=== PATIENT | male | born 1930 | race Caucasian/White ===

== ENCOUNTER 2018-10-27 11:45 | Inpatient (IN) | payer MEDICARE ==
[~2018-10-27] VITALS: Ht 177.8 cm; Wt 69.5 kg
[~2018-10-27 11:45] MED LIST: ACETAMINOPHEN650 MG PO; ALBUTEROL0.63 MG/3 INH; AMBIEN5 MG PO; ASPIR 8181 MG PO; ATORVASTATIN CA10 MG PO; BENZONATATE100 MG PO; CEFEPIME-D1 GM/50 ML IVP; CLONIDINE HCL0.1 MG PO; COLACE100 MG PO; DEXTROSE 50%-WA50 ML IV; DIVALPROEX SOD250 MG PO; FERROUS SULFAT325 M1; FERROUS SULFAT325 MG PO; FOLIC ACID1 MG PO; HALDOL5 MG/1 ML IM; HYDROCORTISONE30 GM TOP; HYDROMORPHO1 MG/1 ML IV; IPRATROPIU0.2 MG/1 M INH; LISINOPRIL10 MG PO; LOVENOX60 MG/0.6 SC; LYRICA75 MG PO; METOPROLOL TART50 MG PO; MUCINEX DM ER1 EACH PO; MULTI-VITAMIN1 EACH PO; NAMENDA10 MG PO; NIFEDICAL XL30 MG PO; NORCO 5-325 TA1 EACH PO; NOVOLOG100 UNIT/1; NYSTATIN15 G2 TP; ONDANSETRON2 MG/1 ML IV; PANTOPRAZOLE SO40 MG IV; PHENOL PO; QUETIAPINE FUMA25 MG PO; SENNA LAX8.6 MG PO; SODIUM BICARBO650 MG PO; VANCOMYCIN1 GM/250 M IV
--- OUTSIDE RECORDS SUMMARY | 2018-10-27 11:51 | XMS REPORT | Continuity of Care Document ---
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 Active 12/25/2013 [facility] ABNORMAL LABS Active 12/07/2013 [facility] 723.4=ACUTE CERVICAL RADICULOPATHY Active 12/05/2013 [facility] SYMPTOMATIC ANEMIA, GI BLEED Active 11/12/[address] [facility] [address] SENT Active 11/12/2013 [facility] 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 10/03/2013 [facility] UTI,RENAL INSUFFICIENCY,URIMARY RETENTIO Active 06/11/2012 [facility] URINARY SYMPTOMS Active 06/11/2012 [facility] Heart disease Active 04/19/2010 Problem 08/23/2016 [facility] Poor peripheral circulation Active 04/19/2010 Problem 08/23/2016 [facility] Heart disease Resolved 04/19/2010 Problem 06/16/2012 [facility] Poor peripheral circulation Resolved 04/19/2010 Problem 06/16/2012 [facility] TIA Active 04/19/2008 Problem 08/23/2016 [facility] TIA Resolved 04/19/2008 Problem 06/16/2012 [facility] Back pain Active 04/19/2005 Problem 08/23/2016 [facility] Back pain Resolved 04/19/2005 Problem 06/16/2012 [facility] Heartburn Active 04/19/2002 Problem 08/23/2016 [facility] Heartburn Resolved 04/19/2002 Problem 06/16/2012 [facility] CA - Cancer of prostate Active 04/19/1998 Problem 08/23/2016 [facility] RF - Renal failure Active 04/19/1998 Problem 08/23/2016 [facility] UTI - Urinary tract infection Active 04/19/1998 Problem 08/23/2016 [facility] CA - Cancer of prostate Resolved 04/19/1998 Problem 06/16/2012 [facility] RF - Renal failure Resolved 04/19/1998 Problem 06/16/2012 [facility] UTI - Urinary tract infection Resolved 04/19/1998 Problem 06/16/2012 [facility] Hypertension Active 12/18/1990 Problem 08/23/2016 [facility] Hypertension Resolved 12/18/1990 Problem 06/16/2012 [facility] BPH - Benign prostatic hypertrophy Active 04/19/1982 Problem 08/23/2016 [facility] BPH - Benign prostatic hypertrophy Resolved 04/19/1982 Problem 06/16/2012 [facility] Cataract Active 04/19/1975 Problem 08/23/2016 [facility] Hyperlipidemia Active 04/19/1975 Problem 08/23/2016 [facility] Cataract Resolved 04/19/1975 Problem 06/16/2012 [facility] Hyperlipidemia Resolved 04/19/1975 Problem 06/16/2012 [facility] Anemia Active 04/19/1972 Problem 08/23/2016 [facility] Diabetes mellitus - adult onset Resolved 04/19/1972 Problem 08/23/2016 [facility] Anemia Resolved 04/19/1972 Problem 06/16/2012 [facility] Diabetes mellitus - adult onset Resolved 04/19/1972 Problem 06/16/2012 [facility] Neck pain Active 04/19/1971 Problem 08/23/2016 [facility] Neck pain Resolved 04/19/1971 Problem 06/16/2012 [facility] Sinusitis Resolved 05/16/1932 Problem 08/23/2016 [facility] Sinusitis Resolved 05/16/1932 Problem 06/16/2012 [facility] Bladder cancer Active Problem 08/23/2016 [facility] Diabetes Active Problem 08/23/2016 [facility] Hypercholesteremia Active Problem 08/23/2016 [facility] URIN TRACT INFECTION NOS Active [facility] TRANS CEREB ISCHEMIA NOS Active [facility] GASTROINTEST HEMORR NOS Active [facility] BRACHIAL NEURITIS NOS Active [facility] SEPTICEMIA NOS Active [facility] SHORTNESS OF BREATH Active [facility] Medications Medication Details Route Status Patient Instructions Ordering Provider Order Date Source Fentanyl 50 microgram, Route: IV, Q2H, Dosing Weight 80.909, kg, PRN Pain Score 4-6, Start date: 08/20/16 9:29:00 CDT, Stop date: 09/19/16 9:28:00 CDT Inactive 08/20/2016 [facility] Nitroglycerin 0.4 mg, Route: SL, Drug form: TAB, Q5Min, Dosing Weight 80.909, kg, PRN Chest Pain, Start date: 08/20/16 9:13:00 CDT, Duration: 3 doses or times, Stop date: Limited # of times Inactive 08/20/2016 [facility] Sodium Chloride 0.154 MEQ/ML Injectable Solution 750 mL, Rate: 75 ml/hr, Infuse over: 10 hr, Route: IV, Dosing Weight 80.909 kg, Total Volume: 750, Start date: 08/20/16 9:13:00 CDT, Duration: 10 hr, Stop date: 08/20/16 19:12:00 CDT Inactive 08/20/2016 [facility] Morphine 4 mg, 1 mL, Route: IVP, Drug form: SOLN, Q2H, Dosing Weight 80.909, kg, PRN Other -See Comment, Start date: 08/20/16 8:22:00 CDT, Duration: 30 day, Stop date: 09/19/16 8:21:00 CDTNotes: (Same as:MORPhine Sulfate) Inactive 08/20/2016 [facility] ferrous fumarate 325 mg oral tablet 325 mg=1 tab, PO, BID, with meals, 0 Refill(s) Active 08/20/2016 [facility] multivitamin 1 tab, PO, Daily, 0 Refill(s) Active 08/20/2016 [facility] atorvastatin 10 mg oral tablet 10 mg=1 tab, PO, Bedtime, # 30 tab, 0 Refill(s) Active 08/20/2016 [facility] Vancomycin 1 gm, IVP, Q48H, 0 Refill(s) Active 08/20/2016 [facility] Insulin, Aspart, Human SUB-Q, TID-Before Meals, 0 Refill(s) Active 08/20/2016 [facility] Hydromorphone 0.5 mg, IVP, Q3H, prn, 0 Refill(s) Active 08/20/2016 [facility] cefepime 1 g injection 1 gm, IV, Q8H, 0 Refill(s) Active 08/20/2016 [facility] Docusate Sodium 100 MG Oral Capsule 100 mg=1 cap, PO, Daily, PRN Constipation, # 20 cap, 0 Refill(s) Active 08/20/2016 [facility] Divalproex Sodium 125 MG Enteric Coated Tablet 125 mg=1 tab, PO, Q12H, 0 Refill(s) Active 08/20/2016 [facility] metoprolol tartrate 50 mg oral tablet 50 mg=1 tab, PO, BID, # 180 tab, 0 Refill(s) Active 08/20/2016 [facility] quetiapine 25 MG Oral Tablet [Seroquel] 25 mg=1 tab, PO, Q8H, prn, 0 Refill(s) Active 08/20/2016 [facility] Magnesium Sulfate 2 gm, IV, ONCE, 0 Refill(s) Active 08/20/2016 [facility] 0.3 ML Enoxaparin sodium 100 MG/ML Prefilled Syringe [Lovenox] 30 mg, SUB-Q, Daily, 0 Refill(s) Active 08/20/2016 [facility] 24 HR Nifedipine 30 MG Extended Release Tablet [Nifedical] 30 mg=1 tab, PO, Daily, # 30 tab, 0 Refill(s) Active 08/20/2016 [facility] memantine 5 mg oral tablet 5 mg=1 tab, PO, Daily, # 30 tab, 0 Refill(s) Active 08/20/2016 [facility] Acetaminophen 325 MG / Hydrocodone Bitartrate 5 MG Oral Tablet 1 tab, PO, Q4H, PRN Pain, # 30 tab, 0 Refill(s) Active 08/20/2016 [facility] Senna 8.6 mg oral tablet 8.6 mg=1 tab, PO, Daily, 0 Refill(s) Active 08/20/2016 [facility] Albuterol 0.833 MG/ML / Ipratropium Ackerly 0.167 MG/ML Inhalant Solution 3 mL, NEB, Q4H, prn, 0 Refill(s) Active 08/20/2016 [facility] pantoprazole 40 mg oral enteric coated tablet See Instructions, 40mg IVP Daily, 0 Refill(s) Inactive 08/20/2016 [facility] dexamethasone + Sodium Chloride 0.9% IV 50 mL 10 mg, 2.5 mL, Route: IVPB, Drug form: INJ, ONCALL, Start date: 03/13/14 9:00:00, Duration: 12 hr, Stop date: 03/13/14 20:59:00Notes: Concentration: 4mg/ml PROTECT FROM LIGHT No Longer Active 03/13/2014 [facility] DexFerrum + Sodium Chloride 0.9% IV 500 mL 800 mg, 16 mL, Route: IVPB, Drug form: INJ, ONCALL, Start date: 03/13/14 9:00:00, Duration: 12 hr, Stop date: 03/13/14 20:59:00Notes: (Same as:DexFerrum) Non-Formulary pt already received test dose at prior appointment PROTECT FROM LIGHT No Longer Active 03/13/2014 [facility] Sodium Chloride 0.9% IV IV, 30 ml/hr, ONCALL, Start date: 03/13/14 9:00:00, Duration: 12, 250 ml No Longer Active 03/13/2014 [facility] Pepcid 20 mg, 2 mL, Route: IVP, Drug form: INJ, ONCALL, Start date: 03/13/14 9:00:00, Duration: 12 hr, Stop date: 03/13/14 20:59:00Notes: (Same as: Pepcid) Can be dilute in 5-10cc NS IVP: Slow IV push over at least 2 minutes. No Longer Active 03/13/2014 [facility] Benadryl 25 mg, 0.5 mL, Route: IVP, Drug form: INJ, ONCALL, Start date: 03/13/14 9:00:00, Duration: 12 hr, Stop date: 03/13/14 20:59:00Notes: (Same as: Benadryl) No Longer Active 03/13/2014 [facility] Benadryl 25 mg, 0.5 mL, Route: IVP, Drug form: INJ, ONCALL, Start date: 03/07/14 8:30:00, Duration: 1 day, Stop date: 03/08/14 8:29:00Notes: (Same as: Benadryl) Inactive 03/07/2014 [facility] DexFerrum + Sodium Chloride 0.9% IV 500 mL 775 mg, 15.5 mL, Route: IVPB, Drug form: INJ, ONCALL, Start date: 03/07/14 8:30:00, Duration: 1 day, Stop date: 03/08/14 8:29:00Notes: (Same as:DexFerrum) Non- Formulary Inactive 03/07/2014 [facility] Sodium Chloride 0.9% IV IV, 30 ml/hr, ONCALL, Start date: 03/07/14 8:30:00, Duration: 1, 250 ml Inactive 03/07/2014 [facility] Pepcid 20 mg, 2 mL, Route: IVP, Drug form: INJ, ONCALL, Start date: 03/07/14 8:30:00, Duration: 1 day, Stop date: 03/08/14 8:29:00Notes: (Same as: Pepcid) Can be dilute in 5-10cc NS IVP: Slow IV push over at least 2 minutes. Inactive 03/07/2014 [facility] dexamethasone + Sodium Chloride 0.9% IV 50 mL 10 mg, 2.5 mL, Route: IVPB, Drug form: INJ, ONCALL, Start date: 03/07/14 8:30:00, Duration: 1 day, Stop date: 03/08/14 8:29:00Notes: Concentration: 4mg/ml Inactive 03/07/2014 [facility] DexFerrum + Sodium Chloride 0.9% IV 50 mL 25 mg, 0.5 mL, Route: IVPB, Drug form: INJ, ONCALL, Start date: 03/07/14 8:30:00, Duration: 1 day, Stop date: 03/08/14 8:29:00Notes: (Same as:DexFerrum) Non-Formulary Inactive 03/07/2014 [facility] Aspirin 81 MG Enteric Coated Tablet 81 mg=1 tab, PO, Daily, # 100 tab, 0 Refill(s) Active 12/28/2013 [facility] Amoxicillin 875 MG / Clavulanate 125 MG Oral Tablet [Augmentin 875-mg] 875 mg=1 tab, PO, Q12H, # 14 tab, 0 Refill(s) Active 12/28/2013 [facility] Rocephin 1 gm, Route: IM, Drug form: PDR/INJ, Q12H, Dosing Weight 81.2, kg, Start date: 12/27/13 21:00:00, Duration: 30 day, Stop date: 01/26/14 9:00:00Notes: (Same As: Rocephin). No Longer Active 12/28/2013 [facility] Enoxaparin 40 mg, 0.4 mL, Route: SUB-Q, Drug form: INJ, [id number], Dosing Weight 83.636, kg, Start date: 12/27/13 10:00:00, Duration: 30 day, Stop date: 01/25/14 10:00:00Notes: (Same as: Lovenox) No Longer Active 12/27/2013 [facility] Warfarin 5 mg, 1 tab, Route: PO, Drug form: TAB, QAM, Dosing Weight 81.2, kg, Start date: 12/27/13 9:00:00, Duration: 30 day, Stop date: 01/25/14 9:00:00Notes: Nurse to ensure documentation of patient education per anticoagulation policy. Avoid large intake of vitamin-K containing foods diet. (Same As: Coumadin) Inactive 12/27/2013 [facility] Omeprazole 40 mg, Route: PO, Drug form: DRC, Daily, Dosing Weight 81.2, kg, Start date: 12/27/13 9:00:00, Duration: 30 day, Stop date: 01/25/14 9:00:00 No Longer Active 12/27/2013 [facility] metoprolol tartrate 25 mg, 1 tab, Route: PO, Drug form: TAB, QAM, Dosing Weight 81.2, kg, Start date: 12/27/13 9:00:00, Duration: 30 day, Stop date: 01/25/14 9:00:00Notes: (Same as: Lopressor) No Longer Active 12/27/2013 [facility] Lisinopril 10 mg, Route: PO, Drug form: TAB, QAM, Dosing Weight 81.2, kg, Start date: 12/27/13 9:00:00, Duration: 30 day, Stop date: 01/25/14 9:00:00 No Longer Active 12/27/2013 [facility] Folic Acid 1 mg, 1 tab, Route: PO, Drug form: TAB, QAM, Dosing Weight 81.2, kg, Start date: 12/27/13 9:00:00, Duration: 30 day, Stop date: 01/25/14 9:00:00Notes: (Same as: Folvite) No Longer Active 12/27/2013 [facility] Celexa 40 mg, 2 tab, Route: PO, Drug form: TAB, Daily, Dosing Weight 81.2, kg, Start date: 12/27/13 9:00:00, Duration: 30 day, Stop date: 01/25/14 9:00:00Notes: (Same As: CeleXA) No Longer Active 12/27/2013 [facility] Aspirin 325 MG Enteric Coated Tablet 325 mg, 1 tab, Route: PO, Drug form: ECTAB, Daily, Dosing Weight 81.2, kg, Start date: 12/27/13 9:00:00, Duration: 30 day, Stop date: 01/25/14 9:00:00 No Longer Active 12/27/2013 [facility] Aspirin 81 MG Enteric Coated Tablet 81 mg, 1 tab, Route: PO, Drug form: ECTAB, Daily, Dosing Weight 81.2, kg, Start date: 12/27/13 9:00:00, Duration: 30 day, Stop date: 01/25/14 9:00:00Notes: Do not crush or chew. (Same As: Ecotrin) No Longer Active 12/27/2013 [facility] clopidogrel 75 mg, 1 tab, Route: PO, Drug form: TAB, Bedtime, Dosing Weight 81.2, kg, Start date: 12/26/13 21:00:00, Duration: 30 day, Stop date: 01/24/14 21:00:00Notes: (Same As: Plavix) No Longer Active 12/27/2013 [facility] Protonix 40 mg, 1 tab, Route: PO, Drug form: ECTAB, Before Dinner, Start date: 12/26/13 16:30:00, Duration: 30 day, Stop date: 01/24/14 16:30:00Notes: Tablet should not be chewed or crushed. (Same as: Protonix) No Longer Active 12/26/2013 [facility] Lyrica 150 mg, 2 cap, Route: PO, Drug form: CAP, TID, Dosing Weight 81.2, kg, Start date: 12/26/13 13:00:00, Duration: 30 day, Stop date: 01/25/14 9:00:00Notes: (Same as: Lyrica) No Longer Active 12/26/2013 [facility] Enoxaparin 80 mg, 0.8 mL, Route: SUB-Q, Drug form: INJ, [id number], Dosing Weight 83.636, kg, Start date: 12/26/13 10:00:00, Duration: 30 day, Stop date: 01/24/14 10:00:00Notes: Nurse to ensure documentation of patient education per anticoagulation policy. (Same as: Lovenox) No Longer Active 12/26/2013 [facility] Lasix 20 mg, 2 mL, Route: IVP, Drug form: INJ, ONCE, Dosing Weight 81.2, kg, Priority: STAT, Start date: 12/26/13 9:36:00, Stop date: 12/26/13 9:36:00Notes: (Same as: Lasix) Inactive 12/26/2013 [facility] Insulin, Aspart, Human 6 unit, 0.06 mL, Route: SUB-Q, Drug form: SOLN, TID-Before Meals, Dosing Weight 81.2, kg, PRN Blood Glucose Results, Start date: 12/26/13 9:35:00, Duration: 30 day, Stop date: 01/25/14 9:34:00Notes: Roll in palms of hands gently; Do not shake vigorously. (Same as: NovoLOG) "single patient use only" Stable for 28 days at room temperature. Expires in days from Date No Longer Active 12/26/2013 [facility] Dextrose 50% Syringe 25 gm, 50 mL, Route: IVP, Drug Form: INJ, Dosing Weight 81.2, kg, PRN, PRN Blood Glucose Results, Start date: 12/26/13 9:35:00, Duration: 30 day, Stop date: 01/25/14 9:34:00 No Longer Active 12/26/2013 [facility] Glucagon 1 mg, Route: IM, Drug form: PDR/INJ, PRN, Dosing Weight 81.2, kg, PRN Blood Glucose Results, Start date: 12/26/13 9:35:00, Duration: 30 day, Stop date: 01/25/14 9:34:00 No Longer Active 12/26/2013 [facility] 1/2 NS 1,000 mL 1,000 mL, Rate: 75 ml/hr, Infuse over: 13.3 hr, Route: IV, Dosing Weight 81.2 kg, Total Volume: 1,000, Start date: 12/26/13 9:34:00, Duration: 1 day, Stop date: 12/27/13 9:33:00 No Longer Active 12/26/2013 [facility] D5W 1/2NS 1,000 mL 1,000 mL, Rate: 75 ml/hr, Infuse over: 13.3 hr, Route: IV, Dosing Weight 81.2 kg, Total Volume: 1,000, Start date: 12/26/13 9:24:00, Duration: 30 day, Stop date: 01/25/14 9:23:00 Inactive 12/26/2013 [facility] Ambien 10 mg, 1 tab, Route: PO, Drug form: TAB, Bedtime, Dosing Weight 81.2, kg, PRN as needed for sleep, Start date: 12/26/13 9:23:00, Duration: 30 day, Stop date: 01/25/14 9:22:00Notes: (Same As: Ambien) No Longer Active 12/26/2013 [facility] Enoxaparin 30 mg, 0.3 mL, Route: SUB-Q, Drug form: INJ, [id number], Dosing Weight 83.636, kg, Start date: 12/25/13 19:00:00, Duration: 30 day, Stop date: 01/23/14 19:00:00Notes: (Same as: Lovenox) No Longer Active 12/26/2013 [facility] warfarin 5 mg oral tablet 5 mg=1 tab, PO, QAM No Longer Active 12/26/2013 [facility] omeprazole 40 mg oral delayed release capsule 40 mg=1 cap, PO, Daily Active 12/25/2013 [facility] clopidogrel 75 mg oral tablet 75 mg=1 tab, PO, Bedtime Active 12/25/2013 [facility] Aspirin 325 MG Enteric Coated Tablet 325 mg=1 tab, PO, Daily No Longer Active 12/25/2013 [facility] NS 1,000 mL 1,000 mL, Rate: 100 ml/hr, Infuse over: 10 hr, Route: IV, Dosing Weight 83.636 kg, Total Volume: 1,000, Start date: 12/25/13 18:53:00, Duration: 30 day, Stop date: 01/24/14 18:52:00 No Longer Active 12/25/2013 [facility] Kayexalate 60 gm, 240 mL, Route: PO, Drug form: SUSP, ONCE, Dosing Weight 83.636, kg, Priority: STAT, Start date: 12/25/13 18:40:00, Stop date: 12/25/13 18:40:00Notes: (sodium polystyrene sulfonate 15 gm/60 ml MINO) Shake well before use. (Same as: Kayexalate, SPS) Inactive 12/25/2013 [facility] Azithromycin 500 mg, 250 mL, Route: IVPB, Drug form: PDR/INJ, [id number], Dosing Weight 83.636, kg, Priority: STAT, Start date: 12/25/13 18:38:00, Duration: 30 day, Stop date: 01/23/14 17:00:00Notes: Same as: Zithro max No Longer Active 12/25/2013 [facility] cefepime 1 gm, Route: IVPB, Drug form: INJ, [id number], Dosing Weight 83.636, kg, Priority: STAT, Start date: 12/25/13 18:38:00, Duration: 30 day, Stop date: 01/24/14 6:00:00Notes: (Same As: Maxipime) No Longer Active 12/25/2013 [facility] Acetaminophen 650 mg, 20.3 mL, Route: PO, Drug form: LIQ, Q4H, Dosing Weight 83.636, kg, PRN Pain 1-3/Temp > 100.4 F, Start date: 12/25/13 18:38:00, Duration: 30 day, Stop date: 01/24/14 18:37:00Notes: Max sanya [id number]/day (4 gm/day). (Same as: Tylenol) No Longer Active 12/25/2013 [facility] Acetaminophen 325 MG / Hydrocodone Bitartrate 5 MG Oral Tablet 1 tab, Route: PO, Drug Form: TAB, Dosing Weight 83.636, kg, Q4H, PRN Pain Score 1-3, Start date: 12/25/13 18:38:00, Duration: 30 day, Stop date: 01/24/14 18:37:00Notes: (Same as: [place] 325/5) Do not exceed 4gm/day of acetaminophen. No Longer Active 12/25/2013 [facility] Ondansetron 4 mg, 2 mL, Route: IVP, Drug form: INJ, Q8H, Dosing Weight 83.636, kg, PRN Nausea & Vomiting, Start date: 12/25/13 18:38:00, Duration: 30 day, Stop date: 01/24/14 18:37:00Notes: (Same as: Zofran) No Longer Active 12/25/2013 [facility] Morphine 2 mg, 1 mL, Route: IVP, Drug form: INJ, Q3H, Dosing Weight 83.636, kg, PRN Pain Score 4-6, Start date: 12/25/13 18:38:00, Duration: 30 day, Stop date: 01/24/14 18:37:00Notes: (Same as:MORPhine Sulfate) No Longer Active 12/25/2013 [facility] Sodium Chloride 0.154 MEQ/ML Injectable Solution 1,000 mL, 1,000 ml/hr, Infuse Over: 1 hr, Route: IV, ONCE, Priority: STAT, Dosing Weight 83.636 kg, Start date: 12/25/13 18:11:00, Duration: 1 doses or times, Stop date: 12/25/13 18:11:00 Inactive 12/25/2013 [facility] Sodium Bicarbonate 1 MEQ/ML Injectable Solution 50 ml, Route: IVP, Dosing Weight 83.636, kg, ONCE, Start date: 12/25/13 18:09:00, Stop date: 12/25/13 18:09:00 Inactive 12/25/2013 [facility] Calcium Gluconate 2,000 mg, 20 mL, Route: IVPB, ONCE, Dosing Weight 83.636, kg, Start date: 12/25/13 18:05:00, Stop date: 12/25/13 18:05:00 Inactive 12/25/2013 [facility] Dextrose 50% Syringe 25 gm, Route: IVP, Dosing Weight 83.636, kg, ONCE, Start date: 12/25/13 18:05:00, Stop date: 12/25/13 18:05:00 Inactive 12/25/2013 [facility] Insulin, Regular, Pork 5 unit, Route: IV, ONCE, Dosing Weight 83.636, kg, Start date: 12/25/13 18:04:00, Stop date: 12/25/13 18:04:00 Inactive 12/25/2013 [facility] Tylenol 975 mg, Route: PO, Drug form: TAB, ONCE, Dosing Weight 83.636, kg, Priority: STAT, Start date: 12/25/13 15:41:00, Stop date: 12/25/13 15:41:00 Inactive 12/25/2013 [facility] Azithromycin 500 mg, Route: IVPB, ONCE, Dosing Weight 83.636, kg, Priority: STAT, Start date: 12/25/13 15:40:00, Stop date: 12/25/13 15:40:00 Inactive 12/25/2013 [facility] Rocephin 1 gm, Route: IVPB, Drug form: PDR/INJ, ONCE, Dosing Weight 83.636, kg, Priority: STAT, Start date: 12/25/13 15:40:00, Stop date: 12/25/13 15:40:00 Inactive 12/25/2013 [facility] Sodium Chloride 0.9% IV IV, 30 ml/hr, ONCALL, Start date: 11/17/13 21:00:00, Duration: 1, 250 ml No Longer Active 11/18/2013 [facility] Sodium Chloride 0.9% IV IV, 30 ml/hr, ONCALL, Start date: 11/17/13 19:00:00, Duration: 1, 250 ml Inactive 11/18/2013 [facility] Protonix 40 mg, 1 tab, Route: PO, Drug form: ECTAB, Daily, Start date: 11/16/13 9:00:00, Duration: 30 day, Stop date: 12/15/13 9:00:00Notes: Tablet should not be chewed or crushed. (Same as: Protonix) No Longer Active 11/16/2013 [facility] Plavix 75 mg, 1 tab, Route: PO, Drug form: TAB, QPM, Dosing Weight 78.636, kg, Start date: 11/14/13 17:00:00, Duration: 30 day, Stop date: 12/13/13 17:00:00Notes: (Same As: Plavix) No Longer Active 11/14/2013 [facility] Sodium Chloride 0.154 MEQ/ML Injectable Solution 1,000 mL, Rate: 25 ml/hr, Infuse over: 40 hr, Route: IV, Dosing Weight 78.636 kg, Total Volume: 1,000, Start date: 11/14/13 15:27:00, Duration: 30 day, Stop date: 12/14/13 15:26:00 Inactive 11/14/2013 [facility] Omeprazole 20 mg, Route: PO, Drug form: ECTAB, QAM, Dosing Weight 78.636, kg, Start date: 11/14/13 9:00:00, Duration: 30 day, Stop date: 12/13/13 9:00:00 No Longer Active 11/14/2013 [facility] metoprolol tartrate 25 mg, 1 tab, Route: PO, Drug form: TAB, QAM, Dosing Weight 78.636, kg, Start date: 11/14/13 9:00:00, Duration: 30 day, Stop date: 12/13/13 9:00:00Notes: (Same as: Lopressor) No Longer Active 11/14/2013 [facility] Folic Acid 1 mg, 1 tab, Route: PO, Drug form: TAB, QAM, Dosing Weight 78.636, kg, Start date: 11/14/13 9:00:00, Duration: 30 day, Stop date: 12/13/13 9:00:00Notes: (Same as: Folvite) No Longer Active 11/14/2013 [facility] Celexa 40 mg, 2 tab, Route: PO, Drug form: TAB, Daily, Dosing Weight 78.636, kg, Start date: 11/14/13 9:00:00, Duration: 30 day, Stop date: 12/13/13 9:00:00Notes: (Same As: CeleXA) No Longer Active 11/14/2013 [facility] benzocaine-menthol topical 1 lozenge, Route: MUCOUS MEM, Drug Form: DAWN, Q2H, PRN Sore Throat, Start date: 11/13/13 20:41:00, Stop date: 12/13/13 20:40:00Notes: Same as: Cepacol No Longer Active [facility]14/[facility] [facility] Cepacol Lozenge 1 lozenge, Route: MUCOUS MEM, Q2H, Drug form: DAWN, PRN Sore Throat, Start date: 11/13/13 20:27:00, Duration: 30 day, Stop date: 12/13/13 20:26:00 Inactive 11/14/2013 [facility] Lisinopril 10 mg, 1 tab, Route: PO, Drug form: TAB, QAM, Dosing Weight 78.636, kg, Start date: 11/13/13 19:00:00, Duration: 30 day, Stop date: 12/13/13 9:00:00Notes: (Same as: Prinivil, Zestril) No Longer Active 11/14/2013 [facility] Ascorbic Acid / POLYETHYLENE GLYCOL 3350 / Potassium Chloride / Sodium Ascorbate / Sodium Chloride / sodium sulfate 4,000 mL, Route: PO, Drug Form: PDR/REC, Dosing Weight 78.636, kg, ONCE, Start date: 11/13/13 17:15:00, Duration: 1 doses or times, Stop date: 11/13/13 17:15:00Notes: (polyethylene glycol electrolyte solution 4 Liter bottle) (Same as: Golytely, Colyte) Inactive 11/13/2013 [facility] Lyrica 150 mg, 2 cap, Route: PO, Drug form: CAP, TID, Dosing Weight 78.636, kg, Start date: 11/13/13 17:00:00, Duration: 30 day, Stop date: 12/13/13 13:00:00Notes: (Same as: Lyrica) No Longer Active 11/13/2013 [facility] Metformin hydrochloride 1000 MG Oral Tablet 1,000 mg, 2 tab, Route: PO, Drug form: TAB, BID, Dosing Weight 78.636, kg, Start date: 11/13/13 17:00:00, Duration: 30 day, Stop date: 12/13/13 9:00:00Notes: (Same as: Glucophage) Take with meal No Longer Active 11/13/2013 [facility] Sodium Chloride 0.154 MEQ/ML Injectable Solution 1,000 mL, Rate: 25 ml/hr, Infuse over: 40 hr, Route: IV, Dosing Weight 78.636 kg, Total Volume: 1,000, Start date: 11/13/13 16:12:00, Duration: 30 day, Stop date: 12/13/13 16:11:00 Inactive 11/13/2013 [facility] Restoril 15 mg, 1 cap, Route: PO, Drug form: CAP, Bedtime, PRN Sleep, Start date: 11/13/13 16:07:00, Duration: 30 day, Stop date: 12/13/13 16:06:00Notes: (Same As: Restoril) No Longer Active 11/13/2013 [facility] Furosemide 40 MG Oral Tablet [Lasix] 40 mg, 1 tab, Route: PO, Drug form: TAB, Q4D, Dosing Weight 78.636, kg, Start date: 11/13/13 16:00:00, Duration: 30 day, Stop date: 12/11/13 9:00:00Notes: (Same as: Lasix) May cause GI upset. Give with food or milk. No Longer Active 11/13/2013 [facility] Ambien 10 mg, Route: PO, Drug form: TAB, Bedtime, Dosing Weight 78.636, kg, PRN as needed for sleep, Start date: 11/13/13 15:55:00, Duration: 30 day, Stop date: 12/13/13 15:54:00 Inactive 11/13/2013 [facility] Acetaminophen 325 MG / Hydrocodone Bitartrate 10 MG Oral Tablet [[place] 10/325] 1 tab, Route: PO, Drug Form: TAB, Dosing Weight 78.636, kg, Bedtime, PRN Pain Score 4-6, Start date: 11/13/13 15:54:00, Duration: 30 day, Stop date: 12/13/13 15:53:00Notes: Do not exceed 4gm/day of acetaminophen. (Same as: [place] 325/10) No Longer Active 11/13/2013 [facility] Aspirin / Calcium Carbonate 325 mg, PO, QPM, 0 Refill(s) No Longer Active 11/13/2013 [facility] Sodium Chloride 0.9% IV IV, 30 ml/hr, PRN, PRN Other -See Comment, Start date: 11/13/13 10:19:00, Duration: 1, 250 ml No Longer Active 11/13/2013 [facility] PHOS-NaK oral powder for reconstitution 1 pkt, Route: PO, Drug Form: PDR/REC, Dosing Weight 78.636, kg, QID, Start date: 11/13/13 9:00:00, Duration: 2 day, Stop date: 11/14/13 21:00:00Notes: (Same as: Neutra- Phos) Each 1.25 gm pkt has 250mg phosphorous. Mix w/2.5oz water and stir. No Longer Active 11/13/2013 [facility] pantoprazole 40 mg, Route: IVP, Drug form: INJ, Daily, Dosing Weight 78.636, kg, Priority: Routine, Start date: 11/13/13 9:00:00, Duration: 30 day, Stop date: 12/12/13 9:00:00Notes: For IV push reconstitute with 10 ml 0.9% sodium chloride and push over 2 minutes. (Same as: Protonix) No Longer Active 11/13/2013 [facility] Magnesium Sulfate 4 gm, 100 mL, Route: IV, Drug form: INJ, ONCE, Dosing Weight 78.636, kg, Priority: Routine, Start date: 11/13/13 7:03:00, Stop date: 11/13/13 7:03:00 Inactive 11/13/2013 [facility] Atropine 0.5 mg, 5 mL, Route: IVP, Drug form: INJ, PRN, Dosing Weight 78.636, kg, PRN Bradycardia, Start date: 11/12/13 23:32:00, Duration: 30 day, Stop date: 12/12/13 23:31:00, HR No Longer Active 11/13/2013 [facility] Nitroglycerin 0.4 mg, 1 tab, Route: SL, Drug form: TAB, Q5Min, Dosing Weight 78.636, kg, PRN Chest Pain, Start date: 11/12/13 23:32:00, Duration: 30 day, Stop date: 12/12/13 23:31:00, Chest Pain [id number]: (Same as:Gorge Annatat) "Do Not Crush" Sublingual tablet No Longer Active 11/13/2013 [facility] Sodium Chloride 0.154 MEQ/ML Injectable Solution 250 mL, Rate: 30 ml/hr, Infuse over: 8.3 hr, Route: IV, Dosing Weight 78.636 kg, Total Volume: 250, Start date: 11/12/13 22:33:00, Duration: 1 day, Stop date: 11/13/13 22:32:00 No Longer Active 11/13/2013 [facility] Acetaminophen 650 mg, 20.3 mL, Route: PO, Drug form: LIQ, Q4H, Dosing Weight 78.636, kg, PRN Pain 1-3/Temp > 100.4 F, Start date: 11/12/13 22:03:00, Duration: 30 day, Stop date: 12/12/13 22:02:00Notes: Max sanya [id number]=4428ps/day (4 gm/day). (Same as: Tylenol) No Longer Active 11/13/2013 [facility] Morphine 2 mg, 1 mL, Route: IVP, Drug form: INJ, Q3H, Dosing Weight 78.636, kg, PRN Pain Score 4-6, Start date: 11/12/13 22:03:00, Duration: 30 day, Stop date: 12/12/13 22:02:00Notes: (Same as:MORPhine Sulfate) No Longer Active 11/13/2013 [facility] Docusate 100 mg, 1 cap, Route: PO, Drug form: CAP, BID, Dosing Weight 78.636, kg, PRN Constipation, Start date: 11/12/13 22:03:00, Duration: 30 day, Stop date: 12/12/13 22:02:00Notes: (Same as: Colace) (Do Not Crush) No Longer Active 11/13/2013 [facility] Ondansetron 4 mg, 2 mL, Route: IVP, Drug form: INJ, Q8H, Dosing Weight 78.636, kg, PRN Nausea & Vomiting, Start date: 11/12/13 22:03:00, Duration: 30 day, Stop date: 12/12/13 22:02:00Notes: (Same as: Zofran) No Longer Active 11/13/2013 [facility] Morphine 2 mg, Route: IVP, ONCE, Dosing Weight 78.636, kg, Start date: 11/12/13 21:55:00, Stop date: 11/12/13 21:55:00 Inactive 11/13/2013 [facility] Potassium Chloride 10 MEQ Extended Release Tablet 10 mEq=1 tab, PO, Q4D, # 10 tab, 0 Refill(s) Active 11/13/2013 [facility] warfarin 2 mg oral tablet =7 mg, PO, Q, # 30 tab, 0 Refill(s) Active 11/13/2013 [facility] Furosemide 40 MG Oral Tablet [Lasix] 40 mg=1 tab, PO, Q4D, # 30 tab, 0 Refill(s) Active 11/13/2013 [facility] Metformin hydrochloride 1000 MG Oral Tablet 1,000 mg=1 tab, PO, BID, # 30 tab, 0 Refill(s) Active 11/13/2013 [facility] Aspirin 325 MG Enteric Coated Tablet 325 mg=1 tab, PO, QPM, # 60 tab, 0 Refill(s) No Longer Active 11/13/2013 [facility] warfarin 7.5 mg oral tablet 7.5 mg=1 tab, PO, Q-Tu and Th, # 30 tab, 0 Refill(s) Inactive 11/13/2013 [facility] pregabalin 150 MG Oral Capsule [Lyrica] 150 mg=1 cap, PO, TID, # 90 cap, 0 Refill(s) Active 11/13/2013 [facility] warfarin 5 mg oral tablet 5 mg=1 tab, PO, QAM, # 30 tab, 0 Refill(s) No Longer Active 11/13/2013 [facility] Zolpidem tartrate 10 MG Oral Tablet [Ambien] 10 mg=1 tab, PO, Bedtime, for sleep, 0 Refill(s) Active 11/13/2013 [facility] lisinopril 10 mg oral tablet 10 mg=1 tab, PO, QAM, # 30 tab, 0 Refill(s) Active 11/13/2013 [facility] Acetaminophen 325 MG / Hydrocodone Bitartrate 10 MG Oral Tablet [[place] 10/325] 1 tab, PO, Bedtime, for pain, # 24 tab, 0 Refill(s) Active 11/13/2013 [facility] Folic Acid 1 MG Oral Tablet 1 mg=1 tab, PO, QAM, # 30 tab, 0 Refill(s) Active 11/13/2013 [facility] clopidogrel 75 MG Oral Tablet [Plavix] 75 mg=1 tab, PO, QPM, # 30 tab, 0 Refill(s) No Longer Active 11/13/2013 [facility] Morphine 2 mg, 1 mL, Route: IVP, Drug form: INJ, ONCE, Dosing Weight 78.636, kg, Priority: STAT, Start date: 11/12/13 18:47:00, Stop date: 11/12/13 18:47:00Notes: (Same as:MORPhine Sulfate) Inactive 11/12/2013 [facility] Protonix 40 mg, 1 tab, Route: PO, Drug form: ECTAB, Before Dinner, Start date: 06/12/12 16:30:00, Duration: 30 day, Stop date: 07/11/12 16:30:00 PO No Longer Active Janay 06/12/2012 [facility] aspirin 81 mg tablet, enteric coated 81 mg, 1 tab, Route: PO, Drug form: ECTAB, Daily, Dosing Weight 83.182, kg, Start date: 06/12/12 9:00:00, Duration: 30 day, Stop date: 07/11/12 9:00:00 PO No Longer Active Carlos 06/12/2012 [facility] Flomax 0.4 mg, 1 cap, Route: PO, Drug form: CAP, Daily, Dosing Weight 83.182, kg, Start date: 06/12/12 9:00:00, Duration: 30 day, Stop date: 07/11/12 9:00:00 PO No Longer Active Carlos 06/12/2012 [facility] Lyrica 75 mg, 1 cap, Route: PO, Drug form: CAP, Daily, Dosing Weight 83.182, kg, Start date: 06/12/12 9:00:00, Duration: 30 day, Stop date: 07/11/12 9:00:00 PO No Longer Active Carlos 06/12/2012 [facility] phenazopyridine 200 mg, 1 tab, Route: PO, Drug form: TAB, BID, Dosing Weight 83.182, kg, Start date: 06/12/12 9:00:00, Duration: 30 day, Stop date: 07/11/12 17:00:00 PO No Longer Active Carlos 06/12/2012 [facility] omeprazole 20 mg, Route: PO, Drug form: ECTAB, Daily, Dosing Weight 83.182, kg, Start date: 06/12/12 9:00:00, Duration: 30 day, Stop date: 07/11/12 9:00:00 PO No Longer Active Carlos 06/12/2012 [facility] metoprolol tartrate 25 mg, 1 tab, Route: PO, Drug form: TAB, BID, Dosing Weight 83.182, kg, Start date: 06/12/12 9:00:00, Duration: 30 day, Stop date: 07/11/12 17:00:00 PO No Longer Active Carlos 06/12/2012 [facility] lisinopril 2.5 mg, 0.5 tab, Route: PO, Drug form: TAB, Daily, Dosing Weight 83.182, kg, Start date: 06/12/12 9:00:00, Duration: 30 day, Stop date: 07/11/12 9:00:00 PO No Longer Active [facility] 06/12/2012 [facility] Celexa 40 mg, 2 tab, Route: PO, Drug form: TAB, Daily, Dosing Weight 83.182, kg, Start date: 06/12/12 9:00:00, Duration: 30 day, Stop date: 07/11/12 9:00:00 PO No Longer Active [facility] 06/12/2012 [facility] enoxaparin 40 mg, 0.4 mL, Route: SUB-Q, Drug form: INJ, [id number], Dosing Weight 83.182, kg, Start date: 06/11/12 20:00:00, Duration: 30 day, Stop date: 07/10/12 20:00:00 SUB-Q No Longer Active [facility] 06/12/2012 [facility] acetaminophen-hydrocodone 325 mg-7.5 mg oral tablet 1 tab, Route: PO, Drug Form: TAB, Dosing Weight 83.182, kg, Q6H, PRN For Pain, Start date: 06/11/12 19:56:00, Duration: 30 day, Stop date: 07/11/12 19:55:00 PO No Longer Active [facility] 06/12/2012 [facility] cefepime + Sodium Chloride 0.9% IV 100 mL 1 gm, Route: IVPB, [id number], Dosing Weight 80.455, kg, Priority: STAT, Start date: 06/11/12 17:20:00, Duration: 30 day, Stop date: 07/10/12 18:00:00 IVPB No Longer Active [facility] 06/11/2012 [facility] Saline Flush 0.9% 5 ml, Route: IVP, Drug Form: INJ, Dosing Weight 80.455, kg, PRN, PRN Line Flush, Start date: 06/11/12 17:20:00, Duration: 30 day, Stop date: 07/11/12 17:19:00 IVP No Longer Active [facility] 06/11/2012 [facility] Sodium Chloride 0.9% IV 1,000 mL 1,000 mL, Rate: 90 ml/hr, Infuse over: 11.1 hr, Route: IV, kg, Total Volume: 1,000, Start date: 06/11/12 17:20:00, Duration: 30 day, Stop date: 07/11/12 17:19:00 IV No Longer Active [facility] 06/11/2012 [facility] ondansetron 4 mg, 2 mL, Route: IVP, Drug form: INJ, Q6H, Dosing Weight 80.455, kg, PRN Nausea & Vomiting, Start date: 06/11/12 17:20:00, Duration: 30 day, Stop date: 07/11/12 17:19:00 IVP No Longer Active [facility] 06/11/2012 [facility] morphine Sulfate 2 mg, 1 mL, Route: IVP, Drug form: INJ, Q3H, Dosing Weight 80.455, kg, PRN Pain Score 4-6, Start date: 06/11/12 17:20:00, Duration: 30 day, Stop date: 07/11/12 17:19:00 IVP No Longer Active [facility] 06/11/2012 [facility] acetaminophen-hydrocodone 325 mg-7.5 mg oral tablet 1 tab, PO, Q6H, PRN, as needed for pain, Substitution Allowed, Maintenance PO Active [facility] 06/11/2012 [facility] phenazopyridine 200 mg oral tablet 200 mg, 1 tab, PO, BID, Substitution Allowed PO Active [facility] 06/11/2012 [facility] aspirin 81 mg tablet, enteric coated 81 mg, 1 tab, PO, Daily, Substitution Allowed PO Active [facility] 06/11/2012 [facility] ciprofloxacin 500 mg oral tablet 500 mg, 1 tab, PO, Q12H, Substitution Allowed PO Active 06/11/2012 [facility] Sodium Chloride 0.9% (Bolus) IV 500 mL, 500 ml/hr, Route: IV, Drug Form: INJ, Dosing Weight 80.455, kg, ONCE, Bolus Dose - infuse over 1 hr, STAT, Start date: 06/11/12 15:59:00, Stop date: 06/11/12 15:59:00 IV No Longer Active [facility] 06/11/2012 [facility] ceftriaxone + Sodium Chloride 0.9% IV 100 mL 1 gm, Route: IVPB, ONCE, Dosing Weight 80.455, kg, Priority: STAT, Start date: 06/11/12 15:59:00, Stop date: 06/11/12 15:59:00 IVPB No Longer Active [facility] 06/11/2012 [facility] Sodium Chloride 0.9% (Bolus) IV 500 mL, Route: IV, Dosing Weight 80.455, kg, ONCE, Bolus at 1,000 ml/hr, STAT, Start date: 06/11/12 14:30:00, Stop date: 06/11/12 14:30:00 IV No Longer Active [facility] 06/11/2012 [facility] Saline Flush 0.9% 5 mL, Route: IVP, Drug Form: INJ, Dosing Weight 80.455, kg, PRN, PRN Line Flush, Start date: 06/11/12 14:30:00, Duration: 24 hr, Stop date: 06/12/12 14:29:00 IVP No Longer Active [facility] 06/11/2012 [facility] tetanus-diphtheria toxoids adult intramuscular suspension 0.5 mL, Route: IM, Drug Form: INJ, Dosing Weight 77.727, kg, ONCE, Start date: 04/19/12 22:06:00, Stop date: 04/19/12 22:06:00 IM No Longer Active Ahmad 04/20/2012 [facility] Allergies, Adverse Reactions, Alerts Substance Category Reaction Severity Reaction type Status Date Reported Comments Source Adhesive Tape Assertion Drug allergy Active [facility] Neurontin Assertion [place]^Mild Drug allergy Active [facility] Ambien Assertion Drug allergy Active [facility] Ativan Assertion Drug allergy Active [facility] Immunizations Immunization Date Given Site Status Last Updated Comments Source tetanus-diphtheria toxoids 04/20/2012 Left Deltoid completed [facility] tetanus-diphtheria toxoids 04/20/2012 [facility] Results Order Name Results Value Reference Range Date Interpretation Comments Source Chest 2 views Chest 2 views PA and LATERAL CHEST (2 views) HISTORY: Cough Comparison is made to 01/09/2014. A chest CT of 06/13/2012 was also reviewed. FINDINGS: The lungs are clear. There is slight chronic elevation of the right hemidiaphragm. There are no pleural effusions. The heart and pulmonary vasculature are within normal limits. There are mild degenerative changes in the mid thoracic spine. Otherwise, the regional skeleton is unremarkable. 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 CONCLUSION: 1. No active disease. 2. 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 Coding: Chest 2 views CPT Code: 68203 SL: 13 Herbie Bray M.D. 03/07/2014 - - Read by: Herbie Bray MD Dictated Date/time: 03/07/14 11:24 Electronically Signed by: Herbie Bray MD 03/07/14 11:27 FINAL REPORT [facility] 2 views Chest 2 views Examination: Chest x-ray, 2 views History: Shortness of Breath Comparison: 12/25/2013 Findings: The lungs are clear and without focal consolidation. The cardiomediastinal silhouette is within normal limits. No pleural effusion or pneumothorax is seen. The osseous structures are without focal abnormality. Left-sided dual chamber pacemaker is stable. IMPRESSION: No acute cardiopulmonary disease. SL: 12 01/09/2014 - - Read by: James Schmidt MD Dictated Date/time: 01/09/14 20:09 Electronically Signed by: James Schmidt MD 01/09/14 20:10 FINAL REPORT [facility] CHEM PANEL eGFR 46 mL/min/1.73m2 12/28/2013 1Result Comment: The eGFR is calculated using the CKD-EPI formula. In most young, healthy individuals the eGFR will be >90 mL/min/1.73m2. The eGFR declines with age. An eGFR of 60-89 may be normal in some populations, particularly the elderly, for whom the CKD-EPI formula has not been extensively validated. Use of the eGFR is not recommended in the following populations: Individuals with unstable creatinine concentrations, including patients and those with serious co-morbid conditions. Patients with extremes in muscle mass or diet. The data above are obtained from the National Kidney Disease Education Program (NKDEP) which additionally recommends that when the eGFR is used in patients with extremes of body mass index for purposes of drug dosing, the eGFR should be multiplied by the estimated BMI. [facility] CHEM PANEL Calcium Lvl 9.6 mg/dL 8.5 - 10.5 12/28/2013 [facility] CHEM PANEL Glucose Lvl 103 mg/dL 70 - 99 12/28/2013 4Interpretive Data: Adult reference range values reflect the clinical guidelines of the [place] [employer]. [facility] CHEM PANEL BUN 22 mg/dL 7 - 22 12/28/2013 [facility] CHEM PANEL Creatinine Lvl 1.4 mg/dL 0.5 - 1.4 12/28/2013 [facility] CHEM PANEL Chloride Lvl 114 meq/L 95 - 109 12/28/2013 [facility] CHEM PANEL Sodium Lvl 144 meq/L 135 - 145 12/28/2013 [facility] CHEM PANEL CO2 22 meq/L 24 - 32 12/28/2013 [facility] CHEM PANEL Potassium Lvl 4.1 meq/L 3.5 - 5.1 12/28/2013 [facility] CHEM PANEL AGAP 12.1 meq/L 10.0 - 20.0 12/28/2013 [facility] Monocytes 6.6 % 2.0 - 12.0 12/28/2013 [facility] Lymphocytes # 1.3 K/CMM 1.0 - 5.5 12/28/2013 [facility] Lymphocytes 19.8 % 20.0 - 40.0 12/28/2013 [facility] Eosinophils 3.8 % 0.0 - 4.0 12/28/2013 [facility] Segs 69.2 % 45.0 - 75.0 12/28/2013 [facility] Plt Morph Normal (12/28/13 5:53 AM) 12/28/2013 [facility] Monocytes # 0.4 K/CMM 0.0 - 0.8 12/28/2013 [facility] Segs-Bands # 4.7 K/CMM 1.5 - 8.1 12/28/2013 [facility] Basophils 0.6 % 0.0 - 1.0 12/28/2013 [facility] Anisocyte 1+ *ABN* (12/28/13 5:53 AM) None Seen 12/28/2013 [facility] Eosinophils # 0.3 K/CMM 0.0 - 0.5 12/28/2013 [facility] INR 1.10 0.85 - 1.17 12/28/2013 8Interpretive Data: RECOMMENDED RANGES FOR PROTIME INR: 2.0-3.0 for most medical and surgical thromboembolic states. 2.5-3.5 for artificial heart valves and recurrent embolism. INR SHOULD BE USED ONLY FOR PATIENTS ON STABLE ANTICOAGULANT THERAPY. [facility] PT 14.1 s 12.0 - 14.7 12/28/2013 [facility] MCH 29.5 pg 27.0 - 31.0 12/28/2013 [facility] MCHC 32.8 g/dL 32.0 - 36.0 12/28/2013 [facility] RDW 16.6 % 11.5 - 14.5 12/28/2013 [facility] HEMATOLOGY Platelet 256 K/CMM 133 - 450 12/28/2013 [facility] HEMATOLOGY RBC 2.89 M/CMM 4.70 - 6.10 12/28/2013 [facility] HEMATOLOGY Hgb 8.5 g/dL 14.0 - 18.0 12/28/2013 [facility] Hct 25.9 % 42.0 - 54.0 12/28/2013 [facility] HEMATOLOGY MCV 89.9 fL 80.0 - 94.0 12/28/2013 [facility] HEMATOLOGY WBC 6.8 K/CMM 3.7 - 10.4 12/28/2013 [facility] HEMATOLOGY MPV 8.0 fL 7.4 - 10.4 12/28/2013 [facility] CHEM PANEL eGFR 46 mL/min/1.73m2 12/27/2013 2Result Comment: The eGFR is calculated using the CKD-EPI formula. In most young, healthy individuals the eGFR will be >90 mL/min/1.73m2. The eGFR declines with age. An eGFR of 60-89 may be normal in some populations, particularly the elderly, for whom the CKD-EPI formula has not been extensively validated. Use of the eGFR is not recommended in the following populations: Individuals with unstable creatinine concentrations, including patients and those with serious co-morbid conditions. Patients with extremes in muscle mass or diet. The data above are obtained from the National Kidney Disease Education Program (NKDEP) which additionally recommends that when the eGFR is used in patients with extremes of body mass index for purposes of drug dosing, the eGFR should be multiplied by the estimated BMI. [facility] CHEM PANEL Glucose Lvl 102 mg/dL 70 - 99 12/27/2013 5Interpretive Data: Adult reference range values reflect the clinical guidelines of the [place] [employer]. [facility] CHEM PANEL Sodium Lvl 142 meq/L 135 - 145 12/27/2013 [facility] CHEM PANEL Potassium Lvl 3.8 meq/L 3.5 - 5.1 12/27/2013 [facility] CHEM PANEL Creatinine Lvl 1.4 mg/dL 0.5 - 1.4 12/27/2013 [facility] CHEM PANEL Chloride Lvl 114 meq/L 95 - 109 12/27/2013 [facility] CHEM PANEL CO2 22 meq/L 24 - 32 12/27/2013 [facility] CHEM PANEL AGAP 9.8 meq/L 10.0 - 20.0 12/27/2013 [facility] CHEM PANEL Calcium Lvl 8.8 mg/dL 8.5 - 10.5 12/27/2013 [facility] CHEM PANEL BUN 23 mg/dL 7 - 22 12/27/2013 [facility] HEMATOLOGY Monocytes 6.5 % 2.0 - 12.0 12/27/2013 [facility] HEMATOLOGY Segs 75.3 % 45.0 - 75.0 12/27/2013 [facility] HEMATOLOGY Lymphocytes 15.0 % 20.0 - 40.0 12/27/2013 [facility] HEMATOLOGY Eosinophils 2.7 % 0.0 - 4.0 12/27/2013 [facility] HEMATOLOGY Segs-Bands # 6.3 K/CMM 1.5 - 8.1 12/27/2013 [facility] HEMATOLOGY Basophils 0.5 % 0.0 - 1.0 12/27/2013 [facility] Lymphocytes # 1.3 K/CMM 1.0 - 5.5 12/27/2013 [facility] Eosinophils # 0.2 K/CMM 0.0 - 0.5 12/27/2013 [facility] Monocytes # 0.5 K/CMM 0.0 - 0.8 12/27/2013 [facility] MPV 8.5 fL 7.4 - 10.4 12/27/2013 [facility] MCH 30.0 pg 27.0 - 31.0 12/27/2013 [facility] MCHC 33.3 g/dL 32.0 - 36.0 12/27/2013 [facility] MCV 90.1 fL 80.0 - 94.0 12/27/2013 [facility] Hct 24.6 % 42.0 - 54.0 12/27/2013 [facility] [place] RBC 2.73 M/CMM 4.70 - 6.10 12/27/2013 [facility] [place] Hgb 8.2 g/dL 14.0 - 18.0 12/27/2013 [facility] [place] WBC 8.4 K/CMM 3.7 - 10.4 12/27/2013 [facility] [place] RDW 17.3 % 11.5 - 14.5 12/27/2013 [facility] [place] Platelet 234 K/CMM 133 - 450 12/27/2013 [facility] [place] INR 1.12 0.85 - 1.17 12/27/2013 9Interpretive Data: RECOMMENDED RANGES FOR PROTIME INR: 2.0-3.0 for most medical and surgical thromboembolic states. 2.5-3.5 for artificial heart valves and recurrent embolism. INR SHOULD BE USED ONLY FOR PATIENTS ON STABLE ANTICOAGULANT THERAPY. [facility] HEMATOLOGY PT 14.3 s 12.0 - 14.7 12/27/2013 [facility] BACTERIAL - SEROLOGY U S pneumo Ag Positive *ABN* (12/26/13 9:36 AM) Negative 12/26/2013 [facility] Ext Lower Venous Doppler Bilat US Ext Lower Venous Doppler Bilat US Bilateral lower extremity venous Doppler. COMPARISON: No priors TECHNIQUE: Dia scale imaging, compression techniques and spectral analysis were utilized to evaluate the deep venous system of both lower extremities from the inguinal ligament to the popliteal fossa. FINDINGS: There is adequate compression, respiratory variability, and appropriate response to augmentation in the CFV, SFV and popliteal veins in the thighs. There is no evidence of thrombosis in the deep venous system on either side. The saphenous vein demonstrates normal compressibility. The junction of the profunda vein to the SFV is patent. IMPRESSION: Negative study. No evidence for deep vein thrombosis from the CFV to the popliteal vein. SL:13 12/26/2013 - - Read by: Pancho Garcia MD Dictated Date/time: 12/26/13 15:17 Electronically Signed by: Pancho Garcia MD 12/26/13 15:19 FINAL REPORT [facility] Retroperitoneal limited US Retroperitoneal limited US RENAL ULTRASOUND INDICATION: Chronic renal failure COMPARISON: None FINDINGS: Transverse and sagittal images of the kidneys were obtained. The right kidney measures 12.3 cm in length and the left kidney measures 12.2 cm in length. There is normal renal cortical echogenicity and no hydronephrosis, mass, or shadowing calculi. The bladder is not visible. The patient states that the bladder was removed. IMPRESSION: Unremarkable sonographic appearance of the kidneys. SL: 16 12/26/2013 - - Read by: Blane Apodaca MD Dictated Date/time: 12/26/13 15:03 Electronically Signed by: Blane Apodaca MD 12/26/13 15:04 FINAL REPORT [facility] CHEM PANEL Phosphorus 2.0 mg/dL 2.5 - 4.5 12/26/2013 [facility] CHEM PANEL Magnesium Lvl 1.3 mg/dL 1.8 - 2.4 12/26/2013 [facility] CHEM PANEL eGFR 36 mL/min/1.73m2 12/26/2013 3Result Comment: The eGFR is calculated using the CKD-EPI formula. In most young, healthy individuals the eGFR will be >90 mL/min/1.73m2. The eGFR declines with age. An eGFR of 60-89 may be normal in some populations, particularly the elderly, for whom the CKD-EPI formula has not been extensively validated. Use of the eGFR is not recommended in the following populations: Individuals with unstable creatinine concentrations, including patients and those with serious co-morbid conditions. Patients with extremes in muscle mass or diet. The data above are obtained from the National Kidney Disease Education Program (NKDEP) which additionally recommends that when the eGFR is used in patients with extremes of body mass index for purposes of drug dosing, the eGFR should be multiplied by the estimated BMI. [facility] CHEM PANEL Alk Phos 79 unit/L 39 - 136 12/26/2013 [facility] CHEM PANEL Bili Total 0.4 mg/dL 0.2 - 1.3 12/26/2013 [facility] CHEM PANEL AST 19 unit/L 0 - 37 12/26/2013 [facility] CHEM PANEL Sodium Lvl 146 meq/L 135 - 145 12/26/2013 [facility] CHEM PANEL BUN 36 mg/dL 7 - 22 12/26/2013 [facility] CHEM PANEL Creatinine Lvl 1.7 mg/dL 0.5 - 1.4 12/26/2013 [facility] CHEM PANEL Potassium Lvl 4.5 meq/L 3.5 - 5.1 12/26/2013 [facility] CHEM PANEL Calcium Lvl 9.2 mg/dL 8.5 - 10.5 12/26/2013 [facility] CHEM PANEL ALT 16 unit/L 0 - 65 12/26/2013 [facility] CHEM PANEL Albumin Lvl 2.5 g/dL 3.5 - 5.0 12/26/2013 [facility] CHEM PANEL Total Protein 6.4 g/dL 6.4 - 8.4 12/26/2013 [facility] CHEM PANEL Glucose Lvl 137 mg/dL 70 - 99 12/26/2013 6Interpretive Data: Adult reference range values reflect the clinical guidelines of the [place] [employer]. [facility] CHEM PANEL CO2 17 meq/L 24 - 32 12/26/2013 [facility] CHEM PANEL Chloride Lvl 119 meq/L 95 - 109 12/26/2013 [facility] CHEM PANEL Globulin 3.9 g/dL 2.0 - 4.0 12/26/2013 [facility] CHEM PANEL A/G Ratio 0.6 0.7 - 1.6 12/26/2013 [facility] CHEM PANEL AGAP 14.5 meq/L 10.0 - 20.0 12/26/2013 [facility] CHEM PANEL B/C Ratio 21 6 - 25 12/26/2013 [facility] [place] Segs-Bands # 10.5 K/CMM 1.5 - 8.1 12/26/2013 [facility] [place] Lymphocytes # 1.1 K/CMM 1.0 - 5.5 12/26/2013 [facility] HEMATOLOGY Basophils 0.3 % 0.0 - 1.0 12/26/2013 [facility] HEMATOLOGY Eosinophils 0.6 % 0.0 - 4.0 12/26/2013 [facility] [place] Lymphocytes 9.1 % 20.0 - 40.0 12/26/2013 [facility] [place] Segs 84.2 % 45.0 - 75.0 12/26/2013 [facility] [place] Monocytes 5.8 % 2.0 - 12.0 12/26/2013 [facility] [place] Monocytes # 0.7 K/CMM 0.0 - 0.8 12/26/2013 [facility] [place] Eosinophils # 0.1 K/CMM 0.0 - 0.5 12/26/2013 [facility] [place] INR 1.25 0.85 - 1.17 12/26/2013 10Interpretive Data: RECOMMENDED RANGES FOR PROTIME INR: 2.0-3.0 for most medical and surgical thromboembolic states. 2.5-3.5 for artificial heart valves and recurrent embolism. INR SHOULD BE USED ONLY FOR PATIENTS ON STABLE ANTICOAGULANT THERAPY. [facility] [place] PT 15.6 s 12.0 - 14.7 12/26/2013 [facility] [place] PTT 41.5 s 22.9 - 35.8 12/26/2013 11Interpretive Data: Heparin Therapeutic Range: 57 - [address] [facility] [place] RBC 2.93 M/CMM 4.70 - 6.10 12/26/2013 [facility] [place] WBC 12.4 K/CMM 3.7 - 10.4 12/26/2013 [facility] [place] Hct 26.9 % 42.0 - 54.0 12/26/2013 [facility] [place] Hgb 8.7 g/dL 14.0 - 18.0 12/26/2013 [facility] [place] MCV 91.7 fL 80.0 - 94.0 12/26/2013 [facility] HEMATOLOGY MCH 29.6 pg 27.0 - 31.0 12/26/2013 [facility] HEMATOLOGY MCHC 32.2 g/dL 32.0 - 36.0 12/26/2013 [facility] HEMATOLOGY RDW 16.2 % 11.5 - 14.5 12/26/2013 [facility] HEMATOLOGY Platelet 260 K/CMM 133 - 450 12/26/2013 [facility] HEMATOLOGY MPV 8.3 fL 7.4 - 10.4 12/26/2013 [facility] THYROID PANEL TSH 0.173 uIU/mL 0.360 - 3.740 12/26/2013 [facility] BACTERIAL - SEROLOGY MRSA by PCR Negative 13 (12/25/13 10:00 PM) 12/26/2013 13Interpretive Data: Interpretive Data: The [employer] LightCycler MRSA assay is a qualitative test for the direct detection of nasal colonization with methicillin-resistant Staphylococcus aureus (MRSA) to aid in the prevention and control of MRSA infections in healthcare settings. A positive result does not indicate an infection or require treatment. A negative result does not exclude colonization or infection. The polymerase chain reaction (PCR) assay detects a proprietary sequence indicative of the integration of the SCCmec cassette into the Staphylococcus aureus chromosome, indicating the presence of MRSA DNA. The assay utilizes FDA cleared IVD reagents. Performance characteristics have been verified by the [facility] within the [facility]. The [facility] is authorized under the Clinical Laboratory Improvement Amendment of 1988 (CLIA-88) to perform high complexity testing. [facility] CARDIAC ENZYMES Troponin-I 0.05 ng/mL 0.00 - 0.40 12/25/2013 [facility] CARDIAC ENZYMES BNP 507 pg/mL <=100 pg/mL 12/25/2013 7Interpretive Data: Elevated results are in line with increasing severity of congestive heart failure. Minor elevations between 100 and 300 may be seen with Myocardial Ischemia, Sodium retaining drugs, and compensated/treated heart failure. [facility] CARDIAC ENZYMES CK MB 2.9 ng/mL 0.5 - 3.6 12/25/2013 [facility] CARDIAC ENZYMES Total CK 148 unit/L 12 - 191 12/25/2013 [facility] CARDIAC ENZYMES CK MB Index 2.0 0.0 - 2.5 12/25/2013 [facility] CHEM PANEL B/C Ratio 21 6 - 25 12/25/2013 [facility] CHEM PANEL AST 19 unit/L 0 - 37 12/25/2013 [facility] CHEM PANEL A/G Ratio 0.7 0.7 - 1.6 12/25/2013 [facility] CHEM PANEL ALT 19 unit/L 0 - 65 12/25/2013 [facility] CHEM PANEL Globulin 4.7 g/dL 2.0 - 4.0 12/25/2013 [facility] CHEM PANEL Total Protein 8.0 g/dL 6.4 - 8.4 12/25/2013 [facility] CHEM PANEL Albumin Lvl 3.3 g/dL 3.5 - 5.0 12/25/2013 [facility] CHEM PANEL Alk Phos 97 unit/L 39 - 136 12/25/2013 [facility] CHEM PANEL Bili Total 0.5 mg/dL 0.2 - 1.3 12/25/2013 [facility] HEMATOLOGY PTT 37.7 s 22.9 - 35.8 12/25/2013 12Interpretive Data: Heparin Therapeutic Range: 57 - 92 Seconds [facility] HEMATOLOGY Polychrom Slight (12/25/13 4:00 PM) None Seen 12/25/2013 [facility] HEMATOLOGY Hypochrom Slight (12/25/13 4:00 PM) None Seen 12/25/2013 [facility] HEMATOLOGY Plt Morph Normal (12/25/13 4:00 PM) 12/25/2013 [facility] CHEM PANEL Lactic Acid Lvl 1.1 mMol/L 0.5 - 2.2 12/25/2013 [facility] URINE AND STOOL UA Blood Negative (12/25/13 1:53 PM) Negative 12/25/2013 [facility] URINE AND STOOL UA Ketones Negative *NA* (12/25/13 1:53 PM) Negative 12/25/2013 [facility] URINE AND STOOL UA Bili Small *ABN* (12/25/13 1:53 PM) Negative 12/25/2013 [facility] URINE AND STOOL UA Protein Trace *ABN* (12/25/13 1:53 PM) Negative 12/25/2013 [facility] URINE AND STOOL UA Glucose Negative (12/25/13 1:53 PM) Negative 12/25/2013 [facility] URINE AND STOOL UA Spec Grav 1.010 <=1.030 12/25/2013 [facility] URINE AND STOOL UA pH 8.0 5.0 - 8.0 12/25/2013 [facility] URINE AND STOOL UA Color Yellow *NA* (12/25/13 1:53 PM) Yellow 12/25/2013 [facility] URINE AND STOOL UA Turbidity Slight Cloudy (12/25/13 1:53 PM) Clear 12/25/2013 [facility] URINE AND STOOL UA Leuk Est Large *ABN* (12/25/13 1:53 PM) Negative 12/25/2013 [facility] URINE AND STOOL UA Urobilinogen 0.2 EU/dL 0.1 - 1.0 12/25/2013 [facility] URINE AND STOOL UA Nitrite Negative (12/25/13 1:53 PM) Negative 12/25/2013 [facility] URINE AND STOOL Micro? Performed (12/25/13 1:53 PM) 12/25/2013 [facility] URINE AND STOOL UA RBC None Seen (12/25/13 1:53 PM) 0 - 2 12/25/2013 [facility] URINE AND STOOL UA Sq Epi Occasional /LPF Few /LPF 12/25/2013 [facility] URINE AND STOOL UA WBC 11-20 /HPF 0 - 5 12/25/2013 [facility] URINE AND STOOL UA Bacteria Moderate /HPF None Seen /HPF 12/25/2013 [facility] Brain wo contrast CT Brain wo contrast CT EXAM: CT HEAD WITHOUT CONTRAST. DATE: Dec 25, 2013 02:06:00 PM INDICATION: Left-sided weakness. TECHNIQUE: Noncontrast axial imaging was obtained from the vertex to the skull base at 5 mm collimation. Axial images were reconstructed using a bone algorithm. COMPARISON: CT head 10/11/2013. FINDINGS: No acute intracranial hemorrhage or extraaxial collection is identified. There is is diffuse cerebral volume loss with compensatory dilatation of ventricles and sulci. Early periventricular white matter chronic microangiopathic ischemic changes are present. No mass effect is seen. The dia-white matter interfaces are preserved. The included paranasal sinuses, mastoid air cells and auditory canals are clear. No skull fracture is seen. Upper cervical spine soft tissue postsurgical changes are seen. IMPRESSION: 1. No acute intracranial abnormality seen. 2. No significant interval change compared to 10/11/2013. SL: 13 12/25/2013 - - Read by: Ney Iraheta MD Dictated Date/time: 12/25/13 14:12 Electronically Signed by: Ney Iraheta MD 12/25/13 14:19 FINAL REPORT [facility] 1view Chest 1view Portable chest: The pacemaker leads are in satisfactory position. The cardiac silhouette is normal in size. There is fluffy alveolar infiltrate in the right lower lobe developing since 11/14/2013. The lungs and pleural spaces are otherwise clear. IMPRESSION: Right lower lobe pneumonia. SL:13 12/25/2013 - - Read by: Zac Shafer MD Dictated Date/time: 12/25/13 13:51 Electronically Signed by: Zac Shafer MD 12/25/13 13:51 FINAL REPORT [facility] Spine cervical wo contrast CT Spine cervical wo contrast CT CT CERVICAL SPINE WITHOUT CONTRAST INDICATION: Brachial neuritis COMPARISON: None DISCUSSION: Alignment: There is grade 1 anterolisthesis at C7-T1. Vertebral body alignment is otherwise within normal limits. Craniocervical junction: There is degenerative arthrosis at the craniovertebral junction. Cystic changes of the dens are noted. No bony erosions are identified. The foramen magnum is patent. Vertebral bodies: No compression or displaced fractures from C1 through T1. Soft tissues: Grossly unremarkable. Disc spaces, foramina, and spinal canal: There is advanced spondylosis throughout the cervical spine, with marked disc space narrowing at most levels. There is partial fusion of the C3 and C4 vertebral bodies. Disc bulges and buckling of the ligamentum flavum appear to result in spinal canal stenosis at C2-C3, C4-C5, and C6-C7, potentially moderate or severe, with possibly some degree of cord compression. There is some degree of foraminal stenosis at nearly all levels, bilaterally most severe at C4-C5 and C5-C6, right worse than left. IMPRESSION: 1. Advanced cervical spondylosis results in potential moderate or severe spinal canal stenosis at C2-C3, C4-C5, and C6-C7. Foraminal stenosis is most severe at C4-C5 and C5-C6. Unless contraindicated, MRI of the cervical spine be beneficial for further evaluation. 2. Grade 1 spondylolisthesis at C7-T1. SL: 16 12/10/2013 - - Read by: Blane Apodaca MD Dictated Date/time: 12/11/13 08:48 Electronically Signed by: Blane Apodaca MD 12/11/13 10:[address] [facility] [place] RBC 3.44 M/CMM 4.70 - 6.10 11/18/2013 [facility] [place] WBC 6.0 K/CMM 3.7 - 10.4 11/18/2013 [facility] [place] Hgb 10.1 g/dL 14.0 - 18.0 11/18/2013 [facility] [place] Hct 29.5 % 42.0 - 54.0 11/18/2013 [facility] [place] MCV 86.0 fL 80.0 - 94.0 11/18/2013 [facility] [place] MCHC 34.2 g/dL 32.0 - 36.0 11/18/2013 [facility] [place] RDW 18.4 % 11.5 - 14.5 11/18/2013 [facility] [place] MCH 29.4 pg 27.0 - 31.0 11/18/2013 [facility] [place] Platelet 137 K/CMM 133 - 450 11/18/2013 [facility] [place] MPV 8.5 fL 7.4 - 10.4 11/18/2013 [facility] [place] Lymphocytes 28.3 % 20.0 - 40.0 11/18/2013 [facility] [place] Segs 59.0 % 45.0 - 75.0 11/18/2013 [facility] [place] Monocytes 7.7 % 2.0 - 12.0 11/18/2013 [facility] [place] Lymphocytes # 1.7 K/CMM 1.0 - 5.5 11/18/2013 [facility] [place] Segs-Bands # 3.6 K/CMM 1.5 - 8.1 11/18/2013 [facility] [place] Basophils 0.8 % 0.0 - 1.0 11/18/2013 [facility] [place] Eosinophils 4.2 % 0.0 - 4.0 11/18/2013 [facility] [place] Monocytes # 0.5 K/CMM 0.0 - 0.8 11/18/2013 [facility] [place] Eosinophils # 0.3 K/CMM 0.0 - 0.5 11/18/2013 [facility] BLOOD BANK RESULTS Antibody Scrn Negative (11/17/13 3:13 PM) 11/17/2013 [facility] BLOOD BANK RESULTS ABO/Rh O POS 11/17/2013 [facility] BLOOD [facility] RESULTS RBC product Product available 2 (11/17/13 2:30 PM) 11/17/2013 2Result Comment: 11/17/2013 17:52 [id number] Called to Yessy at 11/17/2013 17:52. [facility] [place] Lymphocytes 29.3 % 20.0 - 40.0 11/17/2013 [facility] [place] Monocytes 8.6 % 2.0 - 12.0 11/17/2013 [facility] [place] Eosinophils 4.3 % 0.0 - 4.0 11/17/2013 [facility] HEMATOLOGY Basophils 0.7 % 0.0 - 1.0 11/17/2013 [facility] HEMATOLOGY Segs 57.1 % 45.0 - 75.0 11/17/2013 [facility] [place] Segs-Bands # 3.4 K/CMM 1.5 - 8.1 11/17/2013 [facility] [place] Monocytes # 0.5 K/CMM 0.0 - 0.8 11/17/2013 [facility] [place] Lymphocytes # 1.7 K/CMM 1.0 - 5.5 11/17/2013 [facility] [place] Eosinophils # 0.3 K/CMM 0.0 - 0.5 11/17/2013 [facility] [place] RBC 2.81 M/CMM 4.70 - 6.10 11/17/2013 [facility] [place] WBC 6.0 K/CMM 3.7 - 10.4 11/17/2013 [facility] [place] Hgb 8.1 g/dL 14.0 - 18.0 11/17/2013 [facility] [place] MCHC 33.3 g/dL 32.0 - 36.0 11/17/2013 [facility] [place] MCH 28.7 pg 27.0 - 31.0 11/17/2013 [facility] [place] RDW 21.3 % 11.5 - 14.5 11/17/2013 [facility] [place] Hct 24.2 % 42.0 - 54.0 11/17/2013 [facility] [place] MCV 86.2 fL 80.0 - 94.0 11/17/2013 [facility] [place] MPV 8.6 fL 7.4 - 10.4 11/17/2013 [facility] [place] Platelet 148 K/CMM 133 - 450 11/17/2013 [facility] CHEM PANEL eGFR 39 mL/min/1.73m2 11/16/2013 4Result Comment: The eGFR is calculated using the CKD-EPI formula. In most young, healthy individuals the eGFR will be >90 mL/min/1.73m2. The eGFR declines with age. An eGFR of 60-89 may be normal in some populations, particularly the elderly, for whom the CKD-EPI formula has not been extensively validated. Use of the eGFR is not recommended in the following populations: Individuals with unstable creatinine concentrations, including patients and those with serious co-morbid conditions. Patients with extremes in muscle mass or diet. The data above are obtained from the National Kidney Disease Education Program (NKDEP) which additionally recommends that when the eGFR is used in patients with extremes of body mass index for purposes of drug dosing, the eGFR should be multiplied by the estimated BMI. [facility] CHEM PANEL Calcium Lvl 8.9 mg/dL 8.5 - 10.5 11/16/2013 [facility] CHEM PANEL AGAP 11.0 meq/L 10.0 - 20.0 11/16/2013 [facility] CHEM PANEL B/C Ratio 14 6 - 25 11/16/2013 [facility] CHEM PANEL Chloride Lvl 108 meq/L 95 - 109 11/16/2013 [facility] CHEM PANEL Potassium Lvl 4.0 meq/L 3.5 - 5.1 11/16/2013 [facility] CHEM PANEL Creatinine Lvl 1.6 mg/dL 0.5 - 1.4 11/16/2013 [facility] CHEM PANEL Sodium Lvl 141 meq/L 135 - 145 11/16/2013 [facility] CHEM PANEL CO2 26 meq/L 24 - 32 11/16/2013 [facility] CHEM PANEL AST 15 unit/L 0 - 37 11/16/2013 [facility] CHEM PANEL Alk Phos 66 unit/L 39 - 136 11/16/2013 [facility] CHEM PANEL Bili Total 0.5 mg/dL 0.2 - 1.3 11/16/2013 [facility] CHEM PANEL Globulin 3.0 g/dL 2.0 - 4.0 11/16/2013 [facility] CHEM PANEL A/G Ratio 1.0 0.7 - 1.6 11/16/2013 [facility] CHEM PANEL ALT 18 unit/L 0 - 65 11/16/2013 [facility] CHEM PANEL Total Protein 6.0 g/dL 6.4 - 8.4 11/16/2013 [facility] CHEM PANEL Albumin Lvl 3.0 g/dL 3.5 - 5.0 11/16/2013 [facility] CHEM PANEL BUN 22 mg/dL 7 - 22 11/16/2013 [facility] CHEM PANEL Glucose Lvl 100 mg/dL 70 - 99 11/16/2013 7Interpretive Data: Adult reference range values reflect the clinical guidelines of the [place] [employer]. [facility] HEMATOLOGY Hct 28.0 % 42.0 - 54.0 11/16/2013 [facility] HEMATOLOGY MCV 86.5 fL 80.0 - 94.0 11/16/2013 [facility] HEMATOLOGY MCH 28.3 pg 27.0 - 31.0 11/16/2013 [facility] [place] MPV 8.4 fL 7.4 - 10.4 11/16/2013 [facility] [place] MCHC 32.7 g/dL 32.0 - 36.0 11/16/2013 [facility] RDW 20.6 % 11.5 - 14.5 11/16/2013 [facility] [place] Platelet 148 K/CMM 133 - 450 11/16/2013 [facility] [place] Hgb 9.2 g/dL 14.0 - 18.0 11/16/2013 [facility] [place] WBC 5.9 K/CMM 3.7 - 10.4 11/16/2013 [facility] [place] RBC 3.24 M/CMM 4.70 - 6.10 11/16/2013 [facility] [place] Monocytes # 0.5 K/CMM 0.0 - 0.8 11/16/2013 [facility] [place] Eosinophils # 0.2 K/CMM 0.0 - 0.5 11/16/2013 [facility] [place] Basophils 0.7 % 0.0 - 1.0 11/16/2013 [facility] [place] Segs-Bands # 3.7 K/CMM 1.5 - 8.1 11/16/2013 [facility] [place] Lymphocytes # 1.4 K/CMM 1.0 - 5.5 11/16/2013 [facility] [place] Lymphocytes 24.4 % 20.0 - 40.0 11/16/2013 [facility] [place] RBC Morph Normal (11/16/13 5:54 AM) 11/16/2013 [facility] [place] Monocytes 9.3 % 2.0 - 12.0 11/16/2013 [facility] [place] Eosinophils 3.9 % 0.0 - 4.0 11/16/2013 [facility] [place] Segs 61.7 % 45.0 - 75.0 11/16/2013 [facility] [place] Plt Morph Normal (11/16/13 5:54 AM) 11/16/2013 [facility] CHEM PANEL eGFR 61 mL/min/1.73m2 11/15/2013 5Result Comment: The eGFR is calculated using the CKD-EPI formula. In most young, healthy individuals the eGFR will be >90 mL/min/1.73m2. The eGFR declines with age. An eGFR of 60-89 may be normal in some populations, particularly the elderly, for whom the CKD-EPI formula has not been extensively validated. Use of the eGFR is not recommended in the following populations: Individuals with unstable creatinine concentrations, including patients and those with serious co-morbid conditions. Patients with extremes in muscle mass or diet. The data above are obtained from the National Kidney Disease Education Program (NKDEP) which additionally recommends that when the eGFR is used in patients with extremes of body mass index for purposes of drug dosing, the eGFR should be multiplied by the estimated BMI. [facility] CHEM PANEL Bili Total 0.7 mg/dL 0.2 - 1.3 11/15/2013 [facility] CHEM PANEL AST 16 unit/L 0 - 37 11/15/2013 [facility] CHEM PANEL Alk Phos 68 unit/L 39 - 136 11/15/2013 [facility] CHEM PANEL ALT 22 unit/L 0 - 65 11/15/2013 [facility] CHEM PANEL Albumin Lvl 3.1 g/dL 3.5 - 5.0 11/15/2013 [facility] CHEM PANEL Globulin 3.3 g/dL 2.0 - 4.0 11/15/2013 [facility] CHEM PANEL Total Protein 6.4 g/dL 6.4 - 8.4 11/15/2013 [facility] CHEM PANEL Glucose Lvl 127 mg/dL 70 - 99 11/15/2013 8Interpretive Data: Adult reference range values reflect the clinical guidelines of the [place] [employer]. [facility] CHEM PANEL Creatinine Lvl 1.1 mg/dL 0.5 - 1.4 11/15/2013 [facility] CHEM PANEL BUN 16 mg/dL 7 - 22 11/15/2013 [facility] CHEM PANEL CO2 27 meq/L 24 - 32 11/15/2013 [facility] CHEM PANEL Calcium Lvl 9.0 mg/dL 8.5 - 10.5 11/15/2013 [facility] CHEM PANEL Sodium Lvl 144 meq/L 135 - 145 11/15/2013 [facility] CHEM PANEL Potassium Lvl 4.1 meq/L 3.5 - 5.1 11/15/2013 [facility] CHEM PANEL Chloride Lvl 110 meq/L 95 - 109 11/15/2013 [facility] CHEM PANEL A/G Ratio 0.9 0.7 - 1.6 11/15/2013 [facility] CHEM PANEL B/C Ratio 15 6 - 25 11/15/2013 [facility] CHEM PANEL AGAP 11.1 meq/L 10.0 - 20.0 11/15/2013 [facility] GI Bleed NM GI Bleed NM EXAM: Nuclear medicine GI bleeding scan HISTORY: Bloody stools. TECHNIQUE: After IV injection of 25 mCi Tc 99m pertechnetate labeled autologous RBC, dynamic flow images of the abdomen were obtained followed by the sequential images for 1 hour. FINDINGS: Focal tracer localization in the region of the proximal ascending colon would be compatible with hemorrhage. Finding discussed with nurse at time of dictation. SL: 14 11/14/2013 - - Read by: James Schrader MD Dictated Date/time: 11/14/13 21:45 Electronically Signed by: James Schrader MD 11/14/13 21:48 FINAL REPORT [facility] CARDIAC ENZYMES Total CK 79 unit/L 12 - 191 11/14/2013 [facility] CARDIAC ENZYMES CK MB 1.4 ng/mL 0.5 - 3.6 11/14/2013 [facility] CARDIAC ENZYMES Troponin-I 0.02 ng/mL 0.00 - 0.40 11/14/2013 [facility] Chest 2 views Chest 2 views Chest 2 views. COMPARISON: 04/19/2012. FINDINGS: Small right lung base granuloma, unchanged. Lungs are otherwise clear and reasonably well-inflated. No effusions. Cardiac silhouette size is within normal limits. 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 No significant bony abnormality is evident other than thoracic spondylosis. Various EKG leads and wires project over the patient's chest. IMPRESSION: Stable chest. No acute normality is evident. SL:13 11/14/2013 - - Read by: Pancho Garcia MD Dictated Date/time: 11/14/13 15:12 Electronically Signed by: Pancho Garcia MD 11/14/13 15:14 FINAL REPORT [facility] CHEM PANEL Globulin 2.9 g/dL 2.0 - 4.0 11/14/2013 [facility] CHEM PANEL AGAP 12.0 meq/L 10.0 - 20.0 11/14/2013 [facility] CHEM PANEL B/C Ratio 14 6 - 25 11/14/2013 [facility] CHEM PANEL A/G Ratio 1.1 0.7 - 1.6 11/14/2013 [facility] CHEM PANEL Bili Total 0.4 mg/dL 0.2 - 1.3 11/14/2013 [facility] CHEM PANEL eGFR 61 mL/min/1.73m2 11/14/2013 6Result Comment: The eGFR is calculated using the CKD-EPI formula. In most young, healthy individuals the eGFR will be >90 mL/min/1.73m2. The eGFR declines with age. An eGFR of 60-89 may be normal in some populations, particularly the elderly, for whom the CKD-EPI formula has not been extensively validated. Use of the eGFR is not recommended in the following populations: Individuals with unstable creatinine concentrations, including patients and those with serious co-morbid conditions. Patients with extremes in muscle mass or diet. The data above are obtained from the National Kidney Disease Education Program (NKDEP) which additionally recommends that when the eGFR is used in patients with extremes of body mass index for purposes of drug dosing, the eGFR should be multiplied by the estimated BMI. [facility] CHEM PANEL Sodium Lvl 145 meq/L 135 - 145 11/14/2013 [facility] CHEM PANEL AST 17 unit/L 0 - 37 11/14/2013 [facility] CHEM PANEL Alk Phos 72 unit/L 39 - 136 11/14/2013 [facility] CHEM PANEL ALT 21 unit/L 0 - 65 11/14/2013 [facility] CHEM PANEL Albumin Lvl 3.2 g/dL 3.5 - 5.0 11/14/2013 [facility] CHEM PANEL Calcium Lvl 9.1 mg/dL 8.5 - 10.5 11/14/2013 [facility] CHEM PANEL Total Protein 6.1 g/dL 6.4 - 8.4 11/14/2013 [facility] CHEM PANEL Chloride Lvl 110 meq/L 95 - 109 11/14/2013 [facility] CHEM PANEL CO2 27 meq/L 24 - 32 11/14/2013 [facility] CHEM PANEL Potassium Lvl 4.0 meq/L 3.5 - 5.1 11/14/2013 [facility] CHEM PANEL BUN 15 mg/dL 7 - 22 11/14/2013 [facility] CHEM PANEL Creatinine Lvl 1.1 mg/dL 0.5 - 1.4 11/14/2013 [facility] CHEM PANEL Glucose Lvl 103 mg/dL 70 - 99 11/14/2013 9Interpretive Data: Adult reference range values reflect the clinical guidelines of the [place] [employer]. [facility] HEMATOLOGY PTT 31.5 s 22.9 - 35.8 11/14/2013 13Interpretive Data: Heparin Therapeutic Range: 57 - 92 Seconds [facility] HEMATOLOGY INR 1.24 0.85 - 1.17 11/14/2013 10Interpretive Data: RECOMMENDED RANGES FOR PROTIME INR: 2.0-3.0 for most medical and surgical thromboembolic states. 2.5-3.5 for artificial heart valves and recurrent embolism. INR SHOULD BE USED ONLY FOR PATIENTS ON STABLE ANTICOAGULANT THERAPY. [facility] HEMATOLOGY PT 15.5 s 12.0 - 14.7 11/14/2013 [facility] HEMATOLOGY PT 18.1 s 12.0 - 14.7 11/13/2013 [facility] [place] INR 1.52 0.85 - 1.17 11/13/2013 11Interpretive Data: RECOMMENDED RANGES FOR PROTIME INR: 2.0-3.0 for most medical and surgical thromboembolic states. 2.5-3.5 for artificial heart valves and recurrent embolism. INR SHOULD BE USED ONLY FOR PATIENTS ON STABLE ANTICOAGULANT THERAPY. [facility] ANEMIA STUDY Ferritin Lvl 15 ng/mL 22 - 275 11/13/2013 [facility] URINE AND STOOL Occult Bld Stl Positive *ABN* (11/13/13 12:15 PM) Negative 11/13/2013 [facility] BLOOD BANK RESULTS FFP product Product available 1 (11/13/13 9:14 AM) 11/13/2013 1Result Comment: 11/13/2013 09:27 [id number] Called to [facility] at 11/13/2013 09:27 by MP. [facility] CHEM PANEL Phosphorus 2.2 mg/dL 2.5 - 4.5 11/13/2013 [facility] CHEM PANEL Magnesium Lvl 1.5 mg/dL 1.8 - 2.4 11/13/2013 [facility] [place] PTT 33.8 s 22.9 - 35.8 11/13/2013 14Interpretive Data: Heparin Therapeutic Range: 57 - [address] [facility] [place] PT 19.0 s 12.0 - 14.7 11/13/2013 [facility] [place] INR 1.62 0.85 - 1.17 11/13/2013 12Interpretive Data: RECOMMENDED RANGES FOR PROTIME INR: 2.0-3.0 for most medical and surgical thromboembolic states. 2.5-3.5 for artificial heart valves and recurrent embolism. INR SHOULD BE USED ONLY FOR PATIENTS ON STABLE ANTICOAGULANT THERAPY. [facility] ANEMIA STUDY UIBC 352 ug/dl 110 - 370 11/13/2013 [facility] ANEMIA STUDY % Satur Fe 8 % 12 - 57 11/13/2013 [facility] ANEMIA STUDY TIBC 384 ug/dl 228 - 428 11/13/2013 [facility] ANEMIA STUDY Iron 32 ug/dl 45 - 160 11/13/2013 [facility] ANEMIA STUDY Vitamin B12 Lvl 208 pg/mL 254 - 1320 11/13/2013 [facility] BLOOD BANK RESULTS RBC product Product available 3 (11/12/13 6:15 PM) 11/12/2013 3Result Comment: 11/12/2013 18:24 [id number] Called to Damian at 11/12/2013 18:24. [facility] BLOOD BANK RESULTS ABO/Rh O POS 11/12/2013 [facility] BLOOD BANK RESULTS Antibody Scrn Negative (11/12/13 4:40 PM) 11/12/2013 [facility] HEMATOLOGY PTT 37.0 s 22.9 - 35.8 11/12/2013 15Interpretive Data: Heparin Therapeutic Range: 57 - 92 Seconds [facility] Brain wo contrast CT Brain wo contrast CT CRANIAL CT without contrast HISTORY: Transit cerebral ischemic attack (TIA) TECHNIQUE: Helical CT images were obtained from the foramen magnum to the vertex without the use of intravenous contrast. Comparison is made to 04/24/2010. FINDINGS: There is mild age-appropriate atrophy. There is otherwise normal appearance of the ventricular system and extraventricular CSF spaces. There are very mild symmetrical areas of decreased attenuation in the periventricular white matter consistent with microangiopathic white matter changes. There is no evidence of mass, midline shift, hemorrhage, extra-axial fluid collection, acute infarction, or other focal abnormal attenuation within the brain parenchyma. The calvarium is intact. The visualized sinuses and mastoids are clear. There postoperative change about the globes, probable cataract procedures. CONCLUSION: 1. Negative for an acute intracranial process. 2. Mild age-appropriate atrophy. 3. Very mild microangiopathic white matter changes. Coding: Brain wo contrast CT CPT Code: 90047 SL: 13 Herbie Bray M.D. 10/11/2013 - - Read by: Herbie Bray MD Dictated Date/time: 10/11/13 12:55 Electronically Signed by: Herbie Bray MD 10/11/13 13:02 FINAL REPORT [facility] Bone scan NM Bone scan NM WHOLE- BODY BONE SCAN: PROCEDURE: 24.9 mCi of technetium 99m MDP were given intravenously followed by whole-body images. Lateral spot images of the pelvis, and head and neck were also done FINDINGS: Mildly increased activity is noted at the cervicothoracic junction, mid thoracic spine and mid lumbar spine corresponding to degenerative changes seen on previous CT imaging. There is increased activity at the sternoclavicular joints consistent consistent with arthritic changes. There is no other abnormal activity. A right lower quadrant ileal loop and ileostomy bag are noted. IMPRESSION: No definite evidence of osseous metastases. SL:13 10/11/2013 - - Read by: Zac Shafer MD Dictated Date/time: 10/11/13 16:28 Electronically Signed by: Zac Shafer MD 10/11/13 16:32 FINAL REPORT [facility] CHEMISTRY Phosphorus 2.4 mg/dL 2.5 - 4.5 06/12/2012 LOW [facility] CHEMISTRY eGFR 62 mL/min/1.73m2 06/12/2012 NA 1Result Comment: The eGFR is calculated using the CKD-EPI formula. In most young, healthy individuals the eGFR will be >90 mL/min/1.73m2. The eGFR declines with age. An eGFR of 60-89 may be normal in some populations, particularly the elderly, for whom the CKD-EPI formula has not been extensively validated. Use of the eGFR is not recommended in the following populations: Individuals with unstable creatinine concentrations, including patients and those with serious co-morbid conditions. Patients with extremes in muscle mass or diet. The data above are obtained from the National Kidney Disease Education Program (NKDEP) which additionally recommends that when the eGFR is used in patients with extremes of body mass index for purposes of drug dosing, the eGFR should be multiplied by the estimated BMI. [facility] CHEMISTRY AST 14 unit/L 0 - 37 06/12/2012 Normal [facility] CHEMISTRY Bili Total 0.5 mg/dL 0.2 - 1.3 06/12/2012 Normal [facility] CHEMISTRY Glucose Lvl 120 mg/dL 70 - 99 06/12/2012 [place] 3Interpretive Data: Adult reference range values reflect the clinical guidelines of the [place] [employer]. [facility] CHEMISTRY BUN 16 mg/dL 7 - 22 06/12/2012 Normal [facility] CHEMISTRY Creatinine Lvl 1.1 mg/dL 0.5 - 1.4 06/12/2012 Normal [facility] CHEMISTRY Globulin 2.1 g/dL 2.0 - 4.0 06/12/2012 Normal [facility] CHEMISTRY A/G Ratio 1.5 0.7 - 1.6 06/12/2012 Normal [facility] CHEMISTRY CO2 28 meq/L 24 - 32 06/12/2012 Normal [facility] CHEMISTRY AGAP 11.7 meq/L 10.0 - 20.0 06/12/2012 Normal [facility] CHEMISTRY ALT 19 unit/L 0 - 65 06/12/2012 Normal [facility] CHEMISTRY Alk Phos 58 unit/L 39 - 136 06/12/2012 Normal [facility] CHEMISTRY Albumin Lvl 3.1 g/dL 3.5 - 5.0 06/12/2012 LOW [facility] CHEMISTRY Calcium Lvl 8.7 mg/dL 8.5 - 10.5 06/12/2012 Normal [facility] CHEMISTRY B/C Ratio 15 6 - 25 06/12/2012 Normal [facility] CHEMISTRY Total Protein 5.2 g/dL 6.4 - 8.4 06/12/2012 LOW [facility] CHEMISTRY Sodium Lvl 146 meq/L 135 - 145 06/12/2012 [facility] CHEMISTRY Potassium Lvl 3.7 meq/L 3.5 - 5.1 06/12/2012 Normal [facility] CHEMISTRY Chloride Lvl 110 meq/L 95 - 109 06/12/2012 [facility] CHEMISTRY Magnesium Lvl 1.8 mg/dL 1.8 - 2.4 06/12/2012 Normal [facility] HEMATOLOGY Monocytes # 0.5 K/CMM 0.0 - 0.8 06/12/2012 Normal [facility] HEMATOLOGY Basophils # 0.0 K/CMM 0.0 - 0.2 06/12/2012 Normal [facility] HEMATOLOGY Eosinophils # 0.2 K/CMM 0.0 - 0.5 06/12/2012 Normal [facility] HEMATOLOGY Eosinophils 3.9 % 0.0 - 4.0 06/12/2012 Normal [facility] HEMATOLOGY Basophils 0.4 % 0.0 - 1.0 06/12/2012 Normal [facility] HEMATOLOGY Segs-Bands # 2.5 K/CMM 1.5 - 8.1 06/12/2012 Normal [facility] HEMATOLOGY Lymphocytes # 1.4 K/CMM 1.0 - 5.5 06/12/2012 Normal [facility] HEMATOLOGY Monocytes 11.2 % 2.0 - 12.0 06/12/2012 Normal [facility] HEMATOLOGY Lymphocytes 30.6 % 20.0 - 40.0 06/12/2012 Normal [facility] HEMATOLOGY Segs 53.9 % 45.0 - 75.0 06/12/2012 Normal [facility] HEMATOLOGY PTT 31.4 s 22.9 - 35.8 06/12/2012 Normal 6Interpretive Data: Heparin Therapeutic Range: 57 - 92 Seconds [facility] HEMATOLOGY PT 13.9 s 12.0 - 14.7 06/12/2012 Normal [facility] HEMATOLOGY INR 1.05 0.85 - 1.17 06/12/2012 Normal 5Interpretive Data: RECOMMENDED RANGES FOR PROTIME INR: 2.0-3.0 for most medical and surgical thromboembolic states. 2.5-3.5 for artificial heart valves and recurrent embolism. INR SHOULD BE USED ONLY FOR PATIENTS ON STABLE ANTICOAGULANT THERAPY. [facility] HEMATOLOGY MCH 33.0 pg 27.0 - 31.0 06/12/2012 HI [facility] HEMATOLOGY Hct 32.6 % 42.0 - 54.0 06/12/2012 LOW [facility] HEMATOLOGY Hgb 11.1 g/dL 14.0 - 18.0 06/12/2012 LOW [facility] HEMATOLOGY MPV 7.4 fL 7.4 - 10.4 06/12/2012 Normal [facility] HEMATOLOGY Platelet 147 K/CMM 133 - 450 06/12/2012 Normal [facility] HEMATOLOGY MCHC 34.0 g/dL 32.0 - 36.0 06/12/2012 Normal [facility] HEMATOLOGY RDW 15.6 % 11.5 - 14.5 06/12/2012 [facility] HEMATOLOGY MCV 97.1 fL 80.0 - 94.0 06/12/2012 [facility] HEMATOLOGY RBC 3.35 M/CMM 4.70 - 6.10 06/12/2012 LOW [facility] HEMATOLOGY WBC 4.7 K/CMM 3.7 - 10.4 06/12/2012 Normal [facility] CHEMISTRY Lipase Lvl 107 unit/L 73 - 393 06/11/2012 Normal [facility] CHEMISTRY AGAP 11.7 meq/L 10.0 - 20.0 06/11/2012 Normal [facility] CHEMISTRY B/C Ratio 12 6 - 25 06/11/2012 Normal [facility] CHEMISTRY A/G Ratio 1.3 0.7 - 1.6 06/11/2012 Normal [facility] CHEMISTRY Globulin 3.1 g/dL 2.0 - 4.0 06/11/2012 Normal [facility] CHEMISTRY Calcium Lvl 8.9 mg/dL 8.5 - 10.5 06/11/2012 Normal [facility] CHEMISTRY CO2 28 meq/L 24 - 32 06/11/2012 Normal [facility] CHEMISTRY Sodium Lvl 142 meq/L 135 - 145 06/11/2012 Normal [facility] CHEMISTRY Albumin Lvl 4.1 g/dL 3.5 - 5.0 06/11/2012 Normal [facility] CHEMISTRY Potassium Lvl 3.7 meq/L 3.5 - 5.1 06/11/2012 Normal [facility] CHEMISTRY Chloride Lvl 106 meq/L 95 - 109 06/11/2012 Normal [facility] CHEMISTRY Glucose Lvl 164 mg/dL 70 - 99 06/11/2012 CT 4Interpretive Data: Adult reference range values reflect the clinical guidelines of the [place] [employer]. [facility] CHEMISTRY Creatinine Lvl 1.8 mg/dL 0.5 - 1.4 06/11/2012 [facility] CHEMISTRY eGFR 34 mL/min/1.73m2 06/11/2012 NA 2Result Comment: The eGFR is calculated using the CKD-EPI formula. In most young, healthy individuals the eGFR will be >90 mL/min/1.73m2. The eGFR declines with age. An eGFR of 60-89 may be normal in some populations, particularly the elderly, for whom the CKD-EPI formula has not been extensively validated. Use of the eGFR is not recommended in the following populations: Individuals with unstable creatinine concentrations, including patients and those with serious co-morbid conditions. Patients with extremes in muscle mass or diet. The data above are obtained from the National Kidney Disease Education Program (NKDEP) which additionally recommends that when the eGFR is used in patients with extremes of body mass index for purposes of drug dosing, the eGFR should be multiplied by the estimated BMI. [facility] CHEMISTRY BUN 21 mg/dL 7 - 22 06/11/2012 Normal [facility] CHEMISTRY Total Protein 7.2 g/dL 6.4 - 8.4 06/11/2012 Normal [facility] CHEMISTRY AST 22 unit/L 0 - 37 06/11/2012 Normal [facility] CHEMISTRY Bili Total 0.6 mg/dL 0.2 - 1.3 06/11/2012 Normal [facility] CHEMISTRY Alk Phos 67 unit/L 39 - 136 06/11/2012 Normal [facility] CHEMISTRY ALT 26 unit/L 0 - 65 06/11/2012 Normal [facility] HEMATOLOGY Platelet 180 K/CMM 133 - 450 06/11/2012 Normal [facility] HEMATOLOGY MCHC 33.5 g/dL 32.0 - 36.0 06/11/2012 Normal [facility] HEMATOLOGY RDW 16.4 % 11.5 - 14.5 06/11/2012 [facility] HEMATOLOGY MCV 97.7 fL 80.0 - 94.0 06/11/2012 [facility] HEMATOLOGY MCH 32.7 pg 27.0 - 31.0 06/11/2012 [facility] HEMATOLOGY Hct 39.6 % 42.0 - 54.0 06/11/2012 LOW [facility] HEMATOLOGY RBC 4.05 M/CMM 4.70 - 6.10 06/11/2012 [facility] HEMATOLOGY Hgb 13.3 g/dL 14.0 - 18.0 06/11/2012 LOW [facility] HEMATOLOGY MPV 7.1 fL 7.4 - 10.4 06/11/2012 [facility] HEMATOLOGY WBC 7.0 K/CMM 3.7 - 10.4 06/11/2012 Normal [facility] HEMATOLOGY Basophils # 0.0 K/CMM 0.0 - 0.2 06/11/2012 Normal [facility] HEMATOLOGY Eosinophils # 0.1 K/CMM 0.0 - 0.5 06/11/2012 Normal [facility] HEMATOLOGY Lymphocytes # 0.8 K/CMM 1.0 - 5.5 06/11/2012 [facility] HEMATOLOGY Basophils 0.1 % 0.0 - 1.0 06/11/2012 Normal [facility] HEMATOLOGY Segs-Bands # 5.7 K/CMM 1.5 - 8.1 06/11/2012 Normal [facility] HEMATOLOGY Monocytes 5.5 % 2.0 - 12.0 06/11/2012 Normal [facility] HEMATOLOGY Eosinophils 1.5 % 0.0 - 4.0 06/11/2012 Normal [facility] HEMATOLOGY Segs 82.0 % 45.0 - 75.0 06/11/2012 [facility] HEMATOLOGY Lymphocytes 10.9 % 20.0 - 40.0 06/11/2012 [facility] HEMATOLOGY Monocytes # 0.4 K/CMM 0.0 - 0.8 06/11/2012 Normal [facility] URINALYSIS UA Turbidity Marked *ABN* (06/11/2012 14:32:00) Clear 06/11/2012 ABN [facility] URINALYSIS UA Blood Large *ABN* (06/11/2012 14:32:00) Negative 06/11/2012 [facility] URINALYSIS UA Ketones Negative mg/dL *NA* (06/11/2012 14:32:00) Negative 06/11/2012 [facility] URINALYSIS UA Bili Negative *NA* (06/11/2012 14:32:00) Negative 06/11/2012 NA [facility] URINALYSIS UA Protein 100 mg/dL *ABN* (06/11/2012 14:32:00) Negative 06/11/2012 [facility] URINALYSIS UA pH 5.0 5.0 - 8.0 06/11/2012 Normal [facility] URINALYSIS UA Spec Grav 1.017 <=1.030 06/11/2012 Normal [facility] URINALYSIS UA Glucose Negative mg/dL *NA* (06/11/2012 14:32:00) Negative 06/11/2012 NA [facility] URINALYSIS UA WBC null 0 - 5 06/11/2012 [facility] URINALYSIS UA Bacteria Many /HPF *ABN* (06/11/2012 14:32:00) None Seen 06/11/2012 [facility] URINALYSIS UA Mucus Few /LPF *NA* (06/11/2012 14:32:00) None Seen 06/11/2012 [facility] URINALYSIS UA RBC null 0 - 2 06/11/2012 HI [facility] URINALYSIS UA Nitrite Positive *ABN* (06/11/2012 14:32:00) Negative 06/11/2012 ABN [facility] URINALYSIS UA Leuk Est Negative (06/11/2012 14:32:00) Negative 06/11/2012 Normal [facility] URINALYSIS UA Urobilinogen 4.0 mg/dL 0.1 - 1.0 06/11/2012 HI [facility] URINALYSIS UA Color Brown 06/11/2012 NA [facility] URINALYSIS UA Sq Epi None Seen 06/11/2012 [facility] Microbiology Culture: Urine 06/11/2012 [facility] Vital Signs Vital Sign Value Date Comments Source Respitory Rate 18 08/20/2016 [facility] Systolic (mm Hg) 182 08/20/2016 [facility] Diastolic (mm Hg) 106 08/20/2016 [facility] Heart Rate 74 08/20/2016 [facility] Height 177.8 cm 08/20/2016 [facility] Weight 80.909 08/20/2016 [facility] BMI Calculated 25.59 08/20/2016 [facility] Height 177.8 cm 03/06/2014 [facility] BMI Calculated 24.86 03/06/2014 [facility] Weight 78.6 03/06/2014 [facility] Temperature Oral (F) 98.8 F 12/28/2013 [facility] Systolic (mm Hg) 121 12/28/2013 [facility] Respitory Rate 17 12/28/2013 [facility] Heart Rate 73 12/28/2013 [facility] Diastolic (mm Hg) 61 12/28/2013 [facility] Diastolic (mm Hg) 68 12/28/2013 [facility] Systolic (mm Hg) 125 12/28/2013 [facility] Heart Rate 76 12/28/2013 [facility] Respitory Rate 17 12/28/2013 [facility] Temperature Oral (F) 98.5 F 12/28/2013 [facility] Systolic (mm Hg) 143 12/28/2013 [facility] Diastolic (mm Hg) 58 12/28/2013 [facility] Respitory Rate 17 12/28/2013 [facility] Temperature Oral (F) 98.9 F 12/28/2013 [facility] [facility] 71 12/28/2013 [facility] Weight 81.2 12/26/2013 [facility] Weight 83.636 12/25/2013 [facility] BMI Calculated 26.46 12/25/2013 [facility] Height 177.8 cm 12/25/2013 [facility] Respitory Rate 18 11/18/2013 [facility] Heart Rate 77 11/18/2013 [facility] Diastolic (mm Hg) 64 11/18/2013 [facility] Systolic (mm Hg) 121 11/18/2013 [facility] Temperature Oral (F) 98.1 F 11/18/2013 [facility] Diastolic (mm Hg) 60 11/18/2013 [facility] Temperature Oral (F) 97.9 F 11/18/2013 [facility] Heart Rate 93 11/18/2013 [facility] Respitory Rate 18 11/18/2013 [facility] Systolic (mm Hg) 102 11/18/2013 [facility] Systolic (mm Hg) 101 11/18/2013 [facility] Temperature Oral (F) 98.1 F 11/18/2013 [facility] Respitory Rate 18 11/18/2013 [facility] Diastolic (mm Hg) 60 11/18/2013 [facility] Heart Rate 83 11/18/2013 [facility] Weight 78.636 11/12/2013 [facility] Height 177.8 cm 11/12/2013 [facility] BMI Calculated 24.87 11/12/2013 [facility] Systolic (mm Hg) 160 06/14/2012 [facility] Respitory Rate 18 06/14/2012 [facility] Diastolic (mm Hg) 68 06/14/2012 [facility] Temperature Oral (F) 98.0 F 06/14/2012 [facility] Heart Rate 61 06/14/2012 [facility] Temperature Oral (F) 97.6 F 06/14/2012 [facility] Heart Rate 67 06/14/2012 [facility] Diastolic (mm Hg) 67 06/14/2012 [facility] Systolic (mm Hg) 177 06/14/2012 [facility] Respitory Rate 18 06/14/2012 [facility] Systolic (mm Hg) 142 06/14/2012 [facility] Diastolic (mm Hg) 75 06/14/2012 [facility] Respitory Rate 18 06/14/2012 [facility] Heart Rate 65 06/14/2012 [facility] Temperature Oral (F) 98.0 F 06/14/2012 [facility] Height 177.80 cm 06/11/2012 [facility] Weight 83.182 06/11/2012 [facility] Height 177.80 cm 06/11/2012 [facility] Weight 80.455 06/11/2012 [facility] Encounters Location Location Details Encounter Type Encounter Number Reason For Visit Attending Provider ADM Date DC Date Status Source [facility] OU [id number] EDUARDO LUISHAR 06/11/2012 06/14/2012 Active [facility] Outpatient [id number] Newton Guzman 10/11/2013 10/12/2013 [facility] Inpatient [id number] Sánchez Sukh 11/12/2013 11/18/2013 [facility] [id number] Getachew Farias 12/07/2013 12/07/2013 [facility] Outpatient [id number] Igor Michelle 12/10/2013 12/11/2013 [facility] Inpatient [id number] William Sebastian 12/25/2013 12/28/2013 [facility] Outpatient [id number] Newton Guzman 01/09/2014 01/10/2014 [facility] OP Recurring [id number] Newton Guzman 03/07/2014 04/06/2014 [facility] Bedded Outpatient [id number] Panda Tapia 08/20/2016 08/20/2016 [facility] Procedures Procedure Code Date Perfomer Comments Source Placement of stent<sup>1</sup> [id number] 07/19/2011 left leg, 2 in heart [facility] Placement of stent<sup>2</sup> [id number] 06/20/2011 right leg [facility] Laminectomy [id number] 04/19/2008 [facility] Placement of stent [id number] 01/25/2008 [facility] Laminectomy [id number] 04/19/2005 [facility] Procedure on prostate<sup>3</sup> [id number] 04/19/1998 seeding [facility] Cataract surgery [id number] 04/19/1975 [facility] Pacemaker care management [facility] Pacemaker care management [id number] [facility]
--- OUTSIDE RECORDS SUMMARY | 2018-10-27 11:51 | XMS REPORT | CCD ---
Author Author Auto Generated Organization [facility] Address Unknown Phone Unavailable Care Team Providers Care Photographic Developer And Printer Name Role Phone Enrico Sheriff CP [phone] Allergies, Adverse Reactions, Alerts Substance Reaction Status Adhesive Tape Active Neurontin Active Problem List Condition Effective Dates Status Anemia 04/19/1972 Resolved Back pain 04/19/2005 Resolved BPH - Benign prostatic hypertrophy 04/19/1982 Resolved CA - Cancer of prostate 04/19/1998 Resolved Cataract 04/19/1975 Resolved Diabetes mellitus - adult onset 04/19/1972 Resolved Heart disease 04/19/2010 Resolved Heartburn 04/19/2002 Resolved Hyperlipidemia 04/19/1975 Resolved Hypertension 12/18/1990 Resolved Neck pain 04/19/1971 Resolved Poor peripheral circulation 04/19/2010 Resolved RF - Renal failure 04/19/1998 Resolved Sinusitis 1933 Resolved TIA 04/19/2008 Resolved UTI - Urinary tract infection 04/19/1998 Resolved Medications Medication Instructions Start Date End Date Status Sodium Chloride 0.9% 500 mL, Route: IV, Dosing Weight 06/11/2012 06/11/2012 Completed (Bolus) IV 80.455, kg, ONCE, Bolus at 1,000 ml/hr, STAT, Start date: 06/11/12 14:30:00, Stop date: 06/11/12 14:30:00 Saline Flush 0.9% 5 mL, Route: IVP, Drug Form: INJ, 06/11/2012 06/12/2012 Completed Dosing Weight 80.455, kg, PRN, PRN Line Flush, Start date: 06/11/12 14:30:00, Duration: 24 hr, Stop date: 06/12/12 14:29:00 tetanus-diphtheria 0.5 mL, Route: IM, Drug Form: INJ, 04/19/2012 04/20/2012 Completed toxoids adult Dosing Weight 77.727, kg, ONCE, intramuscular Start date: 04/19/12 22:06:00, Stop suspension date: 04/19/12 22:06:00 Protonix 40 mg, 1 tab, Route: PO, Drug form: 06/12/2012 06/14/2012 Discontinued ECTAB, Before Dinner, Start date: 06/12/12 16:30:00, Duration: 30 day, Stop date: 07/11/12 16:30:00 cefepime + Sodium 1 gm, Route: IVPB, [id number], Dosing 06/11/2012 06/14/2012 Discontinued Chloride 0.9% IV 100 Weight 80.455, kg, Priority: STAT, mL Start date: 06/11/12 17:20:00, Duration: 30 day, Stop date: 07/10/12 18:00:00 aspirin 81 mg 81 mg, 1 tab, Route: PO, Drug form: 06/12/2012 06/14/2012 Discontinued tablet, enteric ECTAB, Daily, Dosing Weight 83.182, coated kg, Start date: 06/12/12 9:00:00, Duration: 30 day, Stop date: 07/11/12 9:00:00 acetaminophen-hydroc 1 tab, Route: PO, Drug Form: TAB, 06/11/2012 06/14/2012 Discontinued odone 325 mg-7.5 mg Dosing Weight 83.182, kg, Q6H, PRN oral tablet For Pain, Start date: 06/11/12 19:56:00, Duration: 30 day, Stop date: 07/11/12 19:55:00 acetaminophen-hydroc 1 tab, PO, Q6H, PRN, as needed for 06/11/2012 Ordered odone 325 mg-7.5 mg pain, Substitution Allowed, oral tablet Maintenance phenazopyridine 200 200 mg, 1 tab, PO, BID, 06/11/2012 Ordered mg oral tablet Substitution Allowed aspirin 81 mg 81 mg, 1 tab, PO, Daily, 06/11/2012 Ordered tablet, enteric Substitution Allowed coated ciprofloxacin 500 mg 500 mg, 1 tab, PO, Q12H, 06/11/2012 Ordered oral tablet Substitution Allowed Saline Flush 0.9% 5 ml, Route: IVP, Drug Form: INJ, 06/11/2012 06/14/2012 Discontinued Dosing Weight 80.455, kg, PRN, PRN Line Flush, Start date: 06/11/12 17:20:00, Duration: 30 day, Stop date: 07/11/12 17:19:00 Sodium Chloride 0.9% 1,000 mL, Rate: 90 ml/hr, Infuse 06/11/2012 06/14/2012 Discontinued IV 1,000 mL over: 11.1 hr, Route: IV, kg, Total Volume: 1,000, Start date: 06/11/12 17:20:00, Duration: 30 day, Stop date: 07/11/12 17:19:00 ondansetron 4 mg, 2 mL, Route: IVP, Drug form: 06/11/2012 06/14/2012 Discontinued INJ, Q6H, Dosing Weight 80.455, kg, PRN Nausea & Vomiting, Start date: 06/11/12 17:20:00, Duration: 30 day, Stop date: 07/11/12 17:19:00 morphine Sulfate 2 mg, 1 mL, Route: IVP, Drug form: 06/11/2012 06/14/2012 Discontinued INJ, Q3H, Dosing Weight 80.455, kg, PRN Pain Score 4-6, Start date: 06/11/12 17:20:00, Duration: 30 day, Stop date: 07/11/12 17:19:00 Sodium Chloride 0.9% 500 mL, 500 ml/hr, Route: IV, Drug 06/11/2012 06/11/2012 Completed (Bolus) IV Form: INJ, Dosing Weight 80.455, kg, ONCE, Bolus Dose - infuse over 1 hr, STAT, Start date: 06/11/12 15:59:00, Stop date: 06/11/12 15:59:00 enoxaparin 40 mg, 0.4 mL, Route: SUB-Q, Drug 06/11/2012 06/14/2012 Discontinued form: INJ, [id number], Dosing Weight 83.182, kg, Start date: 06/11/12 20:00:00, Duration: 30 day, Stop date: 07/10/12 20:00:00 ceftriaxone + Sodium 1 gm, Route: IVPB, ONCE, Dosing 06/11/2012 06/11/2012 Completed Chloride 0.9% IV 100 Weight 80.455, kg, Priority: STAT, mL Start date: 06/11/12 15:59:00, Stop date: 06/11/12 15:59:00 Flomax 0.4 mg, 1 cap, Route: PO, Drug 06/12/2012 06/14/2012 Discontinued form: CAP, Daily, Dosing Weight 83.182, kg, Start date: 06/12/12 9:00:00, Duration: 30 day, Stop date: 07/11/12 9:00:00 Lyrica 75 mg, 1 cap, Route: PO, Drug form: 06/12/2012 06/14/2012 Discontinued CAP, Daily, Dosing Weight 83.182, kg, Start date: 06/12/12 9:00:00, Duration: 30 day, Stop date: 07/11/12 9:00:00 phenazopyridine 200 mg, 1 tab, Route: PO, Drug 06/12/2012 06/14/2012 Discontinued form: TAB, BID, Dosing Weight 83.182, kg, Start date: 06/12/12 9:00:00, Duration: 30 day, Stop date: 07/11/12 17:00:00 omeprazole 20 mg, Route: PO, Drug form: ECTAB, 06/12/2012 06/11/2012 Deleted Daily, Dosing Weight 83.182, kg, Start date: 06/12/12 9:00:00, Duration: 30 day, Stop date: 07/11/12 9:00:00 metoprolol tartrate 25 mg, 1 tab, Route: PO, Drug form: 06/12/2012 06/14/2012 Discontinued TAB, BID, Dosing Weight 83.182, kg, Start date: 06/12/12 9:00:00, Duration: 30 day, Stop date: 07/11/12 17:00:00 lisinopril 2.5 mg, 0.5 tab, Route: PO, Drug 06/12/2012 06/14/2012 Discontinued form: TAB, Daily, Dosing Weight 83.182, kg, Start date: 06/12/12 9:00:00, Duration: 30 day, Stop date: 07/11/12 9:00:00 Celexa 40 mg, 2 tab, Route: PO, Drug form: 06/12/2012 06/14/2012 Discontinued TAB, Daily, Dosing Weight 83.182, kg, Start date: 06/12/12 9:00:00, Duration: 30 day, Stop date: 07/11/12 9:00:00 Immunizations Vaccine Date Status tetanus-diphtheria toxoids 04/20/2012 Auth (Verified) Vital Signs Most recent to oldest [Reference Range]: 1 2 3 Height 177.80 cm (06/11/2012 17:27:00) 177.80 cm (06/11/2012 13:26:00) Temperature Oral [96.4-99.1 DegF] 98.0 DegF (06/14/2012 16:00:00) 97.6 DegF (06/14/2012 12:00:00) 98.0 DegF (06/14/2012 08:00:00) Systolic Blood Pressure [90-140 mmHg] 160 mmHg *HI* (06/14/2012 16:00:00) 177 mmHg *HI* (06/14/2012 12:00:00) 142 mmHg *HI* (06/14/2012 08:00:00) Diastolic Blood Pressure [60-90 mmHg] 68 mmHg (06/14/2012 16:00:00) 67 mmHg (06/14/2012 12:00:00) 75 mmHg (06/14/2012 08:00:00) Respiratory Rate [14-20 BRMIN] 18 BRMIN (06/14/2012 16:00:00) 18 BRMIN (06/14/2012 12:00:00) 18 BRMIN (06/14/2012 08:00:00) Peripheral Pulse Rate [60-100 bpm] 61 bpm (06/14/2012 16:00:00) 67 bpm (06/14/2012 12:00:00) 65 bpm (06/14/2012 08:00:00) Weight 83.182 kg (06/11/2012 17:27:00) 80.455 kg (06/11/2012 13:26:00) Results URINALYSIS Most recent to oldest [Reference Range]: 1 2 UA Turbidity [Clear] Marked *ABN* (06/11/2012 14:32:00) UA Color Brown *NA* (06/11/2012 14:32:00) UA pH [5.0-8.0] 5.0 (06/11/2012 14:32:00) UA Spec Grav [<=1.030] 1.017 (06/11/2012 14:32:00) UA Glucose [Negative mg/dL] Negative mg/dL *NA* (06/11/2012 14:32:00) UA Blood [Negative] Large *ABN* (06/11/2012 14:32:00) UA Ketones [Negative mg/dL] Negative mg/dL *NA* (06/11/2012 14:32:00) UA Protein [Negative mg/dL] 100 mg/dL *ABN* (06/11/2012 14:32:00) UA Urobilinogen [0.1-1.0 mg/dL] 4.0 mg/dL *HI* (06/11/2012 14:32:00) UA Bili [Negative] Negative *NA* (06/11/2012 14:32:00) UA Leuk Est [Negative] Negative (06/11/2012 14:32:00) UA Nitrite [Negative] Positive *ABN* (06/11/2012 14:32:00) UA WBC [0-5 /HPF] >182 /HPF *HI* (06/11/2012 14:32:00) UA RBC [0-2 /HPF] >182 /HPF *HI* (06/11/2012 14:32:00) UA Bacteria [None Seen /HPF] Many /HPF *ABN* (06/11/2012 14:32:00) UA Sq Epi None Seen *NA* (06/11/2012 14:32:00) UA Mucus [None Seen /LPF] Few /LPF *NA* (06/11/2012 14:32:00) CHEMISTRY Most recent to oldest [Reference Range]: 1 2 Sodium Lvl [135-145 mEq/L] 146 mEq/L *HI* (06/12/2012 03:58:00) 142 mEq/L (06/11/2012 14:51:00) Potassium Lvl [3.5-5.1 mEq/L] 3.7 mEq/L (06/12/2012 03:58:00) 3.7 mEq/L (06/11/2012 14:51:00) Chloride Lvl [95-109 mEq/L] 110 mEq/L *HI* (06/12/2012 03:58:00) 106 mEq/L (06/11/2012 14:51:00) CO2 [24-32 mEq/L] 28 mEq/L (06/12/2012 03:58:00) 28 mEq/L (06/11/2012 14:51:00) AGAP [10.0-20.0 mEq/L] 11.7 mEq/L (06/12/2012 03:58:00) 11.7 mEq/L (06/11/2012 14:51:00) Creatinine Lvl [0.5-1.4 mg/dL] 1.1 mg/dL (06/12/2012 03:58:00) 1.8 mg/dL *HI* (06/11/2012 14:51:00) eGFR 62 mL/min/1.73m2 1 *NA* (06/12/2012 03:58:00) 34 mL/min/1.73m2 2 *NA* (06/11/2012 14:51:00) BUN [7-22 mg/dL] 16 mg/dL (06/12/2012 03:58:00) 21 mg/dL (06/11/2012 14:51:00) B/C Ratio [6-25] 15 (06/12/2012 03:58:00) 12 (06/11/2012 14:51:00) Glucose Lvl [70-99 mg/dL] 120 mg/dL 3 *HI* (06/12/2012 03:58:00) 164 mg/dL 4 *HI* (06/11/2012 14:51:00) Total Protein [6.4-8.4 g/dL] 5.2 g/dL *LOW* (06/12/2012 03:58:00) 7.2 g/dL (06/11/2012 14:51:00) Albumin Lvl [3.5-5.0 g/dL] 3.1 g/dL *LOW* (06/12/2012 03:58:00) 4.1 g/dL (06/11/2012 14:51:00) Globulin [2.0-4.0 g/dL] 2.1 g/dL (06/12/2012 03:58:00) 3.1 g/dL (06/11/2012 14:51:00) A/G Ratio [0.7-1.6] 1.5 (06/12/2012 03:58:00) 1.3 (06/11/2012 14:51:00) Calcium Lvl [8.5-10.5 mg/dL] 8.7 mg/dL (06/12/2012:58:00) 8.9 mg/dL (06/11/2012:51:00) Phosphorus [2.5-4.5 mg/dL] 2.4 mg/dL *LOW* (06/12/2012:58:00) Magnesium Lvl [1.8-2.4 mg/dL] 1.8 mg/dL (06/12/2012:58:00) ALT [0-65 unit/L] 19 unit/L (06/12/2012:58:00) 26 unit/L (06/11/2012:51:00) AST [0-37 unit/L] 14 unit/L (06/12/2012:58:00) 22 unit/L (06/11/2012 14:51:00) Alk Phos [39-136 unit/L] 58 unit/L (06/12/2012:58:00) 67 unit/L (06/11/2012 14:51:00) Bili Total [0.2-1.3 mg/dL] 0.5 mg/dL (06/12/2012:58:00) 0.6 mg/dL (06/11/2012:51:00) Lipase Lvl [73-393 unit/L] 107 unit/L (06/11/2012 14:51:00) 1Result Comment: The eGFR is calculated using [...] from the National Kidney Disease Education Program ( NKDEP) which additionally recommends that when the eGFR is used in patients with extremes of body mass index for purposes of drug dosing, the eGFR should be mul tiplied by the estimated BMI. 2Result Comment: The eGFR is calculated using [...] from the National Kidney Disease Education Program ( NKDEP) which additionally recommends that when the eGFR is used in patients with extremes of body mass index for purposes of drug dosing, the eGFR should be mul tiplied by the estimated BMI. 3Interpretive Data: Adult reference range values reflect the clinical guidelines of the [place] [employer]. 4Interpretive Data: Adult reference range values reflect the clinical guidelines of the [place] [employer]. HEMATOLOGY Most recent to oldest [Reference Range]: 1 2 WBC [3.7-10.4 K/CMM] 4.7 K/CMM (06/12/2012 03:58:00) 7.0 K/CMM (06/11/2012 14:51:00) RBC [4.70-6.10 M/CMM] 3.35 M/CMM *LOW* (06/12/2012 03:58:00) 4.05 M/CMM *LOW* (06/11/2012 14:51:00) Hgb [14.0-18.0 g/dL] 11.1 g/dL *LOW* (06/12/2012 03:58:00) 13.3 g/dL *LOW* (06/11/2012 14:51:00) Hct [42.0-54.0 %] 32.6 % *LOW* (06/12/2012 03:58:00) 39.6 % *LOW* (06/11/2012 14:51:00) MCV [80.0-94.0 fL] 97.1 fL *HI* (06/12/2012 03:58:00) 97.7 fL *HI* (06/11/2012 14:51:00) MCH [27.0-31.0 pg] 33.0 pg *HI* (06/12/2012 03:58:00) 32.7 pg *HI* (06/11/2012 14:51:00) MCHC [32.0-36.0 g/dL] 34.0 g/dL (06/12/2012 03:58:00) 33.5 g/dL (06/11/2012 14:51:00) RDW [11.5-14.5 %] 15.6 % *HI* (06/12/2012 03:58:00) 16.4 % *HI* (06/11/2012 14:51:00) Platelet [133-450 K/CMM] 147 K/CMM (06/12/2012 03:58:00) 180 K/CMM (06/11/2012 14:51:00) MPV [7.4-10.4 fL] 7.4 fL (06/12/2012 03:58:00) 7.1 fL *LOW* (06/11/2012 14:51:00) Segs [45.0-75.0 %] 53.9 % (06/12/2012 03:58:00) 82.0 % *HI* (06/11/2012 14:51:00) Lymphocytes [20.0-40.0 %] 30.6 % (06/12/2012 03:58:00) 10.9 % *LOW* (06/11/2012 14:51:00) Monocytes [2.0-12.0 %] 11.2 % (06/12/2012 03:58:00) 5.5 % (06/11/2012 14:51:00) Eosinophils [0.0-4.0 %] 3.9 % (06/12/2012 03:58:00) 1.5 % (06/11/2012 14:51:00) Basophils [0.0-1.0 %] 0.4 % (06/12/2012 03:58:00) 0.1 % (06/11/2012 14:51:00) Segs-Bands # [1.5-8.1 K/CMM] 2.5 K/CMM (06/12/2012 03:58:00) 5.7 K/CMM (06/11/2012 14:51:00) Lymphocytes # [1.0-5.5 K/CMM] 1.4 K/CMM (06/12/2012 03:58:00) 0.8 K/CMM *LOW* (06/11/2012 14:51:00) Monocytes # [0.0-0.8 K/CMM] 0.5 K/CMM (06/12/2012 03:58:00) 0.4 K/CMM (06/11/2012 14:51:00) Eosinophils # [0.0-0.5 K/CMM] 0.2 K/CMM (06/12/2012 03:58:00) 0.1 K/CMM (06/11/2012 14:51:00) Basophils # [0.0-0.2 K/CMM] 0.0 K/CMM (06/12/2012 03:58:00) 0.0 K/CMM (06/11/2012 14:51:00) PT [12.0-14.7 seconds] 13.9 seconds (06/12/2012 03:58:00) INR [0.85-1.17] 1.05 5 (06/12/2012 03:58:00) PTT [22.9-35.8 seconds] 31.4 seconds 6 (06/12/2012 03:58:00) 5Interpretive Data: RECOMMENDED RANGES FOR PROTIME INR: 2.0-3.0 for most medical and surgical thromboembolic states. 2.5-3.5 for artificial heart valves and recurrent embolism. INR SHOULD BE USED ONLY FOR PATIENTS ON STABLE ANTICOAGULANT THERAPY. 6Interpretive Data: Heparin Therapeutic Range: 57 - 92 Seconds Microbiology Reports PROCEDURE:Culture: Urine STATUS: Auth (Verified) BODY SITE: COLLECTED DATE/TIME: 06/11/2012 14:32:00 SOURCE: Urine, Clean Catch FREE TEXT SOURCE: FINAL REPORTS Final Report No Growth PRELIMINARY REPORTS Preliminary Report No Growth; Holding Procedures Procedures Date Related Diagnosis Pacemaker care management
--- OUTSIDE RECORDS SUMMARY | 2018-10-27 11:51 | XMS REPORT | Summary of Care ---
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 Problem List Condition Effective Dates Status Health Status Informant Anemia(Confirmed) 04/19/72 Resolved Back pain(Confirmed) 04/19/05 Resolved BPH - Benign 04/19/82 Resolved prostatic hypertrophy(Confirme d) CA - Cancer of 04/19/98 Resolved prostate(Confirmed) Cataract(Confirmed) 04/19/75 Resolved Diabetes mellitus - 04/19/72 Resolved adult onset(Confirmed) Heart 04/19/10 Resolved disease(Confirmed) Heartburn(Confirmed) 04/19/02 Resolved Hyperlipidemia(Confi 04/19/75 Resolved rmed) Hypertension(Confirm 12/18/90 Resolved ed) Neck pain(Confirmed) 04/19/71 Resolved Poor peripheral 04/19/10 Resolved circulation(Confirme d) RF - Renal 04/19/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
--- OUTSIDE RECORDS SUMMARY | 2018-10-27 11:52 | XMS REPORT | Summary of Care ---
Author Organization Unknown Address Unknown Phone Unavailable Encounter HQ Enrike_vincent(FIN) [id number] Date(s): 12/07/13 - 12/07/13 [facility] [address] [place], [place] [address] [facility] Discharge Disposition: Not Seen Physician Attending: Getachew Farias MD Reason for Visit ABNORMAL LABS Problem List Condition Effective Dates Status Health Status Informant Anemia(Confirmed) 04/19/72 Resolved Back pain(Confirmed) 04/19/05 Resolved Bladder Resolved cancer(Confirmed) BPH - Benign 04/19/82 Resolved prostatic hypertrophy(Confirme d) CA - Cancer of 04/19/98 Resolved prostate(Confirmed) Cataract(Confirmed) 04/19/75 Resolved Diabetes(Confirmed) Resolved Diabetes mellitus - 04/19/72 Resolved adult onset(Confirmed) Heart 04/19/10 Resolved disease(Confirmed) Heartburn(Confirmed) 04/19/02 Resolved Hypercholesteremia(C Resolved onfirmed) Hyperlipidemia(Confi 04/19/75 Resolved rmed) Hypertension(Confirm 12/18/90 Resolved ed) Neck pain(Confirmed) 04/19/71 Resolved Poor peripheral 04/19/10 Resolved circulation(Confirme d) RF - Renal 04/19/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 failure(Confirmed) Sinusitis(Confirmed) 1932 Resolved TIA(Confirmed) 04/19/08 Resolved UTI - Urinary tract 04/19/98 Resolved infection(Confirmed) Allergies, Adverse Reactions, Alerts Substance Reaction Severity Status Adhesive Tape Active Ambien Active Neurontin [place]^Mild Active Medications No data available for this section Medications Administered During Your Visit No data available for this section Immunizations Vaccine Date Refusal Reason tetanus-diphtheria toxoids 04/20/12 Social History Social History Type Response Smoking Status Former smoker, Ready to change: No, Exposure to Tobacco Smoke None, Cigarette Smoking Last 365 Days No, Reg Smoking Cessation Counseling Yes1 1quit in 1960
--- OUTSIDE RECORDS SUMMARY | 2018-10-27 11:52 | XMS REPORT | Summary of Care ---
Author Organization Unknown Address Unknown Phone Unavailable Encounter HQ Demarntr_vincent(ANROLD) [id number] Date(s): 12/10/13 - 12/10/13 [facility] [address] [place], [place] [address] [facility] Discharge Disposition: Home Physician Attending: Igor Michelle MD Physician_Referring: Igor Michelle MD Reason for Visit 723.4=ACUTE CERVICAL RADICULOPATHY Problem List Condition Effective Dates Status Health [...] Status Adhesive Tape Active Ambien Active Neurontin [place]^Mild Active Medications No data available for this section Medications Administered During Your Visit No data available for this section Immunizations Vaccine Date Refusal Reason tetanus-diphtheria toxoids 04/20/12 Social History Social History Type Response Smoking Status Former smoker, Ready to change: No, Exposure to Tobacco Smoke None, Cigarette Smoking Last 365 Days No, Reg Smoking Cessation Counseling Yes1 1quit in 1
--- OUTSIDE RECORDS SUMMARY | 2018-10-27 11:52 | XMS REPORT | Summary of Care ---
Author Author [facility] Organization [facility] Address Unknown Phone Unavailable Encounter OMAR Prado(ARNOLD) [id number] Date(s): 08/20/16 - 08/20/16 [facility] [address] [place] [address]- [phone] Discharge Disposition: Home or Self Care Attending Physician: Panda Tapia MD Referring Physician: Panda Tapia MD Vital Signs Most recent to 1 oldest [Reference Range]: Height 177.8 cm (08/20/16 7:57 AM) Blood Pressure 182/106 mmHg [90-140/60-90 mmHg] *HI* (08/20/16 8:17 AM) Respiratory Rate 18 BRMIN [14-20 BRMIN] (08/20/16 8:17 AM) Peripheral Pulse 74 bpm Rate [60-100 bpm] (08/20/16 8:17 AM) Weight 80.909 kg (08/20/16 7:57 AM) Body Mass Index 25.59 m2 (08/20/16 7:57 AM) Problem List Condition Effective Dates Status Health Status Informant Anemia(Confirmed) 04/19/72 Active Back pain(Confirmed) 04/19/05 Active Bladder Active cancer(Confirmed) BPH - Benign 04/19/82 Active prostatic hypertrophy(Confirme d) CA - Cancer of 04/19/98 Active prostate(Confirmed) Cataract(Confirmed) 04/19/75 Active Diabetes mellitus - 04/19/72 Resolved adult onset(Confirmed) Diabetes(Confirmed) Active Heart 04/19/10 Active disease(Confirmed) Heartburn(Confirmed) 04/19/02 Active Hypercholesteremia(C Active onfirmed) Hyperlipidemia(Confi 04/19/75 Active rmed) Hypertension(Confirm 12/18/90 Active ed) Neck pain(Confirmed) 04/19/71 Active Poor peripheral 04/19/10 Active circulation(Confirme d) 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) Sinusitis(Confirmed) 1933 Resolved TIA(Confirmed) 04/19/08 Active UTI - Urinary tract 04/19/98 Active infection(Confirmed) Allergies, Adverse Reactions, Alerts Substance Reaction Severity Status Adhesive Tape Active Ativan Active Neurontin OK^Mild Active Medications acetaminophen-hydrocodone 325 mg-5 mg oral tablet 1 tab, PO, Q4H, PRN Pain, # 30 tab, 0 Refill(s) Start Date: 08/20/16 Status: Ordered albuterol-ipratropium 2.5-0.5 mg inhalation solution 3 mL, NEB, Q4H, prn, 0 Refill(s) Start Date: 08/20/16 Status: Ordered atorvastatin 10 mg oral tablet 10 mg=1 tab, PO, Bedtime, # 30 tab, 0 Refill(s) Start Date: 08/20/16 Status: Ordered cefepime 1 g injection 1 gm, IV, Q8H, 0 Refill(s) Start Date: 08/20/16 Status: Ordered divalproex sodium 125 mg oral enteric coated tablet (Depakote) 125 mg=1 tab, PO, Q12H, 0 Refill(s) Start Date: 08/20/16 Status: Ordered docusate sodium 100 mg oral capsule 100 mg=1 cap, PO, Daily, PRN Constipation, # 20 cap, 0 Refill(s) Start Date: 08/20/16 Status: Ordered fentaNYL 50 microgram, Route: IV, Q2H, Dosing Weight 80.909, kg, PRN Pain Score 4-6, Star t date: 08/20/16 9:29:00 CDT, Stop date: 09/19/16 9:28:00 CDT Start Date: 08/20/16 Stop Date: 08/20/16 Status: Discontinued ferrous fumarate 325 mg oral tablet 325 mg=1 tab, PO, BID, with meals, 0 Refill(s) Start Date: 08/20/16 Status: Ordered hydromorphone 0.5 mg, IVP, Q3H, prn, 0 Refill(s) Start Date: 08/20/16 Status: Ordered insulin aspart SUB-Q, TID-Before Meals, 0 Refill(s) Start Date: 08/20/16 Status: Ordered Lovenox 30 mg/0.3 mL subcutaneous solution 30 mg, SUB-Q, Daily, 0 Refill(s) Start Date: 08/20/16 Status: Ordered magnesium sulfate 2 gm, IV, ONCE, 0 Refill(s) Start Date: 08/20/16 Status: Ordered memantine 5 mg oral tablet 5 mg=1 tab, PO, Daily, # 30 tab, 0 Refill(s) Start Date: 08/20/16 Status: Ordered metoprolol tartrate 50 mg oral tablet 50 mg=1 tab, PO, BID, # 180 tab, 0 Refill(s) Start Date: 08/20/16 Status: Ordered morphine Sulfate 4 mg, 1 mL, Route: IVP, Drug form: SOLN, Q2H, Dosing Weight 80.909, kg, PRN Othe r -See Comment, Start date: 08/20/16 8:22:00 CDT, Duration: 30 day, Stop date: 0 09/19/16 8:21:00 CDT Notes: (Same as:MORPhine Sulfate) Start Date: 08/20/16 Stop Date: 08/20/16 Status: Discontinued multivitamin 1 tab, PO, Daily, 0 Refill(s) Start Date: 08/20/16 Status: Ordered Nifedical XL 30 mg oral tablet, extended release 30 mg=1 tab, PO, Daily, # 30 tab, 0 Refill(s) Start Date: 08/20/16 Status: Ordered nitroglycerin SL Tab 0.4 mg, Route: SL, Drug form: TAB, Q5Min, Dosing Weight 80.909, kg, PRN Chest Pa in, Start date: 08/20/16 9:13:00 CDT, Duration: 3 doses or times, Stop date: Brewer ited # of times Start Date: 08/20/16 Stop Date: 08/20/16 Status: Discontinued pantoprazole 40 mg oral enteric coated tablet See Instructions, 40mg IVP Daily, 0 Refill(s) Start Date: 08/20/16 Stop Date: 08/20/16 Status: Discontinued Senna 8.6 mg oral tablet 8.6 mg=1 tab, PO, Daily, 0 Refill(s) Start Date: 08/20/16 Status: Ordered SEROquel 25 mg oral tablet 25 mg=1 tab, PO, Q8H, prn, 0 Refill(s) Start Date: 08/20/16 Status: Ordered SEROquel 25 mg oral tablet 25 mg=1 tab, PO, Bedtime, 0 Refill(s) Start Date: 08/20/16 Stop Date: 08/20/16 Status: Discontinued Sodium Chloride 0.9% IV 750 mL 750 mL, Rate: 75 ml/hr, Infuse over: 10 hr, Route: IV, Dosing Weight 80.909 kg, Total Volume: 750, Start date: 08/20/16 9:13:00 CDT, Duration: 10 hr, Stop date: 08/20/16 19:12:00 CDT Start Date: 08/20/16 Stop Date: 08/20/16 Status: Discontinued vancomycin 1 gm, IVP, Q48H, 0 Refill(s) Start Date: 08/20/16 Status: Ordered Results No data available for this section Immunizations Given and Recorded Vaccine Date Status Refusal Reason tetanus-diphtheria toxoids 04/20/12 Given Procedures Procedure Date Related Diagnosis Body Site Placement of stent1 07/19/11 Placement of stent2 06/20/11 Laminectomy 04/19/08 Placement of stent 01/25/08 Laminectomy 04/19/05 Procedure on prostate3 04/19/98 Cataract surgery 04/19/75 Pacemaker care management 1left leg, 2 in heart 2right leg 3seeding Social History Social History Type Response Substance Abuse Use: None. Alcohol Past Smoking Status Former smoker; Ready to change: No; Exposure to Tobacco Smoke None; Cigarette Smoking Last 365 Days No; Reg Smoking Cessation Counseling Yes1 1quit in 1961 Assessment and Plan No data available for this section
--- OUTSIDE RECORDS SUMMARY | 2018-10-27 11:52 | XMS REPORT | Summary of Care ---
Author Organization Unknown Address Unknown Phone Unavailable Encounter HQ Johan(ARNOLD) [id number] Date(s): 12/25/13 - 12/28/13 [facility] [address] Discharge Disposition: Home Physician Attending: William Sebastian DO Physician Admitting: William Sebastian DO Reason for Visit SEPSIS, UTI, PNA, HYPERKALEMIA Vital Signs 1 2 3 Most recent to oldest [Reference Range]: 177.8 cm (12/25/13 12:00 PM) Height 98.8 DegF (12/28/13 4:00 PM) 98.5 DegF (12/28/13 12:00 PM) 98.9 DegF (12/28/13 8:00 AM) Temperature Oral [96.4-99.1 DegF] 121 mmHg (12/28/13 4:00 PM) 125 mmHg (12/28/13 12:00 PM) 143 mmHg *HI* (12/28/13 8:00 AM) Systolic Blood Pressure [90-140 mmHg] 61 mmHg (12/28/13 4:00 PM) 68 mmHg (12/28/13 12:00 PM) 58 mmHg *LOW* (12/28/13 8:00 AM) Diastolic Blood Pressure [60-90 mmHg] 17 BRMIN (12/28/13 4:00 PM) 17 BRMIN (12/28/13 12:00 PM) 17 BRMIN (12/28/13 8:00 AM) Respiratory Rate [14-20 BRMIN] 73 bpm (12/28/13 4:00 PM) 76 bpm (12/28/13 12:00 PM) 71 bpm (12/28/13 8:00 AM) Peripheral Pulse Rate [60-100 bpm] 81.2 kg (12/25/13 10:57 PM) 83.636 kg (12/25/13 12:00 PM) Weight 26.46 m2 (12/25/13 12:00 PM) Body Mass Index Problem List Condition Effective Dates Status Health Status Informant Anemia(Confirmed) 04/19/72 Active Back pain(Confirmed) 04/19/05 Active Bladder Active cancer(Confirmed) BPH - Benign 04/19/82 Active prostatic hypertrophy(Confirme d) CA - Cancer of 04/19/98 Active prostate(Confirmed) Cataract(Confirmed) 04/19/75 Active Diabetes(Confirmed) Active Diabetes mellitus - 04/19/72 Resolved adult onset(Confirmed) Heart 04/19/10 Active disease(Confirmed) Heartburn(Confirmed) 04/19/02 Active Hypercholesteremia(C Active onfirmed) Hyperlipidemia(Confi 04/19/75 Active rmed) Hypertension(Confirm 12/18/90 Active ed) Neck pain(Confirmed) 04/19/71 Active Poor peripheral 04/19/10 Active circulation(Confirme d) 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) Sinusitis(Confirmed) 1932 Resolved TIA(Confirmed) 04/19/08 Active UTI - Urinary tract 04/19/98 Active infection(Confirmed) Allergies, Adverse Reactions, Alerts Substance Reaction Severity Status Adhesive Tape Active Ativan Active Neurontin IL^Mild Active Medications 1/2 NS 1,000 mL 1,000 mL, Rate: 75 ml/hr, Infuse over: 13.3 hr, Route: IV, Dosing Weight 81.2 kg , Total Volume: 1,000, Start date: 12/26/13 9:34:00, Duration: 1 day, Stop date: 12/27/13 9:33:00 Start Date: 12/26/13 Stop Date: 12/27/13 Status: Completed acetaminophen 650 mg, 20.3 mL, Route: PO, Drug form: LIQ, Q4H, Dosing Weight 83.636, kg, PRN P ain 1-3/Temp > 100.4 F, Start date: 12/25/13 18:38:00, Duration: 30 day, Stop date: 01/24/14 18:37:00 Notes: Max [id number]=3428kn/day (4 gm/day). (Same as: Tylenol) Start Date: 12/25/13 Stop Date: 12/28/13 Status: Discontinued acetaminophen-hydrocodone 325 mg-5 mg oral tablet 1 tab, Route: PO, Drug Form: TAB, Dosing Weight 83.636, kg, Q4H, PRN Pain Score 1-3, Start date: 12/25/13 18:38:00, Duration: 30 day, Stop date: 01/24/14 18:37: 00 Notes: (Same as: [place] 325/5) Do not exceed 4gm/day of acetaminophen. Start Date: 12/25/13 Stop Date: 12/28/13 Status: Discontinued Ambien 10 mg, 1 tab, Route: PO, Drug form: TAB, Bedtime, Dosing Weight 81.2, kg, PRN as needed for sleep, Start date: 12/26/13 9:23:00, Duration: 30 day, Stop date: 9:22:00 Notes: (Same As: Ambien) Start Date: 12/26/13 Stop Date: 12/28/13 Status: Discontinued aspirin 325 mg tablet, enteric coated 325 mg=1 tab, PO, Daily Start Date: 12/25/13 Stop Date: 12/28/13 Status: Discontinued aspirin 325 mg tablet, enteric coated 325 mg, 1 tab, Route: PO, Drug form: ECTAB, Daily, Dosing Weight 81.2, kg, Start date: 12/27/13 9:00:00, Duration: 30 day, Stop date: 01/25/14 9:00:00 Start Date: 12/27/13 Stop Date: 12/26/13 Status: Canceled aspirin 81 mg tablet, enteric coated 81 mg=1 tab, PO, Daily, # 100 tab, 0 Refill(s) Start Date: 12/28/13 Status: Ordered aspirin 81 mg tablet, enteric coated 81 mg, 1 tab, Route: PO, Drug form: ECTAB, Daily, Dosing Weight 81.2, kg, Start date: 12/27/13 9:00:00, Duration: 30 day, Stop date: 01/25/14 9:00:00 Notes: Do not crush or chew.(Same As: Ecotrin) Start Date: 12/27/13 Stop Date: 12/28/13 Status: Discontinued Augmentin 875 mg oral tablet 875 mg=1 tab, PO, Q12H, # 14 tab, 0 Refill(s) Start Date: 12/28/13 Stop Date: 01/04/14 Status: Ordered azithromycin 500 mg, 250 mL, Route: IVPB, Drug form: PDR/INJ, [id number], Dosing Weight 83.636, kg, Priority: STAT, Start date: 12/25/13 18:38:00, Duration: 30 day, Stop date: 01/23/14 17:00:00 Notes: Same as: Zithromax Start Date: 12/25/13 Stop Date: 12/28/13 Status: Discontinued azithromycin 500 mg, Route: IVPB, ONCE, Dosing Weight 83.636, kg, Priority: STAT, Start date: 12/25/13 15:40:00, Stop date: 12/25/13 15:40:00 Start Date: 12/25/13 Stop Date: 12/25/13 Status: Completed calcium gluconate + Sodium Chloride 0.9% IV 80 mL 2,000 mg, 20 mL, Route: IVPB, ONCE, Dosing Weight 83.636, kg, Start date: 18:05:00, Stop date: 12/25/13 18:05:00 Start Date: 12/25/13 Stop Date: 12/25/13 Status: Completed cefepime + Sodium Chloride 0.9% IV 100 mL 1 gm, Route: IVPB, Drug form: INJ, [id number], Dosing Weight 83.636, kg, Priority: STAT, Start date: 12/25/13 18:38:00, Duration: 30 day, Stop date: 01/24/14 6:00: 00 Notes: (Same As: Maxipime) Start Date: 12/25/13 Stop Date: 12/27/13 Status: Discontinued CeleXA 40 mg, 2 tab, Route: PO, Drug form: TAB, Daily, Dosing Weight 81.2, kg, Start da te: 12/27/13 9:00:00, Duration: 30 day, Stop date: 01/25/14 9:00:00 Notes: (Same As: CeleXA) Start Date: 12/27/13 Stop Date: 12/28/13 Status: Discontinued clopidogrel 75 mg, 1 tab, Route: PO, Drug form: TAB, Bedtime, Dosing Weight 81.2, kg, Start date: 12/26/13 21:00:00, Duration: 30 day, Stop date: 01/24/14 21:00:00 Notes: (Same As: Plavix) Start Date: 12/26/13 Stop Date: 12/28/13 Status: Discontinued clopidogrel 75 mg oral tablet 75 mg=1 tab, PO, Bedtime Start Date: 12/25/13 Status: Ordered D5W 1/2NS 1,000 mL 1,000 mL, Rate: 75 ml/hr, Infuse over: 13.3 hr, Route: IV, Dosing Weight 81.2 kg , Total Volume: 1,000, Start date: 12/26/13 9:24:00, Duration: 30 day, Stop date : 01/25/14 9:23:00 Start Date: 12/26/13 Stop Date: 12/26/13 Status: Discontinued Dextrose 50% Syringe 25 gm, Route: IVP, Dosing Weight 83.636, kg, ONCE, Start date: 12/25/13 18:05:00 , Stop date: 12/25/13 18:05:00 Start Date: 12/25/13 Stop Date: 12/25/13 Status: Completed Dextrose 50% Syringe 25 gm, 50 mL, Route: IVP, Drug Form: INJ, Dosing Weight 81.2, kg, PRN, PRN Blood Glucose Results, Start date: 12/26/13 9:35:00, Duration: 30 day, Stop date: 04/28 9:34:00 Start Date: 12/26/13 Stop Date: 12/28/13 Status: Discontinued Dextrose 50% Syringe 12.5 gm, 25 mL, Route: IVP, Drug Form: INJ, Dosing Weight 81.2, kg, PRN, PRN Blo od Glucose Results, Start date: 12/26/13 9:35:00, Duration: 30 day, Stop date: 0 01/25/14 9:34:00 Start Date: 12/26/13 Stop Date: 12/28/13 Status: Discontinued enoxaparin 80 mg, 0.8 mL, Route: SUB-Q, Drug form: INJ, [id number], Dosing Weight 83.636, kg, Start date: 12/26/13 10:00:00, Duration: 30 day, Stop date: 01/24/14 10:00:00 Notes: Nurse to ensure documentation of patient education per anticoagulation po licy. (Same as: Lovenox) Start Date: 12/26/13 Stop Date: 12/27/13 Status: Discontinued enoxaparin 30 mg, 0.3 mL, Route: SUB-Q, Drug form: INJ, [id number], Dosing Weight 83.636, kg, Start date: 12/25/13 19:00:00, Duration: 30 day, Stop date: 01/23/14 19:00:00 Notes: (Same as: Lovenox) Start Date: 12/25/13 Stop Date: 12/26/13 Status: Discontinued enoxaparin 40 mg, 0.4 mL, Route: SUB-Q, Drug form: INJ, [id number], Dosing Weight 83.636, kg, Start date: 12/27/13 10:00:00, Duration: 30 day, Stop date: 01/25/14 10:00:00 Notes: (Same as: Lovenox) Start Date: 12/27/13 Stop Date: 12/28/13 Status: Discontinued folic acid 1 mg, 1 tab, Route: PO, Drug form: TAB, QAM, Dosing Weight 81.2, kg, Start date: 12/27/13 9:00:00, Duration: 30 day, Stop date: 01/25/14 9:00:00 Notes: (Same as: Folvite) Start Date: 12/27/13 Stop Date: 12/28/13 Status: Discontinued glucagon 1 mg, Route: IM, Drug form: PDR/INJ, PRN, Dosing Weight 81.2, kg, PRN Blood Gluc ose Results, Start date: 12/26/13 9:35:00, Duration: 30 day, Stop date: 01/25/14 9:34:00 Start Date: 12/26/13 Stop Date: 12/28/13 Status: Discontinued insulin aspart 6 unit, 0.06 mL, Route: SUB-Q, Drug form: SOLN, TID-Before Meals, Dosing Weight 81.2, kg, PRN Blood Glucose Results, Start date: 12/26/13 9:35:00, Duration: 30 day, Stop date: 01/25/14 9:34:00 Notes: Roll in palms of hands gently; Do not shake vigorously. (Same as: NovoLO G)"single patient use only" Stable for 28 days at room temperature.Expires in _ ____ days from Date Start Date: 12/26/13 Stop Date: 12/28/13 Status: Discontinued insulin aspart 8 unit, 0.08 mL, Route: SUB-Q, Drug form: SOLN, TID-Before Meals, Dosing Weight 81.2, kg, PRN Blood Glucose Results, Start date: 12/26/13 9:35:00, Duration: 30 day, Stop date: 01/25/14 9:34:00 Notes: Roll in palms of hands gently; Do not shake vigorously. (Same as: NovoLO G)"single patient use only" Stable for 28 days at room temperature.Expires in _ ____ days from Date Start Date: 12/26/13 Stop Date: 12/28/13 Status: Discontinued insulin aspart 10 unit, 0.1 mL, Route: SUB-Q, Drug form: SOLN, TID-Before Meals, Dosing Weight 81.2, kg, PRN Blood Glucose Results, Start date: 12/26/13 9:35:00, Duration: 30 day, Stop date: 01/25/14 9:34:00 Notes: Roll in palms of hands gently; Do not shake vigorously. (Same as: NovoLO G)"single patient use only" Stable for 28 days at room temperature.Expires in _ ____ days from Date Start Date: 12/26/13 Stop Date: 12/28/13 Status: Discontinued insulin aspart 2 unit, 0.02 mL, Route: SUB-Q, Drug form: SOLN, TID-Before Meals, Dosing Weight 81.2, kg, PRN Blood Glucose Results, Start date: 12/26/13 9:35:00, Duration: 30 day, Stop date: 01/25/14 9:34:00 Notes: Roll in palms of hands gently; Do not shake vigorously. (Same as: NovoLO G)"single patient use only" Stable for 28 days at room temperature.Expires in _ ____ days from Date Start Date: 12/26/13 Stop Date: 12/28/13 Status: Discontinued insulin aspart 4 unit, 0.04 mL, Route: SUB-Q, Drug form: SOLN, TID-Before Meals, Dosing Weight 81.2, kg, PRN Blood Glucose Results, Start date: 12/26/13 9:35:00, Duration: 30 day, Stop date: 01/25/14 9:34:00 Notes: Roll in palms of hands gently; Do not shake vigorously. (Same as: NovoLO G)"single patient use only" Stable for 28 days at room temperature.Expires in _ ____ days from Date Start Date: 12/26/13 Stop Date: 12/28/13 Status: Discontinued insulin aspart 1 unit, 0.01 mL, Route: SUB-Q, Drug form: SOLN, Bedtime, Dosing Weight 81.2, kg, PRN Blood Glucose Results, Start date: 12/26/13 9:35:00, Duration: 30 day, Stop date: 01/25/14 9:34:00 Notes: Roll in palms of hands gently; Do not shake vigorously. (Same as: NovoLO G)"single patient use only" Stable for 28 days at room temperature.Expires in _ ____ days from Date Start Date: 12/26/13 Stop Date: 12/28/13 Status: Discontinued insulin aspart 4 unit, 0.04 mL, Route: SUB-Q, Drug form: SOLN, Bedtime, Dosing Weight 81.2, kg, PRN Blood Glucose Results, Start date: 12/26/13 9:35:00, Duration: 30 day, Stop date: 01/25/14 9:34:00 Notes: Roll in palms of hands gently; Do not shake vigorously. (Same as: NovoLO G)"single patient use only" Stable for 28 days at room temperature.Expires in _ ____ days from Date Start Date: 12/26/13 Stop Date: 12/28/13 Status: Discontinued insulin aspart 2 unit, 0.02 mL, Route: SUB-Q, Drug form: SOLN, Bedtime, Dosing Weight 81.2, kg, PRN Blood Glucose Results, Start date: 12/26/13 9:35:00, Duration: 30 day, Stop date: 01/25/14 9:34:00 Notes: Roll in palms of hands gently; Do not shake vigorously. (Same as: NovoLO G)"single patient use only" Stable for 28 days at room temperature.Expires in _ ____ days from Date Start Date: 12/26/13 Stop Date: 12/28/13 Status: Discontinued insulin aspart 3 unit, 0.03 mL, Route: SUB-Q, Drug form: SOLN, Bedtime, Dosing Weight 81.2, kg, PRN Blood Glucose Results, Start date: 12/26/13 9:35:00, Duration: 30 day, Stop date: 01/25/14 9:34:00 Notes: Roll in palms of hands gently; Do not shake vigorously. (Same as: NovoLO G)"single patient use only" Stable for 28 days at room temperature.Expires in _ ____ days from Date Start Date: 12/26/13 Stop Date: 12/28/13 Status: Discontinued Insulin regular 5 unit, Route: IV, ONCE, Dosing Weight 83.636, kg, Start date: 12/25/13 18:04:00 , Stop date: 12/25/13 18:04:00 Start Date: 12/25/13 Stop Date: 12/25/13 Status: Completed Kayexalate 60 gm, 240 mL, Route: PO, Drug form: SUSP, ONCE, Dosing Weight 83.636, kg, Prior ity: STAT, Start date: 12/25/13 18:40:00, Stop date: 12/25/13 18:40:00 Notes: (sodium polystyrene sulfonate 15 gm/60 ml MINO) Shake well before use. (Same as: Kayexalate, SPS) Start Date: 12/25/13 Stop Date: 12/25/13 Status: Completed Lasix 20 mg, 2 mL, Route: IVP, Drug form: INJ, ONCE, Dosing Weight 81.2, kg, Priority: STAT, Start date: 12/26/13 9:36:00, Stop date: 12/26/13 9:36:00 Notes: (Same as: Lasix) Start Date: 12/26/13 Stop Date: 12/26/13 Status: Completed lisinopril 10 mg, Route: PO, Drug form: TAB, QAM, Dosing Weight 81.2, kg, Start date: 12/27 9:00:00, Duration: 30 day, Stop date: 01/25/14 9:00:00 Start Date: 12/27/13 Stop Date: 12/26/13 Status: Canceled Lyrica 150 mg, 2 cap, Route: PO, Drug form: CAP, TID, Dosing Weight 81.2, kg, Start mary e: 12/26/13 13:00:00, Duration: 30 day, Stop date: 01/25/14 9:00:00 Notes: (Same as: Lyrica) Start Date: 12/26/13 Stop Date: 12/28/13 Status: Discontinued metoprolol tartrate 25 mg, 1 tab, Route: PO, Drug form: TAB, QAM, Dosing Weight 81.2, kg, Start date : 12/27/13 9:00:00, Duration: 30 day, Stop date: 01/25/14 9:00:00 Notes: (Same as: Lopressor) Start Date: 12/27/13 Stop Date: 12/28/13 Status: Discontinued morphine Sulfate 2 mg, 1 mL, Route: IVP, Drug form: INJ, Q3H, Dosing Weight 83.636, kg, PRN Pain Score 4-6, Start date: 12/25/13 18:38:00, Duration: 30 day, Stop date: 01/24/14 18:37:00 Notes: (Same as:MORPhine Sulfate) Start Date: 12/25/13 Stop Date: 12/28/13 Status: Discontinued NS (Bolus) IV 1,000 mL, 1,000 ml/hr, Infuse Over: 1 hr, Route: IV, ONCE, Priority: STAT, Dosin g Weight 83.636 kg, Start date: 12/25/13 18:11:00, Duration: 1 doses or times, S top date: 12/25/13 18:11:00 Start Date: 12/25/13 Stop Date: 12/25/13 Status: Completed NS 1,000 mL 1,000 mL, Rate: 100 ml/hr, Infuse over: 10 hr, Route: IV, Dosing Weight 83.636 k g, Total Volume: 1,000, Start date: 12/25/13 18:53:00, Duration: 30 day, Stop da te: 01/24/14 18:52:00 Start Date: 12/25/13 Stop Date: 12/26/13 Status: Discontinued omeprazole 40 mg, Route: PO, Drug form: DRC, Daily, Dosing Weight 81.2, kg, Start date: 9:00:00, Duration: 30 day, Stop date: 01/25/14 9:00:00 Start Date: 12/27/13 Stop Date: 12/26/13 Status: Deleted omeprazole 40 mg oral delayed release capsule 40 mg=1 cap, PO, Daily Start Date: 12/25/13 Status: Ordered ondansetron 4 mg, 2 mL, Route: IVP, Drug form: INJ, Q8H, Dosing Weight 83.636, kg, PRN Nause a & Vomiting, Start date: 12/25/13 18:38:00, Duration: 30 day, Stop date: 01/24/14 18:37:00 Notes: (Same as: Zofran) Start Date: 12/25/13 Stop Date: 12/28/13 Status: Discontinued Protonix 40 mg, 1 tab, Route: PO, Drug form: ECTAB, Before Dinner, Start date: 12/26/13 1 6:30:00, Duration: 30 day, Stop date: 01/24/14 16:30:00 Notes: Tablet should not be chewed or crushed.(Same as: Protonix) Start Date: 12/26/13 Stop Date: 12/28/13 Status: Discontinued Rocephin 1 gm, Route: IM, Drug form: PDR/INJ, Q12H, Dosing Weight 81.2, kg, Start date: 0 12/27/13 21:00:00, Duration: 30 day, Stop date: 01/26/14 9:00:00 Notes: (Same As: Rocephin). Start Date: 12/27/13 Stop Date: 12/28/13 Status: Discontinued Rocephin 1 gm, Route: IVPB, Drug form: PDR/INJ, ONCE, Dosing Weight 83.636, kg, Priority: STAT, Start date: 12/25/13 15:40:00, Stop date: 12/25/13 15:40:00 Start Date: 12/25/13 Stop Date: 12/25/13 Status: Completed sodium bicarbonate 8.4% 50 ml, Route: IVP, Dosing Weight 83.636, kg, ONCE, Start date: 12/25/13 18:09:00 , Stop date: 12/25/13 18:09:00 Start Date: 12/25/13 Stop Date: 12/25/13 Status: Completed Tylenol 975 mg, Route: PO, Drug form: TAB, ONCE, Dosing Weight 83.636, kg, Priority: STA T, Start date: 12/25/13 15:41:00, Stop date: 12/25/13 15:41:00 Start Date: 12/25/13 Stop Date: 12/25/13 Status: Completed warfarin 5 mg, 1 tab, Route: PO, Drug form: TAB, QAM, Dosing Weight 81.2, kg, Start date: 12/27/13 9:00:00, Duration: 30 day, Stop date: 01/25/14 9:00:00 Notes: Nurse to ensure documentation of patient education per anticoagulation po licy.Avoid large intake of vitamin-K containing foods diet.(Same As: Coumadin) Start Date: 12/27/13 Stop Date: 12/27/13 Status: Discontinued warfarin 5 mg oral tablet 5 mg=1 tab, PO, QAM Start Date: 12/25/13 Stop Date: 12/28/13 Status: Discontinued Results ELECTROLYTES 1 2 3 Most recent to oldest [Reference Range]: 144 mEq/L (12/28/13 5:53 AM) 142 mEq/L (12/27/13 3:40 AM) 146 mEq/L *HI* (12/26/13 5:25 AM) Sodium Lvl [135-145 mEq/L] 4.1 mEq/L (12/28/13 5:53 AM) 3.8 mEq/L (12/27/13 3:40 AM) 4.5 mEq/L (12/26/13 5:25 AM) Potassium Lvl [3.5-5.1 mEq/L] 114 mEq/L *HI* (12/28/13 5:53 AM) 114 mEq/L *HI* (12/27/13 3:40 AM) 119 mEq/L *HI* (12/26/13 5:25 AM) Chloride Lvl [95-109 mEq/L] 22 mEq/L *LOW* (12/28/13 5:53 AM) 22 mEq/L *LOW* (12/27/13 3:40 AM) 17 mEq/L *LOW* (12/26/13 5:25 AM) CO2 [24-32 mEq/L] 12.1 mEq/L (12/28/13 5:53 AM) 9.8 mEq/L *LOW* (12/27/13 3:40 AM) 14.5 mEq/L (12/26/13 5:25 AM) AGAP [10.0-20.0 mEq/L] CHEM PANEL 1 2 3 Most recent to oldest [Reference Range]: 1.4 mg/dL (12/28/13 5:53 AM) 1.4 mg/dL (12/27/13 3:40 AM) 1.7 mg/dL *HI* (12/26/13 5:25 AM) Creatinine Lvl [0.5-1.4 mg/dL] 46 mL/min/1.73m2 1 *NA* (12/28/13 5:53 AM) 46 mL/min/1.73m2 2 *NA* (12/27/13 3:40 AM) 36 mL/min/1.73m2 3 *NA* (12/26/13 5:25 AM) eGFR 22 mg/dL (12/28/13 5:53 AM) 23 mg/dL *HI* (12/27/13 3:40 AM) 36 mg/dL *HI* (12/26/13 5:25 AM) BUN [7-22 mg/dL] 21 (12/26/13 5:25 AM) 21 (12/25/13 4:00 PM) B/C Ratio [6-25] 103 mg/dL 4 *HI* (12/28/13 5:53 AM) 102 mg/dL 5 *HI* (12/27/13 3:40 AM) 137 mg/dL 6 *HI* (12/26/13 5:25 AM) Glucose Lvl [70-99 mg/dL] 6.4 g/dL (12/26/13 5:25 AM) 8.0 g/dL (12/25/13 4:00 PM) Total Protein [6.4-8.4 g/dL] 2.5 g/dL *LOW* (12/26/13 5:25 AM) 3.3 g/dL *LOW* (12/25/13 4:00 PM) Albumin Lvl [3.5-5.0 g/dL] 3.9 g/dL (12/26/13 5:25 AM) 4.7 g/dL *HI* (12/25/13 4:00 PM) Globulin [2.0-4.0 g/dL] 0.6 *LOW* (12/26/13 5:25 AM) 0.7 (12/25/13 4:00 PM) A/G Ratio [0.7-1.6] 9.6 mg/dL (12/28/13 5:53 AM) 8.8 mg/dL (12/27/13 3:40 AM) 9.2 mg/dL (12/26/13 5:25 AM) Calcium Lvl [8.5-10.5 mg/dL] 2.0 mg/dL *LOW* (12/26/13 5:25 AM) Phosphorus [2.5-4.5 mg/dL] 1.3 mg/dL *LOW* (12/26/13 5:25 AM) Magnesium Lvl [1.8-2.4 mg/dL] 16 unit/L (12/26/13 5:25 AM) 19 unit/L (12/25/13 4:00 PM) ALT [0-65 unit/L] 19 unit/L (12/26/13 5:25 AM) 19 unit/L (12/25/13 4:00 PM) AST [0-37 unit/L] 79 unit/L (12/26/13 5:25 AM) 97 unit/L (12/25/13 4:00 PM) Alk Phos [39-136 unit/L] 0.4 mg/dL (12/26/13 5:25 AM) 0.5 mg/dL (12/25/13 4:00 PM) Bili Total [0.2-1.3 mg/dL] 1.1 mMol/L (12/25/13 2:35 PM) Lactic Acid Lvl [0.5-2.2 mMol/L] 1Result Comment: The eGFR is calculated using [...] be mul tiplied by the estimated BMI. 3Result Comment: The eGFR is calculated using [...] be mul tiplied by the estimated BMI. 4Interpretive Data: Adult reference range values reflect the clinical guidelines of the [place] [employer]. 5Interpretive Data: Adult reference range values reflect the clinical guidelines of the [place] [employer]. 6Interpretive Data: Adult reference range values reflect the clinical guidelines of the [place] [employer]. CARDIAC ENZYMES 1 2 3 Most recent to oldest [Reference Range]: 148 unit/L (12/25/13 4:00 PM) Total CK [12-191 unit/L] 2.9 ng/mL (12/25/13 4:00 PM) CK MB [0.5-3.6 ng/mL] 2.0 (12/25/13 4:00 PM) CK MB Index [0.0-2.5] 0.05 ng/mL (12/25/13 4:00 PM) Troponin-I [0.00-0.40 ng/mL] 507 pg/mL 7 *HI* (12/25/13 4:00 PM) BNP [<=100 pg/mL] 7Interpretive Data: Elevated results are in line with increasing severity of congestive heart failure. Minor elevations between 100 and 300 may be seen with Myocardial Ischemia, Sodium retaining drugs, and compensated/treated heart failure. THYROID PANEL 1 2 3 Most recent to oldest [Reference Range]: 0.173 uIU/mL *LOW* (12/26/13 5:25 AM) TSH [0.360-3.740 uIU/mL] URINE AND STOOL 1 2 3 Most recent to oldest [Reference Range]: Slight Cloudy (12/25/13 1:53 PM) UA Turbidity [Clear] Yellow *NA* (12/25/13 1:53 PM) UA Color [Yellow] 8.0 (12/25/13 1:53 PM) UA pH [5.0-8.0] 1.010 (12/25/13 1:53 PM) UA Spec Grav [<=1.030] Negative (12/25/13 1:53 PM) UA Glucose [Negative] Negative (12/25/13 1:53 PM) UA Blood [Negative] Negative *NA* (12/25/13 1:53 PM) UA Ketones [Negative] Trace *ABN* (12/25/13 1:53 PM) UA Protein [Negative] 0.2 EU/dL (12/25/13 1:53 PM) UA Urobilinogen [0.1-1.0 EU/dL] Small *ABN* (12/25/13 1:53 PM) UA Bili [Negative] Large *ABN* (12/25/13 1:53 PM) UA Leuk Est [Negative] Negative (12/25/13 1:53 PM) UA Nitrite [Negative] 11-20 /HPF *ABN* (12/25/13 1:53 PM) UA WBC [0-5 /HPF] None Seen (12/25/13 1:53 PM) UA RBC [0-2] Moderate /HPF *ABN* (12/25/13 1:53 PM) UA Bacteria [None Seen /HPF] Occasional /LPF (12/25/13 1:53 PM) UA Sq Epi [Few /LPF] Performed (12/25/13 1:53 PM) Micro? HEMATOLOGY 1 2 3 Most recent to oldest [Reference Range]: 6.8 K/CMM (12/28/13 5:53 AM) 8.4 K/CMM (12/27/13 3:40 AM) 12.4 K/CMM *HI* (12/26/13 5:25 AM) WBC [3.7-10.4 K/CMM] 2.89 M/CMM *LOW* (12/28/13 5:53 AM) 2.73 M/CMM *LOW* (12/27/13 3:40 AM) 2.93 M/CMM *LOW* (12/26/13 5:25 AM) RBC [4.70-6.10 M/CMM] 8.5 g/dL *LOW* (12/28/13 5:53 AM) 8.2 g/dL *LOW* (12/27/13 3:40 AM) 8.7 g/dL *LOW* (12/26/13 5:25 AM) Hgb [14.0-18.0 g/dL] 25.9 % *LOW* (12/28/13 5:53 AM) 24.6 % *LOW* (12/27/13 3:40 AM) 26.9 % *LOW* (12/26/13 5:25 AM) Hct [42.0-54.0 %] 89.9 fL (12/28/13 5:53 AM) 90.1 fL (12/27/13 3:40 AM) 91.7 fL (12/26/13 5:25 AM) MCV [80.0-94.0 fL] 29.5 pg (12/28/13 5:53 AM) 30.0 pg (12/27/13 3:40 AM) 29.6 pg (12/26/13 5:25 AM) MCH [27.0-31.0 pg] 32.8 g/dL (12/28/13 5:53 AM) 33.3 g/dL (12/27/13 3:40 AM) 32.2 g/dL (12/26/13 5:25 AM) MCHC [32.0-36.0 g/dL] 16.6 % *HI* (12/28/13 5:53 AM) 17.3 % *HI* (12/27/13 3:40 AM) 16.2 % *HI* (12/26/13 5:25 AM) RDW [11.5-14.5 %] 256 K/CMM (12/28/13 5:53 AM) 234 K/CMM (12/27/13 3:40 AM) 260 K/CMM (12/26/13 5:25 AM) Platelet [133-450 K/CMM] 8.0 fL (12/28/13 5:53 AM) 8.5 fL (12/27/13 3:40 AM) 8.3 fL (12/26/13 5:25 AM) MPV [7.4-10.4 fL] 69.2 % (12/28/13 5:53 AM) 75.3 % *HI* (12/27/13 3:40 AM) 84.2 % *HI* (12/26/13 5:25 AM) Segs [45.0-75.0 %] 19.8 % *LOW* (12/28/13 5:53 AM) 15.0 % *LOW* (12/27/13 3:40 AM) 9.1 % *LOW* (12/26/13 5:25 AM) Lymphocytes [20.0-40.0 %] 6.6 % (12/28/13 5:53 AM) 6.5 % (12/27/13 3:40 AM) 5.8 % (12/26/13 5:25 AM) Monocytes [2.0-12.0 %] 3.8 % (12/28/13 5:53 AM) 2.7 % (12/27/13 3:40 AM) 0.6 % (12/26/13 5:25 AM) Eosinophils [0.0-4.0 %] 0.6 % (12/28/13 5:53 AM) 0.5 % (12/27/13 3:40 AM) 0.3 % (12/26/13 5:25 AM) Basophils [0.0-1.0 %] 4.7 K/CMM (12/28/13 5:53 AM) 6.3 K/CMM (12/27/13 3:40 AM) 10.5 K/CMM *HI* (12/26/13 5:25 AM) Segs-Bands # [1.5-8.1 K/CMM] 1.3 K/CMM (12/28/13 5:53 AM) 1.3 K/CMM (12/27/13 3:40 AM) 1.1 K/CMM (12/26/13 5:25 AM) Lymphocytes # [1.0-5.5 K/CMM] 0.4 K/CMM (12/28/13 5:53 AM) 0.5 K/CMM (12/27/13 3:40 AM) 0.7 K/CMM (12/26/13 5:25 AM) Monocytes # [0.0-0.8 K/CMM] 0.3 K/CMM (12/28/13 5:53 AM) 0.2 K/CMM (12/27/13 3:40 AM) 0.1 K/CMM (12/26/13 5:25 AM) Eosinophils # [0.0-0.5 K/CMM] 1+ *ABN* (12/28/13 5:53 AM) Anisocyte [None Seen] Slight (12/25/13 4:00 PM) Polychrom [None Seen] Slight (12/25/13 4:00 PM) Hypochrom [None Seen] Normal (12/28/13 5:53 AM) Normal (12/25/13 4:00 PM) Plt Morph 14.1 seconds (12/28/13 5:53 AM) 14.3 seconds (12/27/13 3:40 AM) 15.6 seconds *HI* (12/26/13 5:25 AM) PT [12.0-14.7 seconds] 1.10 8 (12/28/13 5:53 AM) 1.12 9 (12/27/13 3:40 AM) 1.25 10 *HI* (12/26/13 5:25 AM) INR [0.85-1.17] 41.5 seconds 11 *HI* (12/26/13 5:25 AM) 37.7 seconds 12 *HI* (12/25/13 4:00 PM) PTT [22.9-35.8 seconds] 8Interpretive Data: RECOMMENDED RANGES FOR PROTIME INR: 2.0-3.0 for most medical and surgical thromboembolic states. 2.5-3.5 for artificial heart valves and recurrent embolism. INR SHOULD BE USED ONLY FOR PATIENTS ON STABLE ANTICOAGULANT THERAPY. 9Interpretive Data: RECOMMENDED RANGES FOR PROTIME INR: 2.0-3.0 for most medical and surgical thromboembolic states. 2.5-3.5 for artificial heart valves and recurrent embolism. INR SHOULD BE USED ONLY FOR PATIENTS ON STABLE ANTICOAGULANT THERAPY. 10Interpretive Data: RECOMMENDED RANGES FOR PROTIME INR: 2.0-3.0 for most medical and surgical thromboembolic states. 2.5-3.5 for artificial heart valves and recurrent embolism. INR SHOULD BE USED ONLY FOR PATIENTS ON STABLE ANTICOAGULANT THERAPY. 11Interpretive Data: Heparin Therapeutic Range: 57 - 92 Seconds 12Interpretive Data: Heparin Therapeutic Range: 57 - 92 Seconds BACTERIAL - SEROLOGY 1 2 3 Most recent to oldest [Reference Range]: Negative 13 (12/25/13 10:00 PM) MRSA by PCR Positive *ABN* (12/26/13 9:36 AM) U S pneumo Ag [Negative] 13Interpretive Data: Interpretive Data: The [employer] LightCycler [...] reaction (PCR) assay detects a proprietary sequence indicat linda of the integration of the SCCmec cassette into the Staphylococcus aureus chr omosome, indicating the presence of MRSA DNA. The assay utilizes FDA cleared IV D reagents. Performance characteristics have been verified by the Molecular [facility] nostic Laboratory within the [facility]. The Molecular Diagnostic L aboratory is authorized under the Clinical Laboratory Improvement Amendment of 1 988 (CLIA-88) to perform high complexity testing. Medications Administered During Your Visit No data available for this section Immunizations Vaccine Date Refusal Reason tetanus-diphtheria toxoids 04/20/12 Social History Social History Type Response Smoking Status Former smoker, Ready to change: No, Exposure to Tobacco Smoke None, Cigarette Smoking Last 365 Days No, Reg Smoking Cessation Counseling Yes1 1quit in 1960 Assessment and Plan Extracted from: Title: Clinical Document Author: William Sebastian DO Date: 12/28/13 Progress Daily [facility] Completed: Dec, 14:42 by William Sebastian DO RM: 128 - 1P, SE [id number], JOHNNY [id number] (: 1930) M Attending: William Sebastian DOPhone: Service: Internal Medicine Reason for Admission: SEPSIS, UTI, PNA, HYPERKALEMIA Working DRG: Simple pneumonia & pleurisy w CC Code status: Full Code [Ordered]Current diet: Isolation: No Isolation/Standard Precautions [Ordered] Allergies: Ativan, Adhesive Tape, Neurontin SUBJECTIVE Patient seen and examined. Events noted overnight. Labs/Images reviewed doing better, ambulating well OBJECTIVE Labs (Last four charted values) WBC 6.8(DEC 28)8.4(DEC 27)H 12.4(DEC 26)H 15.4(DEC 25) Hgb L 8.5(DEC 28)L 8.2(DEC 27)L 8.7(DEC 26)L 10.4(DEC 25) Hct L 25.9(DEC 28)L 24.6(DEC 27)L 26.9(DEC 26)L 31.7(DEC 25) Plt 256(DEC 28)234(DEC 27)260(DEC 26)331(DEC 25) Na 144(DEC 28)142(DEC 27)H 146(DEC 26)143(DEC 26) K 4.1(DEC 28)3.8(DEC 27)4.5(DEC 26)4.9(DEC 26) CO2 L 22(DEC 28)L 22(DEC 14)L 17(DEC 26)L 20(DEC 26) Cl H 114(DEC 28)H 114(DEC 27)H 119(DEC 26)H 116(DEC 26) Cr 1.4(DEC 28)1.4(DEC 27)H 1.7(DEC 26)H 1.7(DEC 26) BUN 22(DEC 28)H 23(DEC 27)H 36(DEC 26)H 42(DEC 26) Glucose Random H 103(DEC 28)H 102(DEC 27)H 137(DEC 26)H 154(DEC 26) Mg L 1.3(DEC 26) Phos L 2.0(DEC 26) Ca 9.6(DEC 28)8.8(DEC 27)9.2(DEC 26)9.2(DEC 26) PT 14.1(DEC 28)14.3(DEC 27)H 15.6(DEC 26)14.6(DEC 25) INR 1.10(DEC 28)1.12(DEC 27)H 1.25(DEC 26)1.15(DEC 25) PTT H 41.5(DEC 26)H 37.7(DEC 25) Troponin 0.05(DEC 25) CK MB 2.9(DEC 25) Total CK 148(DEC 25) ASSESSMENT & EXAM Gen: NAD, Alert, Awake HEENT: NC/AT, PERRLA, oral area clear and moist Neck: No LAD, No JVD, trachea midline Chest: CTAB, RLL crackles CV: RRR, S1, S2 GI: +BS, S, NT, ND, No organomegaly Ext: no c/c/e Neuro: AOx3, no gross deficits noted Skin: No notable rashes PLAN & TREATMENT PO augmentin for 7 days for strep pneumo renal function at baseline Hg stable d/c warfarin and change lovenox for dvt prophylaxis dose - no signs of DVT in lower extremities - pt high risk for GI bleed given last admission noted PT/OT - appreciate input d/c home today d/w pt and pt's family DIAGNOSES & PROBLEMS 1. Right lower lobe pneumonia - pneumococcal. 2. Acute renal failure. 3. Hyperkalemia. 4. 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 5. T2DM Ready for Discharge (Yes/No)? Nye still necessary (Yes/No): Line still necessary (Yes/No): 24hr Labs 12/28 1206 Glucose NKR605 H 12/28 0553 Glucose Ggi539 H BUN22 Creatinine Lvl1.4 Sodium Iiw615 Potassium Lvl4.1 Chloride Xgr867 H CO222 L AGAP12.1 Calcium Lvl9.6 eGFR46 WBC6.8 RBC2.89 L Hgb8.5 L Hct25.9 L MCV89.9 MCH29.5 MCHC32.8 RDW16.6 H Yraauecm546 MPV8.0 PT14.1 INR1.10 Segs69.2 Monocytes6.6 Gmnddahtnhr23.8 L Eosinophils3.8 Basophils0.6 Segs-Bands #4.7 Lymphocytes #1.3 Monocytes #0.4 Eosinophils #0.3 Plt MorphNormal Anisocyte1+ 12/28 0546 Glucose QAC947 H 12/27 2051 Glucose XJG203 H 12/27 1652 Glucose MZH917 H VitalsTmp(F)RmdaiJTIOBpS5QMA2 12/28 12:0098.318873/6817------ 12/28 08:0098.402085/5817------ 12/28 04:0099.725362/5616------ 12/28 00:0098.493856/6416------ 12/27 20:[id number]/[id number]--- 24 Hr Tmax: 99.0F (37.22c) at 12/28 04:00Vital Signs are the last 5 in the past 48 hours. DateWt(kg)Wt(lb)Ht(cm)Ht(in)Method 12/25 (initial) 83.64 [id number] 70.00Stated I&ORecordInOutBal 12/1523hr Tot 0 0 0 12/1423hr Tot [id number] Medications (27) Active Scheduled Meds (10): 12/27/13 aspirin (aspirin 81 mg tablet, enteric coated) 81 mg PO Daily 12/25/13 azithromycin 500 mg IVPB MWRP14M 166.67 ml/hr 12/27/13 cefTRIAXone (Rocephin) 1 gm IM Q12H 12/27/13 citalopram (CeleXA) 40 mg PO Daily 12/26/13 clopidogrel 75 mg PO Bedtime 12/27/13 enoxaparin 40 mg SUB-Q bylfB16V 12/27/13 folic acid 1 mg PO QAM 12/27/13 metoprolol (metoprolol tartrate) 25 mg PO QAM 12/26/13 pantoprazole (Protonix) 40 mg PO Before Dinner 12/26/13 pregabalin (Lyrica) 150 mg PO TID Unscheduled Meds: None PRN Meds (17): 12/26/13 Dextrose 50% in Water IV (Dextrose 50% Syringe) 12.5 gm IVP PRN 12/26/13 Dextrose 50% in Water IV (Dextrose 50% Syringe) 25 gm IVP PRN 12/25/13 acetaminophen-hydrocodone (acetaminophen-hydrocodone 325 mg-5 mg oral tablet) 1 tab PO Q4H 12/25/13 acetaminophen 650 mg PO Q4H 12/26/13 glucagon 1 mg IM PRN 12/26/13 insulin aspart 1 unit SUB-Q Bedtime 12/26/13 insulin aspart 2 unit SUB-Q Bedtime 12/26/13 insulin aspart 3 unit SUB-Q Bedtime 12/26/13 insulin aspart 4 unit SUB-Q Bedtime 12/26/13 insulin aspart 2 unit SUB-Q TID-Before Meals 12/26/13 insulin aspart 4 unit SUB-Q TID-Before Meals 12/26/13 insulin aspart 6 unit SUB-Q TID-Before Meals 12/26/13 insulin aspart 8 unit SUB-Q TID-Before Meals 12/26/13 insulin aspart 10 unit SUB-Q TID-Before Meals 12/25/13 morphine Sulfate 2 mg IVP Q3H 12/25/13 ondansetron 4 mg IVP Q8H 12/26/13 zolpidem (Ambien) 10 mg PO Bedtime One Time Meds: None Continuous Infusions: None Extracted from: Title: Renal Consult Author: Bri Rincon Date: 12/26/13 Impression and Plan BILL on CKD Hyperkalemia Hypernatremia Metabolic acidosis PNA UTI BILL on CKD, prerenal vs ATN Agree with IVF. Cr trending down. Will check renal u/s Hyperkalemia resolved with medical management. His home medication list states that he was on K supplements. Would not resume this. Agree with also holding ACEi. Mild hypernatremia, agree with changing IVF to 1/2 NS Monitor bicarb level. May need alkali therapy if no improvement Continue Abx. F/u cultures
--- OUTSIDE RECORDS SUMMARY | 2018-10-27 11:52 | XMS REPORT | Summary of Care ---
Author Organization Unknown Address Unknown Phone Unavailable Encounter OMAR Prado(ARNOLD) [id number] Date(s): 03/07/14 - 04/05/14 [facility] [address] [address] [place], [place] [id number] [place] [address] Discharge Disposition: Home Physician Attending: Newton Guzman MD Reason for Visit IRON DEF Vital Signs Most recent to 1 oldest [Reference Range]: Height 177.8 cm (03/06/14 4:10 PM) Weight 78.6 kg (03/06/14 4:10 PM) Body Mass Index 24.86 m2 (03/06/14 4:10 PM) Problem List Condition Effective Dates Status Health [...] Status Adhesive Tape Active Ativan Active Neurontin IA^Mild Active Medications Benadryl 25 mg, 0.5 mL, Route: IVP, Drug form: INJ, ONCALL, Start date: 03/07/14 8:30:00, Duration: 1 day, Stop date: 03/08/14 8:29:00 Notes: (Same as: Benadryl) Start Date: 03/07/14 Stop Date: 03/07/14 Status: Completed Benadryl 25 mg, 0.5 mL, Route: IVP, Drug form: INJ, ONCALL, Start date: 03/13/14 9:00:00, Duration: 12 hr, Stop date: 03/13/14 20:59:00 Notes: (Same as: Benadryl) Start Date: 03/13/14 Stop Date: 03/14/14 Status: Completed dexamethasone + Sodium Chloride 0.9% IV 50 mL 10 mg, 2.5 mL, Route: IVPB, Drug form: INJ, ONCALL, Start date: 03/13/14 9:00:00 , Duration: 12 hr, Stop date: 03/13/14 20:59:00 Notes: Concentration: 4mg/mlPROTECT FROM LIGHT Start Date: 03/13/14 Stop Date: 03/14/14 Status: Completed dexamethasone + Sodium Chloride 0.9% IV 50 mL 10 mg, 2.5 mL, Route: IVPB, Drug form: INJ, ONCALL, Start date: 03/07/14 8:30:00 , Duration: 1 day, Stop date: 03/08/14 8:29:00 Notes: Concentration: 4mg/ml Start Date: 03/07/14 Stop Date: 03/07/14 Status: Completed DexFerrum + Sodium Chloride 0.9% IV 50 mL 25 mg, 0.5 mL, Route: IVPB, Drug form: INJ, ONCALL, Start date: 03/07/14 8:30:00 , Duration: 1 day, Stop date: 03/08/14 8:29:00 Notes: (Same as:DexFerrum) Non-Formulary Start Date: 03/07/14 Stop Date: 03/07/14 Status: Completed DexFerrum + Sodium Chloride 0.9% IV 500 mL 775 mg, 15.5 mL, Route: IVPB, Drug form: INJ, ONCALL, Start date: 03/07/14 8:30: 00, Duration: 1 day, Stop date: 03/08/14 8:29:00 Notes: (Same as:DexFerrum) Non-Formulary Start Date: 03/07/14 Stop Date: 03/07/14 Status: Completed DexFerrum + Sodium Chloride 0.9% IV 500 mL 800 mg, 16 mL, Route: IVPB, Drug form: INJ, ONCALL, Start date: 03/13/14 9:00:00 , Duration: 12 hr, Stop date: 03/13/14 20:59:00 Notes: (Same as:DexFerrum) Non-Formularypt already received test dose at prior appointmentPROTECT FROM LIGHT Start Date: 03/13/14 Stop Date: 04/06/14 Status: Discontinued Pepcid 20 mg, 2 mL, Route: IVP, Drug form: INJ, ONCALL, Start date: 03/07/14 8:30:00, D uration: 1 day, Stop date: 03/08/14 8:29:00 Notes: (Same as: Pepcid)Can be dilute in 5-10cc NS IVP: Slow IV push over at le ast 2 minutes. Start Date: 03/07/14 Stop Date: 03/07/14 Status: Completed Pepcid 20 mg, 2 mL, Route: IVP, Drug form: INJ, ONCALL, Start date: 03/13/14 9:00:00, D uration: 12 hr, Stop date: 03/13/14 20:59:00 Notes: (Same as: Pepcid)Can be dilute in 5-10cc NS IVP: Slow IV push over at le ast 2 minutes. Start Date: 03/13/14 Stop Date: 03/14/14 Status: Completed Sodium Chloride 0.9% IV IV, 30 ml/hr, ONCALL, Start date: 03/07/14 8:30:00, Duration: 1, 250 ml Start Date: 03/07/14 Stop Date: 03/07/14 Status: Completed Sodium Chloride 0.9% IV IV, 30 ml/hr, ONCALL, Start date: 03/13/14 9:00:00, Duration: 12, 250 ml Start Date: 03/13/14 Stop Date: 03/14/14 Status: Completed Medications Administered During Your Visit No data available for this section Immunizations Vaccine Date Refusal Reason tetanus-diphtheria toxoids 12/6/12 Social History Social History Type Response Smoking Status Former smoker, Ready to change: No, Exposure to Tobacco Smoke None, Cigarette Smoking Last 365 Days No, Reg Smoking Cessation Counseling Yes1 1quit in 196
--- OUTSIDE RECORDS SUMMARY | 2018-10-27 11:52 | XMS REPORT | Summary of Care ---
Author Organization Unknown Address Unknown Phone Unavailable Encounter HQ Johan(ARNOLD) [id number] Date(s): 11/12/13 - 11/18/13 [facility] [address] [place] Discharge Disposition: Home Physician Attending: Sánchez Luz MD Physician Admitting: Sánchez Luz MD Reason for Visit SYMPTOMATIC ANEMIA, GI BLEED Vital Signs 1 2 3 Most recent to oldest [Reference Range]: 177.8 cm (11/12/13 3:43 PM) Height 98.1 DegF (11/18/13 8:00 AM) 97.9 DegF (11/18/13 5:31 AM) 98.1 DegF (11/18/13 12:55 AM) Temperature Oral [96.4-99.1 DegF] 121 mmHg (11/18/13 8:00 AM) 102 mmHg (11/18/13 5:31 AM) 101 mmHg (11/18/13 12:55 AM) Systolic Blood Pressure [90-140 mmHg] 64 mmHg (11/18/13 8:00 AM) 60 mmHg (11/18/13 5:31 AM) 60 mmHg (11/18/13 12:55 AM) Diastolic Blood Pressure [60-90 mmHg] 18 BRMIN (11/18/13 8:00 AM) 18 BRMIN (11/18/13 5:31 AM) 18 BRMIN (11/18/13 12:55 AM) Respiratory Rate [14-20 BRMIN] 77 bpm (11/18/13 8:00 AM) 93 bpm (11/18/13 5:31 AM) 83 bpm (11/18/13 12:55 AM) Peripheral Pulse Rate [60-100 bpm] 78.636 kg (11/12/13 3:43 PM) Weight 24.87 m2 (11/12/13 3:43 PM) Body Mass Index Problem List Condition [...] Status Adhesive Tape Active Ambien Active Neurontin MD^Mild Active Medications acetaminophen 650 mg, 20.3 mL, Route: PO, Drug form: LIQ, Q4H, Dosing Weight 78.636, kg, PRN P ain 1-3/Temp > 100.4 F, Start date: 11/12/13 22:03:00, Duration: 30 day, Stop date: 12/12/13 22:02:00 Notes: Max [id number]/day (4 gm/day). (Same as: Tylenol) Start Date: 11/12/13 Stop Date: 11/13/13 Status: Discontinued Ambien 10 mg, Route: PO, Drug form: TAB, Bedtime, Dosing Weight 78.636, kg, PRN as need ed for sleep, Start date: 11/13/13 15:55:00, Duration: 30 day, Stop date: 15:54:00 Start Date: 11/13/13 Stop Date: 11/13/13 Status: Deleted Ambien 10 mg oral tablet 10 mg=1 tab, PO, Bedtime, for sleep, 0 Refill(s) Start Date: 11/12/13 Status: Ordered aspirin 325 mg, PO, QPM, 0 Refill(s) Start Date: 11/13/13 Stop Date: 11/18/13 Status: Discontinued aspirin 325 mg tablet, enteric coated 325 mg=1 tab, PO, QPM, # 60 tab, 0 Refill(s) Start Date: 11/12/13 Stop Date: 11/18/13 Status: Discontinued atropine 0.5 mg, 5 mL, Route: IVP, Drug form: INJ, PRN, Dosing Weight 78.636, kg, PRN Bra dycardia, Start date: 11/12/13 23:32:00, Duration: 30 day, Stop date: 12/12/13 2 3:31:00, HR <40 Start Date: 11/12/13 Stop Date: 11/18/13 Status: Discontinued benzocaine-menthol topical 1 lozenge, Route: MUCOUS MEM, Drug Form: DAWN, Q2H, PRN Sore Throat, Start date: 11/13/13 20:41:00, Stop date: 12/13/13 20:40:00 Notes: Same as: Cepacol Start Date: 11/13/13 Stop Date: 11/18/13 Status: Discontinued CeleXA 40 mg, 2 tab, Route: PO, Drug form: TAB, Daily, Dosing Weight 78.636, kg, Start date: 11/14/13 9:00:00, Duration: 30 day, Stop date: 12/13/13 9:00:00 Notes: (Same As: CeleXA) Start Date: 11/14/13 Stop Date: 11/18/13 Status: Discontinued Cepacol Lozenge 1 lozenge, Route: MUCOUS MEM, Q2H, Drug form: DAWN, PRN Sore Throat, Start date: 11/13/13 20:27:00, Duration: 30 day, Stop date: 12/13/13 20:26:00 Start Date: 11/13/13 Stop Date: 11/13/13 Status: Deleted docusate 100 mg, 1 cap, Route: PO, Drug form: CAP, BID, Dosing Weight 78.636, kg, PRN Con stipation, Start date: 11/12/13 22:03:00, Duration: 30 day, Stop date: 12/12/13 22:02:00 Notes: (Same as: Colace) (Do Not Crush) Start Date: 11/12/13 Stop Date: 11/13/13 Status: Discontinued folic acid 1 mg, 1 tab, Route: PO, Drug form: TAB, QAM, Dosing Weight 78.636, kg, Start mary e: 11/14/13 9:00:00, Duration: 30 day, Stop date: 12/13/13 9:00:00 Notes: (Same as: Folvite) Start Date: 11/14/13 Stop Date: 11/18/13 Status: Discontinued folic acid 1 mg oral tablet 1 mg=1 tab, PO, QAM, # 30 tab, 0 Refill(s) Start Date: 11/12/13 Status: Ordered Lasix 40 mg oral tablet 40 mg=1 tab, PO, Q4D, # 30 tab, 0 Refill(s) Start Date: 11/12/13 Status: Ordered Lasix 40 mg oral tablet 40 mg, 1 tab, Route: PO, Drug form: TAB, Q4D, Dosing Weight 78.636, kg, Start da te: 11/13/13 16:00:00, Duration: 30 day, Stop date: 12/11/13 9:00:00 Notes: (Same as: Lasix) May cause GI upset. Give with food or milk. Start Date: 11/13/13 Stop Date: 11/18/13 Status: Discontinued lisinopril 10 mg, 1 tab, Route: PO, Drug form: TAB, QAM, Dosing Weight 78.636, kg, Start da te: 11/13/13 19:00:00, Duration: 30 day, Stop date: 12/13/13 9:00:00 Notes: (Same as: Prinivil, Zestril) Start Date: 11/13/13 Stop Date: 11/18/13 Status: Discontinued lisinopril 10 mg oral tablet 10 mg=1 tab, PO, QAM, # 30 tab, 0 Refill(s) Start Date: 11/12/13 Status: Ordered Lyrica 150 mg, 2 cap, Route: PO, Drug form: CAP, TID, Dosing Weight 78.636, kg, Start d ate: 11/13/13 17:00:00, Duration: 30 day, Stop date: 12/13/13 13:00:00 Notes: (Same as: Lyrica) Start Date: 11/13/13 Stop Date: 11/18/13 Status: Discontinued Lyrica 150 mg oral capsule 150 mg=1 cap, PO, TID, # 90 cap, 0 Refill(s) Start Date: 11/12/13 Status: Ordered magnesium sulfate 4 gm, 100 mL, Route: IV, Drug form: INJ, ONCE, Dosing Weight 78.636, kg, Priorit y: Routine, Start date: 11/13/13 7:03:00, Stop date: 11/13/13 7:03:00 Start Date: 11/13/13 Stop Date: 11/13/13 Status: Completed metFORMIN 1000 mg oral tablet 1,000 mg=1 tab, PO, BID, # 30 tab, 0 Refill(s) Start Date: 11/12/13 Status: Ordered metFORMIN 1000 mg oral tablet 1,000 mg, 2 tab, Route: PO, Drug form: TAB, BID, Dosing Weight 78.636, kg, Start date: 11/13/13 17:00:00, Duration: 30 day, Stop date: 12/13/13 9:00:00 Notes: (Same as: Glucophage) Take with meal Start Date: 11/13/13 Stop Date: 11/18/13 Status: Discontinued metoprolol tartrate 25 mg, 1 tab, Route: PO, Drug form: TAB, QAM, Dosing Weight 78.636, kg, Start da te: 11/14/13 9:00:00, Duration: 30 day, Stop date: 12/13/13 9:00:00 Notes: (Same as: Lopressor) Start Date: 11/14/13 Stop Date: 11/18/13 Status: Discontinued morphine Sulfate 2 mg, 1 mL, Route: IVP, Drug form: INJ, Q3H, Dosing Weight 78.636, kg, PRN Pain Score 4-6, Start date: 11/12/13 22:03:00, Duration: 30 day, Stop date: 12/12/13 22:02:00 Notes: (Same as:MORPhine Sulfate) Start Date: 11/12/13 Stop Date: 11/18/13 Status: Discontinued morphine Sulfate 2 mg, 1 mL, Route: IVP, Drug form: INJ, ONCE, Dosing Weight 78.636, kg, Priority : STAT, Start date: 11/12/13 18:47:00, Stop date: 11/12/13 18:47:00 Notes: (Same as:MORPhine Sulfate) Start Date: 11/12/13 Stop Date: 11/12/13 Status: Completed morphine Sulfate 2 mg, Route: IVP, ONCE, Dosing Weight 78.636, kg, Start date: 11/12/13 21:55:00, Stop date: 11/12/13 21:55:00 Start Date: 11/12/13 Stop Date: 11/12/13 Status: Completed nitroglycerin 0.4 mg, 1 tab, Route: SL, Drug form: TAB, Q5Min, Dosing Weight 78.636, kg, PRN C hest Pain, Start date: 11/12/13 23:32:00, Duration: 30 day, Stop date: 12/12/13 23:31:00, Chest Pain X3 Notes: (Same as:Nitroquick, Nitrostat)"Do Not Crush" Sublingual tablet Start Date: 11/12/13 Stop Date: 11/18/13 Status: Discontinued [place] 10/325 oral tablet 1 tab, PO, Bedtime, for pain, # 24 tab, 0 Refill(s) Start Date: 11/12/13 Status: Ordered [place] 10/325 oral tablet 1 tab, Route: PO, Drug Form: TAB, Dosing Weight 78.636, kg, Bedtime, PRN Pain Sc ore 4-6, Start date: 11/13/13 15:54:00, Duration: 30 day, Stop date: 12/13/13 15 :53:00 Notes: Do not exceed 4gm/day of acetaminophen. (Same as: [place] 325/10) Start Date: 11/13/13 Stop Date: 11/18/13 Status: Discontinued omeprazole 20 mg, Route: PO, Drug form: ECTAB, QAM, Dosing Weight 78.636, kg, Start date: 0 11/14/13 9:00:00, Duration: 30 day, Stop date: 12/13/13 9:00:00 Start Date: 11/14/13 Stop Date: 11/13/13 Status: Deleted ondansetron 4 mg, 2 mL, Route: IVP, Drug form: INJ, Q8H, Dosing Weight 78.636, kg, PRN Nause a & Vomiting, Start date: 11/12/13 22:03:00, Duration: 30 day, Stop date: 12/12/13 22:02:00 Notes: (Same as: Zofran) Start Date: 11/12/13 Stop Date: 11/18/13 Status: Discontinued pantoprazole 40 mg, Route: IVP, Drug form: INJ, Daily, Dosing Weight 78.636, kg, Priority: Ro fletcherne, Start date: 11/13/13 9:00:00, Duration: 30 day, Stop date: 12/12/13 9:00: 00 Notes: For IV push reconstitute with 10 ml 0.9% sodium chloride and push over 2 minutes. (Same as: Protonix) Start Date: 11/13/13 Stop Date: 11/15/13 Status: Discontinued PHOS-NaK oral powder for reconstitution 1 pkt, Route: PO, Drug Form: PDR/REC, Dosing Weight 78.636, kg, QID, Start date: 11/13/13 9:00:00, Duration: 2 day, Stop date: 11/14/13 21:00:00 Notes: (Same as: Neutra-Phos) Each 1.25 gm pkt has 250mg phosphorous. Mix w/2.5 oz water and stir. Start Date: 11/13/13 Stop Date: 11/14/13 Status: Completed Plavix 75 mg, 1 tab, Route: PO, Drug form: TAB, QPM, Dosing Weight 78.636, kg, Start da te: 11/14/13 17:00:00, Duration: 30 day, Stop date: 12/13/13 17:00:00 Notes: (Same As: Plavix) Start Date: 11/14/13 Stop Date: 11/18/13 Status: Discontinued Plavix 75 mg oral tablet 75 mg=1 tab, PO, QPM, # 30 tab, 0 Refill(s) Start Date: 11/12/13 Stop Date: 11/18/13 Status: Discontinued polyethylene glycol 3350 with electrolytes 4,000 mL, Route: PO, Drug Form: PDR/REC, Dosing Weight 78.636, kg, ONCE, Start d ate: 11/13/13 17:15:00, Duration: 1 doses or times, Stop date: 11/13/13 17:15:00 Notes: (polyethylene glycol electrolyte solution 4 Liter bottle) (Same as: Rosemary Hendricks) Start Date: 11/13/13 Stop Date: 11/13/13 Status: Completed potassium chloride 10 mEq oral tablet, extended release 10 mEq=1 tab, PO, Q4D, # 10 tab, 0 Refill(s) Start Date: 11/12/13 Status: Ordered Protonix 40 mg, 1 tab, Route: PO, Drug form: ECTAB, Daily, Start date: 11/16/13 9:00:00, Duration: 30 day, Stop date: 12/15/13 9:00:00 Notes: Tablet should not be chewed or crushed.(Same as: Protonix) Start Date: 11/16/13 Stop Date: 11/18/13 Status: Discontinued Restoril 15 mg, 1 cap, Route: PO, Drug form: CAP, Bedtime, PRN Sleep, Start date: 4 16:07:00, Duration: 30 day, Stop date: 12/13/13 16:06:00 Notes: (Same As: Restoril) Start Date: 11/13/13 Stop Date: 11/18/13 Status: Discontinued Sodium Chloride 0.9% IV IV, 30 ml/hr, ONCALL, Start date: 11/17/13 19:00:00, Duration: 1, 250 ml Start Date: 11/17/13 Stop Date: 11/17/13 Status: Completed Sodium Chloride 0.9% IV IV, 30 ml/hr, ONCALL, Start date: 11/17/13 21:00:00, Duration: 1, 250 ml Start Date: 11/17/13 Stop Date: 11/18/13 Status: Discontinued Sodium Chloride 0.9% IV IV, 30 ml/hr, PRN, PRN Other -See Comment, Start date: 11/13/13 10:19:00, Durati on: 1, 250 ml Start Date: 11/13/13 Stop Date: 11/14/13 Status: Completed Sodium Chloride 0.9% IV 1,000 mL 1,000 mL, Rate: 25 ml/hr, Infuse over: 40 hr, Route: IV, Dosing Weight 78.636 kg , Total Volume: 1,000, Start date: 11/14/13 15:27:00, Duration: 30 day, Stop mary e: 12/14/13 15:26:00 Start Date: 11/14/13 Stop Date: 11/14/13 Status: Discontinued Sodium Chloride 0.9% IV 1,000 mL 1,000 mL, Rate: 25 ml/hr, Infuse over: 40 hr, Route: IV, Dosing Weight 78.636 kg , Total Volume: 1,000, Start date: 11/13/13 16:12:00, Duration: 30 day, Stop mary e: 12/13/13 16:11:00 Start Date: 11/13/13 Stop Date: 11/13/13 Status: Discontinued Sodium Chloride 0.9% IV 250 mL 250 mL, Rate: 30 ml/hr, Infuse over: 8.3 hr, Route: IV, Dosing Weight 78.636 kg, Total Volume: 250, Start date: 11/12/13 22:33:00, Duration: 1 day, Stop date: 0 11/13/13 22:32:00 Start Date: 11/12/13 Stop Date: 11/13/13 Status: Completed warfarin 2 mg oral tablet =7 mg, PO, Q--Th-Sa, # 30 tab, 0 Refill(s) Start Date: 11/12/13 Status: Ordered warfarin 5 mg oral tablet 5 mg=1 tab, PO, QAM, # 30 tab, 0 Refill(s) Start Date: 11/12/13 Stop Date: 11/18/13 Status: Discontinued warfarin 7.5 mg oral tablet 7.5 mg=1 tab, PO, Q-Tu and Th, # 30 tab, 0 Refill(s) Start Date: 11/12/13 Stop Date: 11/12/13 Status: Discontinued Results BLOOD BANK RESULTS 1 2 3 Most recent to oldest [Reference Range]: O POS *Unknown* (11/17/13 3:13 PM) O POS *Unknown* (11/12/13 4:40 PM) ABO/Rh Negative (11/17/13 3:13 PM) Negative (11/12/13 4:40 PM) Antibody Scrn Product available 1 (11/13/13 9:14 AM) FFP product Product available 2 (11/17/13 2:30 PM) Product available 3 (11/12/13 6:15 PM) RBC product 1Result Comment: 11/13/2013 09:27 [id number] Called to Cathleen at 11/13/2013 09:27 by ERIC. 2Result Comment: 11/17/2013 17:52 [id number] Called to Yessy at 11/17/2013 17:52. 3Result Comment: 11/12/2013 18:24 [id number] Called to Damian at 11/12/2013 18:24. ELECTROLYTES 1 2 3 Most recent to oldest [Reference Range]: 141 mEq/L (11/16/13 5:54 AM) 144 mEq/L (11/15/13 7:42 AM) 145 mEq/L (11/14/13 5:37 AM) Sodium Lvl [135-145 mEq/L] 4.0 mEq/L (11/16/13 5:54 AM) 4.1 mEq/L (11/15/13 7:42 AM) 4.0 mEq/L (11/14/13 5:37 AM) Potassium Lvl [3.5-5.1 mEq/L] 108 mEq/L (11/16/13 5:54 AM) 110 mEq/L *HI* (11/15/13 7:42 AM) 110 mEq/L *HI* (11/14/13 5:37 AM) Chloride Lvl [95-109 mEq/L] 26 mEq/L (11/16/13 5:54 AM) 27 mEq/L (11/15/13 7:42 AM) 27 mEq/L (11/14/13 5:37 AM) CO2 [24-32 mEq/L] 11.0 mEq/L (11/16/13 5:54 AM) 11.1 mEq/L (11/15/13 7:42 AM) 12.0 mEq/L (11/14/13 5:37 AM) AGAP [10.0-20.0 mEq/L] CHEM PANEL 1 2 3 Most recent to oldest [Reference Range]: 1.6 mg/dL *HI* (11/16/13 5:54 AM) 1.1 mg/dL (11/15/13 7:42 AM) 1.1 mg/dL (11/14/13 5:37 AM) Creatinine Lvl [0.5-1.4 mg/dL] 39 mL/min/1.73m2 4 *NA* (11/16/13 5:54 AM) 61 mL/min/1.73m2 5 *NA* (11/15/13 7:42 AM) 61 mL/min/1.73m2 6 *NA* (11/14/13 5:37 AM) eGFR 22 mg/dL (11/16/13 5:54 AM) 16 mg/dL (11/15/13 7:42 AM) 15 mg/dL (11/14/13 5:37 AM) BUN [7-22 mg/dL] 14 (11/16/13 5:54 AM) 15 (11/15/13 7:42 AM) 14 (11/14/13 5:37 AM) B/C Ratio [6-25] 100 mg/dL 7 *HI* (11/16/13 5:54 AM) 127 mg/dL 8 *HI* (11/15/13 7:42 AM) 103 mg/dL 9 *HI* (11/14/13 5:37 AM) Glucose Lvl [70-99 mg/dL] 6.0 g/dL *LOW* (11/16/13 5:54 AM) 6.4 g/dL (11/15/13 7:42 AM) 6.1 g/dL *LOW* (11/14/13 5:37 AM) Total Protein [6.4-8.4 g/dL] 3.0 g/dL *LOW* (11/16/13 5:54 AM) 3.1 g/dL *LOW* (11/15/13 7:42 AM) 3.2 g/dL *LOW* (11/14/13 5:37 AM) Albumin Lvl [3.5-5.0 g/dL] 3.0 g/dL (11/16/13 5:54 AM) 3.3 g/dL (11/15/13 7:42 AM) 2.9 g/dL (11/14/13 5:37 AM) Globulin [2.0-4.0 g/dL] 1.0 (11/16/13 5:54 AM) 0.9 (11/15/13 7:42 AM) 1.1 (11/14/13 5:37 AM) A/G Ratio [0.7-1.6] 8.9 mg/dL (11/16/13 5:54 AM) 9.0 mg/dL (11/15/13 7:42 AM) 9.1 mg/dL (11/14/13 5:37 AM) Calcium Lvl [8.5-10.5 mg/dL] 2.2 mg/dL *LOW* (11/13/13 6:25 AM) Phosphorus [2.5-4.5 mg/dL] 1.5 mg/dL *LOW* (11/13/13 6:25 AM) Magnesium Lvl [1.8-2.4 mg/dL] 18 unit/L (11/16/13 5:54 AM) 22 unit/L (11/15/13 7:42 AM) 21 unit/L (11/14/13 5:37 AM) ALT [0-65 unit/L] 15 unit/L (11/16/13 5:54 AM) 16 unit/L (11/15/13 7:42 AM) 17 unit/L (11/14/13 5:37 AM) AST [0-37 unit/L] 66 unit/L (11/16/13 5:54 AM) 68 unit/L (11/15/13 7:42 AM) 72 unit/L (11/14/13 5:37 AM) Alk Phos [39-136 unit/L] 0.5 mg/dL (11/16/13 5:54 AM) 0.7 mg/dL (11/15/13 7:42 AM) 0.4 mg/dL (11/14/13 5:37 AM) Bili Total [0.2-1.3 mg/dL] 4Result Comment: The eGFR is calculated using [...] be mul tiplied by the estimated BMI. 5Result Comment: The eGFR is calculated using [...] be mul tiplied by the estimated BMI. 6Result Comment: The eGFR is calculated using [...] be mul tiplied by the estimated BMI. 7Interpretive Data: Adult reference range values reflect the clinical guidelines of the [place] [employer]. 8Interpretive Data: Adult reference range values reflect the clinical guidelines of the [place] [employer]. 9Interpretive Data: Adult reference range values reflect the clinical guidelines of the [place] [employer]. CARDIAC ENZYMES 1 2 3 Most recent to oldest [Reference Range]: 79 unit/L (11/14/13 12:24 PM) Total CK [12-191 unit/L] 1.4 ng/mL (11/14/13 12:24 PM) CK MB [0.5-3.6 ng/mL] 0.02 ng/mL (11/14/13 12:24 PM) Troponin-I [0.00-0.40 ng/mL] ANEMIA STUDY 1 2 3 Most recent to oldest [Reference Range]: 32 ug/dl *LOW* (11/13/13 6:23 AM) Iron [45-160 ug/dl] 15 ng/mL *LOW* (11/13/13 2:26 PM) Ferritin Lvl [22-275 ng/mL] 8 % *LOW* (11/13/13 6:23 AM) % Satur Fe [12-57 %] 352 ug/dl (11/13/13 6:23 AM) UIBC [110-370 ug/dl] 208 pg/mL *LOW* (11/13/13 6:23 AM) Vitamin B12 Lvl [254-1320 pg/mL] 384 ug/dl (11/13/13 6:23 AM) TIBC [228-428 ug/dl] URINE AND STOOL 1 2 3 Most recent to oldest [Reference Range]: Positive *ABN* (11/13/13 12:15 PM) Occult Bld Stl [Negative] HEMATOLOGY 1 2 3 Most recent to oldest [Reference Range]: 6.0 K/CMM (11/18/13 5:48 AM) 6.0 K/CMM (11/17/13 4:43 AM) 5.9 K/CMM (11/16/13 5:54 AM) WBC [3.7-10.4 K/CMM] 3.44 M/CMM *LOW* (11/18/13 5:48 AM) 2.81 M/CMM *LOW* (11/17/13 4:43 AM) 3.24 M/CMM *LOW* (11/16/13 5:54 AM) RBC [4.70-6.10 M/CMM] 10.1 g/dL *LOW* (11/18/13 5:48 AM) 8.1 g/dL *LOW* (11/17/13 4:43 AM) 9.2 g/dL *LOW* (11/16/13 5:54 AM) Hgb [14.0-18.0 g/dL] 29.5 % *LOW* (11/18/13 5:48 AM) 24.2 % *LOW* (11/17/13 4:43 AM) 28.0 % *LOW* (11/16/13 5:54 AM) Hct [42.0-54.0 %] 86.0 fL (11/18/13 5:48 AM) 86.2 fL (11/17/13 4:43 AM) 86.5 fL (11/16/13 5:54 AM) MCV [80.0-94.0 fL] 29.4 pg (11/18/13 5:48 AM) 28.7 pg (11/17/13 4:43 AM) 28.3 pg (11/16/13 5:54 AM) MCH [27.0-31.0 pg] 34.2 g/dL (11/18/13 5:48 AM) 33.3 g/dL (11/17/13 4:43 AM) 32.7 g/dL (11/16/13 5:54 AM) MCHC [32.0-36.0 g/dL] 18.4 % *HI* (11/18/13 5:48 AM) 21.3 % *HI* (11/17/13 4:43 AM) 20.6 % *HI* (11/16/13 5:54 AM) RDW [11.5-14.5 %] 137 K/CMM (11/18/13 5:48 AM) 148 K/CMM (11/17/13 4:43 AM) 148 K/CMM (11/16/13 5:54 AM) Platelet [133-450 K/CMM] 8.5 fL (11/18/13 5:48 AM) 8.6 fL (11/17/13 4:43 AM) 8.4 fL (11/16/13 5:54 AM) MPV [7.4-10.4 fL] 59.0 % (11/18/13 5:48 AM) 57.1 % (11/17/13 4:43 AM) 61.7 % (11/16/13 5:54 AM) Segs [45.0-75.0 %] 28.3 % (11/18/13 5:48 AM) 29.3 % (11/17/13 4:43 AM) 24.4 % (11/16/13 5:54 AM) Lymphocytes [20.0-40.0 %] 7.7 % (11/18/13 5:48 AM) 8.6 % (11/17/13 4:43 AM) 9.3 % (11/16/13 5:54 AM) Monocytes [2.0-12.0 %] 4.2 % *HI* (11/18/13 5:48 AM) 4.3 % *HI* (11/17/13 4:43 AM) 3.9 % (11/16/13 5:54 AM) Eosinophils [0.0-4.0 %] 0.8 % (11/18/13 5:48 AM) 0.7 % (11/17/13 4:43 AM) 0.7 % (11/16/13 5:54 AM) Basophils [0.0-1.0 %] 3.6 K/CMM (11/18/13 5:48 AM) 3.4 K/CMM (11/17/13 4:43 AM) 3.7 K/CMM (11/16/13 5:54 AM) Segs-Bands # [1.5-8.1 K/CMM] 1.7 K/CMM (11/18/13 5:48 AM) 1.7 K/CMM (11/17/13 4:43 AM) 1.4 K/CMM (11/16/13 5:54 AM) Lymphocytes # [1.0-5.5 K/CMM] 0.5 K/CMM (11/18/13 5:48 AM) 0.5 K/CMM (11/17/13 4:43 AM) 0.5 K/CMM (11/16/13 5:54 AM) Monocytes # [0.0-0.8 K/CMM] 0.3 K/CMM (11/18/13 5:48 AM) 0.3 K/CMM (11/17/13 4:43 AM) 0.2 K/CMM (11/16/13 5:54 AM) Eosinophils # [0.0-0.5 K/CMM] Normal (11/16/13 5:54 AM) RBC Morph Normal (11/16/13 5:54 AM) Plt Morph 15.5 seconds *HI* (11/14/13 5:37 AM) 18.1 seconds *HI* (11/13/13 2:37 PM) 19.0 seconds *HI* (11/13/13 6:25 AM) PT [12.0-14.7 seconds] 1.24 10 *HI* (11/14/13 5:37 AM) 1.52 11 *HI* (11/13/13 2:37 PM) 1.62 12 *HI* (11/13/13 6:25 AM) INR [0.85-1.17] 31.5 seconds 13 (11/14/13 5:37 AM) 33.8 seconds 14 (11/13/13 6:25 AM) 37.0 seconds 15 *HI* (11/12/13 4:40 PM) PTT [22.9-35.8 seconds] 10Interpretive Data: RECOMMENDED RANGES FOR PROTIME INR: 2.0-3.0 for most medical and surgical thromboembolic states. 2.5-3.5 for artificial heart valves and recurrent embolism. INR SHOULD BE USED ONLY FOR PATIENTS ON STABLE ANTICOAGULANT THERAPY. 11Interpretive Data: RECOMMENDED RANGES FOR PROTIME INR: 2.0-3.0 for most medical and surgical thromboembolic states. 2.5-3.5 for artificial heart valves and recurrent embolism. INR SHOULD BE USED ONLY FOR PATIENTS ON STABLE ANTICOAGULANT THERAPY. 12Interpretive Data: RECOMMENDED RANGES FOR PROTIME INR: 2.0-3.0 for most medical and surgical thromboembolic states. 2.5-3.5 for artificial heart valves and recurrent embolism. INR SHOULD BE USED ONLY FOR PATIENTS ON STABLE ANTICOAGULANT THERAPY. 13Interpretive Data: Heparin Therapeutic Range: 57 - 92 Seconds 14Interpretive Data: Heparin Therapeutic Range: 57 - 92 Seconds 15Interpretive Data: Heparin Therapeutic Range: 57 - 92 Seconds Medications Administered During Your Visit No data available for this section Immunizations Vaccine Date Refusal Reason tetanus-diphtheria toxoids 04/20/12 Social History Social History Type Response Smoking Status Former smoker, Ready to change: No, Exposure to Tobacco Smoke None, Cigarette Smoking Last 365 Days No, Reg Smoking Cessation Counseling Yes1 1quit in 1960 Assessment and Plan Extracted from: Title: Clinical Document Author: Sourav Hardy MD Date: 11/18/13 GI Progress Note SUBJECTIVE: Patient seen and examined. Events of the day reviewed. No new GI complaints. Required pRBC yesterday OBJECTIVE: Vitals and Temp: VitalsTmp(F)BwlhnBSEOYiY3DME3 11/18 08:0098.249293/6418------ 11/18 05:3197.590427/6018------ 11/18 00:5598.030728/6018------ 11/17 20:2298.851223/5718------ 11/17 16:0098.001689/7718------ 24 Hr Tmax: 98.4F (36.89c) at 11/17 16:00Vital Signs are the last 5 in the past 48 hours. General: awake, alert , oriented, in no acute distress. 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 Extremities : no edema 24hr Labs 11/18 0829 Glucose POC91 11/18 0548 WBC6.0 RBC3.44 L Hgb10.1 L Hct29.5 L MCV86.0 MCH29.4 MCHC34.2 RDW18.4 H Lajtoyzv118 MPV8.5 Segs59.0 Monocytes7.7 Wlsscjezplc17.3 Eosinophils4.2 H Basophils0.8 Segs-Bands #3.6 Lymphocytes #1.7 Monocytes #0.5 Eosinophils #0.3 11/17 2103 Glucose GEU980 H 11/17 1600 Glucose KTP513 H 11/17 1513 ABO/RhO POS Antibody ScrnNegative XM EXM InterpComputer XM OK XM EXM InterpComputer XM OK 11/17 1430 RBC productProduct available 11/17 1216 Glucose ITP355 H ASSESSMENT GI bleed; likley source in colon; R side per NM scan; no obvious diveticulosis on colonscopy. could be AVM or dieulofoy lesion-currently brown stool in colostomy suggesting bleeding may have stopped; did require pRBC tx CAD/PVD/ recent DVT H/o radiation for blader cancer; with colostomy PLAN: Hold warfarin Continue plavix while monitoring his stools/CBC closely He remains at high risk for bleed; but he is also at high risk for CAD/PVD If he rebleeds; may need to consider repeat NM scan to isolate and confirm location followed by discussion with IR for ? embolization. Recommend transfusion as needed for Hgb <9 due to CAD.
--- OUTSIDE RECORDS SUMMARY | 2018-10-27 11:52 | XMS REPORT | Summary of Care ---
Author Organization Unknown Address Unknown Phone Unavailable Encounter OMAR Prado(ARNOLD) [id number] Date(s): 03/07/14 - 04/05/14 [facility] [address] [address] [place], [place] [id number] [place] [address] Discharge Disposition: Home Physician Attending: Newton Guzman [...] Status Adhesive Tape Active Ativan Active Neurontin [place]^Mild Active Medications Benadryl 25 mg, 0.5 mL, [...]
--- OUTSIDE RECORDS SUMMARY | 2018-10-27 11:52 | XMS REPORT | Summary of Care ---
Author Organization Unknown Address Unknown Phone Unavailable Encounter OMAR Prado(ARNOLD) [id number] Date(s): 03/07/14 - 04/05/14 [facility] [address] [address] [place], [place] [id number] [place] [address] Discharge Disposition: Home Physician Attending: Newton Guzman [...] Status Adhesive Tape Active Ativan Active Neurontin [place]^Mild Active Medications Benadryl 25 mg, 0.5 mL, [...]
--- OUTSIDE RECORDS SUMMARY | 2018-10-27 11:52 | XMS REPORT | Summary of Care ---
Author Organization Unknown Address Unknown Phone Unavailable Encounter HQ Enrike_vincent(FIN) [id number] Date(s): 01/09/14 - 01/09/14 [facility] [address] [place], [place] [id number] [place] [address] Discharge Disposition: Home Physician Attending: Newton Guzman MD Physician Admitting: Newton Guzman MD Reason for Visit CHEST XRAY Problem List Condition Effective Dates Status Health [...] Status Adhesive Tape Active Ativan Active Neurontin [place]^Mild Active Medications No data available for this [...]
--- OUTSIDE RECORDS SUMMARY | 2018-10-27 11:53 | XMS REPORT ---
[facility] Address Unknown Phone Unavailable Care Team Providers Care Operation Agent Name Role Phone Unavailable Unavailable Payers Payer Name Policy Type Policy Number Effective Date Expiration Date Problems This patient has no known problems. Allergies, Adverse Reactions, Alerts Allergy Name Allergy Type Status Severity Reaction(s) Onset Date Inactive Date Treating Clinician Comments lorazepam DA Active MO 2016-11-10 00:00:00 adhesive DA Active SV 2016-11-10 00:00:00 gabapentin DA Active SD 2016-11-10 00:00:00 Medications This patient has no known medications. Results Test Description Test Time Test Comments Text Results Atomic Results Result Comments PROCALCITONIN (PCT) 2018-10-24 21:47:00 PROCALCITONIN (PCT) (test code=PROCAL) < 0.05 ng/ml Concentration Interpretation (ng/mL) <0.51 Sepsis is not likely. Local bacterial infection is possible. (LOW RISK for progression to Sepsis) 0.51 - 2.00 Sepsis is possible, but other conditions are known to elevate PCT as well. (MODERATE RISK for progression to Sepsis) > 2.00 Sepsis is likely, unless other causes are known. (HIGH RISK for progression to Severe Sepsis or Septic Shock) 10.00 High likelihood of Severe Sepsis or Septic or higher Shock. *Increased PCT levels may not always be related to systemic bacterial infection.*Low PCT levels do not automatically exclude the presence of bacterial infection.*All results should be interpreted taking into account the patients history. LACTIC [id number] 21:06:00* Test Item Value Reference Range Comments LACTIC ACID (test code=LACT) 1.6 mmol/L 0.4-1.9 - CT HEAD/BRAIN W/O [id number] 19:05:00 [facility] 1930 Age/S: 88 / M [address] [facility] Unit #: [id number] Loc: [place] [address] Phys: Roddy Jerry DO Acct: [id number] Dis Date: Status: REG ER PHONE #: [phone] Exam Date: 10/24/20181815 FAX #: [phone] Reason: Altered Mental Status EXAMS: CPT CODE: [id number] CT HEAD/BRAIN W/O CONT 80504 REASON FOR EXAM: Altered Mental Status EXAM ORDER DATE: 10/24/2018 5:35 PM Ordering M.D.: Roddy Jerry DO PROCEDURE: - CT HEAD/BRAIN W/O CONT COMPARISON: FINDINGS: CT images of the brain were obtained without IV contrast. Dose modulation, iterative reconstruction, and/or weight based adjustment of the MA/KV was utilized to reduce the radiation dose to as low as reasonably achievable. The brain parenchyma is within normal limits. The delgado-white matter delineation is unremarkable. The ventricles, cisterns, and sulci are minimally prominent. There is no evidence of hemorrhage, mass, mass effect. There is no evidence of acute or old infarct. The calvarium is intact. IMPRESSION: Nonspecific deep white matter disease. Age-appropriate generalized atrophy. No acute findings at 1905 Reported and signed by: Bam Ortega M.D. CC: Roddy Jerry DO Technologist:JUAN ANTONIO WARD RT(R) CT CTDI: DLP: Trnscb Date/Time: 10/24/2018 (1904) tKELLY Orig Print D/T: S: 10/24/2018 (1907) PAGE 1 Signed Report [id number] 18:28:00* Test Item Value Reference Range Comments TROPONIN-I (test code=TROPI) 0.040 ng/mL 0-0.045 BASIC METABOLIC [id number] 18:22:00* Test Item Value Reference Range Comments SODIUM (test code=NA) 138 mmol/L 136-145 POTASSIUM (test code=K) 4.1 mmol/L 3.5-5.1 CHLORIDE (test code=CL) 108.0 mmol/L 98-107 CARBON DIOXIDE (test code=CO2) 21.0 mmol/L 21-32 ANION GAP (test code=GAP) 13.1 10-20 GLUCOSE (test code=GLU) 100 mg/dL 74-106 BLOOD UREA NITROGEN (test code=BUN) 60 mg/dL 7-18 GLOMERULAR FILTRATION RATE (test code=GFR) 28 mL/min >=60 Estimated GFR by using Modified MDRD formula.Chronic kidney disease is defined as either kidney damageor GFR <60 mL/min/1.73 m2 for >3 months. CREATININE (test code=CREAT) 2.20 mg/dL 0.7-1.3 BUN/CREATININE RATIO (test code=BUN/CREA) 27.3 10-20 CALCIUM (test code=CA) 9.2 mg/dL 8.5-10.1 HEPATIC FUNCTION [id number] 18:22:00* Test Item Value Reference Range Comments TOTAL PROTEIN (test code=PROT) 8.4 gram/dL 6.4-8.2 ALBUMIN (test code=ALB) 3.6 g/dL 3.4-5.0 GLOBULIN (test code=GLOB) 4.8 gram/dL 2.7-4.2 ALBUMIN/GLOBULIN RATIO (test code=A/G) 0.8 0.75-1.50 BILIRUBIN TOTAL (test code=BILT) 0.30 mg/dL 0.0-1.0 BILIRUBIN DIRECT (test code=BILD) 0.17 mg/dL 0.0-0.20 SGOT/AST (test code=AST) 29 IUnit/L 15-37 SGPT/ALT (test code=ALT) 47 IUnit/L 12-78 ALKALINE PHOSPHATASE TOTAL (test code=ALKP) 143 IUnit/L 45-117 Note change in reference range due to change in reagent. [id number] 18:22:00* Test Item Value Reference Range Comments ALCOHOL (test code=ALC) < 3 mg/dL 0.0-3.0 INTERPRETIVE DATA NOTE: POSITIVE SCREENING RESULTS SHOULD BE CONSIDERED PRESUMPTIVE.WHEN COLLECTED FOR MEDICAL PURPOSES ONLY. SPECIMEN WILL NOTBE COLLECTED BY CHAIN OF CUSTODY.IF A CONFIRMATION OF POSITIVE RESULTS IS DESIRED, ACONFIRMATION TEST MUST BE REQUESTED BY THE PHYSICIAN AT ANADDITIONAL CHARGE TO THE PATIENT. - XR CHEST 1 [id number] 18:21:00 FAX: Roddy Jerry DO [place]: B St: REG Name: RAJESH NOVA [facility] : [birth year] Age/S: 88/M [address] [facility] Unit #: [id number] Loc: [place] [address] Phys: Roddy Jerry DO Acct: [id number] Dis Date: Status: REG ER PHONE #: [phone] Exam Date: 10/24/2018 5879 FAX #: [phone] Reason: Altered Mental Status EXAMS: CPT CODE: [id number] XR CHEST 1 V 21623 REASON FOR EXAM: Altered M ental Status EXAM ORDER DATE: 10/24/2018 5:35 PM Yuly woodall M.D.: Roddy Jerry DO PROCEDURE: - XR CHEST 1 V COMPARISON: 09/27/2018 FINDINGS: Portable AP frontal view of t jerzy chest obtained at 5:59 PM shows clear lungs without evidence of consoli dation. There is no evidence of effusion. The heart size is within normal limits. 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 Pulmonary vas culatures are unremarkable. IMPRESSION: Interval resoluti on of the atelectasis or consolidation of the right base. No active dis ease at 1821 Reported and signed by: Naida Kraus C: Roddy Jerry DO Technologist: Mable Martinez) Trnscrd Date/Time/By: 10/24/2018 (1820) : By: AntonyVTL Orig Print D/T: S: 10/24/2018 (1823) PAGE 1 Signed Report BASIC METABOLIC [id number] 18:19:00* Test Item Value Reference Range Comments SODIUM (test code=NA) 138 mmol/L 136-145 POTASSIUM (test code=K) 4.1 mmol/L 3.5-5.1 CHLORIDE (test code=CL) 108.0 mmol/L 98-107 CARBON DIOXIDE (test code=CO2) mmol/L 21-32 ANION GAP (test code=GAP) 10-20 GLUCOSE (test code=GLU) mg/dL 74-106 BLOOD UREA NITROGEN (test code=BUN) mg/dL 7-18 GLOMERULAR FILTRATION RATE (test code=GFR) mL/min >=60 CREATININE (test code=CREAT) mg/dL 0.7-1.3 BUN/CREATININE RATIO (test code=BUN/CREA) 10-20 CALCIUM (test code=CA) mg/dL 8.5-10.1 HEPATIC FUNCTION [id number] 18:19:00* Test Item Value Reference Range Comments TOTAL PROTEIN (test code=PROT) gram/dL 6.4-8.2 ALBUMIN (test code=ALB) g/dL 3.4-5.0 GLOBULIN (test code=GLOB) gram/dL 2.7-4.2 ALBUMIN/GLOBULIN RATIO (test code=A/G) 0.75-1.50 BILIRUBIN TOTAL (test code=BILT) mg/dL 0.0-1.0 BILIRUBIN DIRECT (test code=BILD) mg/dL 0.0-0.20 SGOT/AST (test code=AST) IUnit/L 15-37 SGPT/ALT (test code=ALT) IUnit/L 12-78 ALKALINE PHOSPHATASE TOTAL (test code=ALKP) IUnit/L 45-117 [id number] 18:19:00* Test Item Value Reference Range Comments ALCOHOL (test code=ALC) mg/dL 0-3 CBC W/O [id number] 18:03:00* Test Item Value Reference Range Comments WHITE BLOOD CELL (test code=WBC) 23.2 K/mm3 4.5-12.5 RED BLOOD CELL (test code=RBC) 3.96 mill/mm3 4.0-5.8 HEMOGLOBIN (test code=HGB) 12.6 gram/dL 13.0-17.5 HEMATOCRIT (test code=HCT) 38.1 % 42.0-52.0 MEAN CELL VOLUME (test code=MCV) 96.2 fL 80-98 MEAN CELL HGB (test code=MCH) 31.8 picogram 27.0-33.0 MEAN CELL HGB CONCETRATION (test code=MCHC) 33.1 gram/dL 33.0-36.0 RED CELL DISTRIBUTION WIDTH (test code=RDW) 14.3 % 11.6-16.2 PLATELET COUNT (test code=PLT) 302 K/mm3 150-450 MEAN PLATELET VOLUME (test code=MPV) 9.5 fL 6.7-11.0 [id number] 16:28:00* Test Item Value Reference Range Comments GLUBED (test code=GLUBED) 123 mg/dL 74-106 [facility] [id number] 12:28:00* Test Item Value Reference Range Comments GLUBED (test code=GLUBED) 106 mg/dL 74-106 Performed by certified mixing tank operator at [facility] [id number] 08:34:00* Test Item Value Reference Range Comments GLUBED (test code=GLUBED) 105 mg/dL 74-106 Performed by certified mixing tank operator [facility] [id number] 20:32:00* Test Item Value Reference Range Comments GLUBED (test code=GLUBED) 154 mg/dL 74-106 Performed by certified mixing tank operator at [facility] [id number] 15:54:00* Test Item Value Reference Range Comments GLUBED (test code=GLUBED) 91 mg/dL 74-106 [facility]formed by certified mixing tank [facility] [id number] 11:54:00* Test Item Value Reference Range Comments GLUBED (test code=GLUBED) 88 mg/dL 74-106 [facility]formed by certified mixing tank operator [facility] [id number] 08:13:00* Test Item Value Reference Range Comments GLUBED (test code=GLUBED) 101 mg/dL 74-106 [facility]formed by certified mixing tank operator [facility] BASIC METABOLIC [id number] 17:29:00* Test Item Value Reference Range Comments SODIUM (test code=NA) 143 mmol/L 136-145 POTASSIUM (test code=K) 4.2 mmol/L 3.5-5.1 CHLORIDE (test code=CL) 116.0 mmol/L 98-107 CARBON DIOXIDE (test code=CO2) 19.0 mmol/L 21-32 ANION GAP (test code=GAP) 12.2 10-20 GLUCOSE (test code=GLU) 115 mg/dL 74-106 BLOOD UREA NITROGEN (test code=BUN) 34 mg/dL 7-18 GLOMERULAR FILTRATION RATE (test code=GFR) 48 mL/min >=60 Estimated GFR by using Modified MDRD formula.Chronic kidney disease is defined as either kidney damageor GFR <60 mL/min/1.73 m2 for >3 months. CREATININE (test code=CREAT) 1.40 mg/dL 0.7-1.3 BUN/CREATININE RATIO (test code=BUN/CREA) 24.3 10-20 CALCIUM (test code=CA) 8.7 mg/dL 8.5-10.1 BASIC METABOLIC [id number] 17:19:00* Test Item Value Reference Range Comments SODIUM (test code=NA) 143 mmol/L 136-145 POTASSIUM (test code=K) 4.2 mmol/L 3.5-5.1 CHLORIDE (test code=CL) 116.0 mmol/L 98-107 CARBON DIOXIDE (test code=CO2) mmol/L 21-32 ANION GAP (test code=GAP) 10-20 GLUCOSE (test code=GLU) mg/dL 74-106 BLOOD UREA NITROGEN (test code=BUN) mg/dL 7-18 GLOMERULAR FILTRATION RATE (test code=GFR) mL/min >=60 CREATININE (test code=CREAT) mg/dL 0.7-1.3 BUN/CREATININE RATIO (test code=BUN/CREA) 10-20 CALCIUM (test code=CA) mg/dL 8.5-10.1 [id number] 17:04:00* Test Item Value Reference Range Comments GLUBED (test code=GLUBED) 125 mg/dL 74-106 Performed by certified mixing tank operator at [facility] CBC W/AUTO [id number] 17:04:00* Test Item Value Reference Range Comments WHITE BLOOD CELL (test code=WBC) 7.4 K/mm3 4.5-12.5 RED BLOOD CELL (test code=RBC) 3.20 mill/mm3 4.0-5.8 HEMOGLOBIN (test code=HGB) 10.0 gram/dL 13.0-17.5 HEMATOCRIT (test code=HCT) 31.5 % 42.0-52.0 MEAN CELL VOLUME (test code=MCV) 98.4 fL 80-98 MEAN CELL HGB (test code=MCH) 31.3 picogram 27.0-33.0 MEAN CELL HGB CONCETRATION (test code=MCHC) 31.7 gram/dL 33.0-36.0 RED CELL DISTRIBUTION WIDTH (test code=RDW) 13.2 % 11.6-16.2 RED CELL DISTRIBUTION WIDTH SD (test code=RDW-SD) 47.3 fL 37.0-51.0 PLATELET COUNT (test code=PLT) 313 K/mm3 150-450 MEAN PLATELET VOLUME (test code=MPV) 10.8 fL 6.7-11.0 NEUTROPHIL % (test code=NT%) 25.7 % 39.0-69.0 IMMATURE GRANULOCYTE % (test code=IG%) 0.3 % 0.0-5.0 LYMPHOCYTE % (test code=LY%) 65.1 % 25.0-55.0 MONOCYTE % (test code=MO%) 4.3 % 0.0-10.0 EOSINOPHIL % (test code=EO%) 3.8 % 0.0-5.0 BASOPHIL % (test code=BA%) 0.8 % 0.0-1.0 NUCLEATED RBC % (test code=NRBC%) 0.0 % 0-0 NEUTROPHIL # (test code=NT#) 1.91 K/mm3 1.8-7.7 IMMATURE GRANULOCYTE # (test code=IG#) 0.02 x10 3/uL 0-0.03 LYMPHOCYTE # (test code=LY#) 4.83 K/mm3 1.0-5.0 MONOCYTE # (test code=MO#) 0.32 K/mm3 0-0.8 EOSINOPHIL # (test code=EO#) 0.28 K/mm3 0.0-0.5 BASOPHIL # (test code=BA#) 0.06 K/mm3 0.0-0.2 NUCLEATED RBC # (test code=NRBC#) 0.00 K/mm3 0.0-0.1 MANUAL DIFF REQUIRED (test code=MDIFF) NO [id number] 12:53:00* Test Item Value Reference Range Comments GLUBED (test code=GLUBED) 114 mg/dL 74-106 Performed by certified mixing tank operator at [facility] [id number] 08:41:00* Test Item Value Reference Range Comments GLUBED (test code=GLUBED) 95 mg/dL 74-106 Performed by certified mixing tank operator at [facility] [id number] 20:42:00* Test Item Value Reference Range Comments GLUBED (test code=GLUBED) 155 mg/dL 74-106 Performed by certified mixing tank operator at [facility] [id number] 20:12:00* Test Item Value Reference Range Comments GLUBED (test code=GLUBED) 184 mg/dL 74-106 Performed by certified mixing tank operator at [facility] [id number] 16:31:00* Test Item Value Reference Range Comments GLUBED (test code=GLUBED) 126 mg/dL 74-106 Performed by certified mixing tank operator at [facility] [id number] 12:30:00* Test Item Value Reference Range Comments GLUBED (test code=GLUBED) 102 mg/dL 74-106 Performed by certified mixing tank operator at [facility] [id number] 08:09:00* Test Item Value Reference Range Comments GLUBED (test code=GLUBED) 123 mg/dL 74-106 Performed by certified mixing tank operator at [facility] [id number] 02:34:00* Test Item Value Reference Range Comments GLUBED (test code=GLUBED) 181 mg/dL 74-106 Performed by certified mixing tank operator at [facility] [id number] 02:34:00* Test Item Value Reference Range Comments GLUBED (test code=GLUBED) 103 mg/dL 74-106 Performed by certified mixing tank operator at [facility] [id number] 02:34:00* Test Item Value Reference Range Comments GLUBED (test code=GLUBED) 108 mg/dL 74-106 Performed by certified mixing tank operator at [facility] [id number] 20:25:00* Test Item Value Reference Range Comments GLUBED (test code=GLUBED) 155 mg/dL 74-106 Performed by certified mixing tank operator at [facility] BASIC METABOLIC [id number] 13:38:00* Test Item Value Reference Range Comments SODIUM (test code=NA) 139 mmol/L 136-145 POTASSIUM (test code=K) 3.2 mmol/L 3.5-5.1 CHLORIDE (test code=CL) 113.0 mmol/L 98-107 CARBON DIOXIDE (test code=CO2) 18.0 mmol/L 21-32 ANION GAP (test code=GAP) 11.2 10-20 GLUCOSE (test code=GLU) 100 mg/dL 74-106 BLOOD UREA NITROGEN (test code=BUN) 43 mg/dL 7-18 GLOMERULAR FILTRATION RATE (test code=GFR) 52 mL/min >=60 Estimated GFR by using Modified MDRD formula.Chronic kidney disease is defined as either kidney damageor GFR <60 mL/min/1.73 m2 for >3 months. CREATININE (test code=CREAT) 1.30 mg/dL 0.7-1.3 BUN/CREATININE RATIO (test code=BUN/CREA) 33.1 10-20 CALCIUM (test code=CA) 8.9 mg/dL 8.5-10.1 BASIC METABOLIC [id number] 13:33:00* Test Item Value Reference Range Comments SODIUM (test code=NA) 139 mmol/L 136-145 POTASSIUM (test code=K) 3.2 mmol/L 3.5-5.1 CHLORIDE (test code=CL) 113.0 mmol/L 98-107 CARBON DIOXIDE (test code=CO2) mmol/L 21-32 ANION GAP (test code=GAP) 10-20 GLUCOSE (test code=GLU) mg/dL 74-106 BLOOD UREA NITROGEN (test code=BUN) mg/dL 7-18 GLOMERULAR FILTRATION RATE (test code=GFR) mL/min >=60 CREATININE (test code=CREAT) mg/dL 0.7-1.3 BUN/CREATININE RATIO (test code=BUN/CREA) 10-20 CALCIUM (test code=CA) mg/dL 8.5-10.1 CBC W/AUTO [id number] 13:21:00* Test Item Value Reference Range Comments WHITE BLOOD CELL (test code=WBC) 7.9 K/mm3 4.5-12.5 RED BLOOD CELL (test code=RBC) 3.13 mill/mm3 4.0-5.8 HEMOGLOBIN (test code=HGB) 10.0 gram/dL 13.0-17.5 HEMATOCRIT (test code=HCT) 30.2 % 42.0-52.0 MEAN CELL VOLUME (test code=MCV) 96.5 fL 80-98 MEAN CELL HGB (test code=MCH) 31.9 picogram 27.0-33.0 MEAN CELL HGB CONCETRATION (test code=MCHC) 33.1 gram/dL 33.0-36.0 RED CELL DISTRIBUTION WIDTH (test code=RDW) 12.9 % 11.6-16.2 RED CELL DISTRIBUTION WIDTH SD (test code=RDW-SD) 45.6 fL 37.0-51.0 PLATELET COUNT (test code=PLT) 240 K/mm3 150-450 MEAN PLATELET VOLUME (test code=MPV) 10.5 fL 6.7-11.0 NEUTROPHIL % (test code=NT%) 41.3 % 39.0-69.0 IMMATURE GRANULOCYTE % (test code=IG%) 0.3 % 0.0-5.0 LYMPHOCYTE % (test code=LY%) 49.7 % 25.0-55.0 MONOCYTE % (test code=MO%) 6.4 % 0.0-10.0 EOSINOPHIL % (test code=EO%) 1.8 % 0.0-5.0 BASOPHIL % (test code=BA%) 0.5 % 0.0-1.0 NUCLEATED RBC % (test code=NRBC%) 0.0 % 0-0 NEUTROPHIL # (test code=NT#) 3.28 K/mm3 1.8-7.7 IMMATURE GRANULOCYTE # (test code=IG#) 0.02 x10 3/uL 0-0.03 LYMPHOCYTE # (test code=LY#) 3.95 K/mm3 1.0-5.0 MONOCYTE # (test code=MO#) 0.51 K/mm3 0-0.8 EOSINOPHIL # (test code=EO#) 0.14 K/mm3 0.0-0.5 BASOPHIL # (test code=BA#) 0.04 K/mm3 0.0-0.2 NUCLEATED RBC # (test code=NRBC#) 0.00 K/mm3 0.0-0.1 MANUAL DIFF REQUIRED (test code=MDIFF) NO LIPID PROFILE (CORONARY RISK)2018-09-28 12:59:00* Test Item Value Reference Range Comments TRIGLYCERIDES (test code=TRIG) 64 mg/dL 20-150 CHOLESTEROL (test code=CHOL) 78 mg/dL 0-200 CHOLESTEROL/HDL RATIO (test code=CHOLHDL) 3.0 RATIO 0-4.9 RISK ASSOCIATED WITH CHOL/HDL RATIOS: Risk Male Female1/2 AVERAGE 3.43 3.27AVERAGE 4.97 4.442X AVERAGE 9.55 7.053X AVERAGE 23.39 11.04 REFERENCE VALUE IS RELATED TO RISK LEVELS ASRECOMMENDED BY THE ABRIL. HEART, LUNG, AND BLOOD INST. HDL CHOLESTEROL (test code=HDL) 25 mg/dL 40-60 LIPOPROTEIN LDL (test code=LDL) 37 mg/dL 100-129 Reference Interval: mg/dL mmol/L Optimal <100 <2.6Near/above optimal 100-129 2.6- 3.3Borderline High 130-159 3.4-4.1High 160-189 4.1-4.9Very High >=190 >=4.9=========This LDL result is a direct measurement.========= [id number] 12:59:00* Test Item Value Reference Range Comments GLYCOSYLATED HEMOGLOBIN (HA1C) (test code=GLYHGB) 5.5 % HbA1 4.8-6.0 ESTIMATED AVERAGE GLUCOSE (test code=EAG) 111 MG/DL [id number] 10:55:00* Test Item Value Reference Range Comments TROPONIN-I (test code=TROPI) 0.067 ng/mL 0-0.045 COMMENTS TO NETWORK ARCHITECT MANAGER: COLLECT 3 HOURS AFTER PREVIOUS SAMPLELACTIC [id number] 02:43:00* Test Item Value Reference Range Comments LACTIC ACID (test code=LACT) 1.1 mmol/L 0.4-1.9 [id number] 01:32:00* Test Item Value Reference Range Comments TROPONIN-I (test code=TROPI) 0.060 ng/mL 0-0.045 COMMENTS TO NETWORK ARCHITECT MANAGER: COLLECT 3 HOURS AFTER PREVIOUS [id number] 18:45:00* Test Item Value Reference Range Comments TROPONIN-I (test code=TROPI) 0.077 ng/mL 0-0.045 B-TYPE NATRIURETIC [id number] 18:15:00* Test Item Value Reference Range Comments B-TYPE NATRIURETIC PEPTIDE (test code=BNP) 539.71 pgram/mL 0-100 URINALYSIS [id number] 17:24:00* Test Item Value Reference Range Comments UA COLOR (test code=COLU) YELLOW YELLOW UA APPEARANCE (test code=APPU) Cloudy CLEAR UA GLUCOSE DIPSTICK (test code=DGLUU) NEGATIVE mg/dL NEGATIVE UA BILIRUBIN DIPSTICK (test code=BILU) NEGATIVE mg/dL NEGATIVE UA KETONE DIPSTICK (test code=KETU) TRACE mg/dL NEGATIVE UA SPECIFIC GRAVITY (test code=SGU) 1.012 1.001-1.035 UA BLOOD DIPSTICK (test code=SCOTT) 0.5 mg/dL (2+) mg/dL NEGATIVE UA PH DIPSTICK (test code=ASTRID) 7.0 5.0-8.0 UA PROTEIN DIPSTICK (test code=PROU) 100 (2+) mg/dL NEGATIVE UA UROBILINIOGEN DIPSTICK (test code=URO) Normal mg/dL NEGATIVE UA NITRITE DIPSTICK (test code=WISAM) NEGATIVE NEGATIVE UA LEUKOCYTE ESTERASE W REFLEX (test code=LEUUR) 500 Nav/uL (3+) Nav/uL NEGATIVE UA WBC (test code=WBCU) 51-100 per HPF 0-5 UA RBC (test code=RBCU) 21-50 #/HPF 0-5 UA WBC CLUMPS (test code=WBCUCL) 3-6 /HPF NONE UA EPITHELIAL CELLS (test code=EPIU) FEW per HPF FEW UA BACTERIA (test code=BACU) FEW #/HPF NONE UA AMORPHOUS SEDIMENT (test code=AMORU) FEW #/LPF Urine Source? Clean CatchURINALYSIS [id number] 16:56:00* Test Item Value Reference Range Comments UA COLOR (test code=COLU) YELLOW YELLOW UA APPEARANCE (test code=APPU) Cloudy CLEAR UA GLUCOSE DIPSTICK (test code=DGLUU) NEGATIVE mg/dL NEGATIVE UA BILIRUBIN DIPSTICK (test code=BILU) NEGATIVE mg/dL NEGATIVE UA KETONE DIPSTICK (test code=KETU) TRACE mg/dL NEGATIVE UA SPECIFIC GRAVITY (test code=SGU) 1.012 1.001-1.035 UA BLOOD DIPSTICK (test code=SCOTT) 0.5 mg/dL (2+) mg/dL NEGATIVE UA PH DIPSTICK (test code=ASTRID) 7.0 5.0-8.0 UA PROTEIN DIPSTICK (test code=PROU) 100 (2+) mg/dL NEGATIVE UA UROBILINIOGEN DIPSTICK (test code=URO) Normal mg/dL NEGATIVE UA NITRITE DIPSTICK (test code=WISAM) NEGATIVE NEGATIVE UA LEUKOCYTE ESTERASE W REFLEX (test code=LEUUR) 500 Nav/uL (3+) Nav/uL NEGATIVE UA WBC (test code=WBCU) per HPF 0-5 UA RBC (test code=RBCU) per HPF 0-5 UA EPITHELIAL CELLS (test code=EPIU) per HPF Few UA BACTERIA (test code=BACU) per HPF NONE Urine Source? Clean Catch- XR HUMERUS 2 + V [id number] 16:21:00 FAX: Herlinda Gomez [phone] [place]: [address] St: REG Name: RAJESH NOVA [facility] : [birth year] Age/S: 88/M [address] [facility] Unit #: [id number] Loc: [place] [address] Phys: Herlinda Lanier MD Acct: [id number] Dis Date: Status: REG ER PHONE #: [phone] Exam Date: 09/27/2018 1612 FAX #: [phone] Reason: POSS FXR SEEN ON CXR EXAMS: CPT CODE: [id number] XR HUMERUS 2 + V RT [id number] TECHNIQUE - XR HUMERUS 2 + V RT . COMPARISON: None provided. HISTORY: 88 years Male POSS FXR SEEN ON CXR FINDINGS: Bones: No acute fracture. No dislocation. No suspicious bone lesion. Old fracture of proximal right humerus. Joints: Mild ost eophytes. Mild joint space reduction. No subchondral bone lesions. No bony erosions. Soft tissues: No significant abnormalities. Other: None. IMPRESSION: No acute fracture. Mild osteoarthritic changes. Old fracture of proximal right hum erus. at 1621 Reported and signed by: Missy Hobson M.D. CC: Herlinda Lanier MD Technologist: Olegario Almanza RT(R Trnscrd Date/Time/By: 09/27/2018 (9515) : By: ChristaO Orig Print D/T: S: 0 09/27/2018 (1292) PAGE 1 Signed Re [facility] BASIC METABOLIC [id number] 16:19:00* Test Item Value Reference Range Comments SODIUM (test code=NA) 134 mmol/L 136-145 POTASSIUM (test code=K) 4.1 mmol/L 3.5-5.1 CHLORIDE (test code=CL) 103.0 mmol/L 98-107 CARBON DIOXIDE (test code=CO2) 20.0 mmol/L 21-32 ANION GAP (test code=GAP) 15.1 10-20 GLUCOSE (test code=GLU) 98 mg/dL 74-106 BLOOD UREA NITROGEN (test code=BUN) 43 mg/dL 7-18 GLOMERULAR FILTRATION RATE (test code=GFR) 38 mL/min >=60 Estimated GFR by using Modified MDRD formula.Chronic kidney disease is defined as either kidney damageor GFR <60 mL/min/1.73 m2 for >3 months. CREATININE (test code=CREAT) 1.70 mg/dL 0.7-1.3 BUN/CREATININE RATIO (test code=BUN/CREA) 25.3 10-20 CALCIUM (test code=CA) 9.9 mg/dL 8.5-10.1 HEPATIC FUNCTION [id number] 16:19:00* Test Item Value Reference Range Comments TOTAL PROTEIN (test code=PROT) 8.1 gram/dL 6.4-8.2 ALBUMIN (test code=ALB) 2.9 g/dL 3.4-5.0 GLOBULIN (test code=GLOB) 5.2 gram/dL 2.7-4.2 ALBUMIN/GLOBULIN RATIO (test code=A/G) 0.6 0.75-1.50 BILIRUBIN TOTAL (test code=BILT) 0.90 mg/dL 0.0-1.0 BILIRUBIN DIRECT (test code=BILD) 0.54 mg/dL 0.0-0.20 SGOT/AST (test code=AST) 16 IUnit/L 15-37 SGPT/ALT (test code=ALT) 16 IUnit/L 12-78 ALKALINE PHOSPHATASE TOTAL (test code=ALKP) 103 IUnit/L 45-117 Note change in reference range due to change in reagent. [id number] 16:19:00* Test Item Value Reference Range Comments LIPASE (test code=LIP) 74 U/L 73.0-393.0 [id number] 16:19:00* Test Item Value Reference Range Comments MAGNESIUM (test code=MAG) 2.3 mg/dL 1.8-2.4 THYROID STIMULATING [id number] 16:19:00* Test Item Value Reference Range Comments THYROID STIMULATING HORMONE (test code=TSH) 0.339 uIU/mL 0.36-3.74 TSH REFERENCE RANGES: EUTHYROID: 0.35 - 4.3 mIU/mL HYPO : > 5.5 mIU/mL HYPER : < 0.35 mIU/mL [id number] 16:19:00* Test Item Value Reference Range Comments TROPONIN-I (test code=TROPI) 0.089 ng/mL 0-0.045 Results called to [id number] by JOSE CWRAO 09/27/18 1619Critical results verified and read back by Nurse? Y [id number] 16:19:00* Test Item Value Reference Range Comments ALCOHOL (test code=ALC) < 3 mg/dL 0.0-3.0 INTERPRETIVE DATA NOTE: POSITIVE SCREENING RESULTS SHOULD BE CONSIDERED PRESUMPTIVE.WHEN COLLECTED FOR MEDICAL PURPOSES ONLY. SPECIMEN WILL NOTBE COLLECTED BY CHAIN OF CUSTODY.IF A CONFIRMATION OF POSITIVE RESULTS IS DESIRED, ACONFIRMATION TEST MUST BE REQUESTED BY THE PHYSICIAN AT ANADDITIONAL CHARGE TO THE PATIENT. BASIC METABOLIC [id number] 16:13:00* Test Item Value Reference Range Comments SODIUM (test code=NA) 134 mmol/L 136-145 POTASSIUM (test code=K) 4.1 mmol/L 3.5-5.1 CHLORIDE (test code=CL) 103.0 mmol/L 98-107 CARBON DIOXIDE (test code=CO2) 20.0 mmol/L 21-32 ANION GAP (test code=GAP) 15.1 10-20 GLUCOSE (test code=GLU) 98 mg/dL 74-106 BLOOD UREA NITROGEN (test code=BUN) 43 mg/dL 7-18 GLOMERULAR FILTRATION RATE (test code=GFR) 38 mL/min >=60 Estimated GFR by using Modified MDRD formula.Chronic kidney disease is defined as either kidney damageor GFR <60 mL/min/1.73 m2 for >3 months. CREATININE (test code=CREAT) 1.70 mg/dL 0.7-1.3 BUN/CREATININE RATIO (test code=BUN/CREA) 25.3 10-20 CALCIUM (test code=CA) 9.9 mg/dL 8.5-10.1 HEPATIC FUNCTION [id number] 16:13:00* Test Item Value Reference Range Comments TOTAL PROTEIN (test code=PROT) 8.1 gram/dL 6.4-8.2 ALBUMIN (test code=ALB) 2.9 g/dL 3.4-5.0 GLOBULIN (test code=GLOB) 5.2 gram/dL 2.7-4.2 ALBUMIN/GLOBULIN RATIO (test code=A/G) 0.6 0.75-1.50 BILIRUBIN TOTAL (test code=BILT) 0.90 mg/dL 0.0-1.0 BILIRUBIN DIRECT (test code=BILD) 0.54 mg/dL 0.0-0.20 SGOT/AST (test code=AST) 16 IUnit/L 15-37 SGPT/ALT (test code=ALT) 16 IUnit/L 12-78 ALKALINE PHOSPHATASE TOTAL (test code=ALKP) 103 IUnit/L 45-117 Note change in reference range due to change in reagent. [id number] 16:13:00* Test Item Value Reference Range Comments LIPASE (test code=LIP) 74 U/L 73.0-393.0 [id number] 16:13:00* Test Item Value Reference Range Comments MAGNESIUM (test code=MAG) 2.3 mg/dL 1.8-2.4 THYROID STIMULATING [id number] 16:13:00* Test Item Value Reference Range Comments THYROID STIMULATING HORMONE (test code=TSH) 0.339 uIU/mL 0.36-3.74 TSH REFERENCE RANGES: EUTHYROID: 0.35 - 4.3 mIU/mL HYPO : > 5.5 mIU/mL HYPER : < 0.35 mIU/mL [id number] 16:13:00* Test Item Value Reference Range Comments ALCOHOL (test code=ALC) < 3 mg/dL 0.0-3.0 INTERPRETIVE DATA NOTE: POSITIVE SCREENING RESULTS SHOULD BE CONSIDERED PRESUMPTIVE.WHEN COLLECTED FOR MEDICAL PURPOSES ONLY. SPECIMEN WILL NOTBE COLLECTED BY CHAIN OF CUSTODY.IF A CONFIRMATION OF POSITIVE RESULTS IS DESIRED, ACONFIRMATION TEST MUST BE REQUESTED BY THE PHYSICIAN AT ANADDITIONAL CHARGE TO THE PATIENT. BASIC METABOLIC [id number] 15:56:00* Test Item Value Reference Range Comments SODIUM (test code=NA) 134 mmol/L 136-145 POTASSIUM (test code=K) 4.1 mmol/L 3.5-5.1 CHLORIDE (test code=CL) 103.0 mmol/L 98-107 CARBON DIOXIDE (test code=CO2) mmol/L 21-32 ANION GAP (test code=GAP) 10-20 GLUCOSE (test code=GLU) mg/dL 74-106 BLOOD UREA NITROGEN (test code=BUN) mg/dL 7-18 GLOMERULAR FILTRATION RATE (test code=GFR) mL/min >=60 CREATININE (test code=CREAT) mg/dL 0.7-1.3 BUN/CREATININE RATIO (test code=BUN/CREA) 10-20 CALCIUM (test code=CA) mg/dL 8.5-10.1 HEPATIC FUNCTION [id number] 15:56:00* Test Item Value Reference Range Comments TOTAL PROTEIN (test code=PROT) gram/dL 6.4-8.2 ALBUMIN (test code=ALB) g/dL 3.4-5.0 GLOBULIN (test code=GLOB) gram/dL 2.7-4.2 ALBUMIN/GLOBULIN RATIO (test code=A/G) 0.75-1.50 BILIRUBIN TOTAL (test code=BILT) mg/dL 0.0-1.0 BILIRUBIN DIRECT (test code=BILD) mg/dL 0.0-0.20 SGOT/AST (test code=AST) IUnit/L 15-37 SGPT/ALT (test code=ALT) IUnit/L 12-78 ALKALINE PHOSPHATASE TOTAL (test code=ALKP) IUnit/L 45-117 [id number] 15:56:00* Test Item Value Reference Range Comments LIPASE (test code=LIP) U/L 73.0-393.0 [id number] 15:56:00* Test Item Value Reference Range Comments MAGNESIUM (test code=MAG) mg/dL 1.8-2.4 THYROID STIMULATING [id number] 15:56:00* Test Item Value Reference Range Comments THYROID STIMULATING HORMONE (test code=TSH) uIU/mL 0.36-3.74 [id number] 15:56:00* Test Item Value Reference Range Comments TROPONIN-I (test code=TROPI) ng/mL 0-0.045 [id number] 15:56:00* Test Item Value Reference Range Comments ALCOHOL (test code=ALC) mg/dL 0-3 - XR CHEST 1 [id number] 15:32:00 FAX: Herlinda Gomez [phone] [place]: St: REG Name: RAJESH NOVA [facility] : [birth year] Age/S: 88/M [address] [facility] Unit #: [id number] Loc: [place] [address] Phys: Herlinda Lanier MD Acct: [id number] Dis Date: Status: REG ER PHONE #: [phone] Exam Date: 09/27/2018 1505 FAX #: [phone] Reason: WEAKNESS EXAMS: CPT CODE: [id number] XR CHEST 1 V 66475 TECHNIQUE - XR CHEST 1 V . COMPARISON: Chest x-ray 07/20/2016 HISTORY: 88 years Male WEAKNESS FINDINGS: Left subclavian pacer wires in place. Mild congestion. Right mid and right lower lung field atelectasis versus infiltrates. These findings are new since old chest x-ray 07/20/2016. No pneumothorax. Cardiac silhouette is prominent. Age-indeterminate fracture proxi mal right humerus please correlate clinically. IMPRESSION : Mild congestion. Right mid and right lower lung field atelec tasis versus infiltrates. These findings are new since old chest x-ray 07/20/2016. Age-indeterminate fracture proximal right hum erus please correlate clinically. Elect ronically Signed by Ede Hobson M.D. on 09/27/2018 at 1532 Reported and signed by: Ede Hobson M.D. CC: Herlinda Lanier MD Technologist: JYOTSNA LYNNE, RT(R) Trnndrd Date/Time/By: 09/27/2018 (4650) : By: tSPENSER Pina Print D/T: S: 09/27/2018 (3233) PAGE 1 Signed Report CBC W/O [id number] 15:30:00* Test Item Value Reference Range Comments WHITE BLOOD CELL (test code=WBC) 22.2 K/mm3 4.5-12.5 RED BLOOD CELL (test code=RBC) 3.37 mill/mm3 4.0-5.8 HEMOGLOBIN (test code=HGB) 10.8 gram/dL 13.0-17.5 HEMATOCRIT (test code=HCT) 31.9 % 42.0-52.0 MEAN CELL VOLUME (test code=MCV) 94.7 fL 80-98 MEAN CELL HGB (test code=MCH) 32.0 picogram 27.0-33.0 MEAN CELL HGB CONCETRATION (test code=MCHC) 33.9 gram/dL 33.0-36.0 RED CELL DISTRIBUTION WIDTH (test code=RDW) 12.7 % 11.6-16.2 PLATELET COUNT (test code=PLT) 233 K/mm3 150-450 MEAN PLATELET VOLUME (test code=MPV) 9.9 fL 6.7-11.0
[2018-10-27] MEDS ORDERED: SODIUM CHLORIDE 0.9% 1000ML 1,000 ML IV STA (11:55)
--- NOTE | 2018-10-27 12:26 | Diagnostic Imaging Report ---
EXAMINATION: CHEST SINGLE (PORTABLE) INDICATION: Leukocytosis. COMPARISON: None FINDINGS: TUBES and LINES: Left-sided pacemaker with leads overlying the right atrium and right ventricle. LUNGS: Lungs are are moderately inflated. There are patchy opacities in the right lower lung. No evidence of pulmonary edema. There is central vascular congestion. PLEURA: No pleural effusion or pneumothorax. HEART AND MEDIASTINUM: The cardiomediastinal silhouette is unremarkable. BONES AND SOFT TISSUES: No acute osseous abnormality. UPPER ABDOMEN: No free air under the diaphragm. IMPRESSION: Patchy opacities in the right lower lung, which may represent pneumonia or atelectasis in the appropriate clinical setting. Suggest follow-up chest radiograph in 6-8 weeks to assess for resolution. Signed by: Dr. Ari Solano MD on 10/27/2018 12:23 PM
[2018-10-27 13:02] LABS: BASOPHILS % 0.2 % (0.0-1.0); EOSINOPHILS # (AUTO) 0.4 (0.0-0.4); EOSINOPHILS % 2.4 % (0.0-6.0); HEMATOCRIT 30.1 % (38.2-49.6); HEMOGLOBIN 9.7 g/dL (14.0-18.0); LYMPHOCYTES # (AUTO) 7.6 (1.0-3.2); MEAN CORPUSCULAR HEMOGLOBIN 32.1 pg (28-32); MEAN CORPUSCULAR HGB CONC 32.2 g/dL (31-35); MEAN CORPUSCULAR VOLUME 99.7 fL (81-99); MONOCYTES # (AUTO) 0.8 (0.2-0.8); MONOCYTES % 4.5 % (4.4-11.3); NEUTROPHILS % 47.5 % (38.7-80.0); PLATELET COUNT 250 x10e3/uL (140-360); RED BLOOD COUNT 3.02 x10e6/uL (4.3-5.7); RED CELL DISTRIBUTION WIDTH 14.7 % (11.7-14.4)
[2018-10-27 13:13] LABS: INR 0.89; PROTHROMBIN TIME 12.5 seconds (11.9-14.5)
[2018-10-27 13:14] LABS: PARTIAL THROMBOPLASTIN TIME 33.9 seconds (23.8-35.5)
[2018-10-27 13:19] LABS: BILIRUBIN,URINE NEGATIVE (NEGATIVE); CLARITY,URINE CLEAR (CLEAR); COLOR,URINE YELLOW (YELLOW); KETONES,URINE NEGATIVE (NEGATIVE); LEUKOCYTE ESTERASE ,URINE MODERATE (NEGATIVE); NITRITE,URINE NEGATIVE (NEGATIVE); PROTEIN,URINE DIPSTICK TRACE (NEGATIVE); URINE UROBILINOGEN 0.2 mg/dL (0.2 - 1)
[2018-10-27 13:23] LABS: ALBUMIN 3.2 g/dL (3.5-5.0); ANION GAP 12.1 mmol/L (8-16); CALCIUM 9.1 mg/dL (8.4-10.2); CREATININE, SERUM 1.64 mg/dL (0.72-1.25); MAGNESIUM 1.8 MG/DL (1.3-2.1); POTASSIUM 4.1 mmol/L (3.5-5.1)
[2018-10-27 13:31] LABS: CREATINE KINASE MB 5.6 ng/mL (0-5.0)
[2018-10-27 13:33] LABS: AMORPHOUS SEDIMENT,URINE MODERATE (FEW); BACTERIA,URINE FEW /HPF; RBC,URINE 0-5 /HPF (0-5)
--- NOTE | 2018-10-27 13:36 | Diagnostic Imaging Report ---
Exams: Head and cervical spine CTs without IV contrast History: Altered mental status, fall Comparison studies: None Technique: Axial images were obtained from the brain and cervical spine. Coronal and sagittal images reconstructed from the axial data. Dose modulation, iterative reconstruction, and/or weight based adjustment of the mA/kV was utilized to reduce the radiation dose to as low as reasonably achievable. Intravenous contrast: None Findings: Head CT: Scalp: No abnormalities. Bones: No fractures, blastic or lytic lesions. Extra-axial spaces: No masses. No fluid collections. Brain sulci: Mildly prominent. Ventricles: Mild compensatory dilatation. No hydrocephalus. Extra-axial spaces: No mass, no fluid collection. Parenchyma: No mass, acute hemorrhage or acute cortical vascular insults. A few scattered and mildly confluent hypodensities in the supratentorial white matter are nonspecific but most compatible with chronic small vessel ischemic changes. Small chronic right thalamic lacunar infarct. Sellar/suprasellar region: No abnormalities. Craniocervical junction: The foramen magnum is patent. No Chiari one malformation. Included paranasal sinuses: Partially imaged small right maxillary sinus retention cyst and mild mucosal thickening in the left maxillary sinus. Remaining sinuses are clear. Cervical spine CT: Fractures: None. Soft tissues: No gross acute abnormalities. Atlantoaxial articulation: Intact. Alignment: Normal lordosis. No subluxations. Cervicomedullary junction: No abnormalities. The foramen magnum is patent. Vertebrae: No infection or neoplasm. The C3 and C4 vertebra and left facets are fused. Degenerative changes: Degenerative changes at the atlantal dental interval with ligamentous thickening and calcification posterior to the dens which results in moderate canal stenosis below the foramen magnum. Obliterated disc with fused disc space at C3-C4. Moderately degenerated disks at C2-C3 and severely degenerated disks from C4 to T1. Disc osteophyte complexes at C2-C3 and from C4 to C7 indent the thecal sac. Disc osteophyte complexes and thickened calcified ligament flava at C2-C3 results in severe canal stenosis. Disc osteophyte complex and thickened ligamentum flavum at C4-C5 result in moderate canal stenosis. Multilevel uncovertebral and advanced facet arthrosis result in multilevel foraminal stenosis (mild bilaterally at C2-C3 and at C3-C4, severe right and moderate left at C4-C5,, severe right and moderate left at C5-C6 and moderate left and mild right C6-C7 and mild bilaterally at C7-T1). Incidental findings: Lens replacements for previous cataract surgery. Chronic bilateral depressed lamina papyracea fracture/dehiscence. Scattered calcified atherosclerosis with calcified plaque in the carotid carotid bulbs, carotid siphons and intradural vertebral arteries. IMPRESSION: Head CT: 1. No acute abnormalities. 2. Mild generalized parenchymal volume loss. 3. Mild to moderate chronic microvascular ischemic changes with small chronic right thalamic lacunar infarct. Cervical spine CT: 1. No cervical spine fracture or subluxation. 2. Advanced multilevel degenerative changes with multilevel canal stenosis and foraminal stenosis as described. Dedicated cervical spine MRI could further evaluate as clinical warranted. 3. Cannot exclude ligament, spinal cord and or vascular abnormalities on the basis of this examination. Signed by: Dr. Zac Munson M.D. on 10/27/2018 1:33 PM
--- NOTE | 2018-10-27 13:46 | Diagnostic Imaging Report ---
Exam: Right hip radiographs-2 views; AP radiograph of the pelvis-1 view History: Right hip pain. Comparison: None. Findings: Exam somewhat limited by soft tissue attenuation and overlying bowel gas. No evidence of acute fracture or malalignment. There are mild degenerative changes of bilateral hips. Surgical clips project over the bilateral pelvis and inguinal regions. There are bilateral femoral vascular stents. Impression: No acute radiographic abnormality. Signed by: Dr. Ari Solano MD on 10/27/2018 1:43 PM
[2018-10-27] MEDS ORDERED: HYDROCODONE/APAP 7.5MG-325MG 1 EA TAB PO PRN (14:15)
[2018-10-27] MEDS ORDERED: DEXTROSE 50% SYRINGE 50 ML IV PRN (14:15)
[2018-10-27] MEDS ORDERED: SODIUM CHLORIDE 0.9% 1000ML 1,000 ML IV ONE (14:15)
[2018-10-27] MEDS: PIPERACILLIN/TAZO 2.25 GM 50 ML IV SCH ×2 (14:30→18:40)
[2018-10-27] MEDS: LINEZOLID 600 MG/D5W 300ML 300 ML IV SCH ×2 (14:36→21:30)
--- NOTE | 2018-10-27 14:38 | NUR ---
pt updated on pending admit per dr. vila. rm [id number]
--- NOTE | 2018-10-27 14:52 | NUR ---
REPORT CALLED TO NORM BAILEY FOR THIS PATIENT TO GO TO RM [id number]
[2018-10-27 15:45] VITALS: BP 151/67
--- NOTE | 2018-10-27 15:45 | NUR ---
PATIENT RECEIVED FROM ER PER STRETCHER. ALERT AND VERBALLY RESPONSIVE. SKIN WARM AND DRY TO TOUCH. RIGHT UROSTOMY WITH CLEAR YELLOW URINE AND LEFT COLOSTOMY WITH FORMED STOOL LEAKING, COMPLETELY CHANGED. REDNESS NOTED TO SACRUM, ALLEVYN DRESSING APPLIED, EXCORIATION TO PERINEAL AREA. TELEMETRY BOX IN PLACE; BILATERAL BKA. BED IN LOWER POSITION AND LOCKED, CALL LIGHT AT REACH. INSTRUCTED TO CALL FOR ASSISTANCE NEEDED. BED ALARM ACTIVATED, FAMILY AT BED SIDE.
[2018-10-27] MEDS: INSULIN LISPRO 100 UNIT/1 ML 3ML VIAL SQ SCH ×2 (16:30→21:10)
[2018-10-27 16:39] VITALS: BP 151/67
--- NOTE | 2018-10-27 19:30 | NUR ---
RECEIVED PATIENT IN STABLE CONDITION, ALERT AND VERBALLY RESPONSIVE, PATIENT ALSO PRESENTS WITH CONFUSION. SKIN WARM AND DRY TO TOUCH. RIGHT UROSTOMY WITH CLEAR YELLOW URINE AND LEFT COLOSTOMY WITH FORMED STOOL. REDNESS NOTED TO SACRUM, ALLEVYN DRESSING PRESENT, EXCORIATION TO PERINEAL AREA. TELEMETRY BOX IN PLACE; BILATERAL BKA. BED IN LOWER POSITION AND LOCKED, CALL LIGHT AT REACH. INSTRUCTED TO CALL FOR ASSISTANCE NEEDED. BED ALARM ACTIVATED, WILL CONTINUE TO MONITOR.
[2018-10-27] MEDS ORDERED: HALOPERIDOL LACTATE IM PRN (20:15)
[2018-10-27 20:21] VITALS: BP 145/83
--- NOTE | 2018-10-27 20:50 | NUR ---
PATIENT IS VERY CONFUSED AND IS TRYING TO GET OUT OF BED. CALLED DR. ALEXANDRE TO REQUEST A SITTER FOR PATIENT TO PREVENT A FALL.
[2018-10-27] MEDS ORDERED: NIFEDIPINE CR 30 MG TAB PO SCH (21:00)
--- NOTE | 2018-10-27 21:00 | NUR ---
TALKED TO DR. ALEXANDRE AND HE WENT AHEAD AND ALLOWED A SITTER TO ACCOMPANY THE PATIENT. WILL CONTINUE TO MONITOR. SITUATION.
[2018-10-27 21:30] VITALS: BP 145/83
[2018-10-27] MEDS: METOPROLOL TARTRATE 50 MG TAB PO SCH (21:30)
[2018-10-27] MEDS: HALOPERIDOL LACTATE 5 MG/ML VIAL IM PRN ×2 (21:30→22:30)
[2018-10-27 21:41] LABS: CREATINE KINASE MB 5.5 ng/mL (0-5.0)
[2018-10-28] VITALS (20 sets, daily range): BP systolic 96–146; BP diastolic 30–68
[2018-10-28] MEDS: PIPERACILLIN/TAZO 2.25 GM 50 ML IV SCH ×4 (00:05→19:07)
[2018-10-28] MEDS: HYDROCODONE/APAP 5MG-325MG TAB PO PRN ×3 (00:05→22:49)
--- NOTE | 2018-10-28 02:30 | NUR ---
PATIENT ACCIDENTLY REMOVED RIGHT UROSTOMY. PATIENT WAS PROMPTLY CLEANED AND UROSTOMY WAS REPLACED.
--- NOTE | 2018-10-28 05:20 | NUR ---
AFTER LOOKING AT PATIENT'S VITALS THE PATIENT'S HEART RATE WAS AT 47. CHECKED ON PATIENT, HE SHOWED NO SIGNS OF DISTRESS AND WAS STABLE. THE TELE MONITOR BATTERY WAS DRAINED COMPLETELY. AFTER CHANGING BATTERY THE HEART RATE WAS IN THE 30'S. AFTER CHECKING ALL THE LEADS, AND CALLING THE TELE UNIT TO CONFIRM THAT THE HEART RATE DROPPED TO 27, I GOT WITH CHARGE NURSE AND OTHER MEMBERS OF THE NURSING TEAM AND CALLED A RAPID RESPONSE.
[2018-10-28 06:07] LABS: BASOPHILS % 0.2 % (0.0-1.0); EOSINOPHILS # (AUTO) 0.1 (0.0-0.4); EOSINOPHILS % 0.4 % (0.0-6.0); HEMATOCRIT 30.2 % (38.2-49.6); HEMOGLOBIN 9.1 g/dL (14.0-18.0); LYMPHOCYTES % 27.6 % (18.0-39.1); MEAN CORPUSCULAR HEMOGLOBIN 31.6 pg (28-32); MEAN CORPUSCULAR HGB CONC 30.1 g/dL (31-35); MEAN CORPUSCULAR VOLUME 104.9 fL (81-99); MONOCYTES # (AUTO) 0.6 (0.2-0.8); MONOCYTES % 3.3 % (4.4-11.3); NEUTROPHILS # (AUTO) 12.2 (2.1-6.9); NEUTROPHILS % 67.7 % (38.7-80.0); PLATELET COUNT 195 x10e3/uL (140-360); RED BLOOD COUNT 2.88 x10e6/uL (4.3-5.7)
--- NOTE | 2018-10-28 06:15 | NUR ---
AFTER RAPID RESPONSE PATIENT IS STABLE, NO SIGNS OF DISTRESS NOTED, HEART RATE UP TO 75. STAT ORDERS AND TRANSFER TO ICU TO BE PUT IN, WILL CONTINUE TO MONITOR.
[2018-10-28 06:17] LABS: ALBUMIN 2.8 g/dL (3.5-5.0); ALBUMIN/GLOBULIN RATIO 0.8 (0.8-2.0); ANION GAP 16.5 mmol/L (8-16); CALCIUM 8.7 mg/dL (8.4-10.2); POTASSIUM 4.5 mmol/L (3.5-5.1)
[2018-10-28] MEDS ORDERED: ASPIRIN 81 MG CHEW TAB PO ONE (06:30)
--- NOTE | 2018-10-28 06:30 | NUR ---
PATIENT WILL BE TRANSFERRED TO ICU, REPORT CALLED AND GIVEN TO THE RECEIVING NURSE. A MESSAGE WAS LEFT ON THE PATIENT'S DAUGHTER PHONE TO CALL THIS FACILITY REGARDING HER FATHER'S CARE
--- NOTE | 2018-10-28 06:31 | NUR ---
PATIENT IS TO BE TRANSFER TO ICU RM#[id number], REPORT CALLED AND GIVEN TO THE RECEIVING NURSE. MESSAGE LEFT ON THE PATIENT'S DAUGHTER PHONE TO CALL THIS FACILITY REGARDING HER FATHER.
[2018-10-28 06:51] LABS: CREATINE KINASE MB 3.2 ng/mL (0-5.0)
[2018-10-28] MEDS: INSULIN LISPRO 100 UNIT/1 ML 3ML VIAL SQ SCH ×4 (07:30→21:48)
[2018-10-28] MEDS: METOPROLOL TARTRATE 50 MG TAB PO SCH (08:30)
[2018-10-28] MEDS ORDERED: ENOXAPARIN SOD INJ 60 MG/0.6 ML SYR SC SCH (09:00)
[2018-10-28] MEDS: DOCUSATE SODIUM 100 MG CAP PO SCH (09:00)
[2018-10-28] MEDS: ENOXAPARIN 30 MG/0.3 ML SYR SC SCH (11:00)
[2018-10-28] MEDS: LINEZOLID 600 MG/D5W 300ML 300 ML IV SCH ×2 (11:05→21:38)
[2018-10-28] MEDS: FERROUS SULFATE 325 MG TAB PO SCH ×2 (11:05→19:07)
[2018-10-28] MEDS: ACETAMINOPHEN 325 MG TAB PO PRN ×2 (11:15→19:43)
[2018-10-28] MEDS ORDERED: SODIUM CHLORIDE 0.9% 250ML 250 ML ONE (11:52)
[2018-10-28] MEDS: MEMANTINE 10 MG TAB PO SCH (12:13)
[2018-10-28] MEDS: HALOPERIDOL LACTATE 5 MG/ML VIAL IM PRN (12:14)
--- NOTE | 2018-10-28 12:15 | NUR ---
patient increasingly restless and anxious. patient repeating his requests, demanding his requests be completed immediately. pt becomes more anxious regardless of caring for his demands. sitter in room attempting to redirect patient. pt removed clothes, leads from monitor and attempted to remove p.iv.
[2018-10-28] MEDS ORDERED: DIATRIZOATE MEGL/DIATRIZOA SOD 30 ML BTL PO ONE (13:49)
--- NOTE | 2018-10-28 15:32 | NUR ---
unable to obtain CT abd/pelvis. pt refused to drink oral contrast. When patient transferred to CT table., pt became agitated, attempted to sit up, would not follow commands. paged MD Dickinson with updates.
--- NOTE | 2018-10-28 17:20 | NUR ---
pacemaker interrogated by [employer]. no response from pacemaker per rep. Abigail. paged cardiology to notify.
--- NOTE | 2018-10-28 18:53 | Consultation ---
DATE OF CONSULTATION: 10/28/2018 Cardiac Consultation REASON FOR CONSULTATION: Extreme bradycardia. HISTORY: This is an 88-year-old gentleman, [facility] Residential resident who came to this institution because of altered mental status, leukocytosis with white blood cell count of 20,000, leakage from his urostomy bag with severe rash involving the lower abdomen, failure to thrive, fever, and chills. The patient brought to this institution. His white blood cell count confirmed to be elevated here at 18,000. He is anemic with hemoglobin of 9.1, hematocrit 32%. He does have chronic renal insufficiency as per records with BUN of 32, creatinine of 2. The patient had Rapid Response called because of very slow heart rate in the 30s. The patient was transferred to Intensive Care Unit. It was noted that the patient having junctional escape rhythm with a rate in the 30s. Urgent cardiac consultation is obtained. The patient is in the ICU. The patient still can give some information. He is just feeling cold. He wants to be covered with several blankets. He denied having any chest pain. He denied having any dizziness, syncope, or presyncope. He does have easy fatigability. On reviewing his records, information taken from the nurse, detention resident records review, etc. As per the patient now, he said he is just cold. He denied having any angina, orthopnea, paroxysmal nocturnal dyspnea, syncope, or presyncope. REVIEW OF SYSTEMS: According to the patient, he is fine. According to the records, he is having failure to thrive, altered mental status, fever, chills, and severe rash around his urostomy bag. He was on suppression antibiotics with nitrofurantoin and possible other antibiotics, not clear from records. Following admission, the patient had cultures. He was started on linezolid and ceftriaxone. Of note, the patient is on metoprolol, he received one dose yesterday evening of 50 mg. On reviewing his chest x-ray, he does have pacemaker. He is known to have very severe advanced cardiac and vascular disease with history of congestive heart failure, bilateral amputation following several surgeries and procedures, latest by Dr. Barker (patient of Dr. Guzman). Apparently after these angiograms, the patient came back and he need to have amputation of his lower extremities, questionable details of prior bypass, questionable details of prior intervention. Regarding his cardiac issues, there is a note by Dr. Guzman from 2017 stating the patient had PCI in the past and congestive heart failure. SOCIAL HISTORY: He is detention resident. He is nonsmoker. He used to be heavy smoker. He is not drinking alcohol now, but he told me he loved to drink alcohol in the past. He is retired. He is in detention. HOME MEDICATIONS: Depakote 250 mg twice a day, doxepin 50 mg a day, iron, folic acid, nitrofurantoin, aspirin 81 mg a day, metoprolol 50 mg twice a day, pravastatin 20 mg a day, Procardia 60 mg twice a day. ALLERGIES: LORAZEPAM AND GABAPENTIN. PAST MEDICAL HISTORY: 1. Coronary artery disease, post PCI in the past. 2. Congestive heart failure. 3. Pacemaker implantation, after searching we found it is 2007. 4. Status post several interventions and surgery on the lower extremities, bilateral right and left BKA. 5. Major GI surgery with colostomy. 6. Urostomy and urostomy bag. 7. Chronic renal insufficiency. 8. Repeated VRE infection. 9. Prostate and bladder cancer. 10. Hyperlipidemia. 11. Sacral redness and ulcer in the past. FAMILY HISTORY: Unable to get. PHYSICAL EXAMINATION: VITAL SIGNS: Height of 5 feet 10 inches, weight of 160 pounds. Blood pressure 120/80, heart rate of 30, respiratory rate of 18, temperature of 98 Fahrenheit. HEENT: Pupils are reactive. NECK: No elevation of jugular venous pulsation. Bilateral carotid bruit. CHEST: Decreased air entry in bases with crackles. Pacemaker is noted in the left infraclavicular area. HEART: PMI at 5th left intercostal space. Normal first and second heart sounds with ejection systolic murmur. ABDOMEN: Urostomy bag and colostomy bag. There is a round urostomy bag all the way to the pelvic area, severe rash. EXTREMITIES: Bilateral amputation. Scar of previous surgery at the knee level and groin level. NEUROLOGIC: The patient is nice, cooperative, but he seems to be forgetting a lot. LABORATORY DATA: White blood cell count of 18,000, hemoglobin is 9.1, hematocrit 32%, platelet count of 195. Sodium of 139, potassium 4.5, BUN of 32, creatinine of 2. CK of 56. Troponin is normal. EKG is showing sinus bradycardia, ST-T segment changes. Current telemetry showing extreme bradycardia with junctional escape rhythm in the 30s. Chest x-ray, bilateral pacer. Really, truly, I cannot appreciate pneumonia. I believe it is atelectatic changes with silhouette sign of part of the right lower lobe. IMPRESSION AND PLAN: 1. Most likely urinary tract infection. 2. Irritation of post or possible cellulitis around the urostomy bag. 3. Sick sinus syndrome with status post pacemaker implantation. After calling and gathering data, the device was placed in 2007, it is [employer]. 4. Congestive heart failure. 5. Peripheral arterial and vascular disease, status post bilateral below-knee amputation. 6. Most likely pacemaker at NICOLE rather than malfunction. 7. Most likely urosepsis with resistant organism. 8. No evidence of septicemia. 9. Hypertension, currently normotensive. 10. Diabetes mellitus, as per records. Plan will be just observation. Culturing his blood to be sure no septicemia. Observing heart rates and blood pressures. There is no need for urgent pacing at this time point. Calling the company to confirm NICOLE of the pacemaker. After searching the record, the patient is followed by Dr. Guzman for many years, although he was seen by another sales operations lead. I called Dr. Guzman, and by the time of my dictation, he answered me back and he said he will take care of the patient. So, I will put a consult for him. Definitely, I will order echocardiogram so to be read by him. I will order TSH. Definitely, I will stop his metoprolol. I will decrease his Procardia to 30 mg, not to be given if systolic blood pressure is less than 130. Dr. Guzman will take care of the patient. The patient is seen in ICU urgently. Discussed with nursing staff. We called the pacemaker registry to get the information about the pacemaker. We reviewed all the records, which were available. We reviewed current x-rays and current data. Total care is more than 80 minutes. MD MICHAEL Aburto/BELL /[id number]
--- NOTE | 2018-10-28 18:58 | Progress Note ---
DATE: 10/28/2018 Cardiology Progress Note SUBJECTIVE: I am quite familiar with Mike Carvajal for the last 15 years or so. At this time, Dr. Libertad Veronica saw the patient and called me about this patient. I thank Dr. Libertad Veronica to refer this patient to me. DIAGNOSES: 1. Possible pacemaker end-of-life. 2. The patient came with significant bradycardia. At this time, the patient has sinus rhythm of 50 per minute. The patient hemodynamically stable, and the patient passed out and no seizures. 3. The patient has a history of peripheral arterial disease and coronary stents put in the past, and also I put this permanent pacemaker probably in 2007 and last year also it was checked I believe, it was functioning normally by the nursing for last 6 months to 9 months. 4. 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 5. History of a colon cancer and bladder cancer. The patient get colostomy and cystostomy. At this time, ID, Dr. Llanos is going to see the patient. If there is no bacteremia or any serious infection, probably I will change the generator maybe tomorrow or day after tomorrow depending upon his clinical condition. If necessary we will put temporary transvenous pacemaker. However, the patient is still in ICU now. He is quite stable and heart rate is 60 per minute, sinus rhythm, and I will continue following the patient. MD CIRA Dominguez/FAIZAL /[id number]
--- NOTE | 2018-10-28 19:00 | NUR ---
security shift manager report given to Alex ZHENG/Molly ZHENG
[2018-10-28] MEDS: SODIUM BICARBONATE 650 MG TAB PO SCH (19:07)
[2018-10-28] MEDS: QUETIAPINE FUMARATE 25 MG TAB PO PRN (19:43)
[2018-10-28] MEDS: NIFEDIPINE CR 30 MG TAB PO SCH (21:00)
--- NOTE | 2018-10-28 21:34 | History and Physical ---
CHIEF COMPLAINT: Altered mental status. HISTORY OF PRESENT ILLNESS: Information currently being obtained from the nursing staff as there is currently no family and there is no information obtainable at this time. This is an 88-year-old male, who is a bilateral lower extremity amputee, has an ileostomy, who is severely debilitated, demented, currently no family at bedside, who reports from the care home with underlying metabolic encephalopathy and worsening overall state. The patient was admitted and was found to have an elevated white count and was treated accordingly as sepsis. While on the medical floor, he had developed sinus bradycardia requiring ICU transfer. Currently, the information right now is very limited due to the patient's overall poor mental state and no family at bedside. REVIEW OF SYSTEMS: Unable to obtain. He is demented and unable to receive any information. PAST MEDICAL HISTORY: What we know is that he has underlying diabetes, dementia, bilateral dtzpj-hcb-tkhb amputee, history of CAD and PAD. FAMILY HISTORY: I cannot obtain. PAST SURGICAL HISTORY: Unable to obtain. SOCIAL HISTORY: He does have children, none of them were available at this time, and he lives in a care home. PHYSICAL EXAMINATION: VITAL SIGNS: Temperature is 96.1, current pulse is 58, on the monitor thought was in the 30s, respiratory rate shows 18, he is on room air, 109/30 is his blood pressure. GENERAL: He is demented, lethargic, confused on exam, seems to be at his baseline. HEENT: Head is normocephalic and atraumatic. Eyes; pupils are equal, round, and reactive to light bilaterally. Extraocular movements intact bilaterally. NECK: Supple. Good range of motion. Throat, no evidence of erythema or exudates in the posterior pharynx. Very poor dentition. PULMONARY: Clear to auscultation bilaterally. No wheezing, no rales, no rhonchi, no crackles appreciated. CARDIOVASCULAR: Positive S1, S2. No murmurs, rubs, or gallops appreciated. ABDOMEN: Soft, nondistended, nontender to palpation. Bowel sounds present. MUSCULOSKELETAL: He has a bilateral BKA of the lower extremities. Noncooperative on exam. NEUROLOGICAL: Noncooperative on exam. SKIN: Intact. Warm to touch. Good cap refill. PSYCHIATRIC: Baseline demented and lethargic. EXTREMITIES: He has bilateral lower extremity BKA. LABORATORY FINDINGS: Show white count 17.9, hemoglobin 9.1, hematocrit 30, platelets of 195. Coagulation: PT 12, INR 0.89, PTT 38.9. Chemistry: Sodium 139, potassium 4.5, chloride 113, bicarbonate 14, BUN 32, creatinine 2, glucose 182, calcium 8.7. Total bilirubin 0.6, AST 55, ALT 48, alkaline phosphatase 111. Troponins 0.077 and 0.076. Albumin 2.8. TSH is 2.4. Urinalysis shows wbc's in the urine 11-20, negative nitrite, negative leukocyte esterase, few bacteria seen. MICROBIOLOGY: Preliminary shows gram-negative rods in the urine culture. Blood culture shows no growth to date. IMAGING STUDIES: Chest x-ray shows patchy opacities in the right lung, which may represent pneumonia or atelectasis in the appropriate setting. CT cervical spine, no cervical spine fracture or subluxation. There are multilevel degenerative changes. CT brain was found to be negative for no acute abnormalities. Hip x-ray was found to be negative. IMPRESSION: 1. Sepsis with underlying leukocytosis, likely due to underlying urinary tract infection and pneumonia. 2. Junctional sinus bradycardia. 3. Metabolic encephalopathy, likely multifactorial from underlying infection as well as baseline dementia. 4. Anemia. 5. Hypertension. 6. Bilateral lower extremity below knee amputation. 7. Chronic kidney disease stage 3. PLAN: At this time, I am covering for Dr. Lukas Mera. This is his care home patient. Currently, his blood cultures are pending. His urine culture is positive. He is on Zyvox and Zosyn as he has a history of VRE in the urine. We will continue to monitor blood and urine cultures. We will get also ID consultation. He is currently on Zosyn for underlying healthcare-associated pneumonia as well. He did develop some sinus bradycardia overnight and it could be multifactorial with some beta-blockers as well as nifedipine, but at this time, we will consult with Cardiology and have him monitor this very closely. He had to be transferred from the medical floor to ICU due to the bradycardia with heart rate in the 30s. We will continue to monitor him on cardiac telemetry as per Cardiology recommendations. In relation to his encephalopathy, it seems like this is the patient's baseline. He likely has dementia and it could be from underlying infection. We will continue to monitor very closely. He did have a CT brain, which was found to be negative as well. In relation to his anemia, his hemoglobin is 9.1. We are going to monitor this very closely. We are going to repeat labs in the morning. In relation to his hypertension, his blood pressure is currently stable, but we are going to monitor it very closely and he also had some sinus bradycardia. There is also evidence of some bruising in his abdominal area around his ileostomy, which I will go ahead and get a CT scan of his abdomen and pelvis to evaluate very closely without contrast as his creatinine is elevated. We are going to add some nystatin powder to the area around the ileostomy. Today, it looks also fungal in nature. He is currently on IV antibiotics. It seems like that his renal function is at his baseline. I will monitor that very closely. Consultants involved in this case are going to be ID and Cardiology. I spent more than 40 minutes of critical care time on this case. MD RAFAEL García/BELL /[id number]
[2018-10-29] VITALS (24 sets, daily range): BP systolic 92–153; BP diastolic 30–69
[2018-10-29] MEDS: PIPERACILLIN/TAZO 2.25 GM 50 ML IV SCH ×2 (01:18→05:38)
--- NOTE | 2018-10-29 04:14 | NUR ---
urostomy bag completely dislodged, ileostomy bag leaking. patient cleaned, linens changed, new urostomy bag applied, ostomy paste used to seal ileostomy apparatus.
--- NOTE | 2018-10-29 05:08 | NUR ---
has slept at intervals throughout night but becomes extremely restless immediately upon awakening, does not easily redirect. becomes angry and verbally abusive, requires continuous redirectionto maintain safety
[2018-10-29 05:14] LABS: BASOPHILS % 0.2 % (0.0-1.0); EOSINOPHILS # (AUTO) 0.2 (0.0-0.4); EOSINOPHILS % 1.9 % (0.0-6.0); HEMATOCRIT 25.9 % (38.2-49.6); HEMOGLOBIN 8.4 g/dL (14.0-18.0); LYMPHOCYTES # (AUTO) 6.1 (1.0-3.2); LYMPHOCYTES % 54.8 % (18.0-39.1); MEAN CORPUSCULAR HEMOGLOBIN 31.9 pg (28-32); MEAN CORPUSCULAR HGB CONC 32.4 g/dL (31-35); MEAN CORPUSCULAR VOLUME 98.5 fL (81-99); MONOCYTES # (AUTO) 0.6 (0.2-0.8); MONOCYTES % 5.3 % (4.4-11.3); NEUTROPHILS # (AUTO) 4.2 (2.1-6.9); NEUTROPHILS % 37.5 % (38.7-80.0); PLATELET COUNT 192 x10e3/uL (140-360); RED BLOOD COUNT 2.63 x10e6/uL (4.3-5.7); RED CELL DISTRIBUTION WIDTH 15.2 % (11.7-14.4)
[2018-10-29 05:24] LABS: ALBUMIN 2.5 g/dL (3.5-5.0); ALBUMIN/GLOBULIN RATIO 0.9 (0.8-2.0); ANION GAP 13.7 mmol/L (8-16); CALCIUM 8.4 mg/dL (8.4-10.2); CREATININE, SERUM 2.09 mg/dL (0.72-1.25); POTASSIUM 3.7 mmol/L (3.5-5.1)
[2018-10-29] MEDS: INSULIN LISPRO 100 UNIT/1 ML 3ML VIAL SQ SCH ×4 (07:30→21:00)
[2018-10-29] MEDS: NIFEDIPINE CR 30 MG TAB PO SCH ×2 (09:00→21:00)
[2018-10-29] MEDS ORDERED: MEROPENEM 500MG 500 MG in SODIUM CHLORIDE 0.9% 50ML 50 ML IV SCH (09:00)
[2018-10-29] MEDS: FERROUS SULFATE 325 MG TAB PO SCH ×2 (10:00→17:30)
[2018-10-29] MEDS: DOCUSATE SODIUM 100 MG CAP PO SCH (10:00)
[2018-10-29] MEDS: MEROPENEM 500MG/ NS 50ML 50 ML IV SCH ×2 (10:00→21:00)
[2018-10-29] MEDS: LINEZOLID 600 MG/D5W 300ML 300 ML IV SCH ×2 (10:00→22:00)
[2018-10-29] MEDS: MEMANTINE 10 MG TAB PO SCH (10:00)
[2018-10-29] MEDS: ENOXAPARIN 30 MG/0.3 ML SYR SC SCH (10:01)
[2018-10-29] MEDS: NYSTATIN 15 GM POWDER UD BTL TOP SCH ×2 (10:01→17:30)
[2018-10-29] MEDS: SODIUM BICARBONATE 650 MG TAB PO SCH ×2 (10:01→17:30)
[2018-10-29] MEDS: HYDROCODONE/APAP 5MG-325MG TAB PO PRN (10:13)
[2018-10-29] MEDS: QUETIAPINE FUMARATE 25 MG TAB PO PRN ×2 (10:13→19:23)
[2018-10-29] MEDS ORDERED: HALOPERIDOL LACTATE 5 MG/ML VIAL IV ONE (13:15)
[2018-10-29 13:23] LABS: CREATINE KINASE MB 2.2 ng/mL (0-5.0)
[2018-10-29] MEDS ORDERED: HYDROCODONE/APAP 10MG-325MG TAB ONE (15:35)
[2018-10-29] MEDS: HYDROCODONE/APAP 10MG-325MG TAB PO PRN (15:40)
--- NOTE | 2018-10-29 15:50 | Diagnostic Imaging Report ---
EXAMINATION: CT of the abdomen and pelvis without contrast. TECHNIQUE: Helical CT images of the abdomen and pelvis were performed from the lung bases to the lesser trochanters. No intravenous contrast was given per renal stone protocol. Coronal and sagittal reformatted images were obtained.Dose modulation, iterative reconstruction, and/or weight based adjustment of the mA/kV was utilized to reduce the radiation dose to as low as reasonably achievable. COMPARISON: None. CLINICAL HISTORY:Altered mental status, abdominal pain and swelling DISCUSSION: ABSENCE OF INTRAVENOUS CONTRAST DECREASES SENSITIVITY FOR DETECTION OF FOCAL LESIONS AND VASCULAR PATHOLOGY. ABDOMEN/PELVIS: LOWER THORAX: Coronary artery calcifications. Small bilateral pleural effusions. HEPATOBILIARY:No focal hepatic lesions. Calcified gallstones. SPLEEN: No splenomegaly. PANCREAS: No focal masses or ductal dilatation. ADRENALS: No adrenal nodules. KIDNEYS/URETERS: No hydronephrosis, stones, or solid mass lesions. PELVIC ORGANS/BLADDER: Cystoprostatectomy. Urinary diversion with right lower quadrant ileal conduit. PERITONEUM/RETROPERITONEUM: No free air or fluid. LYMPH NODES: Prominent inguinal lymph nodes. VESSELS: Vascular calcifications. GI TRACT: Distal colonic resection. Left lower quadrant colostomy. BONES AND SOFT TISSUES: Multilevel spondylosis. IMPRESSION: No acute CT finding. Cholelithiasis without cholelithiasis. Left lower quadrant colostomy. No complication. Right lower quadrant ileal conduit urinary diversion. No complication. Signed by: Dr. Parvez Silverio M.D. on 10/29/2018 3:47 PM
--- NOTE | 2018-10-29 16:07 | Consultation ---
DATE OF CONSULTATION: 10/29/2018 Infectious Disease consultation report HISTORY OF PRESENT ILLNESS: Mr. Carvajal is an 88-year-old gentleman with PVD and old bilateral BKA. Apparently lives at home with the family; however, at the time of transfer to [facility], the patient was at senior living facility. The patient is transferred secondary to altered mental status, fever, and chills. The patient is seen and evaluated. Available notes reviewed. The patient developed bradycardia, transferred to ICU, seen by Cardiology. Available notes reviewed, found to have end-stage pacemaker with plan to change the generator pacemaker. Urine culture came back Pseudomonas enterococcus and yeast. Pseudomonas sensitivity is noted. Enterococcus and yeast identification and sensitivity pending. Blood culture is negative so far x2 for 24 hours. Leukocytosis is improving with white count of 11.1. Today, he is anemic with platelet count of 192. Creatinine seems to be baseline at 2.09 with chronic renal insufficiency. Infectious Disease was consulted for the management of antibiotics. PAST MEDICAL HISTORY: Includes: 1. Diabetes. 2. PVD. 3. Bilateral BKA. 4. Coronary artery disease. 5. PAD. 6. Dementia. 7. Debility. 8. Urostomy. 9. Colostomy. 10. Diabetes. 11. Anemia. 12. Severe debility. ALLERGIES: ALLERGIC TO GABAPENTIN AND LORAZEPAM. LABORATORY DATA: Sodium 138, potassium 3.7, and creatinine 2.09. White count 11.1 improved from 16.9, hemoglobin 8.4, and platelets 192. Urine culture Pseudomonas enterococcus and yeast, Pseudomonas is intermediate to Zosyn, Enterococcus and yeast identification is still pending. IMAGING DATA: Radiology studies were done. Unable to obtain CT of abdomen and pelvis secondary to the patient noncompliant. Had a chest x-ray done showed patchy opacities in the right lower lobe maybe pneumonia versus atelectasis. C-spine CT was no acute finding. No fracture or subluxation, has advanced multilevel degenerative changes with canal stenosis; however this study was very limited. CT of the head was done showed no acute abnormality. X-ray of the hip was done on the right found no acute radiographic abnormalities. MEDICATIONS: Medication list has been reviewed. The patient is on Zosyn and Zyvox. REVIEW OF SYSTEMS: Unable to obtain review of system. Opens eyes. He is weak; however responds that he is doing okay and he is cold and he wants more blankets. PHYSICAL EXAMINATION: GENERAL: Weak, sleepy, not in acute distress in bed. VITAL SIGNS: Temperature 97.7, pulse 64, respirations 21, and blood pressure 99/61. CVS: S1 and S2. CHEST: Equal expansion decreased breath sounds. Bilateral equal expansion. HEENT: Moist. No pallor. No JVD. EXTREMITIES: Bilateral BKA. ABDOMEN: Erythema on the right side noted that is the side the patient leans on. ASSESSMENT AND PLAN: This is an 88-year-old gentleman with severe peripheral vascular disease, came to the hospital from senior living facility with altered mental status, fever, and chills. There were no fever documented during the hospitalization. There were no chills and overall seems to be doing better. His urine culture as mentioned above, which is intermediate to Zosyn, so we will change Zosyn to meropenem. We will continue with the Zyvox due to final sensitivities pending. The patient has end-stage permanent pacemaker, which is in need of exchange; however, at this point, we prefer to hold on generator exchange at this time till we get more information come in. This information was also passed on to the nurse and we will be in the chart on a progress note from today. Continue to monitor the patient, clinically follow up with the labs. Blood culture is negative so far. Further management of this patient is based on daily finding on laboratory and physical examinations. We will follow with you. Case was discussed with Dr. Llanos in detail. Also, we will do some nystatin powder to the right side of the abdomen, which he might have some fungal involvement of the skin involved. Thank you for this kind consult. patient is seen and examined by me agree with liz kay with medical team time spent 60 min Sasha Llanos MD /MODL /[id number]
--- NOTE | 2018-10-29 17:08 | Progress Note ---
DATE: 10/29/2018 Medicine Progress Note SUBJECTIVE: The patient is very confused and combative. We were unable to perform MRI of the abdomen as he was very combative. OBJECTIVE: VITAL SIGNS: Temperature is 97.7, pulse is 64, respiratory rate is 21, blood pressure 135/47, and pulse ox 100% on room air. GENERAL: Unable to assess his mental state. HEENT: Head is normocephalic and atraumatic. Eyes; pupils are equal, round, and reactive to light bilaterally. Extraocular movements are intact. NECK: Supple. Good range of motion throughout. THROAT: No evidence of erythema or exudates in the posterior pharynx. Has poor dentition. PULMONARY: Clear to auscultation bilaterally. No wheezing, rales, or rhonchi. No crackles. CARDIOVASCULAR: Positive S1, S2. No murmurs, rubs, or gallops appreciated. ABDOMEN: Soft, nontender, nondistended to palpation. Bowel sounds present. MUSCULOSKELETAL: Strength is 5/5 throughout. No evidence of any muscle deficits on examination. SKIN: Intact. Warm to touch. Good cap refill. PSYCHIATRIC: EXTREMITIES: No edema. Good range of motion throughout. LABORATORY DATA: Show white count of 11.1, hemoglobin 8.5, hematocrit 25, and platelets of 192. Chemistry, sodium is 138, potassium 3.7, chloride 111, bicarb 17, BUN 35, and creatinine is 2. Glucose 89. Albumin 2.5. Urinalysis, negative. Microbiology, urine culture positive for Pseudomonas, Enterococcus, and yeast. Blood cultures, no growth. ASSESSMENT: 1. Sepsis with underlying leukocytosis secondary to urinary tract infection and healthcare associated pneumonia. 2. Junctional sinus bradycardia with pacemaker nonfunctional, needs replacement. 3. Metabolic encephalopathy likely multifactorial from infection and underlying baseline dementia. 4. Anemia. 5. Hypertension. 6. Bilateral below knee amputation. 7. Chronic kidney disease stage 3. 8. Abdominal wall cellulitis. PLAN: At this time, his urine cultures are positive for Pseudomonas Enterococcus. Blood cultures were negative. Antibiotics were adjusted accordingly based on ID recommendations. White count has improved and his vital signs are more stable. His encephalopathy is still present. He refuses CT abdomen and pelvis, which we will go ahead and give him Seroquel to calm him down and go ahead and get that performed. There is some concern of abdominal wall cellulitis as well. In relation to his sinus bradycardia, his pacemaker is nonfunctional and needs replacement prior to being discharged, but at this time he currently has an infection and so placement is not appropriate at this time. He wants to talk this with Cardiology. Repeat labs in the morning. Continue with same plan of care. Hopefully, he is able to get a CT abdomen and pelvis to evaluate further due to redness in his lower abdomen. We spent more than 35 minutes of critical care time on this case. MD RAFAEL García/MODMagno /[id number]
[2018-10-30] VITALS (24 sets, daily range): BP systolic 94–142; BP diastolic 30–104
[2018-10-30] MEDS: HYDROCODONE/APAP 10MG-325MG TAB PO PRN ×3 (06:10→20:45)
[2018-10-30] MEDS: INSULIN LISPRO 100 UNIT/1 ML 3ML VIAL SQ SCH ×4 (07:30→21:49)
[2018-10-30] MEDS: FERROUS SULFATE 325 MG TAB PO SCH ×2 (07:41→17:01)
[2018-10-30] MEDS: DOCUSATE SODIUM 100 MG CAP PO SCH (07:42)
[2018-10-30] MEDS: MEROPENEM 500MG/ NS 50ML 50 ML IV SCH ×2 (07:42→20:44)
[2018-10-30] MEDS: MEMANTINE 10 MG TAB PO SCH (07:42)
[2018-10-30] MEDS: ENOXAPARIN 30 MG/0.3 ML SYR SC SCH (07:43)
[2018-10-30] MEDS: NYSTATIN 15 GM POWDER UD BTL TOP SCH ×2 (07:43→17:02)
[2018-10-30] MEDS: SODIUM BICARBONATE 650 MG TAB PO SCH ×2 (07:43→17:01)
[2018-10-30] MEDS: NIFEDIPINE CR 30 MG TAB PO SCH ×2 (07:43→20:25)
[2018-10-30] MEDS: LINEZOLID 600 MG/D5W 300ML 300 ML IV SCH ×2 (08:42→21:00)
[2018-10-30] MEDS: QUETIAPINE FUMARATE 25 MG TAB PO PRN ×2 (14:35→20:45)
--- NOTE | 2018-10-30 15:57 | Consultation ---
DATE OF CONSULTATION: 10/30/2018 Psychiatric Consultation REASON FOR CONSULTATION: To evaluate the patient's psychosis and agitation. HISTORY OF PRESENT ILLNESS: The patient is an 88-year-old male admitted to the hospital for altered mental status. Psychiatric consultation is called to evaluate the patient's psychosis. As per medical record, the patient has history of CAD and PAD, dementia, diabetes, and bilateral [id number] amputation. Upon evaluation today, the patient is found to be in the ICU. He is sleeping, but easily arousable. He is oriented to self and place, but thinks the current year is 2008. He is calm, cooperative, although he is hard of hearing, but he is able to answer questions appropriately. He denies any depression or anxiety. He denies any hallucination. He denies suicidal ideation. He reports he is sleeping and eating fair. As per nursing staff, the patient was very agitated over the weekend, he required a p.r.n. medication; however, today, he has been very calm, cooperative, and oriented. The patient reports history of alcohol use, but claims he has not been drinking for over one week. The patient's last p.r.n. medication with Seroquel that was given yesterday at 1923 hours. PAST PSYCHIATRIC HISTORY: The patient denies past psychiatric history, although he is on Namenda and p.r.n. Seroquel. He denies past suicide attempts. He denies drug use, but admits to drinking alcohol whenever he can. He claims that his last drink was over one week. FAMILY HISTORY: Denies. SOCIAL HISTORY: The patient lives with family members, daughters, son, . MENTAL STATUS EXAM: The patient is an elderly male. He is alert, awake, and oriented to self and place, but not to year. Mood is irritable. Affect is congruent with mood. He denies any suicidal or homicidal ideation. Thought process is concrete. No delusion elicited. Denies any hallucination. Insight and judgment are limited to fair. CURRENT MEDICATIONS: 1. Linezolid. 2. Nystatin. 3. Sodium bicarbonate. 4. Nifedipine. 5. Lovenox. 6. Chlorpromazine. 7. Namenda 5 mg p.o. daily. 8. Docusate. 9. Ferrous sulfate. 10. Hydrocodone/acetaminophen. 11. Seroquel 25 mg p.o. b.i.d. p.r.n. 12. Acetaminophen p.r.n. 13. Insulin. 14. Dextrose. 15. Ondansetron. CURRENT LABS: WBC 11.1, RBC 2.63, hemoglobin 8.4, hematocrit 25.9, platelets 192. Sodium 138, potassium 3.7, chloride 111, CO2 of 17, BUN 35, creatinine 2.09, AST 35, ALT 42. VITAL SIGNS: Temperature is 98.0, pulse 62, respiratory rate is 18, blood pressure is 101/37. He is 100% at room air. ASSESSMENT: 1. Unspecified psychosis/delirium, resolved. 2. Unspecified dementia with behavior disturbances. PLAN: 1. Continue with Namenda 5 mg p.o. daily. 2. Continue with Seroquel 25 mg p.o. b.i.d. p.r.n. 3. Add Haldol 2 mg IM q.8 hours p.r.n. for severe agitation. 4. Discussed with nursing staff. Thank you for this consultation. Dictated by Anum Schrader PA-C MD ROBYN CliffordV/BELL /[id number]
--- NOTE | 2018-10-30 18:10 | NUR ---
dr al rounded, he says patient cleared to get a pacemaker. paged dr rocha
--- NOTE | 2018-10-30 18:23 | Progress Note ---
DATE: 10/30/2018 Medicine Progress Note SUBJECTIVE: The patient is alert and oriented on my examination x2. No overnight events. Heart rate seems to be very stable. Heart rate in the 70s when I evaluated him. He is in the process of possibly needing a pacemaker. He currently has an infection and so at this time we will like to wait and see by Infectious Disease if he is cleared from pulmonary infectious standpoint at some point to have a pacemaker placed. He may need a temporary pacer. PHYSICAL EXAMINATION: VITAL SIGNS: Temperature is 98, pulse 62, respiratory rate is 15, blood pressure 150/44, pulse ox 100% on room air. GENERAL: No acute distress. Alert and oriented x3. Cooperative on examination. HEENT: Head is normocephalic and atraumatic. Eyes; pupils are equal, round, and reactive to light bilaterally. Extraocular movements are intact bilaterally. NECK: Supple. Good range of motion throughout. No evidence of any erythema or exudate in the posterior pharynx. He has poor dentition. PULMONARY: Clear to auscultation bilaterally. No wheezing, no rales, no rhonchi, no crackles appreciated. CARDIOVASCULAR: Positive S1, S2. No murmurs, rubs, or gallops appreciated. ABDOMEN: Soft, nondistended, and nontender to palpation. Bowel sounds present. MUSCULOSKELETAL: Strength is 5/5 throughout. No evidence of any muscle deficits on examination. No weakness appreciated. NEUROLOGIC: Cranial nerves II through XII grossly intact. No evidence of any neurological deficits on exam. SKIN: Intact. Warm to touch. Good cap refill. PSYCHIATRIC: Normal affect and mood. EXTREMITIES: No edema. Good range of motion throughout. LABORATORY DATA: Lab findings show white count is 11.1, hemoglobin is 8.4, hematocrit is 26, platelets of 192. Coagulation, stable. Chemistry, none were needed for today. IMPRESSION: 1. Sepsis with underlying leukocytosis secondary to urinary tract infection and healthcare associated pneumonia. 2. Junctional sinus bradycardia with pacemaker nonfunctional, needs replacement. 3. Metabolic encephalopathy secondary to multifactorial from infection and underlying baseline dementia. 4. Anemia. 5. Hypertension. 6. Bilateral tqnqo-maz-yxex amputation. 7. Chronic kidney disease stage 3. 8. Abdominal wall cellulitis with negative CT findings. PLAN: Continue with IV antibiotics. Cultures were noted. ID is following very closely. In relation to the bradycardia, Cardiology consulted. He continues to be on the monitor. His encephalopathy seems to have improved. He seems to be alert, awake, and oriented on my examination, but he occasionally feel episodically confused and to the nursing staff. His blood pressure is stable. In relation to his abdominal wall cellulitis, CT abdomen and pelvis was found to be negative. We are going to continue with IV antibiotics. At this time, it will be very difficult for us to insert the pacemaker considering the fact that he has active infection. We will defer this to ID then from there, Dr. Guzman, Cardiology will insert a pacemaker. He will likely be here for several more days to until we make the final decision. Get a.m. labs in the morning. More than 35 minutes of critical care time on this case. The patient continues to be in ICU. MD RAFAEL García/FAIZAL /[id number]
--- NOTE | 2018-10-30 19:30 | NUR ---
ordered for consent to be obtained for pacemaker generator change on 10/31/18. Ordered to be NPO after 06:00 10/31. Consent signed by pt's daughter. [employer] rep notified (Héctor Allen)
[2018-10-31] VITALS (22 sets, daily range): BP systolic 96–151; BP diastolic 34–82
[2018-10-31] MEDS: HYDROCODONE/APAP 10MG-325MG TAB PO PRN ×4 (03:40→18:25)
--- NOTE | 2018-10-31 04:37 | NUR ---
Ileal conduit bag came off completely, new bag placed. Stoma bright pink.
[2018-10-31 05:30] LABS: BASOPHILS % 0.2 % (0.0-1.0); EOSINOPHILS # (AUTO) 0.2 (0.0-0.4); EOSINOPHILS % 1.3 % (0.0-6.0); HEMATOCRIT 28.4 % (38.2-49.6); HEMOGLOBIN 8.7 g/dL (14.0-18.0); LYMPHOCYTES # (AUTO) 5.1 (1.0-3.2); LYMPHOCYTES % 36.4 % (18.0-39.1); MEAN CORPUSCULAR HEMOGLOBIN 31.8 pg (28-32); MEAN CORPUSCULAR HGB CONC 30.6 g/dL (31-35); MEAN CORPUSCULAR VOLUME 103.6 fL (81-99); MONOCYTES # (AUTO) 0.7 (0.2-0.8); MONOCYTES % 5.2 % (4.4-11.3); NEUTROPHILS % 56.5 % (38.7-80.0); PLATELET COUNT 179 x10e3/uL (140-360); RED BLOOD COUNT 2.74 x10e6/uL (4.3-5.7); RED CELL DISTRIBUTION WIDTH 15.6 % (11.7-14.4)
[2018-10-31 05:54] LABS: ANION GAP 12.2 mmol/L (8-16); CALCIUM 8.6 mg/dL (8.4-10.2); CREATININE, SERUM 2.29 mg/dL (0.72-1.25); POTASSIUM 4.2 mmol/L (3.5-5.1)
[2018-10-31] MEDS: INSULIN LISPRO 100 UNIT/1 ML 3ML VIAL SQ SCH ×4 (07:19→20:23)
[2018-10-31] MEDS: FERROUS SULFATE 325 MG TAB PO SCH ×2 (08:23→16:49)
[2018-10-31] MEDS: MEMANTINE 10 MG TAB PO SCH (08:23)
[2018-10-31] MEDS: DOCUSATE SODIUM 100 MG CAP PO SCH (08:23)
[2018-10-31] MEDS: MEROPENEM 500MG/ NS 50ML 50 ML IV SCH (08:23)
[2018-10-31] MEDS: QUETIAPINE FUMARATE 25 MG TAB PO PRN ×2 (08:23→20:05)
[2018-10-31] MEDS: NIFEDIPINE CR 30 MG TAB PO SCH ×2 (08:24→20:12)
[2018-10-31] MEDS: ENOXAPARIN 30 MG/0.3 ML SYR SC SCH (08:24)
[2018-10-31] MEDS: SODIUM BICARBONATE 650 MG TAB PO SCH ×2 (08:24→16:49)
[2018-10-31] MEDS: NYSTATIN 15 GM POWDER UD BTL TOP SCH ×2 (08:24→16:49)
[2018-10-31] MEDS ORDERED: LEVOFLOXACIN 500 MG TAB PO SCH (09:00)
[2018-10-31] MEDS: LEVOFLOXACIN 500 MG TAB PO SCH (11:12)
--- NOTE | 2018-10-31 13:21 | NUR ---
WOUND CARE CONSULT: THIS IS AN 88 YEAR OLD MALE PATIENT ADMITTED TO [facility] FOR ALTERED MENTAL STATUS, PNEUMONIA, AND UIT. PATIENT HAS A HISTORY OF DM TYPE 2, BILATERAL BELOW THE KNEE AMPUTATIONS, ILEOSTOMY, AND LLQ COLOSTOMY, SEVERE DEBILITATION, DEMENTIA, CAD AND PAD. PATIENT IS A RESIDENT IN ALF. NO FAMILY PRESENT AT BEDSIDE DURING ASSESSMENT. HEAD TO TOE SKIN ASSESSMENT PERFORMED. PATIENT HAS 100% BLANCHABLE REDNESS NOTED TO THE SACRAL CREASE MEASURING [id number], SKIN IS INTACT. PATIENT HAS DENUDED AREAS OF SKIN IN THE VERA AREA CREASES. ILEOSTOMY AND COLOSTOMY APPLIANCES INTACT, STOMA TO BOTH ARE PINK AND NO ABNORMALITIES NOTED WITH ASSESSMENT. OSTOMY CARE UNABLE TO PROVIDE, PATIENT HAD DEMENTIA AND NO FAMILY AT BEDSIDE TO INCLUDE IN TEACHING. HANDOUTS LEFT AT BEDSIDE IN CASE FAMILY NEEDS ANY INFORMATION CONCERNING OSTOMY CARE AND TEACHING. LABS: WBC14.10 [id number] BLOOD CULTURE - PENDING URINE CULTURE (+) FOR PRELIMINARY GRAM-NEGATIVE RODS (FINAL RESULT PENDING) MEDICATIONS: LEVAQUIN RECOMMENDATION: -CONTINUE ALTERNATING PRESSURE RELIEF MATTRESS. -TURN EVERY 2 HOURS AND PRN. -NURSING TO CLEAN VERA AREA WITH SOAP AND WATER, PAT DRY, APPLY NYSTATIN CREAM TO DENUDED AREAS BID AND PRN. -NURSING TO CLEAN SACRAL AREA OF BLANCHABLE REDNESS WITH NORMAL SALINE, PAT DRY, APPLY VENELEX AND COVER WITH ALLEVYN FOAM; CHANGE DAILY AND PRN. THANK YOU FOR THIS WOUND CARE CONSULT. Addendum: 10/31/18 at 1338 by Radha Charlton RN Amended: Links added.
--- NOTE | 2018-10-31 14:22 | Progress Note ---
DATE: 10/31/2018 Cardiology Progress Note SUBJECTIVE: The patient is seen in the room. The patient is in sinus rhythm. Rate about 68 per minute. The patient is a known patient with sick sinus syndrome. Heart rate goes down to 130 per minute. The patient's pacemaker is at end of life. Today, I could not do the pacemaker generator change because all the spots are occupied in the cardiac laborer wood preserving plant. I was given a spot tomorrow at 1:30 p.m. I will do the change of generator tomorrow. At this time the patient is stable, but is confused little bit because he has mild dementia and also mild stroke in the past. 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 Significant PAD and CAD, but patient is not in congestive heart failure. IMPRESSION: Pacemaker generator end of life that we will do generator change tomorrow. MD CIRA Dominguez/BELL /[id number] MTDVikki
[2018-10-31] MEDS: NYSTATIN 100,000 UNITS/GM CRM 30GM TUBE TOP SCH (16:50)
[2018-10-31] MEDS: MORPHINE SULFATE INJ 4 MG/ML INJ 1ML IV PRN ×2 (18:00→22:00)
--- NOTE | 2018-10-31 19:32 | Progress Note ---
DATE: 10/31/2018 Medicine Progress Note SUBJECTIVE: The patient is doing well today with no complaints. Antibiotics switched to oral antibiotics. He was scheduled for pacemaker today due to the label stamper schedule. He is now scheduled for tomorrow. No overnight events. LABORATORY FINDINGS: Show white count 14, hemoglobin 8.7, hematocrit is 28%, and platelets 179. Chemistry, sodium 140, potassium 4.2, chloride 112, bicarb 20, anion gap of 12. BUN is 30, creatinine is 2.29. MICROBIOLOGY: Urine cultures noted. Blood cultures, no growth. PHYSICAL EXAMINATION: VITAL SIGNS: Temperature is 98, pulse 49 recorded, respiratory rate is 12, blood pressure 103/53, pulse ox 95% on room air. GENERAL: Not in acute distress. Alert and oriented x3. Cooperative on examination. HEENT: Head is normocephalic and atraumatic. Eyes; pupils are equal, round, and reactive to light bilaterally. Extraocular movements are intact bilaterally. NECK: Supple. Good range of motion throughout. No evidence of any erythema or exudate in the posterior pharynx. He has poor dentition. PULMONARY: Clear to auscultation bilaterally. No wheezing, no rales, no rhonchi, no crackles appreciated. CARDIOVASCULAR: Positive S1, S2. No murmurs, rubs, or gallops appreciated. ABDOMEN: Soft, nondistended, and nontender to palpation. Bowel sounds present. MUSCULOSKELETAL: Strength is 5/5 throughout. No evidence of any muscle deficits on examination. NEUROLOGIC: Cranial nerves II through XII grossly intact. No evidence of any neurological deficits on exam. SKIN: Intact. Warm to touch. Good cap refill. PSYCHIATRIC: Normal affect and mood. EXTREMITIES: No edema. Good range of motion throughout. IMPRESSION: 1. Sepsis with underlying leukocytosis, secondary to urinary tract infection and healthcare-associated pneumonia. 2. Junctional sinus bradycardia with pacemaker, nonfunctional. Need replacement to occur tomorrow. 3. Metabolic encephalopathy, multifactorial from infection and underlying baseline dementia, all resolved, all improving. 4. Anemia. 5. Hypertension. 6. Bilateral lower extremity amputation. 7. Chronic kidney disease stage 3. 8. Abdominal wall cellulitis with negative CT findings. PLAN: Antibiotics were changed to oral. Urine cultures were noted. Blood cultures were no growth to date. ID is following closely. He has been cleared from ID to go ahead and proceed with a pacemaker placement to occur likely tomorrow by Cardiology. Otherwise, continue same plan of care. Get a.m. labs. The patient continues to be in the ICU. Otherwise, I discussed the plan of care with the nursing staff. I spent more than 35 minutes of critical care time on this case. MD RAFAEL García/MODMagno /[id number]
[2018-10-31] MEDS: HALOPERIDOL LACTATE 5 MG/ML VIAL IM PRN (20:05)
[2018-11-01] VITALS (17 sets, daily range): BP systolic 116–162; BP diastolic 42–62
[2018-11-01] MEDS: HYDROCODONE/APAP 10MG-325MG TAB PO PRN ×3 (00:50→20:03)
[2018-11-01] MEDS: MORPHINE SULFATE INJ 4 MG/ML INJ 1ML IV PRN ×4 (04:49→21:37)
[2018-11-01 05:36] LABS: BASOPHILS % 0.3 % (0.0-1.0); EOSINOPHILS # (AUTO) 0.2 (0.0-0.4); EOSINOPHILS % 0.9 % (0.0-6.0); HEMATOCRIT 27.9 % (38.2-49.6); HEMOGLOBIN 8.8 g/dL (14.0-18.0); LYMPHOCYTES # (AUTO) 5.4 (1.0-3.2); LYMPHOCYTES % 33.9 % (18.0-39.1); MEAN CORPUSCULAR HEMOGLOBIN 32.2 pg (28-32); MEAN CORPUSCULAR HGB CONC 31.5 g/dL (31-35); MEAN CORPUSCULAR VOLUME 102.2 fL (81-99); MONOCYTES # (AUTO) 0.9 (0.2-0.8); MONOCYTES % 5.5 % (4.4-11.3); NEUTROPHILS # (AUTO) 9.3 (2.1-6.9); PLATELET COUNT 176 x10e3/uL (140-360); RED BLOOD COUNT 2.73 x10e6/uL (4.3-5.7); RED CELL DISTRIBUTION WIDTH 15.5 % (11.7-14.4)
[2018-11-01 05:51] LABS: ANION GAP 12.3 mmol/L (8-16); CALCIUM 8.8 mg/dL (8.4-10.2); CREATININE, SERUM 2.27 mg/dL (0.72-1.25); POTASSIUM 4.3 mmol/L (3.5-5.1)
[2018-11-01 07:30] LABS: EOSINOPHILS % (MANUAL) 2 % (0-7); LYMPHOCYTES % (MANUAL) 33 % (19-48); MONOCYTES % (MANUAL) 4 % (3.4-9.0); NEUTROPHILS % (MANUAL) 61 % (40-74)
[2018-11-01] MEDS: INSULIN LISPRO 100 UNIT/1 ML 3ML VIAL SQ SCH ×4 (07:30→20:34)
[2018-11-01 07:31] LABS: ANISOCYTOSIS SLIGHT; PLATELET ESTIMATE ADEQUATE; PLATELET MORPHOLOGY COMMENT NORMAL; RBC MORPHOLOGY COMMENT NORMAL
[2018-11-01] MEDS: HALOPERIDOL LACTATE 5 MG/ML VIAL IM PRN ×2 (07:33→20:28)
[2018-11-01] MEDS: FERROUS SULFATE 325 MG TAB PO SCH ×2 (08:00→16:42)
[2018-11-01] MEDS: NIFEDIPINE CR 30 MG TAB PO SCH ×2 (08:48→20:04)
[2018-11-01] MEDS: DOCUSATE SODIUM 100 MG CAP PO SCH (09:00)
[2018-11-01] MEDS: SODIUM BICARBONATE 650 MG TAB PO SCH ×2 (09:00→16:42)
[2018-11-01] MEDS ORDERED: BALSAM PERU/CASTOR OIL 5 GM OINT...G. TP SCH (09:00)
[2018-11-01] MEDS: MEMANTINE 10 MG TAB PO SCH (09:00)
[2018-11-01] MEDS: ENOXAPARIN 30 MG/0.3 ML SYR SC SCH ×2 (09:00→09:14)
[2018-11-01] MEDS: BALSAM PERU/CASTOR OIL 60 GM OINT...G. TP SCH (09:09)
[2018-11-01] MEDS: NYSTATIN 100,000 UNITS/GM CRM 30GM TUBE TOP SCH ×2 (09:09→16:42)
[2018-11-01] MEDS: QUETIAPINE FUMARATE 25 MG TAB PO PRN (12:19)
--- NOTE | 2018-11-01 12:46 | NUR ---
DISCUSSED IN BARRIER ROUNDS PT IS [facility] HAS A HISTORY OF DEMENTIA, IS GOING TO HAVE HIS PACEMAKER CHANGE, ELEVATED WBC AND IS ON PO LEVAQUIN.
[2018-11-01] MEDS ORDERED: MIDAZOLAM HCL 2 MG/2 ML VIAL ONE (13:51)
[2018-11-01] MEDS ORDERED: FENTANYL CITRATE/PF 100MCG/2 ML INJ ONE (13:51)
[2018-11-01] MEDS ORDERED: CEFAZOLIN SOD 1 GM VIAL ONE ×2 (13:51→13:52)
[2018-11-01] MEDS ORDERED: VANCOMYCIN 1GM/NS 250 ML 0 ML ONE (13:52)
[2018-11-01] MEDS ORDERED: LIDOCAINE HCL 2% LOCAL 20 ML VIAL ONE (13:52)
[2018-11-01] MEDS ORDERED: SODIUM CHLORIDE 0.9% 500ML 0 ML ONE (13:52)
[2018-11-01] MEDS ORDERED: SODIUM CHLORIDE 0.9% 1000ML 0 ML ONE (13:52)
[2018-11-01] MEDS ORDERED: SODIUM CHLORIDE 0.9% 50ML 0 ML ONE (13:53)
[2018-11-01] MEDS ORDERED: BACITRACIN 50,000 UNIT VIAL ONE (13:53)
--- NOTE | 2018-11-01 15:29 | NUR ---
Progress note- IM O/N: no events V/S: revd PE tired appearing anicteric ns1s2 mod bs soft; colostomy and urostomy in place and normal appearing B/L BKA with stump site closed and normal appearing skin dry flat affect confused; SOTOMAYOR labs/meds; revd A/P: Sepsis VRE infected Urine/UTI Pseudomonas infected Urine/UTI Abdominal wall cellulitis PPM dysfunction- needing battery replacement Bradyarrhythmia Metabolic Encephalopathy due to sepsis HTN CKD3- at baseline Debility PLAN seroquel nifedipine levaquin; was on vancomycin and other antibiotics Possible colonization Battery replacement of PPM PT consult Lukas Mera MD, PhD.
--- NOTE | 2018-11-01 15:37 | Progress Note ---
DATE: 11/01/2018 Psychiatric Progress Note SUBJECTIVE: The patient is evaluated and events noted. The patient is in the room with daughter. He is alert, awake, and oriented to self and he is able to identify his daughter. He does not know where he is or the current year. He is confused, but calm at this time. However, he is getting p.r.n. Seroquel and p.r.n. Haldol today. Daughter states that the patient has been agitated, restless, screaming, yelling. He is not sleeping at night. The patient is on multiple medications and no side effects seen or reported at this time. He denies any hallucinations. ASSESSMENT: 1. Unspecified psychosis. 2. Unspecified dementia with behavior disturbances. PLAN: 1. Continue Namenda 5 mg p.o. daily. 2. Increase Seroquel to 25 mg p.o. q.6 hours p.r.n. 3. Continue Haldol 2 mg IM q.8 hours p.r.n. 4. Add Seroquel 25 mg p.o. q.h.s. Dictated by Anum Schrader PA-C MD ROBYN CliffordV/BELL /[id number]
--- NOTE | 2018-11-01 15:57 | Progress Note ---
DATE: 11/01/2018 Cardiology Progress Note SUBJECTIVE: The patient at this time seen. Patient is need a change of permanent pacemaker because end-of-life. The patient gave IV antibiotic. Patient has bilateral leg amputations, coronary artery stent placement. Also, the patient has some COPD and also pneumonia. Dr. Llanos, Infectious Disease is following for while, he has already cleared the patient to have a generator. However in the fish farm laborer, the patient was not able to lie down flat, so I canceled them. As of pacemaker generator change, I asked Dr. Fernie Fernandez to see this patient, see whether we can put him to give a general anesthesia or parenteral IV sedation like a propofol under anesthesiologist supervision to change the cardiac pacemaker generator, so he is going to consult, then we will make a decision about changing the generator. I discussed with the patient and also the family members, the daughter. MD CIRA Dominguez/BELL /[id number]
--- NOTE | 2018-11-01 16:07 | Consultation ---
DATE OF CONSULTATION: 11/01/2018 Pulmonary Critical Care Consultation CHIEF COMPLAINT: Persistent pneumonia. HISTORY OF PRESENT ILLNESS: The patient is an 88-year-old man. He has a history of prior lower extremity amputations as well as an ileostomy. He has organic brain syndrome. He was hospitalized at [facility] several weeks ago because of pneumonia. He subsequently went to the [facility] and was transferred back to [facility] after he fell out of bed. He was again diagnosed with pneumonia based on the abnormal chest x-ray and leukocytosis. He was started on antibiotics. The hospitalization was complicated by bradycardia. He required evaluation of his pacemaker and changing of the battery. PAST SURGICAL HISTORY: 1. Status post ileostomy. 2. Status post bilateral amputations. PAST MEDICAL HISTORY: 1. Organic brain syndrome. 2. Pneumonia. 3. Coronary artery disease. SOCIAL HISTORY: The patient's daughter is here in the hospital. He is not an active smoker. He is not an active drinker. FAMILY HISTORY: Family history is noncontributory. ALLERGIES: HE IS ALLERGIC TO GABAPENTIN AND LORAZEPAM. REVIEW OF SYSTEMS: The patient has intermittent confusion. He has no fevers. He has no headache. He is not complaining of any neck pain. He has no chest pain. He does have some congestion. He has no abdominal pain. He has an ileostomy. He has a red monilia type rash in his groin. He has no focal neurological complaints. PHYSICAL EXAMINATION: VITAL SIGNS: The patient is afebrile. The blood pressure is 150/55 and the saturation is 94%. HEENT: Shows no facial swelling or erythema. The oropharynx is normal. LYMPHATIC: Shows no submandibular, cervical, or supraclavicular adenopathy. CARDIAC: Reveals regular rate and rhythm with normal S1, S2. There are no murmurs or rubs heard. LUNGS: Auscultation lungs reveals rhonchorous breath sounds bilaterally. There is no wheezing. ABDOMEN: Soft, nontender. There is an ileostomy in place. EXTREMITIES: Show bilateral lower leg amputations. LABORATORY DATA: White blood cell count is 15.8 and hemoglobin is 8.8. The platelet count is 176. The BUN to creatinine ratio is 29 to 2.27. The carbon dioxide is 20. RADIOGRAPHIC DATA: Chest x-ray shows patchy opacities in the right lower lung field. CT scan of the abdomen and pelvis shows cholelithiasis and a left lower quadrant colostomy. IMPRESSION: 1. Aspiration pneumonia with sepsis, present on admission. 2. Bradycardia. 3. Metabolic encephalopathy. 4. Anemia. 5. Hypertension. 6. Chronic kidney disease stage 2. PLAN: 1. The patient will have a swallowing evaluation to look for any recurrent aspiration. 2. Continue current antibiotics. 3. Antifungal therapy for the ration in inguinal area. 4. Continue to monitor blood counts. 5. Continue to monitor heart rate with telemetry. 6. Case discussed with family and with Dr. Guzman. Fernie Fernandez MD LM/MODL /[id number]
--- NOTE | 2018-11-01 18:26 | NUR ---
PATIENT AWAKE AND ALERT IN BED, WHEN VISITOR STATES "PATIENT PASSED OUT" LARD MIXER SOUNDING AND HEART RATE WAS 104, PATIENT WAS SITTING UP AND TALKING WHEN THIS NURSE WALKED IN ROOM, PATIENT DENIES DIZZINESS AND NO COMPLAINTS AT THIS TIME, WILL CONTINUE TO MONITOR
--- NOTE | 2018-11-01 18:32 | NUR ---
CALLED PLACED TO DR. GOLDMAN, AWAITING RETURN CALL
--- NOTE | 2018-11-01 19:20 | NUR ---
REPORT RECEIVED FROM AM NURSE. PATIENT ALERT RESTING COMFORTABLY ON HIS BED, FOLLOW VERBAL COMMAND. DENIED PAIN AND NO SOB. NO RESPIRATORY DISTRESS NOTED.BED ALARM ON. BED IN LOWER POSITION,LOCKED. CALL NAIR WITHIN REACH. WILL CONTINUE TO MONITOR.
[2018-11-01] MEDS: QUETIAPINE FUMARATE 25 MG TAB PO SCH (20:04)
--- NOTE | 2018-11-01 20:13 | NUR ---
PAGED AGAIN, WAITING FOR MD'S CALL BACK.
[2018-11-01] MEDS: ACETAMINOPHEN 325 MG TAB PO PRN (23:18)
[2018-11-02] VITALS (14 sets, daily range): BP systolic 94–164; BP diastolic 34–121
[2018-11-02] MEDS: QUETIAPINE FUMARATE 25 MG TAB PO PRN ×3 (00:10→23:05)
--- NOTE | 2018-11-02 03:28 | NUR ---
Patient was so confused, call light every seconds and trying to take off chest leads multiple times. Patient assisted to fix chest leads and bed. Suddenly passed out for seconds and weak up right away when call his name loud. No changed in V/S. HR:101,BP:150/95,Resp: 18 and Spo2:98% @this time. Given IM Haldol 2mg IM for agitation as order. Will continue to monitor.
[2018-11-02] MEDS: HALOPERIDOL LACTATE 5 MG/ML VIAL IM PRN ×2 (04:34→19:45)
--- NOTE | 2018-11-02 06:30 | Diagnostic Imaging Report ---
EXAMINATION: CHEST SINGLE (PORTABLE) INDICATION: ^Aspiration Penumonia ^[id number] ^[id number] COMPARISON: 10/27/2018 FINDINGS: AP view TUBES and LINES: Stable dual-lead left chest wall cardiac device. LUNGS and pleura: Lungs are well inflated. Pulmonary vascular congestion and mild to moderate interstitial edema. No visible pneumothorax. Small bilateral pleural effusions. HEART AND MEDIASTINUM: The cardiomediastinal silhouette is enlarged. BONES AND SOFT TISSUES: No acute osseous lesion. Soft tissues are unremarkable. UPPER ABDOMEN: No free air under the diaphragm. IMPRESSION: Pulmonary vascular congestion and mild to moderate interstitial edema, increased when compared to prior x-ray. Small bilateral pleural effusions, also increased. Underlying aspiration/pneumonia cannot be excluded. Signed by: Dr. Lucio Holt MD on 11/02/2018 6:26 AM
--- NOTE | 2018-11-02 07:01 | NUR ---
Report given to oncoming nurse Izabella, walking round done.
--- NOTE | 2018-11-02 07:03 | NUR ---
Progress note- IM O/N: no events V/S: revd PE tired appearing anicteric ns1s2 mod bs soft; colostomy and urostomy in place and normal appearing B/L BKA with stump site closed and normal appearing skin dry flat affect confused; SOTOMAYOR labs/meds; revd A/P: Sepsis VRE infected Urine/UTI Pseudomonas infected Urine/UTI Abdominal wall cellulitis PPM dysfunction- needing battery replacement Bradyarrhythmia Metabolic Encephalopathy due to sepsis HTN CKD3- at baseline Debility PLAN seroquel nifedipine levaquin; was on vancomycin and other antibiotics Possible colonization Battery replacement of PPM PT consult 11/02 BILL in CKD3; agitation on tx per psychiatry; cont antibiotics; PPM battery replacement Pending; Aspiration PNA- swallow eval/mgmt. d/c planning; Lukas Mera MD, PhD.
[2018-11-02] MEDS: INSULIN LISPRO 100 UNIT/1 ML 3ML VIAL SQ SCH ×4 (07:30→20:16)
[2018-11-02] MEDS: DOCUSATE SODIUM 100 MG CAP PO SCH (08:41)
[2018-11-02] MEDS: BALSAM PERU/CASTOR OIL 60 GM OINT...G. TP SCH (08:41)
[2018-11-02] MEDS: SODIUM BICARBONATE 650 MG TAB PO SCH ×2 (08:41→16:47)
[2018-11-02] MEDS: NIFEDIPINE CR 30 MG TAB PO SCH ×2 (08:41→20:16)
[2018-11-02] MEDS: NYSTATIN 100,000 UNITS/GM CRM 30GM TUBE TOP SCH ×2 (08:41→16:47)
[2018-11-02] MEDS: MEMANTINE 10 MG TAB PO SCH (08:41)
[2018-11-02] MEDS: FERROUS SULFATE 325 MG TAB PO SCH ×2 (08:41→16:47)
[2018-11-02] MEDS: LEVOFLOXACIN 500 MG TAB PO SCH (08:41)
[2018-11-02] MEDS: ENOXAPARIN 30 MG/0.3 ML SYR SC SCH (08:41)
[2018-11-02] MEDS ORDERED: LORAZEPAM INJ 2 MG/ML VIAL IM PRN (14:30)
[2018-11-02] MEDS: MORPHINE SULFATE INJ 4 MG/ML INJ 1ML IV PRN ×2 (16:47→22:01)
--- NOTE | 2018-11-02 16:51 | NUR ---
Nutrition Screen Note RD Recommendation for Physician: -Rec adding ADA 1800 diet to current cardiac diet; diet texture per DIRECTOR OF ENROLLMENT recommendation Plan of Care: RD following, monitoring for tolerance and adequacy Nutrition reason for involvement: LOS Primary Diagnose(s): 1. Aspiration pneumonia with sepsis, present on admission. 2. Bradycardia. 3. Metabolic encephalopathy. PMH: diabetes, dementia, bilateral [id number] amputee, history of CAD and PAD Ht: 70in Wt: 148.02lb BMI: n/a IBW: 146lb RD Assessment: (11/02) Chart reviewed. Labs and meds reviewed. 88yo M, who was admitted for AMS, PNA and UTI. Pt was discussed during AM rounds. CXR cannot exclude aspiration PNA. Per RN, pt was agitated. No family on bedside. Pt ate 100% of his meals and no coughing noted after meals. DIRECTOR OF ENROLLMENT rec regular texture with nectar thick liquids. Will continue to monitor and follow. Current Diet: cardiac diet Malnutrition Evaluation (11/02) Unable to evaluate Diet Education Needs Assessment: Diet education not indicated. Nutrition Care Level: low Signed: Bella Stephens, MS, RD, LD
--- NOTE | 2018-11-02 17:09 | Progress Note ---
DATE: 11/02/2018 SUBJECTIVE: The patient had a swallowing evaluation that showed aspiration of thin liquids. He complains of pain in his right hip area. PHYSICAL EXAMINATION: VITAL SIGNS: The patient is afebrile. The vital signs are stable. HEENT: Shows no facial swelling or erythema. CARDIAC: Reveals regular rate and rhythm with normal S1 and S2. LUNGS: Auscultation of lungs reveals rhonchorous breath sounds bilaterally. ABDOMEN: Soft, nontender. EXTREMITIES: Show bilateral amputations. IMPRESSION: 1. Recurrent aspiration pneumonia. 2. Healthcare associated pneumonia with sepsis, present on admission. 3. Metabolic encephalopathy. 4. Anemia. 5. Hypertension. 6. Chronic kidney disease stage 3. PLAN: 1. Continue nectar thick liquids and all recommendations from speech therapy. 2. Continue antibiotics. 3. Continue to monitor blood counts. 4. Telemetry. MD JADE Aguirre/BELL /[id number]
--- NOTE | 2018-11-02 18:19 | Progress Note ---
DATE: 11/02/2018 Cardiology Progress Note SUBJECTIVE: The patient is seen in the room. The patient is sleeping at this time. Heart rate 72 per minute. The patient got bilateral below knee amputation and got significant back problem. The patient has dementia. The main issue at this time is he has also got a pneumonia. I could not do it yesterday because the patient is not able to lie down flat. Mainly the problem was a back problem and also significant arthritis. I requested Dr. Fernie Fernandez to evaluate his pulmonary status. Probably we had to do this with anesthesiologist's assistance to put him into a deep sedation like a propofol and do this in clinical genetics laboratory chief when he is sleeping. We will wait for the pulmonary opinion and also I am talking to the children the daughter. The patient at this time is stable. The patient got significant issues and a known patient with coronary artery disease and stent placement and also the patient had PAD stents in the past in the femoral arteries also. Consequently the patient also has significant probably infection near the below-knee amputation. The patient got arthritis, he has colon cancer and a bladder cancer. MD CIRA Dominguez/BELL /[id number] MTDD
--- NOTE | 2018-11-02 18:24 | Progress Note ---
DATE: 11/02/2018 Psychiatric Progress Note SUBJECTIVE: The patient evaluated and events noted. The patient is in the room in the ICU. He is sleeping, but easily arousable. He is irritable and uncooperative. At times, he is confused and does not know where he is. However, he is calm at this time. He did get p.r.n. medication last night. The patient denies any depression. Denies any hallucination. He goes back to sleep. Discussed with nursing staff reports, who reports that the patient was bradycardic today. His heart rate was in the 40s. Dr. Fernandez was consulted for Pulmonary prior to his procedure. Nurses claimed that he has been intermittently agitated and restless, yelling, and screaming. ASSESSMENT: 1. Unspecified psychosis. 2. Unspecified dementia with behavior disturbances. PLAN: 1. Continue with Namenda 5 mg p.o. daily. 2. Continue with Seroquel 25 mg p.o. at bedtime. 3. Continue with Seroquel and Haldol p.r.n. IM. 4. Add Depakote 125 mg p.o. q.12. 5. Monitor for mood and psychosis. 6. Discussed with nursing staff. We will minimize increase in medication at this time due to his cardiac issues. Dictated by Anum Schrader PA-C Izabel He MD QTV/MODL /[id number]
--- NOTE | 2018-11-02 19:00 | NUR ---
Report received from AM nurse Izabella. Patient received confused lying on his bed and complaining pain on his right hip. Medicated for his pain as order. Bed alarm on. Bed in lower position,locked. Call mari within reach. Will continue to monitor.
[2018-11-02] MEDS: HYDROCODONE/APAP 10MG-325MG TAB PO PRN (19:19)
[2018-11-02] MEDS: DIVALPROEX SODIUM 250 MG TAB...DR PO SCH (20:15)
[2018-11-02] MEDS: QUETIAPINE FUMARATE 25 MG TAB PO SCH (20:16)
--- NOTE | 2018-11-02 21:09 | NUR ---
Patient assisted to given bed bath with help of [employer]. Patient tolerated well. Mepilex dressing changed on sacrum area. V/S WNL. Will continue to monitor.
--- NOTE | 2018-11-02 21:11 | NUR ---
Patient colostomy bag was full, had large soft brown BM. Colostomy bag changed at this time with sterile technique, patient tolerated well. Will continue to monitor.
[2018-11-02] MEDS: ONDANSETRON HCL INJ 2MG/ML 2ML 2 MG/ML VIAL IV PRN (22:01)
[2018-11-03] VITALS (17 sets, daily range): BP systolic 99–143; BP diastolic 38–72
[2018-11-03] MEDS: ACETAMINOPHEN 325 MG TAB PO PRN
[2018-11-03 05:12] LABS: BASOPHILS % 0.2 % (0.0-1.0); EOSINOPHILS # (AUTO) 0.2 (0.0-0.4); EOSINOPHILS % 1.3 % (0.0-6.0); HEMATOCRIT 24.5 % (38.2-49.6); HEMOGLOBIN 7.7 g/dL (14.0-18.0); LYMPHOCYTES % 31.5 % (18.0-39.1); MEAN CORPUSCULAR HEMOGLOBIN 31.8 pg (28-32); MEAN CORPUSCULAR HGB CONC 31.4 g/dL (31-35); MEAN CORPUSCULAR VOLUME 101.2 fL (81-99); MONOCYTES # (AUTO) 0.7 (0.2-0.8); MONOCYTES % 5.7 % (4.4-11.3); NEUTROPHILS # (AUTO) 7.7 (2.1-6.9); NEUTROPHILS % 60.9 % (38.7-80.0); PLATELET COUNT 126 x10e3/uL (140-360); RED BLOOD COUNT 2.42 x10e6/uL (4.3-5.7); RED CELL DISTRIBUTION WIDTH 15.5 % (11.7-14.4)
[2018-11-03 05:37] LABS: ALBUMIN 2.4 g/dL (3.5-5.0); ALBUMIN/GLOBULIN RATIO 0.7 (0.8-2.0); ANION GAP 13.3 mmol/L (8-16); CALCIUM 8.9 mg/dL (8.4-10.2); CREATININE, SERUM 1.97 mg/dL (0.72-1.25); POTASSIUM 4.3 mmol/L (3.5-5.1)
[2018-11-03] MEDS: HALOPERIDOL LACTATE 5 MG/ML VIAL IM PRN ×2 (05:46→19:25)
--- NOTE | 2018-11-03 05:47 | NUR ---
Patient was very confused and pulled out urostomy bag at this time. Patient assisted to put new urostomy bag with sterile technique, patient tolerated well. Will continue to monitor.
[2018-11-03] MEDS: MORPHINE SULFATE INJ 4 MG/ML INJ 1ML IV PRN ×3 (06:10→22:15)
--- NOTE | 2018-11-03 06:54 | NUR ---
Progress note- IM O/N: no events V/S: revd PE tired appearing anicteric ns1s2 mod bs soft; colostomy and urostomy in place and normal appearing B/L BKA with stump site closed and normal appearing skin dry flat affect confused; SOTOMAYOR labs/meds; revd A/P: Sepsis VRE infected Urine/UTI Pseudomonas infected Urine/UTI Abdominal wall cellulitis PPM dysfunction- needing battery replacement Bradyarrhythmia Metabolic Encephalopathy due to sepsis HTN CKD3- at baseline Debility PLAN seroquel nifedipine levaquin; was on vancomycin and other antibiotics Possible colonization Battery replacement of PPM PT consult 11/02 BILL in CKD3; agitation on tx per psychiatry; cont antibiotics; PPM battery replacement Pending; Aspiration PNA- swallow eval/mgmt. d/c planning; 11/03 f/u cardiology and swallow; Renal fn back to baseline; Lukas Mera MD, PhD.
--- NOTE | 2018-11-03 07:15 | NUR ---
Report given to oncoming NORM Lieberman, walking round done. No issued noted.
[2018-11-03] MEDS: INSULIN LISPRO 100 UNIT/1 ML 3ML VIAL SQ SCH ×4 (07:30→20:37)
[2018-11-03] MEDS: NIFEDIPINE CR 30 MG TAB PO SCH ×2 (08:07→20:30)
--- NOTE | 2018-11-03 08:15 | Diagnostic Imaging Report ---
Exam: Modified barium swallow performed in conjunction with speech pathology. History: Aspiration Comparison: None available Findings: Patient was administered different consistencies of barium impregnated' s liquids and semisolid's. Fluoroscopic evaluation of the swallowing mechanism in the lateral projection was performed. There is mild penetration with thin liquids and mixed textures that is silent. Silent aspiration is also noted. Fluoroscopy time: 2.9 minutes Cumulative dose: 7.44 mGy Impression: 1. Penetration with silent aspiration noted. 2. Please see full report provided by speech pathology. Signed by: Dr. Librado Montero DO on 11/03/2018 8:11 AM
[2018-11-03] MEDS: MEMANTINE 10 MG TAB PO SCH (08:38)
[2018-11-03] MEDS: ENOXAPARIN 30 MG/0.3 ML SYR SC SCH (08:38)
[2018-11-03] MEDS: DIVALPROEX SODIUM 250 MG TAB...DR PO SCH (08:38)
[2018-11-03] MEDS: SODIUM BICARBONATE 650 MG TAB PO SCH ×2 (08:38→17:11)
[2018-11-03] MEDS: FERROUS SULFATE 325 MG TAB PO SCH ×2 (08:38→17:11)
[2018-11-03] MEDS: DOCUSATE SODIUM 100 MG CAP PO SCH (08:38)
[2018-11-03] MEDS: NYSTATIN 100,000 UNITS/GM CRM 30GM TUBE TOP SCH ×2 (08:39→17:11)
[2018-11-03] MEDS: BALSAM PERU/CASTOR OIL 60 GM OINT...G. TP SCH (08:39)
--- NOTE | 2018-11-03 10:55 | NUR ---
SPOKE TO REGARDING POC, PER MD PT IS CLEARED FROM PULMONARY STANDPOINT FOR SEDATION FOR PROCEDURE
[2018-11-03] MEDS: HYDROCODONE/APAP 10MG-325MG TAB PO PRN ×2 (11:28→19:16)
[2018-11-03 13:33] LABS: ANISOCYTOSIS SLIGHT; BLAST CELLS % MANUAL 2; HYPOCHROMASIA MODERATE; LYMPHOCYTES % (MANUAL) 20 % (19-48); MONOCYTES % (MANUAL) 10 % (3.4-9.0); NEUTROPHILS % (MANUAL) 67 % (40-74); PLATELET ESTIMATE SLIGHTLY DECREASED; PLATELET MORPHOLOGY COMMENT FEW LARGE; RBC MORPHOLOGY COMMENT NORMAL
--- NOTE | 2018-11-03 14:33 | Progress Note ---
DATE: 11/03/2018 SUBJECTIVE: The patient received some pain medication for hip pain. He is more comfortable now. He is awaiting replacement of the battery in his pacemaker. PHYSICAL EXAMINATION: VITAL SIGNS: The pulse is 51 and the blood pressure is 124/50. HEENT: No facial swelling or erythema. CARDIAC: Regular rate and rhythm with normal S1, S2. There are no murmurs or rubs. LUNGS: Auscultation of lungs reveals clear breath sounds bilaterally. There is no wheezing. ABDOMEN: Soft, nontender. There is no rebound or guarding. EXTREMITIES: Bilateral amputations. IMPRESSION: 1. Recurrent aspiration pneumonia. 2. Healthcare-associated pneumonia with sepsis, present on admission. 3. Metabolic encephalopathy. 4. Anemia secondary to chronic blood loss. 5. Hypertension. 6. Chronic kidney disease, stage 3. PLAN: 1. Continue speech therapy recommendations. 2. Await replacement of battery and pacemaker. 3. Continue to monitor blood counts. 4. Telemetry. Fernie Fernandez MD [facility]/MODL /[id number]
--- NOTE | 2018-11-03 16:59 | Progress Note ---
DATE: 11/03/2018 Psychiatric Progress Note SUBJECTIVE: The patient was evaluated and events noted. The patient is in the room in ICU. He is calm and cooperative. He is oriented to self and place. He has been agitated as per nurse. Last night, he received p.r.n. medication, however, in the daytime, he is doing well. He has been approved for procedure. The patient has been cleared by Pulmonology for the CPR on Tuesday to correct his pacemaker. The patient at this time is on precaution for aspiration as per the notes. He is taking his medications. The patient does not have any side effects at this time or any side effects reported. He denies any hallucination. ASSESSMENT: 1. Unspecified psychosis. 2. Unspecified dementia with behavior disturbance. PLAN: 1. Continue Namenda 5 mg p.o. daily. 2. Increase Depakote to 125 mg p.o. three times a day. 3. Increase Seroquel to 37.5 mg p.o. at bedtime. 4. Seroquel p.r.n. 5. Continue Haldol p.r.n. 6. Monitor for agitation and mood. Dictated by Anum Schrader PA-C MD CELESTINO Clifford/BELL /[id number]
[2018-11-03] MEDS: DIVALPROEX SODIUM 125 MG TABDR...ER PO SCH ×2 (17:11→20:42)
[2018-11-03] MEDS: QUETIAPINE FUMARATE 25 MG TAB PO PRN (17:26)
--- NOTE | 2018-11-03 19:06 | NUR ---
received repots from previous nurse, patient looks restless and agitated at this time, bp 128/78, hr 107. stated im hurting. will give PRN norco.
--- NOTE | 2018-11-03 19:57 | NUR ---
per reports on shift change, patient has no IV line, put one IV saline lock size 22r to right AC, one time attempt.
[2018-11-03] MEDS: QUETIAPINE FUMARATE 25 MG TAB PO SCH (20:42)
[2018-11-03] MEDS ORDERED: DIVALPROEX SODIUM 250 MG TAB...DR PO SCH (21:00)
[2018-11-04] VITALS (22 sets, daily range): BP systolic 103–150; BP diastolic 37–88
[2018-11-04] MEDS: QUETIAPINE FUMARATE 25 MG TAB PO PRN ×3 (01:43→15:01)
[2018-11-04] MEDS: HYDROCODONE/APAP 10MG-325MG TAB PO PRN ×3 (01:43→15:01)
--- NOTE | 2018-11-04 01:48 | NUR ---
patient woke up sitting at the edge of the bed. also he asking for pain med for his hips pain. PRN meds given, will continue to monitor.
[2018-11-04 04:47] LABS: BASOPHILS % 0.3 % (0.0-1.0); EOSINOPHILS # (AUTO) 0.2 (0.0-0.4); EOSINOPHILS % 1.7 % (0.0-6.0); HEMATOCRIT 26.2 % (38.2-49.6); LYMPHOCYTES # (AUTO) 4.4 (1.0-3.2); LYMPHOCYTES % 37.4 % (18.0-39.1); MEAN CORPUSCULAR HEMOGLOBIN 31.7 pg (28-32); MEAN CORPUSCULAR HGB CONC 30.5 g/dL (31-35); MONOCYTES # (AUTO) 0.9 (0.2-0.8); MONOCYTES % 7.3 % (4.4-11.3); NEUTROPHILS # (AUTO) 6.2 (2.1-6.9); PLATELET COUNT 122 x10e3/uL (140-360); RED BLOOD COUNT 2.52 x10e6/uL (4.3-5.7); RED CELL DISTRIBUTION WIDTH 15.3 % (11.7-14.4)
[2018-11-04 05:23] LABS: ALBUMIN 2.4 g/dL (3.5-5.0); ALBUMIN/GLOBULIN RATIO 0.7 (0.8-2.0); CALCIUM 8.7 mg/dL (8.4-10.2); CREATININE, SERUM 2.02 mg/dL (0.72-1.25)
[2018-11-04] MEDS: INSULIN LISPRO 100 UNIT/1 ML 3ML VIAL SQ SCH ×4 (07:30→20:40)
[2018-11-04] MEDS: NIFEDIPINE CR 30 MG TAB PO SCH ×2 (09:00→20:42)
[2018-11-04] MEDS: FERROUS SULFATE 325 MG TAB PO SCH ×2 (09:21→16:36)
[2018-11-04] MEDS: MEMANTINE 10 MG TAB PO SCH (09:21)
[2018-11-04] MEDS: DOCUSATE SODIUM 100 MG CAP PO SCH (09:21)
[2018-11-04] MEDS: DIVALPROEX SODIUM 125 MG TABDR...ER PO SCH ×3 (09:21→20:47)
[2018-11-04] MEDS: NYSTATIN 100,000 UNITS/GM CRM 30GM TUBE TOP SCH ×2 (09:22→16:36)
[2018-11-04] MEDS: BALSAM PERU/CASTOR OIL 60 GM OINT...G. TP SCH (09:22)
[2018-11-04] MEDS: LEVOFLOXACIN 500 MG TAB PO SCH (09:22)
[2018-11-04] MEDS: SODIUM BICARBONATE 650 MG TAB PO SCH ×2 (09:22→16:36)
--- NOTE | 2018-11-04 13:18 | Progress Note ---
DATE: 11/04/2018 Pulmonary Critical Care Progress Note SUBJECTIVE: The patient still has some confusion. His dyspnea is overall improved. He does not have fever. PHYSICAL EXAMINATION: VITAL SIGNS: The patient is afebrile. The blood pressure is 103/44, and saturation is 95% on room air. The pulse is 72. HEENT: Shows no facial swelling or erythema. The oropharynx is normal. LYMPHATIC: Shows no submandibular, cervical, or supraclavicular adenopathy. CARDIAC: Reveals regular rate and rhythm with normal S1 and S2. There are no murmurs or rubs. LUNGS: Auscultation of lungs reveals clear breath sounds bilaterally. There is no wheezing. ABDOMEN: Soft, nontender. There is no rebound or guarding. EXTREMITIES: Show no leg edema or calf tenderness. There is no cyanosis or clubbing. SKIN: Shows no rashes. IMPRESSION: 1. Recurrent aspiration pneumonia. 2. Metabolic encephalopathy. 3. Bradycardia. 4. Anemia secondary to chronic blood loss. 5. Hypertension. 6. Chronic kidney disease stage 3. PLAN: 1. Continue modified diet and recommendations from speech therapy. 2. Continue antibiotics. 3. Await replacement of battery for pacemaker. 4. Continue to monitor renal function and blood counts. Fernie Fernandez MD [facility]/BELL /[id number]
--- NOTE | 2018-11-04 14:43 | Progress Note ---
DATE: 11/04/2018 Cardiology Progress Note SUBJECTIVE: The patient is seen in ICU bed 192. Yesterday also I saw him, but I could not put a note. The patient this time is sleepy and confused. The patient is end of life pacemaker generator life. Last week could not do it, because he could not lie down on the cardiac cath table. At this time, I consulted the rn eligibility, Dr. Fernandez and also consulted the anesthesiologist. We are going to give him deep sedation with anesthesiologist help, so that he will be able to lie down flat in the cardiac microbiological lab technician. The patient is not in congestive heart failure. On Tuesday 2:00 p.m. scheduled to have this permanent pacemaker generator change with the help of anesthesiologist. I spoke with the daughter, who is agreeable for the procedure. Risks and complications and benefits explained. The patient has history of sick sinus syndrome, history of syncope, heart block in the past. They are all intermittent bradyarrhythmias. Two times he also passed out. At this time, we need to do the pacemaker. He is a full code patient. MD CIRA Dominguez/BELL /[id number]
--- NOTE | 2018-11-04 15:22 | NUR ---
Progress note- IM O/N: no events V/S: revd PE tired appearing anicteric ns1s2 mod bs soft; colostomy and urostomy in place and normal appearing B/L BKA with stump site closed and normal appearing skin dry flat affect confused; SOTOMAYOR labs/meds; revd A/P: Sepsis VRE infected Urine/UTI Pseudomonas infected Urine/UTI Abdominal wall cellulitis PPM dysfunction- needing battery replacement Bradyarrhythmia Metabolic Encephalopathy due to sepsis HTN CKD3- at baseline Debility PLAN seroquel nifedipine levaquin; was on vancomycin and other antibiotics Possible colonization Battery replacement of PPM PT consult 11/02 BILL in CKD3; agitation on tx per psychiatry; cont antibiotics; PPM battery replacement Pending; Aspiration PNA- swallow eval/mgmt. d/c planning; 11/03 f/u cardiology and swallow; Renal fn back to baseline; 11/04 Hb stable; GFR stable; modified diet; f/u cardiology. Lukas Mera MD, PhD.
[2018-11-04] MEDS: MORPHINE SULFATE INJ 4 MG/ML INJ 1ML IV PRN ×2 (17:00→21:42)
[2018-11-04] MEDS: HALOPERIDOL LACTATE 5 MG/ML VIAL IM PRN (19:25)
[2018-11-04] MEDS: ACETAMINOPHEN 325 MG TAB PO PRN (19:25)
[2018-11-04] MEDS: QUETIAPINE FUMARATE 25 MG TAB PO SCH (20:47)
--- NOTE | 2018-11-04 21:43 | NUR ---
Medicated for c/o pain.
[2018-11-05] VITALS (21 sets, daily range): BP systolic 98–170; BP diastolic 37–92
[2018-11-05] MEDS: HYDROCODONE/APAP 10MG-325MG TAB PO PRN ×3 (00:35→15:19)
[2018-11-05] MEDS: QUETIAPINE FUMARATE 25 MG TAB PO PRN ×3 (00:35→21:30)
[2018-11-05] MEDS: MORPHINE SULFATE INJ 4 MG/ML INJ 1ML IV PRN ×2 (02:45→20:15)
--- NOTE | 2018-11-05 02:58 | NUR ---
patient complained of pain when he woken up, morphine iv given, he also complained its hurt on the IV line while while med iv administered. new IV line size 20g inserted to left forearm, one time attempt. will continue to monitor.
[2018-11-05] MEDS: INSULIN LISPRO 100 UNIT/1 ML 3ML VIAL SQ SCH ×4 (07:30→20:16)
[2018-11-05] MEDS: MEMANTINE 10 MG TAB PO SCH (08:36)
[2018-11-05] MEDS: FERROUS SULFATE 325 MG TAB PO SCH ×2 (08:36→18:37)
[2018-11-05] MEDS: NIFEDIPINE CR 30 MG TAB PO SCH ×2 (08:36→20:15)
[2018-11-05] MEDS: DIVALPROEX SODIUM 125 MG TABDR...ER PO SCH ×3 (08:36→20:15)
[2018-11-05] MEDS: DOCUSATE SODIUM 100 MG CAP PO SCH (08:36)
[2018-11-05] MEDS: BALSAM PERU/CASTOR OIL 60 GM OINT...G. TP SCH (08:37)
[2018-11-05] MEDS: NYSTATIN 100,000 UNITS/GM CRM 30GM TUBE TOP SCH ×2 (08:37→19:31)
[2018-11-05] MEDS: SODIUM BICARBONATE 650 MG TAB PO SCH ×2 (08:37→18:37)
--- NOTE | 2018-11-05 10:41 | NUR ---
Progress note- IM O/N: no events V/S: revd PE tired appearing anicteric ns1s2 mod bs soft; colostomy and urostomy in place and normal appearing B/L BKA with stump site closed and normal appearing skin dry flat affect confused; SOTOMAYOR labs/meds; revd A/P: Sepsis VRE infected Urine/UTI Pseudomonas infected Urine/UTI Abdominal wall cellulitis PPM dysfunction- needing battery replacement Bradyarrhythmia Metabolic Encephalopathy due to sepsis HTN CKD3- at baseline Debility PLAN seroquel nifedipine levaquin; was on vancomycin and other antibiotics Possible colonization Battery replacement of PPM PT consult 11/02 BILL in CKD3; agitation on tx per psychiatry; cont antibiotics; PPM battery replacement Pending; Aspiration PNA- swallow eval/mgmt. d/c planning; 11/03 f/u cardiology and swallow; Renal fn back to baseline; 11/04 Hb stable; GFR stable; modified diet; f/u cardiology. 11/05 no events; Lukas Mera MD, PhD.
--- NOTE | 2018-11-05 14:17 | Progress Note ---
DATE: 11/05/2018 Pulmonary Critical Care Progress Note SUBJECTIVE: The patient has no fevers. There is no chest pain. He has no new problems. PHYSICAL EXAMINATION: VITAL SIGNS: The patient is afebrile. The blood pressure is 126/42 and the saturation is 96%. HEENT: Shows no facial swelling or erythema. The oropharynx is normal. LYMPHATIC: Shows no submandibular, cervical, or supraclavicular adenopathy. CARDIAC: Reveals a regular rate and rhythm with a normal S1 and S2. There are no murmurs or rubs. LUNGS: Auscultation of lungs reveals rhonchorous breath sounds bilaterally. There is no wheezing. ABDOMEN: Soft and nontender. There is no rebound or guarding. EXTREMITIES: Show bilateral amputations. IMPRESSION: 1. Metabolic encephalopathy. 2. Urinary tract infection with pseudomonas and enterococcus with secondary sepsis, present on admission. 3. Bradycardia secondary to pacemaker dysfunction. 4. Chronic kidney disease stage 3. 5. Hypertension. PLAN: 1. Continue current antibiotics. 2. Continue oxygen. 3. Await replacement of pacemaker battery. Fernie Fernandez MD [facility]/MODL /[id number]
--- NOTE | 2018-11-05 19:00 | NUR ---
Report received from Jonelle ZHENG. Pt received resting in bed with eyes open HOB elevated 40 degrees with multiple pillows to his head/neck/shoulder and hips. Pt AAOx2 self and place and following simple commands. Noted that pt repeats same questions within 5 to 10 minutes of asking and requires reassuring repetition/reinforcement of answers/facts. Pt repositioned for comfort. Please refer to assessment for further documentation.
--- NOTE | 2018-11-05 19:28 | Progress Note ---
DATE: 11/05/2018 Cardiology Progress Note The patient is seen in the room and discussed with him about change of generator tomorrow. The patient is going to have a generator change only tomorrow because of end-of-life generator. Known patient of sick sinus syndrome. He has an AV sequential pacemaker that was put about approximately 8 years ago and this time, I arranged with anesthesiologist to give some deep sedation as he was unable to lie down in the cardiac analytical lab technician last week and the patient is already seen by Pulmonology, Dr. Fernie Fernandez. He is going to have this generator changed. I discussed with the daughter and all are agreeable. Tomorrow, we will do this generator change at 2:00 p.m. with anesthesiologist's sedation. I will continue to follow the patient from a cardiac point of view. 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 The patient has mild dementia also. MD CIRA Dominguez/BELL /[id number]
[2018-11-05] MEDS: QUETIAPINE FUMARATE 25 MG TAB PO SCH (20:16)
--- NOTE | 2018-11-05 20:30 | NUR ---
Pts daughter Iva called and given update on pts status and medications he has received this shift. Discussed pts short-term memory loss and together came upon a plan to place a clock on the pts bedside table along with a list of last pain medication does and time of next pain medication does and to also provide the pt with some magazines.
--- NOTE | 2018-11-05 20:50 | NUR ---
Digital clock placed on pts nightstand along with previously noted pain medication dosage times. Also placed multiple Sports illustrated and [employer]GT[employer] magazines in reach of the pt as well. Pt also assisted with his glasses.
[2018-11-05] MEDS: ACETAMINOPHEN 325 MG TAB PO PRN (21:30)
--- NOTE | 2018-11-05 22:00 | NUR ---
Pt turned himself back to his right side and is now resting with his eyes closed. No signs of distress or discomfort at this time, VSS to pt. Will continue to monitor.
[2018-11-06] VITALS (23 sets, daily range): BP systolic 94–154; BP diastolic 46–106
[2018-11-06] MEDS: MORPHINE SULFATE INJ 4 MG/ML INJ 1ML IV PRN ×4 (00:14→22:04)
[2018-11-06 05:47] LABS: INR 0.99; PROTHROMBIN TIME 13.6 seconds (11.9-14.5)
[2018-11-06 05:48] LABS: PARTIAL THROMBOPLASTIN TIME 46.3 seconds (23.8-35.5)
--- NOTE | 2018-11-06 07:10 | NUR ---
Progress note- IM O/N: no events V/S: revd PE tired appearing anicteric ns1s2 mod bs soft; colostomy and urostomy in place and normal appearing B/L BKA with stump site closed and normal appearing skin dry flat affect confused; SOTOMAYOR labs/meds; revd A/P: Sepsis VRE infected Urine/UTI Pseudomonas infected Urine/UTI Abdominal wall cellulitis PPM dysfunction- needing battery replacement Bradyarrhythmia Metabolic Encephalopathy due to sepsis HTN CKD3- at baseline Debility PLAN seroquel nifedipine levaquin; was on vancomycin and other antibiotics Possible colonization Battery replacement of PPM PT consult 11/02 BILL in CKD3; agitation on tx per psychiatry; cont antibiotics; PPM battery replacement Pending; Aspiration PNA- swallow eval/mgmt. d/c planning; 11/03 f/u cardiology and swallow; Renal fn back to baseline; 11/04 Hb stable; GFR stable; modified diet; f/u cardiology. 11/05 no events; 11/06 generator change today; d/c after. Lukas Mera MD, PhD.
[2018-11-06] MEDS: INSULIN LISPRO 100 UNIT/1 ML 3ML VIAL SQ SCH ×4 (07:30→20:51)
[2018-11-06] MEDS: FERROUS SULFATE 325 MG TAB PO SCH ×2 (08:00→17:00)
--- NOTE | 2018-11-06 08:20 | Progress Note ---
DATE: 11/06/2018 SUBJECTIVE: The patient has no new issues today. He is not complaining of chest pain. He is not having fevers. PHYSICAL EXAMINATION: VITAL SIGNS: The patient is afebrile. The blood pressure is 120/55 and the saturation is 94% on room air. HEENT: Shows no facial swelling or erythema. The oropharynx is normal. There is a left IJ line. CARDIAC: Reveals a regular rate and rhythm with normal S1, S2. There are no murmurs or rubs. LUNGS: Auscultation of lungs reveals crackles in both lung smith. ABDOMEN: Soft and nontender. There is no rebound or guarding. EXTREMITIES: Show no leg edema or calf tenderness. There is no cyanosis or clubbing. SKIN: Shows no rashes. LABORATORY DATA: White blood cell count is 11.7 and hemoglobin is 8. The platelet count is 122. IMPRESSION: 1. Metabolic encephalopathy. 2. Anemia secondary to chronic blood loss. 3. Urinary tract infection with Pseudomonas and enterococcus and secondary sepsis present on admission. 4. Chronic kidney disease stage 3. 5. Hypertension. 6. Bradycardia. PLAN: 1. The patient to go for battery replacement of the pacemaker today. 2. Continue oxygen. 3. Continue antibiotics. 4. Out of bed as tolerated. Fernie Fernandez MD [facility]/MODL /[id number]
[2018-11-06] MEDS: DIVALPROEX SODIUM 125 MG TABDR...ER PO SCH ×3 (08:21→19:57)
[2018-11-06] MEDS: LEVOFLOXACIN 500 MG TAB PO SCH (08:21)
[2018-11-06] MEDS: NYSTATIN 100,000 UNITS/GM CRM 30GM TUBE TOP SCH ×2 (08:40→19:00)
[2018-11-06] MEDS: MEMANTINE 10 MG TAB PO SCH (09:00)
[2018-11-06] MEDS: BALSAM PERU/CASTOR OIL 60 GM OINT...G. TP SCH (09:00)
[2018-11-06] MEDS: NIFEDIPINE CR 30 MG TAB PO SCH ×2 (09:00→20:00)
[2018-11-06] MEDS: DOCUSATE SODIUM 100 MG CAP PO SCH (09:00)
[2018-11-06] MEDS: SODIUM BICARBONATE 650 MG TAB PO SCH ×2 (09:00→17:00)
--- NOTE | 2018-11-06 13:30 | NUR ---
CM MET W THE PT AND DTR AT THE BEDSIDE TO DISCUSS CHOICE FOR SNF. PT FROM [facility]. DTR WAS PROVIDED CHOICE. STATES OK FOR PT TO RETURN TO [facility]. CHOICE LETTER WAS SIGNED AND COPY TO PT AND COPY TO CHART.
--- NOTE | 2018-11-06 14:35 | NUR ---
Patient transported off the unit to OR to have pacemaker generator changed. Patient does not appear to be in any distress at this time.
[2018-11-06] MEDS ORDERED: SODIUM CHLORIDE 0.9% 500ML 1,000 ML ONE (14:44)
[2018-11-06] MEDS ORDERED: BACITRACIN 50,000 UNIT VIAL ONE ×2 (14:44→14:45)
[2018-11-06] MEDS ORDERED: LIDOCAINE HCL 2% LOCAL 20 ML VIAL ONE (14:44)
[2018-11-06] MEDS ORDERED: SODIUM CHLORIDE 0.9% 1000ML 1,000 ML ONE (14:45)
[2018-11-06] MEDS ORDERED: VANCOMYCIN 1GM/NS 250 ML 250 ML ONE (15:20)
--- NOTE | 2018-11-06 16:20 | NUR ---
MIMI INITIATED RTF. PATIENT WITH FACILITY DENIAL TO [facility]. [facility] SECRETARY GAVE PATIENT ANGELA CARROLL (DAUGHTER) CLOSED UNIT FACILITIES THAT PATIENT CAN TRANSFER TO. PATIENT ANGELA CEJA TO GO AND CHECK OUT FACILITIES TODAY. DISCHARGE CM NORM HERRERA TO RECEIVE NEW FACILITY CHOICE AND COMPLETE RTF TOMORROW. RTF GIVEN TO NORM HERRERA CM.
--- NOTE | 2018-11-06 17:09 | NUR ---
MET W THE DTR AND PT AT THE BEDSIDE. [facility] / [facility]. CALL TO [facility] @ [phone]. SPOKE W ASH CONVEYOR OPERATOR. STATES THE ADMITTING TEAM HAD GONE FOR THE DAY. CLINICALS FAXED TO [phone]; ATTN: DANIELE SIMPSON
[2018-11-06] MEDS ORDERED: PHENYLEPHRINE HCL 1% 10 MG/ML VIAL ONE (17:33)
[2018-11-06] MEDS ORDERED: EPHEDRINE SULFATE INJ 50 MG/10 ML SYR ONE (17:33)
[2018-11-06] MEDS ORDERED: SEVOFLURANE INHAL SOLN 250 ML PEN BTL ONE (17:33)
[2018-11-06] MEDS ORDERED: PROPOFOL IV EMULSION 10 MG/ML 20 ML VIAL ONE (17:33)
[2018-11-06] MEDS ORDERED: LIDOCAINE HCL 2% LOCAL INJ 5 ML SDV VIAL INJ ONE (17:33)
--- NOTE | 2018-11-06 18:29 | NUR ---
1700- Patient arrived back to ICU with 4x4 and Tegaderm dressing on Left chest. Patient also has sling on L arm per MD order. 1730- Dr. Guzman wrote orders, the office was paged to clarify the date on the orders. 1829- Dr. Guzman returned call and informed RN that these are the correct orders for today.
[2018-11-06] MEDS ORDERED: FENTANYL CITRATE/PF 100MCG/2 ML INJ ONE (18:39)
[2018-11-06] MEDS: CEFAZOLIN SOD 1 GM/NS 50ML 50 ML IV SCH (19:23)
[2018-11-06] MEDS: QUETIAPINE FUMARATE 25 MG TAB PO SCH (20:00)
[2018-11-06] MEDS: HALOPERIDOL LACTATE 5 MG/ML VIAL IM PRN (20:23)
[2018-11-06] MEDS: QUETIAPINE FUMARATE 25 MG TAB PO PRN (21:30)
[2018-11-06] MEDS ORDERED: ZIPRASIDONE 20 MG VIAL IM PRN (22:15)
[2018-11-06] MEDS: HYDROCODONE/APAP 10MG-325MG TAB PO PRN (22:23)
--- NOTE | 2018-11-06 23:29 | Operative Report ---
DATE OF PROCEDURE: 11/06/2018 SURGEON: Newton Guzman MD PROCEDURE: Change out of the pacemaker generator. INDICATION FOR PROCEDURE: End of life of pacemaker generator. Old pacemaker is a Medtronic AV sequential pacemaker. The new one is Har[employer] AV sequential generator. I did only generator change. Atrial ventricular leads are functioning normally. PROCEDURE IN DETAIL: This procedure was done and informed consent in cardiac catheterization lab. The patient needed endotracheal intubation because the patient got bilateral leg and below-knee amputations, significant back problem, but is not able to lie down and he has some COPD also. Because of this patient underwent endotracheal intubation and general anesthesia by anesthesiologist. After suitable draping, the patient had sterilization of the old pacemaker generator done on the left side and the fluoroscopy examination was performed. Generator also is located. Have the incision made on the generator and old generator was taken out from the old leads and I put a new [employer] generator and screwed into the atrial and ventricular lead. Before that, atrial lead and ventricular lead functions were tested and normal. After they were screwed into the generator, the generator was implanted in the old pocked in the left infraclvicular area and closed with _ sravan. The patient received vancomycin. The patient tolerated the procedure well. The patient came out of anesthesia well. The patient has stable cardiac hemodynamics. The patient is pacing and sensing normally. The patient will go to ICU. The patient will get antibiotics for the next 48 hours. Newton Guzman MD [facility]/MODL /[id number] MTDVikki
[2018-11-07] VITALS (15 sets, daily range): BP systolic 104–141; BP diastolic 31–110
[2018-11-07] MEDS: MORPHINE SULFATE INJ 4 MG/ML INJ 1ML IV PRN ×4 (01:45→17:20)
--- NOTE | 2018-11-07 02:23 | NUR ---
PATIENT CONTINUES TO REFUSE TO WEAR PULSE OX IN ORDER TO GET O2 SATURATION READINGS, PATIENT RESTLESS AFTER ADMINISTRATION OF PRN MORPHINE, GEODON X1 DOSE, PRN HALIDOL, PRN SEROQUEL AND PRN NORCO. PATIENT PULLED OUT IV LINE TO THE LEFT FOREARM AND CALLED DAUGHTER OVER 7 TIMES ON THE PHONE STATING HE KNEW HE WAS CALLING HER TO COME GET HIM. PATIENT REORIENTED TO ICU AND HOSPITAL BUT CONTINUES TO BE RESTLESS, UNCOOPERATIVE AND NON COMPLIANT WITH CARE TEAM.
[2018-11-07] MEDS ORDERED: VANCOMYCIN 500MG/NS 0.9% 100ML 100 ML IV SCH (03:00)
--- NOTE | 2018-11-07 06:57 | NUR ---
Progress note- IM O/N: no events V/S: revd PE tired appearing anicteric ns1s2 mod bs soft; colostomy and urostomy in place and normal appearing B/L BKA with stump site closed and normal appearing skin dry flat affect confused; SOTOMAYOR labs/meds; revd A/P: Sepsis VRE infected Urine/UTI Pseudomonas infected Urine/UTI Abdominal wall cellulitis PPM dysfunction- needing battery replacement Bradyarrhythmia Metabolic Encephalopathy due to sepsis HTN CKD3- at baseline Debility PLAN seroquel nifedipine levaquin; was on vancomycin and other antibiotics Possible colonization Battery replacement of PPM PT consult 11/02 BILL in CKD3; agitation on tx per psychiatry; cont antibiotics; PPM battery replacement Pending; Aspiration PNA- swallow eval/mgmt. d/c planning; 11/03 f/u cardiology and swallow; Renal fn back to baseline; 11/04 Hb stable; GFR stable; modified diet; f/u cardiology. 11/05 no events; 11/06 generator change today; d/c after. 11/07 s/p procedure; monitor; placement pending; check labs; Lukas Mera MD, PhD.
[2018-11-07] MEDS: INSULIN LISPRO 100 UNIT/1 ML 3ML VIAL SQ SCH ×4 (07:30→21:22)
[2018-11-07 07:41] LABS: ANION GAP 14.2 mmol/L (8-16); CREATININE, SERUM 2.18 mg/dL (0.72-1.25); POTASSIUM 4.2 mmol/L (3.5-5.1)
[2018-11-07] MEDS: CEFAZOLIN SOD 1 GM/NS 50ML 50 ML IV SCH (07:42)
[2018-11-07] MEDS: HALOPERIDOL LACTATE 5 MG/ML VIAL IM PRN (07:43)
[2018-11-07] MEDS: FERROUS SULFATE 325 MG TAB PO SCH ×2 (07:50→17:20)
[2018-11-07] MEDS: NIFEDIPINE CR 30 MG TAB PO SCH ×2 (07:51→21:00)
[2018-11-07] MEDS: DIVALPROEX SODIUM 125 MG TABDR...ER PO SCH ×3 (07:51→21:26)
[2018-11-07] MEDS: SODIUM BICARBONATE 650 MG TAB PO SCH ×2 (07:51→17:20)
[2018-11-07] MEDS: MEMANTINE 10 MG TAB PO SCH (07:51)
[2018-11-07] MEDS: QUETIAPINE FUMARATE 25 MG TAB PO PRN (07:52)
[2018-11-07] MEDS: HYDROCODONE/APAP 10MG-325MG TAB PO PRN ×2 (07:52→23:15)
[2018-11-07] MEDS: DOCUSATE SODIUM 100 MG CAP PO SCH (07:57)
[2018-11-07] MEDS: NYSTATIN 100,000 UNITS/GM CRM 30GM TUBE TOP SCH (07:57)
[2018-11-07] MEDS: BALSAM PERU/CASTOR OIL 60 GM OINT...G. TP SCH (07:57)
--- NOTE | 2018-11-07 08:47 | Progress Note ---
DATE: 11/07/2018 SUBJECTIVE: The patient went for a pacemaker battery placement. He has no complaints. He is not complaining of dyspnea or chest pain. PHYSICAL EXAMINATION: VITAL SIGNS: The patient is afebrile. The blood pressure is 112/40, and the saturation is 100%. The pulse is 99. HEENT: Shows no facial swelling or erythema. The oropharynx is normal. LYMPHATIC: Shows no submandibular, cervical, or supraclavicular adenopathy. NECK: Shows no JVD or thyromegaly. CARDIAC: Reveals regular rate and rhythm with normal S1, S2. There are no murmurs or rubs heard. LUNGS: Auscultation of the lungs shows clear breath sounds bilaterally. There is no wheezing. ABDOMEN: Soft, nontender. There is no rebound or guarding. EXTREMITIES: Show no leg edema or calf tenderness. There is no cyanosis or clubbing. SKIN: Shows no rashes. NEUROLOGIC: Shows no focal abnormalities. IMPRESSION: 1. Metabolic encephalopathy. 2. Anemia secondary to chronic blood loss. 3. Urinary tract infection with Pseudomonas and enterococcus with secondary sepsis present on admission. 4. Chronic kidney disease stage 3. 5. Hypertension. 6. Bradycardia that required replacement of the battery in the pacemaker. PLAN: 1. Wean oxygen. 2. Complete antibiotics. 3. Head of bed as tolerated. 4. Transfer out of intensive care unit. Fernie Fernandez MD [facility] /[id number]
[2018-11-07 09:47] LABS: BASOPHILS % 0.3 % (0.0-1.0); EOSINOPHILS # (AUTO) 0.2 (0.0-0.4); EOSINOPHILS % 2.1 % (0.0-6.0); HEMATOCRIT 24.3 % (38.2-49.6); HEMOGLOBIN 7.9 g/dL (14.0-18.0); LYMPHOCYTES # (AUTO) 3.2 (1.0-3.2); LYMPHOCYTES % 35.7 % (18.0-39.1); MEAN CORPUSCULAR HEMOGLOBIN 32.2 pg (28-32); MEAN CORPUSCULAR HGB CONC 32.5 g/dL (31-35); MEAN CORPUSCULAR VOLUME 99.2 fL (81-99); MONOCYTES # (AUTO) 0.7 (0.2-0.8); MONOCYTES % 8.1 % (4.4-11.3); NEUTROPHILS # (AUTO) 4.8 (2.1-6.9); NEUTROPHILS % 53.5 % (38.7-80.0); PLATELET COUNT 119 x10e3/uL (140-360); RED BLOOD COUNT 2.45 x10e6/uL (4.3-5.7); RED CELL DISTRIBUTION WIDTH 14.8 % (11.7-14.4)
--- NOTE | 2018-11-07 10:30 | NUR ---
PT TO THE FLOOR AT 1030. PT DENIES NEEDS AT THIS TIME. SITTER AT BEDSIDE.
--- NOTE | 2018-11-07 10:30 | NUR ---
report called to javier. daughter joy called and left vm to inform of transfer. transferred via bed to room 201. tolerates fair.
[2018-11-07] MEDS: ONDANSETRON HCL INJ 2MG/ML 2ML 2 MG/ML VIAL IV PRN (10:45)
--- NOTE | 2018-11-07 13:47 | NUR ---
ST NOTE: Pt refused NMES to treat dysphagia, will continue POC. Handoff to NORM Rodrigues
[2018-11-07] MEDS ORDERED: LORAZEPAM INJ 2 MG/ML VIAL IM PRN (17:00)
--- NOTE | 2018-11-07 19:04 | Progress Note ---
DATE: 11/07/2018 Psychiatric Progress Note SUBJECTIVE: The patient was evaluated and events noted. The patient is in the room with a sitter. He is alert, awake, and oriented to situation. He is calm and cooperative. He denies any depression. Denies anxiety. Denies any hallucination. He denies any suicidal ideation. Denies any side effects from medication. The patient is getting p.r.n., p.o., IM medications. Vital signs appears to be good. Nursing staff report the patient has been calm and cooperative for him. ASSESSMENT: 1. Unspecified psychosis. 2. Unspecified dementia with behavior disturbances. PLAN: 1. Increase Depakote to 250 mg p.o. 2 times a day. 2. Continue Seroquel p.r.n. p.o. 3. Continue Namenda 5 mg p.o. daily. 4. Continue Haldol p.r.n. IM. 5. Increase Seroquel to 50 mg p.o. at bedtime. 6. Monitor for mood. 7. Supportive therapy. Dictated by Anum Schrader PA-C Izabel He MD [facility]/MODL /[id number]
[2018-11-07] MEDS ORDERED: QUETIAPINE FUMARATE 25 MG TAB PO SCH (21:00)
--- NOTE | 2018-11-08 00:34 | NUR ---
helped sitter give patient a bath, linens were changed, urostomy bag changed as it was leaking at that time, patient tolerated fine. Reinforced the tegaderm to the left chest pacemaker site as it was coming off.
[2018-11-08] MEDS: ACETAMINOPHEN 325 MG TAB PO PRN (02:17)
--- NOTE | 2018-11-08 02:33 | NUR ---
patient sitting up in bed complaining of generalized pain to the sitter. Upon entering the room the patient was informed that it is not time for his Freedom pain medication. He was offered Tylenol at this time and he agreed to see if that would help. The patient took the medication with thickened water. Asked to sit up for a while and he would lay back down in a little while. Sitter is at bedside at this time.
[2018-11-08 04:21] VITALS: BP 117/58
--- NOTE | 2018-11-08 06:07 | NUR ---
D/C summary: Sepsis VRE infected Urine/UTI Pseudomonas infected Urine/UTI Abdominal wall cellulitis PPM dysfunction- needing battery replacement Bradyarrhythmia Metabolic Encephalopathy due to sepsis HTN CKD3- at baseline Debility PLAN seroquel nifedipine levaquin; was on vancomycin and other antibiotics Possible colonization Battery replacement of PPM PT consult 11/02 BILL in CKD3; agitation on tx per psychiatry; cont antibiotics; PPM battery replacement Pending; Aspiration PNA- swallow eval/mgmt. d/c planning; 11/03 f/u cardiology and swallow; Renal fn back to baseline; 11/04 Hb stable; GFR stable; modified diet; f/u cardiology. 11/05 no events; 11/06 generator change today; d/c after. 11/07 s/p procedure; monitor; placement pending; check labs; 11/08 d/c once SNF bed obtained. 11/09 stable d/c SNF f/u pcp week and cardiology 2 weeks stable d/c>35mins Lukas Mera MD, PhD.
--- NOTE | 2018-11-08 07:20 | NUR ---
report given and walking rounds to Justice ZHENG, patient in bed, sitter at bedside
[2018-11-08] MEDS: INSULIN LISPRO 100 UNIT/1 ML 3ML VIAL SQ SCH ×3 (07:30→17:11)
[2018-11-08 08:00] VITALS: BP 115/58
[2018-11-08] MEDS: MEMANTINE 10 MG TAB PO SCH (09:10)
[2018-11-08] MEDS: FERROUS SULFATE 325 MG TAB PO SCH ×2 (09:10→17:06)
[2018-11-08] MEDS: SODIUM BICARBONATE 650 MG TAB PO SCH ×2 (09:10→17:06)
[2018-11-08] MEDS: DIVALPROEX SODIUM 125 MG TABDR...ER PO SCH (09:10)
[2018-11-08] MEDS: NIFEDIPINE CR 30 MG TAB PO SCH (09:10)
[2018-11-08] MEDS: DOCUSATE SODIUM 100 MG CAP PO SCH (09:10)
[2018-11-08] MEDS: BALSAM PERU/CASTOR OIL 60 GM OINT...G. TP SCH (09:14)
[2018-11-08 09:29] VITALS: BP 115/58
--- NOTE | 2018-11-08 11:35 | NUR ---
[facility] DOES NOT HAVE A MALE BED. CALLED DAUGHTER AND SHE GAVE PERMISSION FOR [facility], LET REP KNOW TO COME INSTITUTION[facility] COORDINATOR CLINICALS.
[2018-11-08 12:00] VITALS: BP 157/70
--- NOTE | 2018-11-08 13:52 | Progress Note ---
DATE: 11/08/2018 Cardiology Progress Note SUBJECTIVE: The patient is seen in the room. The patient is awake, slightly confused. He is a known patient with following problem: 1. The patient was admitted with shortness of breath and patient found to have his generator end of life. I changed the generator of Medtronic incorporation a changed at this time to [employer] generator two days ago. The patient at this time is pacing and sensing normally. 2. Anemia. 3. Chronic kidney disease. 4. Hypertension. 5. 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 The patient also has bilateral below-knee amputation. 6. The patient has some slight confusion. Positive mild dementia. The patient had a urinary tract infection treated with antibiotic. At this time, the patient is doing well cardiac-lauren. The patient to follow by primary physician and other specialists. I will also continue to follow the patient on p.r.n. basis. If any cardiac problems arise, please call me back up. MD CIRA Dominguez/BELL /[id number]
[2018-11-08 16:00] VITALS: BP 112/52
--- NOTE | 2018-11-08 16:58 | Progress Note ---
DATE: 11/08/2018 SUBJECTIVE: The patient was transferred out of the Intensive Care Unit. He still has some confusion, but no new issues. PHYSICAL EXAMINATION: VITAL SIGNS: Stable. Saturation is 98% on room air. HEENT: Shows no facial swelling or erythema. CARDIAC: Reveals regular rate and rhythm with normal S1 and S2. There are no murmurs or rubs heard. LUNGS: Auscultation of lungs reveals clear breath sounds bilaterally with a prolonged expiratory phase. ABDOMEN: Soft, nontender. There is no rebound or guarding. EXTREMITIES: Show no leg edema or calf tenderness. There is no cyanosis or clubbing. IMPRESSION: 1. Metabolic encephalopathy. 2. Anemia secondary to chronic blood loss. 3. Chronic kidney disease stage 3. 4. Urinary tract infection with Pseudomonas Enterococcus secondary to sepsis. 5. Hypertension. 6. Bradycardia. PLAN: 1. The patient will continue oxygen as needed. 2. Complete antibiotics. 3. Physical therapy. 4. Disposition. Fernie Fernandez MD [facility]/BELL /[id number]
--- NOTE | 2018-11-08 17:02 | NUR ---
[facility], AT [phone], GAVE REPORT TO CHANTALE FOR PATIENT TO BE RECEIVED TO ROOM 28B.
[2018-11-08] MEDS: HYDROCODONE/APAP 10MG-325MG TAB PO PRN (17:24)
--- NOTE | 2018-11-08 20:25 | NUR ---
EMS HERE TO HORSE TRAINER PATIENT. VITAL SIGN STABLE AT THIS TIME
--- NOTE | 2018-11-09 04:45 | Progress Note ---
DATE: 11/08/2018 SUBJECTIVE: Mr. Carvajal is doing better. There is no new complaint. REVIEW OF SYSTEMS: Noting new. PHYSICAL EXAMINATION: GENERAL: He is currently alert, oriented, does not seem to be in acute distress. VITAL SIGNS: Stable. Currently afebrile. HEENT: Not icteric. NECK: Supple. CHEST: Clear. HEART: S1, S2. ABDOMEN: Soft. IMPRESSION: 1. Urinary tract infection with Pseudomonas aeruginosa to finish meropenem 500 daily for 14 days, seven more days, could be discharged to skilled care facility. 2. Debility. 3. We will follow. MD GONZÁLEZ [facility]/BELL /[id number]
== END 2018-11-08 20:28 | DRG 853 ==
LOC: ER 11:45 → ERHOLD 14:17 → MED/SURG3 15:15 → ICU 10-28 06:41 → MED/SURG2 11-07 10:38
PROVIDERS: ADMIT Internal Medicine; ATTEND Internal Medicine
PROC: 0JPT0PZ Removal of Cardiac Rhythm Related Device from Trunk Subcutaneous Tissue and Fascia, Open Approach (ICD-10-PCS; principal; 2018-11-06)
PROC: 0JH606Z Insertion of Pacemaker, Dual Chamber into Chest Subcutaneous Tissue and Fascia, Open Approach (ICD-10-PCS; 2018-11-06)
DX: A41.9 Sepsis, unspecified organism (principal); J18.9 Pneumonia, unspecified organism; G93.41 Metabolic encephalopathy; J69.0 Pneumonitis due to inhalation of food and vomit; L03.311 Cellulitis of abdominal wall; B37.49 Other urogenital candidiasis; F03.91 Unspecified dementia, unspecified severity, with behavioral disturbance; T82.111A Breakdown (mechanical) of cardiac pulse generator (battery), initial encounter; D64.9 Anemia, unspecified; N18.3 Chronic kidney disease, stage 3 (moderate); Z85.46 Personal history of malignant neoplasm of prostate; Z85.51 Personal history of malignant neoplasm of bladder; Z89.512 Acquired absence of left leg below knee; Z89.511 Acquired absence of right leg below knee; E11.51 Type 2 diabetes mellitus with diabetic peripheral angiopathy without gangrene; Z79.4 Long term (current) use of insulin; B96.5 Pseudomonas (aeruginosa) (mallei) (pseudomallei) as the cause of diseases classified elsewhere; J44.9 Chronic obstructive pulmonary disease, unspecified; E11.22 Type 2 diabetes mellitus with diabetic chronic kidney disease; Z16.24 Resistance to multiple antibiotics; R62.7 Adult failure to thrive; Z93.6 Other artificial openings of urinary tract status; Y95 Nosocomial condition; D50.0 Iron deficiency anemia secondary to blood loss (chronic); I25.10 Atherosclerotic heart disease of native coronary artery without angina pectoris; R00.1 Bradycardia, unspecified; I44.1 Atrioventricular block, second degree; I49.5 Sick sinus syndrome; I13.10 Hypertensive heart and chronic kidney disease without heart failure, with stage 1 through stage 4 chronic kidney disease, or unspecified chronic kidney disease
CPT/HCPCS: 33228; 36415; 70450; 71045; 72125; 74176; 74230; 80048; 80053; 81001; 82140; 82550; 82553; 82948; 83605; 83735; 84443; 84484; 85025; 85610; 85730; 87040; 87086; 87186; 93005; 93306; 96360; 96372; 99284; C1785; J0690; J1630; J1650; J2001; J2020; J2250; J2270; J2370; J2405; J2543; J3010; J3370; J3486; J7030; J7040; J7050

== ENCOUNTER 2018-11-16 12:15 | Inpatient (IN) | payer MEDICARE ==
[~2018-11-16] VITALS: Ht 152.4 cm; Wt 65.5 kg
--- NOTE | 2018-11-16 02:00 | NUR ---
patient brought from [facility]. Patient welcomed and offered a bed, patient complained of pain and received morphine, patient also complained that he cant sleep, he could not received Seroquel because he has already received it.
--- OUTSIDE RECORDS SUMMARY | 2018-11-16 12:20 | XMS REPORT | Continuity of Care Document ---
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 12/25/2013 [facility] SEPSIS, UTI, PNA, HYPERKALEMIA Active 12/25/2013 [facility] ABNORMAL LABS Active 12/07/2013 [facility] 723.4=ACUTE CERVICAL RADICULOPATHY Active 12/05/[address] [facility] [address] SENT Active 11/12/2013 [facility] SYMPTOMATIC ANEMIA, GI BLEED Active 11/12/2013 [facility] 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 10/03/2013 [facility] UTI,RENAL INSUFFICIENCY,URIMARY RETENTIO Active 06/11/2012 [facility] URINARY SYMPTOMS Active 06/11/2012 [facility] Heart disease Active 04/19/2010 Problem 08/23/2016 [facility] Poor peripheral circulation Active 04/19/2010 Problem 08/23/2016 [facility] Heart disease Resolved 04/19/2010 Problem 06/16/2012 [facility] Poor peripheral circulation Resolved 04/19/2010 Problem 06/16/2012 [facility] TIA Active 04/19/2008 Problem 08/23/2016 [facility] TIA Resolved 04/19/2008 Problem 06/16/2012 [facility] Back pain Active 04/19/2005 Problem 08/23/2016 [facility] Back pain Resolved 04/19/2005 Problem 06/16/2012 [facility] Heartburn Active 04/19/2002 Problem 08/23/2016 [facility] Heartburn Resolved 04/19/2002 Problem 06/16/2012 [facility] CA - Cancer of prostate Active 04/19/1998 Problem 08/23/2016 [facility] RF - Renal failure Active 04/19/1998 Problem 08/23/2016 [facility] UTI - Urinary tract infection Active 04/19/1998 Problem 08/23/2016 [facility] CA - Cancer of prostate Resolved 04/19/1998 Problem 06/16/2012 [facility] RF - Renal failure Resolved 04/19/1998 Problem 06/16/2012 [facility] UTI - Urinary tract infection Resolved 04/19/1998 Problem 06/16/2012 [facility] Hypertension Active 12/18/1990 Problem 08/23/2016 [facility] Hypertension Resolved 12/18/1990 Problem 06/16/2012 [facility] BPH - Benign prostatic hypertrophy Active 04/19/1982 Problem 08/23/2016 [facility] BPH - Benign prostatic hypertrophy Resolved 04/19/1982 Problem 06/16/2012 [facility] Active 04/19/1975 Problem 08/23/2016 [facility] Hyperlipidemia Active 04/19/1975 Problem 08/23/2016 [facility] Cataract Resolved 04/19/1975 Problem 06/16/2012 [facility] Hyperlipidemia Resolved 04/19/1975 Problem 06/16/2012 [facility] Anemia Active 04/19/1972 Problem 08/23/2016 [facility] Diabetes mellitus - adult onset Resolved 04/19/1972 Problem 08/23/2016 [facility] Anemia Resolved 04/19/1972 Problem 06/16/2012 [facility] Diabetes mellitus - adult onset Resolved 04/19/1972 Problem 06/16/2012 [facility] Neck pain Active 04/19/1971 Problem 08/23/2016 [facility] Neck pain Resolved 04/19/1971 Problem 06/16/2012 [facility] Sinusitis Resolved 05/16/1932 Problem 08/23/2016 [facility] Sinusitis Resolved 05/16/1932 Problem 06/16/2012 [facility] Bladder cancer Active Problem 08/23/2016 [facility] Diabetes Active Problem 08/23/2016 [facility] Hypercholesteremia Active Problem 08/23/2016 [facility] URIN TRACT INFECTION NOS Active [facility] TRANS CEREB ISCHEMIA NOS Active [facility] GASTROINTEST HEMORR NOS Active [facility] BRACHIAL NEURITIS NOS Active [facility] SEPTICEMIA NOS Active [facility] SHORTNESS OF BREATH Active [facility] Medications Medication Details Route Status Patient Instructions Ordering Provider Order Date Source Fentanyl 50 microgram, Route: IV, Q2H, Dosing Weight 80.909, kg, PRN Pain Score 4-6, Start date: 08/20/16 9:29:00 CDT, Stop date: 09/19/16 9:28:00 CDT Inactive 08/20/2016 [facility] Nitroglycerin 0.4 mg, Route: SL, Drug form: TAB, Q5Min, Dosing Weight 80.909, kg, PRN Chest Pain, Start date: 08/20/16 9:13:00 CDT, Duration: 3 doses or times, Stop date: Limited # of times Inactive 08/20/2016 [facility] Sodium Chloride 0.154 MEQ/ML Injectable Solution 750 mL, Rate: 75 ml/hr, Infuse over: 10 hr, Route: IV, Dosing Weight 80.909 kg, Total Volume: 750, Start date: 08/20/16 9:13:00 CDT, Duration: 10 hr, Stop date: 08/20/16 19:12:00 CDT Inactive 08/20/2016 [facility] Morphine 4 mg, 1 mL, Route: IVP, Drug form: SOLN, Q2H, Dosing Weight 80.909, kg, PRN Other -See Comment, Start date: 08/20/16 8:22:00 CDT, Duration: 30 day, Stop date: 09/19/16 8:21:00 CDTNotes: (Same as:MORPhine Sulfate) Inactive 08/20/2016 [facility] ferrous fumarate 325 mg oral tablet 325 mg=1 tab, PO, BID, with meals, 0 Refill(s) Active 08/20/2016 [facility] multivitamin 1 tab, PO, Daily, 0 Refill(s) Active 08/20/2016 [facility] atorvastatin 10 mg oral tablet 10 mg=1 tab, PO, Bedtime, # 30 tab, 0 Refill(s) Active 08/20/2016 [facility] Vancomycin 1 gm, IVP, Q48H, 0 Refill(s) Active 08/20/2016 [facility] Insulin, Aspart, Human SUB-Q, TID-Before Meals, 0 Refill(s) Active 08/20/2016 [facility] Hydromorphone 0.5 mg, IVP, Q3H, prn, 0 Refill(s) Active 08/20/2016 [facility] cefepime 1 g injection 1 gm, IV, Q8H, 0 Refill(s) Active 08/20/2016 [facility] Docusate Sodium 100 MG Oral Capsule 100 mg=1 cap, PO, Daily, PRN Constipation, # 20 cap, 0 Refill(s) Active 08/20/2016 [facility] Divalproex Sodium 125 MG Enteric Coated Tablet 125 mg=1 tab, PO, Q12H, 0 Refill(s) Active 08/20/2016 [facility] metoprolol tartrate 50 mg oral tablet 50 mg=1 tab, PO, BID, # 180 tab, 0 Refill(s) Active 08/20/2016 [facility] quetiapine 25 MG Oral Tablet [Seroquel] 25 mg=1 tab, PO, Q8H, prn, 0 Refill(s) Active 08/20/2016 [facility] Magnesium Sulfate 2 gm, IV, ONCE, 0 Refill(s) Active 08/20/2016 [facility] 0.3 ML Enoxaparin sodium 100 MG/ML Prefilled Syringe [Lovenox] 30 mg, SUB-Q, Daily, 0 Refill(s) Active 08/20/2016 [facility] 24 HR Nifedipine 30 MG Extended Release Tablet [Nifedical] 30 mg=1 tab, PO, Daily, # 30 tab, 0 Refill(s) Active 08/20/2016 [facility] memantine 5 mg oral tablet 5 mg=1 tab, PO, Daily, # 30 tab, 0 Refill(s) Active 08/20/2016 [facility] Acetaminophen 325 MG / Hydrocodone Bitartrate 5 MG Oral Tablet 1 tab, PO, Q4H, PRN Pain, # 30 tab, 0 Refill(s) Active 08/20/2016 [facility] Senna 8.6 mg oral tablet 8.6 mg=1 tab, PO, Daily, 0 Refill(s) Active 08/20/2016 [facility] Albuterol 0.833 MG/ML / Ipratropium Buhl 0.167 MG/ML Inhalant Solution 3 mL, NEB, Q4H, prn, 0 Refill(s) Active 08/20/2016 [facility] pantoprazole 40 mg oral enteric coated tablet See Instructions, 40mg IVP Daily, 0 Refill(s) Inactive 08/20/2016 [facility] dexamethasone + Sodium Chloride 0.9% IV 50 mL 10 mg, 2.5 mL, Route: IVPB, Drug form: INJ, ONCALL, Start date: 03/13/14 9:00:00, Duration: 12 hr, Stop date: 03/13/14 20:59:00Notes: Concentration: 4mg/ml PROTECT FROM LIGHT No Longer Active 03/13/2014 [facility] DexFerrum + Sodium Chloride 0.9% IV 500 mL 800 mg, 16 mL, Route: IVPB, Drug form: INJ, ONCALL, Start date: 03/13/14 9:00:00, Duration: 12 hr, Stop date: 03/13/14 20:59:00Notes: (Same as:DexFerrum) Non-Formulary pt already received test dose at prior appointment PROTECT FROM LIGHT No Longer Active 03/13/2014 [facility] Sodium Chloride 0.9% IV IV, 30 ml/hr, ONCALL, Start date: 03/13/14 9:00:00, Duration: 12, 250 ml No Longer Active 03/13/2014 [facility] Pepcid 20 mg, 2 mL, Route: IVP, Drug form: INJ, ONCALL, Start date: 03/13/14 9:00:00, Duration: 12 hr, Stop date: 03/13/14 20:59:00Notes: (Same as: Pepcid) Can be dilute in 5-10cc NS IVP: Slow IV push over at least 2 minutes. No Longer Active 03/13/2014 [facility] Benadryl 25 mg, 0.5 mL, Route: IVP, Drug form: INJ, ONCALL, Start date: 03/13/14 9:00:00, Duration: 12 hr, Stop date: 03/13/14 20:59:00Notes: (Same as: Benadryl) No Longer Active 03/13/2014 [facility] Benadryl 25 mg, 0.5 mL, Route: IVP, Drug form: INJ, ONCALL, Start date: 03/07/14 8:30:00, Duration: 1 day, Stop date: 03/08/14 8:29:00Notes: (Same as: Benadryl) Inactive 03/07/2014 [facility] DexFerrum + Sodium Chloride 0.9% IV 500 mL 775 mg, 15.5 mL, Route: IVPB, Drug form: INJ, ONCALL, Start date: 03/07/14 8:30:00, Duration: 1 day, Stop date: 03/08/14 8:29:00Notes: (Same as:DexFerrum) Non- Formulary Inactive 03/07/2014 [facility] Sodium Chloride 0.9% IV IV, 30 ml/hr, ONCALL, Start date: 03/07/14 8:30:00, Duration: 1, 250 ml Inactive 03/07/2014 [facility] Pepcid 20 mg, 2 mL, Route: IVP, Drug form: INJ, ONCALL, Start date: 03/07/14 8:30:00, Duration: 1 day, Stop date: 03/08/14 8:29:00Notes: (Same as: Pepcid) Can be dilute in 5-10cc NS IVP: Slow IV push over at least 2 minutes. Inactive 03/07/2014 [facility] dexamethasone + Sodium Chloride 0.9% IV 50 mL 10 mg, 2.5 mL, Route: IVPB, Drug form: INJ, ONCALL, Start date: 03/07/14 8:30:00, Duration: 1 day, Stop date: 03/08/14 8:29:00Notes: Concentration: 4mg/ml Inactive 03/07/2014 [facility] DexFerrum + Sodium Chloride 0.9% IV 50 mL 25 mg, 0.5 mL, Route: IVPB, Drug form: INJ, ONCALL, Start date: 03/07/14 8:30:00, Duration: 1 day, Stop date: 03/08/14 8:29:00Notes: (Same as:DexFerrum) Non-Formulary Inactive 03/07/2014 [facility] Aspirin 81 MG Enteric Coated Tablet 81 mg=1 tab, PO, Daily, # 100 tab, 0 Refill(s) Active 12/28/2013 [facility] Amoxicillin 875 MG / Clavulanate 125 MG Oral Tablet [Augmentin 875-mg] 875 mg=1 tab, PO, Q12H, # 14 tab, 0 Refill(s) Active 12/28/2013 [facility] Rocephin 1 gm, Route: IM, Drug form: PDR/INJ, Q12H, Dosing Weight 81.2, kg, Start date: 12/27/13 21:00:00, Duration: 30 day, Stop date: 01/26/14 9:00:00Notes: (Same As: Rocephin). No Longer Active 12/28/2013 [facility] Enoxaparin 40 mg, 0.4 mL, Route: SUB-Q, Drug form: INJ, [id number], Dosing Weight 83.636, kg, Start date: 12/27/13 10:00:00, Duration: 30 day, Stop date: 01/25/14 10:00:00Notes: (Same as: Lovenox) No Longer Active 12/27/2013 [facility] Warfarin 5 mg, 1 tab, Route: PO, Drug form: TAB, QAM, Dosing Weight 81.2, kg, Start date: 12/27/13 9:00:00, Duration: 30 day, Stop date: 01/25/14 9:00:00Notes: Nurse to ensure documentation of patient education per anticoagulation policy. Avoid large intake of vitamin-K containing foods diet. (Same As: Coumadin) Inactive 12/27/2013 [facility] Omeprazole 40 mg, Route: PO, Drug form: DRC, Daily, Dosing Weight 81.2, kg, Start date: 12/27/13 9:00:00, Duration: 30 day, Stop date: 01/25/14 9:00:00 No Longer Active 12/27/2013 [facility] metoprolol tartrate 25 mg, 1 tab, Route: PO, Drug form: TAB, QAM, Dosing Weight 81.2, kg, Start date: 12/27/13 9:00:00, Duration: 30 day, Stop date: 01/25/14 9:00:00Notes: (Same as: Lopressor) No Longer Active 12/27/2013 [facility] Lisinopril 10 mg, Route: PO, Drug form: TAB, QAM, Dosing Weight 81.2, kg, Start date: 12/27/13 9:00:00, Duration: 30 day, Stop date: 01/25/14 9:00:00 No Longer Active 12/27/2013 [facility] Folic Acid 1 mg, 1 tab, Route: PO, Drug form: TAB, QAM, Dosing Weight 81.2, kg, Start date: 12/27/13 9:00:00, Duration: 30 day, Stop date: 01/25/14 9:00:00Notes: (Same as: Folvite) No Longer Active 12/27/2013 [facility] Celexa 40 mg, 2 tab, Route: PO, Drug form: TAB, Daily, Dosing Weight 81.2, kg, Start date: 12/27/13 9:00:00, Duration: 30 day, Stop date: 01/25/14 9:00:00Notes: (Same As: CeleXA) No Longer Active 12/27/2013 [facility] Aspirin 325 MG Enteric Coated Tablet 325 mg, 1 tab, Route: PO, Drug form: ECTAB, Daily, Dosing Weight 81.2, kg, Start date: 12/27/13 9:00:00, Duration: 30 day, Stop date: 01/25/14 9:00:00 No Longer Active 12/27/2013 [facility] Aspirin 81 MG Enteric Coated Tablet 81 mg, 1 tab, Route: PO, Drug form: ECTAB, Daily, Dosing Weight 81.2, kg, Start date: 12/27/13 9:00:00, Duration: 30 day, Stop date: 01/25/14 9:00:00Notes: Do not crush or chew. (Same As: Ecotrin) No Longer Active 12/27/2013 [facility] clopidogrel 75 mg, 1 tab, Route: PO, Drug form: TAB, Bedtime, Dosing Weight 81.2, kg, Start date: 12/26/13 21:00:00, Duration: 30 day, Stop date: 01/24/14 21:00:00Notes: (Same As: Plavix) No Longer Active 12/27/2013 [facility] Protonix 40 mg, 1 tab, Route: PO, Drug form: ECTAB, Before Dinner, Start date: 12/26/13 16:30:00, Duration: 30 day, Stop date: 01/24/14 16:30:00Notes: Tablet should not be chewed or crushed. (Same as: Protonix) No Longer Active 12/26/2013 [facility] Lyrica 150 mg, 2 cap, Route: PO, Drug form: CAP, TID, Dosing Weight 81.2, kg, Start date: 12/26/13 13:00:00, Duration: 30 day, Stop date: 01/25/14 9:00:00Notes: (Same as: Lyrica) No Longer Active 12/26/2013 [facility] Enoxaparin 80 mg, 0.8 mL, Route: SUB-Q, Drug form: INJ, [id number], Dosing Weight 83.636, kg, Start date: 12/26/13 10:00:00, Duration: 30 day, Stop date: 01/24/14 10:00:00Notes: Nurse to ensure documentation of patient education per anticoagulation policy. (Same as: Lovenox) No Longer Active 12/26/2013 [facility] Lasix 20 mg, 2 mL, Route: IVP, Drug form: INJ, ONCE, Dosing Weight 81.2, kg, Priority: STAT, Start date: 12/26/13 9:36:00, Stop date: 12/26/13 9:36:00Notes: (Same as: Lasix) Inactive 12/26/2013 [facility] Insulin, Aspart, Human 6 unit, 0.06 mL, [...] days from Date No Longer Active 12/26/2013 [facility] Dextrose 50% Syringe 25 gm, 50 mL, Route: IVP, Drug Form: INJ, Dosing Weight 81.2, kg, PRN, PRN Blood Glucose Results, Start date: 12/26/13 9:35:00, Duration: 30 day, Stop date: 01/25/14 9:34:00 No Longer Active 12/26/2013 [facility] Glucagon 1 mg, Route: IM, Drug form: PDR/INJ, PRN, Dosing Weight 81.2, kg, PRN Blood Glucose Results, Start date: 12/26/13 9:35:00, Duration: 30 day, Stop date: 01/25/14 9:34:00 No Longer Active 12/26/2013 [facility] 1/2 NS 1,000 mL 1,000 mL, Rate: 75 ml/hr, Infuse over: 13.3 hr, Route: IV, Dosing Weight 81.2 kg, Total Volume: 1,000, Start date: 12/26/13 9:34:00, Duration: 1 day, Stop date: 12/27/13 9:33:00 No Longer Active 12/26/2013 [facility] D5W 1/2NS 1,000 mL 1,000 mL, Rate: 75 ml/hr, Infuse over: 13.3 hr, Route: IV, Dosing Weight 81.2 kg, Total Volume: 1,000, Start date: 12/26/13 9:24:00, Duration: 30 day, Stop date: 01/25/14 9:23:00 Inactive 12/26/2013 [facility] Ambien 10 mg, 1 tab, Route: PO, Drug form: TAB, Bedtime, Dosing Weight 81.2, kg, PRN as needed for sleep, Start date: 12/26/13 9:23:00, Duration: 30 day, Stop date: 01/25/14 9:22:00Notes: (Same As: Ambien) No Longer Active 12/26/2013 [facility] Enoxaparin 30 mg, 0.3 mL, Route: SUB-Q, Drug form: INJ, [id number], Dosing Weight 83.636, kg, Start date: 12/25/13 19:00:00, Duration: 30 day, Stop date: 01/23/14 19:00:00Notes: (Same as: Lovenox) No Longer Active 12/26/2013 [facility] warfarin 5 mg oral tablet 5 mg=1 tab, PO, QAM No Longer Active 12/26/2013 [facility] omeprazole 40 mg oral delayed release capsule 40 mg=1 cap, PO, Daily Active 12/25/2013 [facility] clopidogrel 75 mg oral tablet 75 mg=1 tab, PO, Bedtime Active 12/25/2013 [facility] Aspirin 325 MG Enteric Coated Tablet 325 mg=1 tab, PO, Daily No Longer Active 12/25/2013 [facility] NS 1,000 mL 1,000 mL, Rate: 100 ml/hr, Infuse over: 10 hr, Route: IV, Dosing Weight 83.636 kg, Total Volume: 1,000, Start date: 12/25/13 18:53:00, Duration: 30 day, Stop date: 01/24/14 18:52:00 No Longer Active 12/25/2013 [facility] Kayexalate 60 gm, 240 mL, Route: PO, Drug form: SUSP, ONCE, Dosing Weight 83.636, kg, Priority: STAT, Start date: 12/25/13 18:40:00, Stop date: 12/25/13 18:40:00Notes: (sodium polystyrene sulfonate 15 gm/60 ml MINO) Shake well before use. (Same as: Kayexalate, SPS) Inactive 12/25/2013 [facility] Azithromycin 500 mg, 250 mL, Route: IVPB, Drug form: PDR/INJ, [id number], Dosing Weight 83.636, kg, Priority: STAT, Start date: 12/25/13 18:38:00, Duration: 30 day, Stop date: 01/23/14 17:00:00Notes: Same as: Zithro max No Longer Active 12/25/2013 [facility] cefepime 1 gm, Route: IVPB, Drug form: INJ, [id number], Dosing Weight 83.636, kg, Priority: STAT, Start date: 12/25/13 18:38:00, Duration: 30 day, Stop date: 01/24/14 6:00:00Notes: (Same As: Maxipime) No Longer Active 12/25/2013 [facility] Acetaminophen 650 mg, 20.3 mL, Route: PO, Drug form: LIQ, Q4H, Dosing Weight 83.636, kg, PRN Pain 1-3/Temp > 100.4 F, Start date: 12/25/13 18:38:00, Duration: 30 day, Stop date: 01/24/14 18:37:00Notes: Max sanya [id number]/day (4 gm/day). (Same as: Tylenol) No Longer Active 12/25/2013 [facility] Acetaminophen 325 MG / Hydrocodone Bitartrate 5 MG Oral Tablet 1 tab, Route: PO, Drug Form: TAB, Dosing Weight 83.636, kg, Q4H, PRN Pain Score 1-3, Start date: 12/25/13 18:38:00, Duration: 30 day, Stop date: 01/24/14 18:37:00Notes: (Same as: [place] 325/5) Do not exceed 4gm/day of acetaminophen. No Longer Active 12/25/2013 [facility] Ondansetron 4 mg, 2 mL, Route: IVP, Drug form: INJ, Q8H, Dosing Weight 83.636, kg, PRN Nausea & Vomiting, Start date: 12/25/13 18:38:00, Duration: 30 day, Stop date: 01/24/14 18:37:00Notes: (Same as: Zofran) No Longer Active 12/25/2013 [facility] Morphine 2 mg, 1 mL, Route: IVP, Drug form: INJ, Q3H, Dosing Weight 83.636, kg, PRN Pain Score 4-6, Start date: 12/25/13 18:38:00, Duration: 30 day, Stop date: 01/24/14 18:37:00Notes: (Same as:MORPhine Sulfate) No Longer Active 12/25/2013 [facility] Sodium Chloride 0.154 MEQ/ML Injectable Solution 1,000 mL, 1,000 ml/hr, Infuse Over: 1 hr, Route: IV, ONCE, Priority: STAT, Dosing Weight 83.636 kg, Start date: 12/25/13 18:11:00, Duration: 1 doses or times, Stop date: 12/25/13 18:11:00 Inactive 12/25/2013 [facility] Sodium Bicarbonate 1 MEQ/ML Injectable Solution 50 ml, Route: IVP, Dosing Weight 83.636, kg, ONCE, Start date: 12/25/13 18:09:00, Stop date: 12/25/13 18:09:00 Inactive 12/25/2013 [facility] Calcium Gluconate 2,000 mg, 20 mL, Route: IVPB, ONCE, Dosing Weight 83.636, kg, Start date: 12/25/13 18:05:00, Stop date: 12/25/13 18:05:00 Inactive 12/25/2013 [facility] Dextrose 50% Syringe 25 gm, Route: IVP, Dosing Weight 83.636, kg, ONCE, Start date: 12/25/13 18:05:00, Stop date: 12/25/13 18:05:00 Inactive 12/25/2013 [facility] Insulin, Regular, Pork 5 unit, Route: IV, ONCE, Dosing Weight 83.636, kg, Start date: 12/25/13 18:04:00, Stop date: 12/25/13 18:04:00 Inactive 12/25/2013 [facility] Tylenol 975 mg, Route: PO, Drug form: TAB, ONCE, Dosing Weight 83.636, kg, Priority: STAT, Start date: 12/25/13 15:41:00, Stop date: 12/25/13 15:41:00 Inactive 12/25/2013 [facility] Azithromycin 500 mg, Route: IVPB, ONCE, Dosing Weight 83.636, kg, Priority: STAT, Start date: 12/25/13 15:40:00, Stop date: 12/25/13 15:40:00 Inactive 12/25/2013 [facility] Rocephin 1 gm, Route: IVPB, Drug form: PDR/INJ, ONCE, Dosing Weight 83.636, kg, Priority: STAT, Start date: 12/25/13 15:40:00, Stop date: 12/25/13 15:40:00 Inactive 12/25/2013 [facility] Sodium Chloride 0.9% IV IV, 30 ml/hr, ONCALL, Start date: 11/17/13 21:00:00, Duration: 1, 250 ml No Longer Active 11/18/2013 [facility] Sodium Chloride 0.9% IV IV, 30 ml/hr, ONCALL, Start date: 11/17/13 19:00:00, Duration: 1, 250 ml Inactive 11/18/2013 [facility] Protonix 40 mg, 1 tab, Route: PO, Drug form: ECTAB, Daily, Start date: 11/16/13 9:00:00, Duration: 30 day, Stop date: 12/15/13 9:00:00Notes: Tablet should not be chewed or crushed. (Same as: Protonix) No Longer Active 11/16/2013 [facility] Plavix 75 mg, 1 tab, Route: PO, Drug form: TAB, QPM, Dosing Weight 78.636, kg, Start date: 11/14/13 17:00:00, Duration: 30 day, Stop date: 12/13/13 17:00:00Notes: (Same As: Plavix) No Longer Active 11/14/2013 [facility] Sodium Chloride 0.154 MEQ/ML Injectable Solution 1,000 mL, Rate: 25 ml/hr, Infuse over: 40 hr, Route: IV, Dosing Weight 78.636 kg, Total Volume: 1,000, Start date: 11/14/13 15:27:00, Duration: 30 day, Stop date: 12/14/13 15:26:00 Inactive 11/14/2013 [facility] Omeprazole 20 mg, Route: PO, Drug form: ECTAB, QAM, Dosing Weight 78.636, kg, Start date: 11/14/13 9:00:00, Duration: 30 day, Stop date: 12/13/13 9:00:00 No Longer Active 11/14/2013 [facility] metoprolol tartrate 25 mg, 1 tab, Route: PO, Drug form: TAB, QAM, Dosing Weight 78.636, kg, Start date: 11/14/13 9:00:00, Duration: 30 day, Stop date: 12/13/13 9:00:00Notes: (Same as: Lopressor) No Longer Active 11/14/2013 [facility] Folic Acid 1 mg, 1 tab, Route: PO, Drug form: TAB, QAM, Dosing Weight 78.636, kg, Start date: 11/14/13 9:00:00, Duration: 30 day, Stop date: 12/13/13 9:00:00Notes: (Same as: Folvite) No Longer Active 11/14/2013 [facility] Celexa 40 mg, 2 tab, Route: PO, Drug form: TAB, Daily, Dosing Weight 78.636, kg, Start date: 11/14/13 9:00:00, Duration: 30 day, Stop date: 12/13/13 9:00:00Notes: (Same As: CeleXA) No Longer Active 11/14/2013 [facility] benzocaine-menthol topical 1 lozenge, Route: MUCOUS MEM, Drug Form: DAWN, Q2H, PRN Sore Throat, Start date: 11/13/13 20:41:00, Stop date: 12/13/13 20:40:00Notes: Same as: Cepacol No Longer Active 11/14/2013 [facility] Cepacol Lozenge 1 lozenge, Route: MUCOUS MEM, Q2H, Drug form: DAWN, PRN Sore Throat, Start date: 11/13/13 20:27:00, Duration: 30 day, Stop date: 12/13/13 20:26:00 Inactive 11/14/2013 [facility] Lisinopril 10 mg, 1 tab, Route: PO, Drug form: TAB, QAM, Dosing Weight 78.636, kg, Start date: 11/13/13 19:00:00, Duration: 30 day, Stop date: 12/13/13 9:00:00Notes: (Same as: Prinivil, Zestril) No Longer Active 11/14/2013 [facility] Ascorbic Acid / POLYETHYLENE GLYCOL 3350 / Potassium Chloride / Sodium Ascorbate / Sodium Chloride / sodium sulfate 4,000 mL, Route: PO, Drug Form: PDR/REC, Dosing Weight 78.636, kg, ONCE, Start date: 11/13/13 17:15:00, Duration: 1 doses or times, Stop date: 11/13/13 17:15:00Notes: (polyethylene glycol electrolyte solution 4 Liter bottle) (Same as: Golytely, Colyte) Inactive 11/13/2013 [facility] Lyrica 150 mg, 2 cap, Route: PO, Drug form: CAP, TID, Dosing Weight 78.636, kg, Start date: 11/13/13 17:00:00, Duration: 30 day, Stop date: 12/13/13 13:00:00Notes: (Same as: Lyrica) No Longer Active 11/13/2013 [facility] Metformin hydrochloride 1000 MG Oral Tablet 1,000 mg, 2 tab, Route: PO, Drug form: TAB, BID, Dosing Weight 78.636, kg, Start date: 11/13/13 17:00:00, Duration: 30 day, Stop date: 12/13/13 9:00:00Notes: (Same as: Glucophage) Take with meal No Longer Active 11/13/2013 [facility] Sodium Chloride 0.154 MEQ/ML Injectable Solution 1,000 mL, Rate: 25 ml/hr, Infuse over: 40 hr, Route: IV, Dosing Weight 78.636 kg, Total Volume: 1,000, Start date: 11/13/13 16:12:00, Duration: 30 day, Stop date: 12/13/13 16:11:00 Inactive 11/13/2013 [facility] Restoril 15 mg, 1 cap, Route: PO, Drug form: CAP, Bedtime, PRN Sleep, Start date: 11/13/13 16:07:00, Duration: 30 day, Stop date: 12/13/13 16:06:00Notes: (Same As: Restoril) No Longer Active 11/13/2013 [facility] Furosemide 40 MG Oral Tablet [Lasix] 40 mg, 1 tab, Route: PO, Drug form: TAB, Q4D, Dosing Weight 78.636, kg, Start date: 11/13/13 16:00:00, Duration: 30 day, Stop date: 12/11/13 9:00:00Notes: (Same as: Lasix) May cause GI upset. Give with food or milk. No Longer Active 11/13/2013 [facility] Ambien 10 mg, Route: PO, Drug form: TAB, Bedtime, Dosing Weight 78.636, kg, PRN as needed for sleep, Start date: 11/13/13 15:55:00, Duration: 30 day, Stop date: 12/13/13 15:54:00 Inactive 11/13/2013 [facility] Acetaminophen 325 MG / Hydrocodone Bitartrate 10 MG Oral Tablet [[place] 10/325] 1 tab, Route: PO, Drug Form: TAB, Dosing Weight 78.636, kg, Bedtime, PRN Pain Score 4-6, Start date: 11/13/13 15:54:00, Duration: 30 day, Stop date: 12/13/13 15:53:00Notes: Do not exceed 4gm/day of acetaminophen. (Same as: [place] 325/10) No Longer Active 11/13/2013 [facility] Aspirin / Calcium Carbonate 325 mg, PO, QPM, 0 Refill(s) No Longer Active 11/13/2013 [facility] Sodium Chloride 0.9% IV IV, 30 ml/hr, PRN, PRN Other -See Comment, Start date: 11/13/13 10:19:00, Duration: 1, 250 ml No Longer Active 11/13/2013 [facility] PHOS-NaK oral powder for reconstitution 1 pkt, Route: PO, Drug Form: PDR/REC, Dosing Weight 78.636, kg, QID, Start date: 11/13/13 9:00:00, Duration: 2 day, Stop date: 11/14/13 21:00:00Notes: (Same as: Neutra- Phos) Each 1.25 gm pkt has 250mg phosphorous. Mix w/2.5oz water and stir. No Longer Active 11/13/2013 [facility] pantoprazole 40 mg, Route: IVP, Drug form: INJ, Daily, Dosing Weight 78.636, kg, Priority: Routine, Start date: 11/13/13 9:00:00, Duration: 30 day, Stop date: 12/12/13 9:00:00Notes: For IV push reconstitute with 10 ml 0.9% sodium chloride and push over 2 minutes. (Same as: Protonix) No Longer Active 11/13/2013 [facility] Magnesium Sulfate 4 gm, 100 mL, Route: IV, Drug form: INJ, ONCE, Dosing Weight 78.636, kg, Priority: Routine, Start date: 11/13/13 7:03:00, Stop date: 11/13/13 7:03:00 Inactive 11/13/2013 [facility] Atropine 0.5 mg, 5 mL, Route: IVP, Drug form: INJ, PRN, Dosing Weight 78.636, kg, PRN Bradycardia, Start date: 11/12/13 23:32:00, Duration: 30 day, Stop date: 12/12/13 23:31:00, HR No Longer Active 11/13/2013 [facility] Nitroglycerin 0.4 mg, 1 tab, Route: SL, Drug form: TAB, Q5Min, Dosing Weight 78.636, kg, PRN Chest Pain, Start date: 11/12/13 23:32:00, Duration: 30 day, Stop date: 12/12/13 23:31:00, Chest Pain [id number]: (Same as:Jacquelin bowman, Nitrostat) "Do Not Crush" Sublingual tablet No Longer Active 11/13/2013 [facility] Sodium Chloride 0.154 MEQ/ML Injectable Solution 250 mL, Rate: 30 ml/hr, Infuse over: 8.3 hr, Route: IV, Dosing Weight 78.636 kg, Total Volume: 250, Start date: 11/12/13 22:33:00, Duration: 1 day, Stop date: 11/13/13 22:32:00 No Longer Active 11/13/2013 [facility] Acetaminophen 650 mg, 20.3 mL, Route: PO, Drug form: LIQ, Q4H, Dosing Weight 78.636, kg, PRN Pain 1-3/Temp > 100.4 F, Start date: 11/12/13 22:03:00, Duration: 30 day, Stop date: 12/12/13 22:02:00Notes: Max sanya [id number]/day (4 gm/day). (Same as: Tylenol) No Longer Active 11/13/2013 [facility] Morphine 2 mg, 1 mL, Route: IVP, Drug form: INJ, Q3H, Dosing Weight 78.636, kg, PRN Pain Score 4-6, Start date: 11/12/13 22:03:00, Duration: 30 day, Stop date: 12/12/13 22:02:00Notes: (Same as:MORPhine Sulfate) No Longer Active 11/13/2013 [facility] Docusate 100 mg, 1 cap, Route: PO, Drug form: CAP, BID, Dosing Weight 78.636, kg, PRN Constipation, Start date: 11/12/13 22:03:00, Duration: 30 day, Stop date: 12/12/13 22:02:00Notes: (Same as: Colace) (Do Not Crush) No Longer Active 11/13/2013 [facility] Ondansetron 4 mg, 2 mL, Route: IVP, Drug form: INJ, Q8H, Dosing Weight 78.636, kg, PRN Nausea & Vomiting, Start date: 11/12/13 22:03:00, Duration: 30 day, Stop date: 12/12/13 22:02:00Notes: (Same as: Zofran) No Longer Active 11/13/2013 [facility] Morphine 2 mg, Route: IVP, ONCE, Dosing Weight 78.636, kg, Start date: 11/12/13 21:55:00, Stop date: 11/12/13 21:55:00 Inactive 11/13/2013 [facility] Potassium Chloride 10 MEQ Extended Release Tablet 10 mEq=1 tab, PO, Q4D, # 10 tab, 0 Refill(s) Active 11/13/2013 [facility] warfarin 2 mg oral tablet =7 mg, PO, Q, # 30 tab, 0 Refill(s) Active 11/13/2013 [facility] Furosemide 40 MG Oral Tablet [Lasix] 40 mg=1 tab, PO, Q4D, # 30 tab, 0 Refill(s) Active 11/13/2013 [facility] Metformin hydrochloride 1000 MG Oral Tablet 1,000 mg=1 tab, PO, BID, # 30 tab, 0 Refill(s) Active 11/13/2013 [facility] Aspirin 325 MG Enteric Coated Tablet 325 mg=1 tab, PO, QPM, # 60 tab, 0 Refill(s) No Longer Active 11/13/2013 [facility] warfarin 7.5 mg oral tablet 7.5 mg=1 tab, PO, Q-Tu and Th, # 30 tab, 0 Refill(s) Inactive 11/13/2013 [facility] pregabalin 150 MG Oral Capsule [Lyrica] 150 mg=1 cap, PO, TID, # 90 cap, 0 Refill(s) Active 11/13/2013 [facility] warfarin 5 mg oral tablet 5 mg=1 tab, PO, QAM, # 30 tab, 0 Refill(s) No Longer Active 11/13/2013 [facility] Zolpidem tartrate 10 MG Oral Tablet [Ambien] 10 mg=1 tab, PO, Bedtime, for sleep, 0 Refill(s) Active 11/13/2013 [facility] lisinopril 10 mg oral tablet 10 mg=1 tab, PO, QAM, # 30 tab, 0 Refill(s) Active 11/13/2013 [facility] Acetaminophen 325 MG / Hydrocodone Bitartrate 10 MG Oral Tablet [[place] 10/325] 1 tab, PO, Bedtime, for pain, # 24 tab, 0 Refill(s) Active 11/13/2013 [facility] Folic Acid 1 MG Oral Tablet 1 mg=1 tab, PO, QAM, # 30 tab, 0 Refill(s) Active 11/13/2013 [facility] clopidogrel 75 MG Oral Tablet [Plavix] 75 mg=1 tab, PO, QPM, # 30 tab, 0 Refill(s) No Longer Active 11/13/2013 [facility] Morphine 2 mg, 1 mL, Route: IVP, Drug form: INJ, ONCE, Dosing Weight 78.636, kg, Priority: STAT, Start date: 11/12/13 18:47:00, Stop date: 11/12/13 18:47:00Notes: (Same as:MORPhine Sulfate) Inactive 11/12/2013 [facility] Protonix 40 mg, 1 tab, Route: PO, Drug form: ECTAB, Before Dinner, Start date: 06/12/12 16:30:00, Duration: 30 day, Stop date: 07/11/12 16:30:00 PO No Longer Active [facility] 06/12/2012 [facility] aspirin 81 mg tablet, enteric coated 81 mg, 1 tab, Route: PO, Drug form: ECTAB, Daily, Dosing Weight 83.182, kg, Start date: 06/12/12 9:00:00, Duration: 30 day, Stop date: 07/11/12 9:00:00 PO No Longer Active [facility] 06/12/2012 [facility] Flomax 0.4 mg, 1 cap, Route: PO, Drug form: CAP, Daily, Dosing Weight 83.182, kg, Start date: 06/12/12 9:00:00, Duration: 30 day, Stop date: 07/11/12 9:00:00 PO No Longer Active [facility] 06/12/2012 [facility] Lyrica 75 mg, 1 cap, Route: PO, Drug form: CAP, Daily, Dosing Weight 83.182, kg, Start date: 06/12/12 9:00:00, Duration: 30 day, Stop date: 07/11/12 9:00:00 PO No Longer Active [facility] 06/12/2012 [facility] phenazopyridine 200 mg, 1 tab, Route: PO, Drug form: TAB, BID, Dosing Weight 83.182, kg, Start date: 06/12/12 9:00:00, Duration: 30 day, Stop date: 07/11/12 17:00:00 PO No Longer Active [facility] 06/12/2012 [facility] omeprazole 20 mg, Route: PO, Drug form: ECTAB, Daily, Dosing Weight 83.182, kg, Start date: 06/12/12 9:00:00, Duration: 30 day, Stop date: 07/11/12 9:00:00 PO No Longer Active [facility] 06/12/2012 [facility] metoprolol tartrate 25 mg, 1 tab, Route: PO, Drug form: TAB, BID, Dosing Weight 83.182, kg, Start date: 06/12/12 9:00:00, Duration: 30 day, Stop date: 07/11/12 17:00:00 PO No Longer Active [facility] 06/12/2012 [facility] lisinopril 2.5 mg, 0.5 tab, Route: PO, Drug form: TAB, Daily, Dosing Weight 83.182, kg, Start date: 06/12/12 9:00:00, Duration: 30 day, Stop date: 07/11/12 9:00:00 PO No Longer Active [facility] 06/12/2012 [facility] Celexa 40 mg, 2 tab, Route: PO, Drug form: TAB, Daily, Dosing Weight 83.182, kg, Start date: 06/12/12 9:00:00, Duration: 30 day, Stop date: 07/11/12 9:00:00 PO No Longer Active [facility] 06/12/2012 [facility] enoxaparin 40 mg, 0.4 mL, Route: SUB-Q, Drug form: INJ, [id number], Dosing Weight 83.182, kg, Start date: 06/11/12 20:00:00, Duration: 30 day, Stop date: 07/10/12 20:00:00 SUB-Q No Longer Active [facility] 06/12/2012 [facility] acetaminophen-hydrocodone 325 mg-7.5 mg oral tablet 1 tab, Route: PO, Drug Form: TAB, Dosing Weight 83.182, kg, Q6H, PRN For Pain, Start date: 06/11/12 19:56:00, Duration: 30 day, Stop date: 07/11/12 19:55:00 PO No Longer Active [facility] 06/12/2012 [facility] cefepime + Sodium Chloride 0.9% IV 100 mL 1 gm, Route: IVPB, [id number], Dosing Weight 80.455, kg, Priority: STAT, Start date: 06/11/12 17:20:00, Duration: 30 day, Stop date: 07/10/12 18:00:00 IVPB No Longer Active [facility] 06/11/2012 [facility] Saline Flush 0.9% 5 ml, Route: IVP, Drug Form: INJ, Dosing Weight 80.455, kg, PRN, PRN Line Flush, Start date: 06/11/12 17:20:00, Duration: 30 day, Stop date: 07/11/12 17:19:00 IVP No Longer Active [facility] 06/11/2012 [facility] Sodium Chloride 0.9% IV 1,000 mL 1,000 mL, Rate: 90 ml/hr, Infuse over: 11.1 hr, Route: IV, kg, Total Volume: 1,000, Start date: 06/11/12 17:20:00, Duration: 30 day, Stop date: 07/11/12 17:19:00 IV No Longer Active [facility] 06/11/2012 [facility] ondansetron 4 mg, 2 mL, Route: IVP, Drug form: INJ, Q6H, Dosing Weight 80.455, kg, PRN Nausea & Vomiting, Start date: 06/11/12 17:20:00, Duration: 30 day, Stop date: 07/11/12 17:19:00 IVP No Longer Active [facility] 06/11/2012 [facility] morphine Sulfate 2 mg, 1 mL, Route: IVP, Drug form: INJ, Q3H, Dosing Weight 80.455, kg, PRN Pain Score 4-6, Start date: 06/11/12 17:20:00, Duration: 30 day, Stop date: 07/11/12 17:19:00 IVP No Longer Active [facility] 06/11/2012 [facility] acetaminophen-hydrocodone 325 mg-7.5 mg oral tablet 1 tab, PO, Q6H, PRN, as needed for pain, Substitution Allowed, Maintenance PO Active [facility] 06/11/2012 [facility] phenazopyridine 200 mg oral tablet 200 mg, 1 tab, PO, BID, Substitution Allowed PO Active [facility] 06/11/2012 [facility] aspirin 81 mg tablet, enteric coated 81 mg, 1 tab, PO, Daily, Substitution Allowed PO Active [facility] 06/11/2012 [facility] ciprofloxacin 500 mg oral tablet 500 mg, 1 tab, PO, Q12H, Substitution Allowed PO Active 06/11/2012 [facility] Sodium Chloride 0.9% (Bolus) IV 500 mL, 500 ml/hr, Route: IV, Drug Form: INJ, Dosing Weight 80.455, kg, ONCE, Bolus Dose - infuse over 1 hr, STAT, Start date: 06/11/12 15:59:00, Stop date: 06/11/12 15:59:00 IV No Longer Active [facility] 06/11/2012 [facility] ceftriaxone + Sodium Chloride 0.9% IV 100 mL 1 gm, Route: IVPB, ONCE, Dosing Weight 80.455, kg, Priority: STAT, Start date: 06/11/12 15:59:00, Stop date: 06/11/12 15:59:00 IVPB No Longer Active [facility] 06/11/2012 [facility] Sodium Chloride 0.9% (Bolus) IV 500 mL, Route: IV, Dosing Weight 80.455, kg, ONCE, Bolus at 1,000 ml/hr, STAT, Start date: 06/11/12 14:30:00, Stop date: 06/11/12 14:30:00 IV No Longer Active [facility] 06/11/2012 [facility] Saline Flush 0.9% 5 mL, Route: IVP, Drug Form: INJ, Dosing Weight 80.455, kg, PRN, PRN Line Flush, Start date: 06/11/12 14:30:00, Duration: 24 hr, Stop date: 06/12/12 14:29:00 IVP No Longer Active [facility] 06/11/2012 [facility] tetanus-diphtheria toxoids adult intramuscular suspension 0.5 mL, Route: IM, Drug Form: INJ, Dosing Weight 77.727, kg, ONCE, Start date: 04/19/12 22:06:00, Stop date: 04/19/12 22:06:00 IM No Longer Active [facility] 04/20/2012 [facility] Allergies, Adverse Reactions, Alerts Substance Category Reaction Severity Reaction type Status Date Reported Comments Source Adhesive Tape Assertion Drug allergy Active [facility] Neurontin Assertion NH^Mild Drug allergy Active [facility] Ambien Assertion Drug allergy Active [facility] Ativan Assertion Drug allergy Active [facility] Immunizations Immunization Date Given Site Status Last Updated Comments Source tetanus-diphtheria toxoids 04/20/2012 Left Deltoid completed Julio [facility] tetanus-diphtheria toxoids 04/20/2012 rené Kim [facility] Results Order Name Results Value Reference Range Date Interpretation Comments Source CHEM PANEL eGFR 46 12/28/2013 <sup>1</sup>Result Comment: The eGFR is calculated using the CKD-EPI formula. In most young, healthy individuals the eGFR will be >90 mL/min/1.73m2. The eGFR declines with age. An eGFR of 60-89 may be normal in some populations, particularly the elderly, for whom the CKD-EPI formula has not been extensively validated. Use of the eGFR is not recommended in the following populations:& lt;br/>
Individuals with unstable creatinine concentrations, including patients [...] should be multiplied by the estimated BMI. [facility] CHEM PANEL Calcium Lvl 9.6 8.5 - 10.5 12/28/2013 [facility] CHEM PANEL Glucose Lvl 103 70 - 99 12/28/2013 <sup>4</sup>Interpretive Data: Adult reference range values reflect the clinical guidelines
of the [employer]. [facility] CHEM PANEL BUN 22 7 - 22 12/28/2013 [facility] CHEM PANEL Creatinine Lvl 1.4 0.5 - 1.4 12/28/2013 [facility] CHEM PANEL Chloride Lvl 114 95 - 109 12/28/2013 [facility] CHEM PANEL Sodium Lvl 144 135 - 145 12/28/2013 [facility] CHEM PANEL CO2 22 24 - 32 12/28/2013 [facility] CHEM PANEL Potassium Lvl 4.1 3.5 - 5.1 12/28/2013 [facility] CHEM PANEL AGAP 12.1 10.0 - 20.0 12/28/2013 [facility] Monocytes 6.6 2.0 - 12.0 12/28/2013 [facility] Lymphocytes # 1.3 1.0 - 5.5 12/28/2013 [facility] Lymphocytes 19.8 20.0 - 40.0 12/28/2013 [facility] Eosinophils 3.8 0.0 - 4.0 12/28/2013 [facility] HEMATOLOGY Segs 69.2 45.0 - 75.0 12/28/2013 [facility] HEMATOLOGY Plt Morph Normal (12/28/13 5:53 AM) 12/28/2013 [facility] Monocytes # 0.4 0.0 - 0.8 12/28/2013 [facility] HEMATOLOGY Segs-Bands # 4.7 1.5 - 8.1 12/28/2013 [facility] Basophils 0.6 0.0 - 1.0 12/28/2013 [facility] Anisocyte 1+ *ABN* (12/28/13 5:53 AM) None Seen 12/28/2013 [facility] Eosinophils # 0.3 0.0 - 0.5 12/28/2013 [facility] INR 1.10 0.85 - 1.17 12/28/2013 <sup>8</sup>Interpretive Data: RECOMMENDED RANGES FOR PROTIME INR:
2.0-3.0 for most medical and surgical thromboembolic states.
2.5-3.5 for artificial heart valves and recurrent embolism.

INR SHOULD BE USED ONLY FOR PATIENTS ON STABLE ANTICOAGULANT THERAPY. [facility] PT 14.1 12.0 - 14.7 12/28/2013 [facility] MCH 29.5 27.0 - 31.0 12/28/2013 [facility] MCHC 32.8 32.0 - 36.0 12/28/2013 [facility] RDW 16.6 11.5 - 14.5 12/28/2013 [facility] Platelet 256 133 - 450 12/28/2013 [facility] RBC 2.89 4.70 - 6.10 12/28/2013 [facility] Hgb 8.5 14.0 - 18.0 12/28/2013 [facility] Hct 25.9 42.0 - 54.0 12/28/2013 [facility] MCV 89.9 80.0 - 94.0 12/28/2013 [facility] WBC 6.8 3.7 - 10.4 12/28/2013 [facility] MPV 8.0 7.4 - 10.4 12/28/2013 [facility] CHEM PANEL eGFR 46 12/27/2013 <sup>2</sup>Result Comment: The eGFR is calculated using the CKD-EPI formula. In most young, healthy individuals the eGFR will be >90 mL/min/1.73m2. The eGFR declines with age. An eGFR of 60-89 may be normal in some populations, particularly the elderly, for whom the CKD-EPI formula has not been extensively validated. Use of the eGFR is not recommended in the following populations:& lt;br/>
Individuals with unstable creatinine concentrations, including patients [...] should be multiplied by the estimated BMI. [facility] CHEM PANEL Glucose Lvl 102 70 - 99 12/27/2013 <sup>5</sup>Interpretive Data: Adult reference range values reflect the clinical guidelines
of the [place] [employer]. [facility] CHEM PANEL Sodium Lvl 142 135 - 145 12/27/2013 [facility] CHEM PANEL Potassium Lvl 3.8 3.5 - 5.1 12/27/2013 [facility] CHEM PANEL Creatinine Lvl 1.4 0.5 - 1.4 12/27/2013 [facility] CHEM PANEL Chloride Lvl 114 95 - 109 12/27/2013 [facility] CHEM PANEL CO2 22 24 - 32 12/27/2013 [facility] CHEM PANEL AGAP 9.8 10.0 - 20.0 12/27/2013 [facility] CHEM PANEL Calcium Lvl 8.8 8.5 - 10.5 12/27/2013 [facility] CHEM PANEL BUN 23 7 - 22 12/27/2013 [facility] HEMATOLOGY Monocytes 6.5 2.0 - 12.0 12/27/2013 [facility] HEMATOLOGY Segs 75.3 45.0 - 75.0 12/27/2013 [facility] HEMATOLOGY Lymphocytes 15.0 20.0 - 40.0 12/27/2013 [facility] HEMATOLOGY Eosinophils 2.7 0.0 - 4.0 12/27/2013 [facility] HEMATOLOGY Segs-Bands # 6.3 1.5 - 8.1 12/27/2013 [facility] HEMATOLOGY Basophils 0.5 0.0 - 1.0 12/27/2013 [facility] HEMATOLOGY Lymphocytes # 1.3 1.0 - 5.5 12/27/2013 [facility] HEMATOLOGY Eosinophils # 0.2 0.0 - 0.5 12/27/2013 [facility] HEMATOLOGY Monocytes # 0.5 0.0 - 0.8 12/27/2013 [facility] HEMATOLOGY MPV 8.5 7.4 - 10.4 12/27/2013 [facility] HEMATOLOGY MCH 30.0 27.0 - 31.0 12/27/2013 [facility] HEMATOLOGY MCHC 33.3 32.0 - 36.0 12/27/2013 [facility] HEMATOLOGY MCV 90.1 80.0 - 94.0 12/27/2013 [facility] HEMATOLOGY Hct 24.6 42.0 - 54.0 12/27/2013 [facility] HEMATOLOGY RBC 2.73 4.70 - 6.10 12/27/2013 [facility] Hgb 8.2 14.0 - 18.0 12/27/2013 [facility] HEMATOLOGY WBC 8.4 3.7 - 10.4 12/27/2013 [facility] HEMATOLOGY RDW 17.3 11.5 - 14.5 12/27/2013 [facility] Platelet 234 133 - 450 12/27/2013 [facility] HEMATOLOGY INR 1.12 0.85 - 1.17 12/27/2013 <sup>9</sup>Interpretive Data: RECOMMENDED RANGES FOR PROTIME INR:
2.0-3.0 for most medical and surgical thromboembolic states.
2.5-3.5 for artificial heart valves and recurrent embolism.

INR SHOULD BE USED ONLY FOR PATIENTS ON STABLE ANTICOAGULANT THERAPY. [facility] HEMATOLOGY PT 14.3 12.0 - 14.7 12/27/2013 [facility] BACTERIAL - SEROLOGY U S pneumo Ag Positive *ABN* (12/26/13 9:36 AM) Negative 12/26/2013 [facility] CHEM PANEL Phosphorus 2.0 2.5 - 4.5 12/26/2013 [facility] CHEM PANEL Magnesium Lvl 1.3 1.8 - 2.4 12/26/2013 [facility] CHEM PANEL eGFR 36 12/26/2013 <sup>3</sup>Result Comment: The eGFR is calculated using the CKD-EPI formula. In most young, healthy individuals the eGFR will be >90 mL/min/1.73m2. The eGFR declines with age. An eGFR of 60-89 may be normal in some populations, particularly the elderly, for whom the CKD-EPI formula has not been extensively validated. Use of the eGFR is not recommended in the following populations:& lt;br/>
Individuals with unstable creatinine concentrations, including patients [...] should be multiplied by the estimated BMI. [facility] CHEM PANEL Alk Phos 79 39 - 136 12/26/2013 [facility] CHEM PANEL Bili Total 0.4 0.2 - 1.3 12/26/2013 [facility] CHEM PANEL AST 19 0 - 37 12/26/2013 [facility] CHEM PANEL Sodium Lvl 146 135 - 145 12/26/2013 [facility] CHEM PANEL BUN 36 7 - 22 12/26/2013 [facility] CHEM PANEL Creatinine Lvl 1.7 0.5 - 1.4 12/26/2013 [facility] CHEM PANEL Potassium Lvl 4.5 3.5 - 5.1 12/26/2013 [facility] CHEM PANEL Calcium Lvl 9.2 8.5 - 10.5 12/26/2013 [facility] CHEM PANEL ALT 16 0 - 65 12/26/2013 [facility] CHEM PANEL Albumin Lvl 2.5 3.5 - 5.0 12/26/2013 [facility] CHEM PANEL Total Protein 6.4 6.4 - 8.4 12/26/2013 [facility] CHEM PANEL Glucose Lvl 137 70 - 99 12/26/2013 <sup>6</sup>Interpretive Data: Adult reference range values reflect the clinical guidelines
of the [employer]. [facility] CHEM PANEL CO2 17 24 - 32 12/26/2013 [facility] CHEM PANEL Chloride Lvl 119 95 - 109 12/26/2013 [facility] CHEM PANEL Globulin 3.9 2.0 - 4.0 12/26/2013 [facility] CHEM PANEL A/G Ratio 0.6 0.7 - 1.6 12/26/2013 [facility] CHEM PANEL AGAP 14.5 10.0 - 20.0 12/26/2013 [facility] CHEM PANEL B/C Ratio 21 6 - 25 12/26/2013 [facility] HEMATOLOGY Segs-Bands # 10.5 1.5 - 8.1 12/26/2013 [facility] HEMATOLOGY Lymphocytes # 1.1 1.0 - 5.5 12/26/2013 [facility] HEMATOLOGY Basophils 0.3 0.0 - 1.0 12/26/2013 [facility] HEMATOLOGY Eosinophils 0.6 0.0 - 4.0 12/26/2013 [facility] HEMATOLOGY Lymphocytes 9.1 20.0 - 40.0 12/26/2013 [facility] HEMATOLOGY Segs 84.2 45.0 - 75.0 12/26/2013 [facility] HEMATOLOGY Monocytes 5.8 2.0 - 12.0 12/26/2013 [facility] HEMATOLOGY Monocytes # 0.7 0.0 - 0.8 12/26/2013 [facility] HEMATOLOGY Eosinophils # 0.1 0.0 - 0.5 12/26/2013 [facility] INR 1.25 0.85 - 1.17 12/26/2013 <sup>10</sup>Interpretive Data: RECOMMENDED RANGES FOR PROTIME INR:
2.0-3.0 for most medical and surgical thromboembolic states.
2.5-3.5 for artificial heart valves and recurrent embolism.

INR SHOULD BE USED ONLY FOR PATIENTS ON STABLE ANTICOAGULANT THERAPY. [facility] PT 15.6 12.0 - 14.7 12/26/2013 [facility] PTT 41.5 22.9 - 35.8 12/26/2013 <sup>11</sup>Interpretive Data: Heparin Therapeutic Range: 57 - 92 Seconds [facility] RBC 2.93 4.70 - 6.10 12/26/2013 [facility] WBC 12.4 3.7 - 10.4 12/26/2013 [facility] Hct 26.9 42.0 - 54.0 12/26/2013 [facility] [facility] Hgb 8.7 14.0 - 18.0 12/26/2013 [facility] MCV 91.7 80.0 - 94.0 12/26/2013 [facility] MCH 29.6 27.0 - 31.0 12/26/2013 [facility] MCHC 32.2 32.0 - 36.0 12/26/2013 [facility] RDW 16.2 11.5 - 14.5 12/26/2013 [facility] Platelet 260 133 - 450 12/26/2013 [facility] MPV 8.3 7.4 - 10.4 12/26/2013 [facility] THYROID PANEL TSH 0.173 0.360 - 3.740 12/26/2013 [facility] BACTERIAL - SEROLOGY MRSA by PCR Negative 13 (12/25/13 10:00 PM) 12/26/2013 <sup>13</sup>Interpretive Data: Interpretive Data: The [employer] LightCycler MRSA assay is a qualitative test for the direct detection of nasal colonization with methicillin-resistant Staphyloco ccus aureus (MRSA) to aid in the prevention [...] by the [facility] within the [facility]. The [facility] is authorized under the Clinical Laboratory Improvement Amendment of 1988 (CLIA-88) to perform high complexity testing. [facility] CARDIAC ENZYMES Troponin-I 0.05 0.00 - 0.40 12/25/2013 [facility] CARDIAC ENZYMES BNP 507 <=100 pg/mL 12/25/2013 <sup>7</sup>Interpretive Data: Elevated results are in line with increasing severity of
congestive heart failure. Minor elevations between 100 and 300
may be seen with Myocardial Ischemia, Sodium retaining drugs,
and compensated/treated heart failure. [facility] CARDIAC ENZYMES CK MB 2.9 0.5 - 3.6 12/25/2013 [facility] CARDIAC ENZYMES Total CK 148 12 - 191 12/25/2013 [facility] CARDIAC ENZYMES CK MB Index 2.0 0.0 - 2.5 12/25/2013 [facility] CHEM PANEL B/C Ratio 21 6 - 25 12/25/2013 [facility] CHEM PANEL AST 19 0 - 37 12/25/2013 [facility] CHEM PANEL A/G Ratio 0.7 0.7 - 1.6 12/25/2013 [facility] CHEM PANEL ALT 19 0 - 65 12/25/2013 [facility] CHEM PANEL Globulin 4.7 2.0 - 4.0 12/25/2013 [facility] CHEM PANEL Total Protein 8.0 6.4 - 8.4 12/25/2013 [facility] CHEM PANEL Albumin Lvl 3.3 3.5 - 5.0 12/25/2013 [facility] CHEM PANEL Alk Phos 97 39 - 136 12/25/2013 [facility] CHEM PANEL Bili Total 0.5 0.2 - 1.3 12/25/2013 [facility] HEMATOLOGY PTT 37.7 22.9 - 35.8 12/25/2013 <sup>12</sup>Interpretive Data: Heparin Therapeutic Range: 57 - 92 Seconds [facility] HEMATOLOGY Polychrom Slight (12/25/13 4:00 PM) None Seen 12/25/2013 [facility] HEMATOLOGY Hypochrom Slight (12/25/13 4:00 PM) None Seen 12/25/2013 [facility] HEMATOLOGY Plt Morph Normal (8/12/14 4:00 PM) 12/25/2013 [facility] CHEM PANEL Lactic Acid Lvl 1.1 0.5 - 2.2 12/25/2013 [facility] URINE AND STOOL UA Blood Negative (12/25/13 1:53 PM) Negative 12/25/2013 [facility] URINE AND STOOL UA Ketones Negative *NA* (12/25/13 1:53 PM) Negative 12/25/2013 [facility] URINE AND STOOL UA Bili Small *ABN* (12/25/13 1:53 PM) Negative 12/25/2013 [facility] URINE AND STOOL UA Protein Trace *ABN* (12/25/13 1:53 PM) Negative 12/25/2013 [facility] URINE AND STOOL UA Glucose Negative (12/25/13 1:53 PM) Negative 12/25/2013 [facility] URINE AND STOOL UA Spec Grav 1.010 <=1.030 12/25/2013 [facility] URINE AND STOOL UA pH 8.0 5.0 - 8.0 12/25/2013 [facility] URINE AND STOOL UA Color Yellow *NA* (12/25/13 1:53 PM) Yellow 12/25/2013 [facility] URINE AND STOOL UA Turbidity Slight Cloudy (12/25/13 1:53 PM) Clear 12/25/2013 [facility] URINE AND STOOL UA Leuk Est Large *ABN* (12/25/13 1:53 PM) Negative 12/25/2013 [facility] URINE AND STOOL UA Urobilinogen 0.2 0.1 - 1.0 12/25/2013 [facility] URINE AND STOOL UA Nitrite Negative (12/25/13 1:53 PM) Negative 12/25/2013 [facility] URINE AND STOOL Micro? Performed (12/25/13 1:53 PM) 12/25/2013 [facility] URINE AND STOOL UA RBC None Seen (12/25/13 1:53 PM) 0 - 2 12/25/2013 [facility] URINE AND STOOL UA Sq Epi Occasional /LPF Few /LPF 12/25/2013 [facility] URINE AND STOOL UA WBC 11-20 /HPF 0 - 5 12/25/2013 [facility] URINE AND STOOL UA Bacteria Moderate /HPF None Seen /HPF 12/25/2013 [facility] HEMATOLOGY RBC 3.44 4.70 - 6.10 11/18/2013 [facility] HEMATOLOGY WBC 6.0 3.7 - 10.4 11/18/2013 [facility] HEMATOLOGY Hgb 10.1 14.0 - 18.0 11/18/2013 [facility] Hct 29.5 42.0 - 54.0 11/18/2013 [facility] MCV 86.0 80.0 - 94.0 11/18/2013 [facility] MCHC 34.2 32.0 - 36.0 11/18/2013 [facility] RDW 18.4 11.5 - 14.5 11/18/2013 [facility] MCH 29.4 27.0 - 31.0 11/18/2013 [facility] Platelet 137 133 - 450 11/18/2013 [facility] MPV 8.5 7.4 - 10.4 11/18/2013 [facility] Lymphocytes 28.3 20.0 - 40.0 11/18/2013 [facility] Segs 59.0 45.0 - 75.0 11/18/2013 [facility] Monocytes 7.7 2.0 - 12.0 11/18/2013 [facility] Lymphocytes # 1.7 1.0 - 5.5 11/18/2013 [facility] Segs-Bands # 3.6 1.5 - 8.1 11/18/2013 [facility] Basophils 0.8 0.0 - 1.0 11/18/2013 [facility] Eosinophils 4.2 0.0 - 4.0 11/18/2013 [facility] Monocytes # 0.5 0.0 - 0.8 11/18/2013 [facility] Eosinophils # 0.3 0.0 - 0.5 11/18/2013 [facility] BLOOD BANK RESULTS Antibody Scrn Negative (11/17/13 3:13 PM) 11/17/2013 [facility] BLOOD BANK RESULTS ABO/Rh O POS 11/17/2013 [facility] BLOOD [facility] RESULTS RBC product Product available 2 (11/17/13 2:30 PM) 11/17/2013 <sup>2</sup>Result Comment: 11/17/2013 17:52 [id number]
Called to Yessy at 11/17/2013 17:52. [facility] Lymphocytes 29.3 20.0 - 40.0 11/17/2013 [facility] Monocytes 8.6 2.0 - 12.0 11/17/2013 [facility] Eosinophils 4.3 0.0 - 4.0 11/17/2013 [facility] Basophils 0.7 0.0 - 1.0 11/17/2013 [facility] Segs 57.1 45.0 - 75.0 11/17/2013 [facility] Segs-Bands # 3.4 1.5 - 8.1 11/17/2013 [facility] Monocytes # 0.5 0.0 - 0.8 11/17/2013 [facility] Lymphocytes # 1.7 1.0 - 5.5 11/17/2013 [facility] Eosinophils # 0.3 0.0 - 0.5 11/17/2013 [facility] RBC 2.81 4.70 - 6.10 11/17/2013 [facility] WBC 6.0 3.7 - 10.4 11/17/2013 [facility] Hgb 8.1 14.0 - 18.0 11/17/2013 [facility] MCHC 33.3 32.0 - 36.0 11/17/2013 [facility] MCH 28.7 27.0 - 31.0 11/17/2013 [facility] RDW 21.3 11.5 - 14.5 11/17/2013 [facility] Hct 24.2 42.0 - 54.0 11/17/2013 [facility] MCV 86.2 80.0 - 94.0 11/17/2013 [facility] MPV 8.6 7.4 - 10.4 11/17/2013 [facility] Platelet 148 133 - 450 11/17/2013 [facility] CHEM PANEL eGFR 39 11/16/2013 <sup>4</sup>Result Comment: The eGFR is calculated using the CKD-EPI formula. In most young, healthy individuals the eGFR will be >90 mL/min/1.73m2. The eGFR declines with age. An eGFR of 60-89 may be normal in some populations, particularly the elderly, for whom the CKD-EPI formula has not been extensively validated. Use of the eGFR is not recommended in the following populations:& lt;br/>
Individuals with unstable creatinine concentrations, including patients [...] should be multiplied by the estimated BMI. [facility] CHEM PANEL Calcium Lvl 8.9 8.5 - 10.5 11/16/2013 [facility] CHEM PANEL AGAP 11.0 10.0 - 20.0 11/16/2013 [facility] CHEM PANEL B/C Ratio 14 6 - 25 11/16/2013 [facility] CHEM PANEL Chloride Lvl 108 95 - 109 11/16/2013 [facility] CHEM PANEL Potassium Lvl 4.0 3.5 - 5.1 11/16/2013 [facility] CHEM PANEL Creatinine Lvl 1.6 0.5 - 1.4 11/16/2013 [facility] CHEM PANEL Sodium Lvl 141 135 - 145 11/16/2013 [facility] CHEM PANEL CO2 26 24 - 32 11/16/2013 [facility] CHEM PANEL AST 15 0 - 37 11/16/2013 [facility] CHEM PANEL Alk Phos 66 39 - 136 11/16/2013 [facility] CHEM PANEL Bili Total 0.5 0.2 - 1.3 11/16/2013 [facility] CHEM PANEL Globulin 3.0 2.0 - 4.0 11/16/2013 [facility] CHEM PANEL A/G Ratio 1.0 0.7 - 1.6 11/16/2013 [facility] CHEM PANEL ALT 18 0 - 65 11/16/2013 [facility] CHEM PANEL Total Protein 6.0 6.4 - 8.4 11/16/2013 [facility] CHEM PANEL Albumin Lvl 3.0 3.5 - 5.0 11/16/2013 [facility] CHEM PANEL BUN 22 7 - 22 11/16/2013 [facility] CHEM PANEL Glucose Lvl 100 70 - 99 11/16/2013 <sup>7</sup>Interpretive Data: Adult reference range values reflect the clinical guidelines
of the [employer]. [facility] HEMATOLOGY Hct 28.0 42.0 - 54.0 11/16/2013 [facility] HEMATOLOGY MCV 86.5 80.0 - 94.0 11/16/2013 [facility] HEMATOLOGY MCH 28.3 27.0 - 31.0 11/16/2013 [facility] HEMATOLOGY MPV 8.4 7.4 - 10.4 11/16/2013 [facility] MCHC 32.7 32.0 - 36.0 11/16/2013 [facility] HEMATOLOGY RDW 20.6 11.5 - 14.5 11/16/2013 [facility] HEMATOLOGY Platelet 148 133 - 450 11/16/2013 [facility] HEMATOLOGY Hgb 9.2 14.0 - 18.0 11/16/2013 [facility] WBC 5.9 3.7 - 10.4 11/16/2013 [facility] RBC 3.24 4.70 - 6.10 11/16/2013 [facility] Monocytes # 0.5 0.0 - 0.8 11/16/2013 [facility] Eosinophils # 0.2 0.0 - 0.5 11/16/2013 [facility] Basophils 0.7 0.0 - 1.0 11/16/2013 [facility] Segs-Bands # 3.7 1.5 - 8.1 11/16/2013 [facility] Lymphocytes # 1.4 1.0 - 5.5 11/16/2013 [facility] Lymphocytes 24.4 20.0 - 40.0 11/16/2013 [facility] RBC Morph Normal (11/16/13 5:54 AM) 11/16/2013 [facility] Monocytes 9.3 2.0 - 12.0 11/16/2013 [facility] Eosinophils 3.9 0.0 - 4.0 11/16/2013 [facility] Segs 61.7 45.0 - 75.0 11/16/2013 [facility] Plt Morph Normal (11/16/13 5:54 AM) 11/16/2013 [facility] CHEM PANEL eGFR 61 11/15/2013 <sup>5</sup>Result Comment: The eGFR is calculated using the CKD-EPI formula. In most young, healthy individuals the eGFR will be >90 mL/min/1.73m2. The eGFR declines with age. An eGFR of 60-89 may be normal in some populations, particularly the elderly, for whom the CKD-EPI formula has not been extensively validated. Use of the eGFR is not recommended in the following populations:& lt;br/>
Individuals with unstable creatinine concentrations, including patients [...] should be multiplied by the estimated BMI. [facility] CHEM PANEL Bili Total 0.7 0.2 - 1.3 11/15/2013 [facility] CHEM PANEL AST 16 0 - 37 11/15/2013 [facility] CHEM PANEL Alk Phos 68 39 - 136 11/15/2013 [facility] CHEM PANEL ALT 22 0 - 65 11/15/2013 [facility] CHEM PANEL Albumin Lvl 3.1 3.5 - 5.0 11/15/2013 [facility] CHEM PANEL Globulin 3.3 2.0 - 4.0 11/15/2013 [facility] CHEM PANEL Total Protein 6.4 6.4 - 8.4 11/15/2013 [facility] CHEM PANEL Glucose Lvl 127 70 - 99 11/15/2013 <sup>8</sup>Interpretive Data: Adult reference range values reflect the clinical guidelines
of the [employer]. [facility] CHEM PANEL Creatinine Lvl 1.1 0.5 - 1.4 11/15/2013 [facility] CHEM PANEL BUN 16 7 - 22 11/15/2013 [facility] CHEM PANEL CO2 27 24 - 32 11/15/2013 [facility] CHEM PANEL Calcium Lvl 9.0 8.5 - 10.5 11/15/2013 [facility] CHEM PANEL Sodium Lvl 144 135 - 145 11/15/2013 [facility] CHEM PANEL Potassium Lvl 4.1 3.5 - 5.1 11/15/2013 [facility] CHEM PANEL Chloride Lvl 110 95 - 109 11/15/2013 [facility] CHEM PANEL A/G Ratio 0.9 0.7 - 1.6 11/15/2013 [facility] CHEM PANEL B/C Ratio 15 6 - 25 11/15/2013 [facility] CHEM PANEL AGAP 11.1 10.0 - 20.0 11/15/2013 [facility] CARDIAC ENZYMES Total CK 79 12 - 191 11/14/2013 [facility] CARDIAC ENZYMES CK MB 1.4 0.5 - 3.6 11/14/2013 [facility] CARDIAC ENZYMES Troponin-I 0.02 0.00 - 0.40 11/14/2013 [facility] CHEM PANEL Globulin 2.9 2.0 - 4.0 11/14/2013 [facility] CHEM PANEL AGAP 12.0 10.0 - 20.0 11/14/2013 [facility] CHEM PANEL B/C Ratio 14 6 - 25 11/14/2013 [facility] CHEM PANEL A/G Ratio 1.1 0.7 - 1.6 11/14/2013 [facility] CHEM PANEL Bili Total 0.4 0.2 - 1.3 11/14/2013 [facility] CHEM PANEL eGFR 61 11/14/2013 <sup>6</sup>Result Comment: The eGFR is calculated using the CKD-EPI formula. In most young, healthy individuals the eGFR will be >90 mL/min/1.73m2. The eGFR declines with age. An eGFR of 60-89 may be normal in some populations, particularly the elderly, for whom the CKD-EPI formula has not been extensively validated. Use of the eGFR is not recommended in the following populations:& lt;br/>
Individuals with unstable creatinine concentrations, including patients [...] should be multiplied by the estimated BMI. [facility] CHEM PANEL Sodium Lvl 145 135 - 145 11/14/2013 [facility] CHEM PANEL AST 17 0 - 37 11/14/2013 [facility] CHEM PANEL Alk Phos 72 39 - 136 11/14/2013 [facility] CHEM PANEL ALT 21 0 - 65 11/14/2013 [facility] CHEM PANEL Albumin Lvl 3.2 3.5 - 5.0 11/14/2013 [facility] CHEM PANEL Calcium Lvl 9.1 8.5 - 10.5 11/14/2013 [facility] CHEM PANEL Total Protein 6.1 6.4 - 8.4 11/14/2013 [facility] CHEM PANEL Chloride Lvl 110 95 - 109 11/14/2013 [facility] CHEM PANEL CO2 27 24 - 32 11/14/2013 [facility] CHEM PANEL Potassium Lvl 4.0 3.5 - 5.1 11/14/2013 [facility] CHEM PANEL BUN 15 7 - 22 11/14/2013 [facility] CHEM PANEL Creatinine Lvl 1.1 0.5 - 1.4 11/14/2013 [facility] CHEM PANEL Glucose Lvl 103 70 - 99 11/14/2013 <sup>9</sup>Interpretive Data: Adult reference range values reflect the clinical guidelines
of the [employer]. [facility] HEMATOLOGY PTT 31.5 22.9 - 35.8 11/14/2013 <sup>13</sup>Interpretive Data: Heparin Therapeutic Range: 57 - 92 Seconds [facility] INR 1.24 0.85 - 1.17 11/14/2013 <sup>10</sup>Interpretive Data: RECOMMENDED RANGES FOR PROTIME INR:
2.0-3.0 for most medical and surgical thromboembolic states.
2.5-3.5 for artificial heart valves and recurrent embolism.

INR SHOULD BE USED ONLY FOR PATIENTS ON STABLE ANTICOAGULANT THERAPY. [facility] HEMATOLOGY PT 15.5 12.0 - 14.7 11/14/2013 [facility] HEMATOLOGY PT 18.1 12.0 - 14.7 11/13/2013 [facility] INR 1.52 0.85 - 1.17 11/13/2013 <sup>11</sup>Interpretive Data: RECOMMENDED RANGES FOR PROTIME INR:
2.0-3.0 for most medical and surgical thromboembolic states.
2.5-3.5 for artificial heart valves and recurrent embolism.

INR SHOULD BE USED ONLY FOR PATIENTS ON STABLE ANTICOAGULANT THERAPY. [facility] ANEMIA STUDY Ferritin Lvl 15 22 - 275 11/13/2013 [facility] URINE AND STOOL Occult Bld Stl Positive *ABN* (11/13/13 12:15 PM) Negative 11/13/2013 [facility] BLOOD BANK RESULTS FFP product Product available 1 (11/13/13 9:14 AM) 11/13/2013 <sup>1</sup>Result Comment: 11/13/2013 09:27 [id number]
Called to Cathleen at 11/13/2013 09:27 by MP. [facility] CHEM PANEL Phosphorus 2.2 2.5 - 4.5 11/13/2013 [facility] CHEM PANEL Magnesium Lvl 1.5 1.8 - 2.4 11/13/2013 [facility] HEMATOLOGY PTT 33.8 22.9 - 35.8 11/13/2013 <sup>14</sup>Interpretive Data: Heparin Therapeutic Range: 57 - 92 Seconds [facility] HEMATOLOGY PT 19.0 12.0 - 14.7 11/13/2013 [facility] INR 1.62 0.85 - 1.17 11/13/2013 <sup>12</sup>Interpretive Data: RECOMMENDED RANGES FOR PROTIME INR:
2.0-3.0 for most medical and surgical thromboembolic states.
2.5-3.5 for artificial heart valves and recurrent embolism.

INR SHOULD BE USED ONLY FOR PATIENTS ON STABLE ANTICOAGULANT THERAPY. [facility] ANEMIA STUDY UIBC 352 110 - 370 11/13/2013 [facility] ANEMIA STUDY % [place] Fe 8 12 - 57 11/13/2013 [facility] ANEMIA STUDY TIBC 384 228 - 428 11/13/2013 [facility] ANEMIA STUDY Iron 32 45 - 160 11/13/2013 [facility] ANEMIA STUDY Vitamin B12 Lvl 208 254 - 1320 11/13/2013 [facility] BLOOD BANK RESULTS RBC product Product available 3 (11/12/13 6:15 PM) 11/12/2013 <sup>3</sup>Result Comment: 11/12/2013 18:24 [id number]
Called to Damian at 11/12/2013 18:24. [facility] BLOOD BANK RESULTS ABO/Rh O POS 11/12/2013 [facility] BLOOD [facility] RESULTS Antibody Scrn Negative (11/12/13 4:40 PM) 11/12/2013 [facility] HEMATOLOGY PTT 37.0 22.9 - 35.8 11/12/2013 <sup>15</sup>Interpretive Data: Heparin Therapeutic Range: 57 - 92 Seconds [facility] CHEMISTRY Phosphorus 2.4 2.5 - 4.5 06/12/2012 LOW [facility] CHEMISTRY eGFR 62 06/12/2012 NA <sup>1</sup>Result Comment: The eGFR is calculated using the CKD-EPI formula. In most young, healthy individuals the eGFR will be >90 mL/min/1.73m2. The eGFR declines with age. An eGFR of 60-89 may be normal in some populations, particularly the elderly, for whom the CKD-EPI formula has not been extensively validated. Use of the eGFR is not recommended in the following populations:& lt;br/>
Individuals with unstable creatinine concentrations, including patients [...] should be multiplied by the estimated BMI. [facility] CHEMISTRY AST 14 0 - 37 06/12/2012 Normal [facility] CHEMISTRY Bili Total 0.5 0.2 - 1.3 06/12/2012 Normal [facility] CHEMISTRY Glucose Lvl 120 70 - 99 06/12/2012 [facility] <sup>3</sup>Interpretive Data: Adult reference range values reflect the clinical guidelines
of the [employer]. [facility] CHEMISTRY BUN 16 7 - 22 06/12/2012 Normal [facility] CHEMISTRY Creatinine Lvl 1.1 0.5 - 1.4 06/12/2012 Normal [facility] CHEMISTRY Globulin 2.1 2.0 - 4.0 06/12/2012 Normal [facility] CHEMISTRY A/G Ratio 1.5 0.7 - 1.6 06/12/2012 Normal [facility] CHEMISTRY CO2 28 24 - 32 06/12/2012 Normal [facility] CHEMISTRY AGAP 11.7 10.0 - 20.0 06/12/2012 Normal [facility] CHEMISTRY ALT 19 0 - 65 06/12/2012 Normal [facility] CHEMISTRY Alk Phos 58 39 - 136 06/12/2012 Normal [facility] CHEMISTRY Albumin Lvl 3.1 3.5 - 5.0 06/12/2012 LOW [facility] CHEMISTRY Calcium Lvl 8.7 8.5 - 10.5 06/12/2012 Normal [facility] CHEMISTRY B/C Ratio 15 6 - 25 06/12/2012 Normal [facility] CHEMISTRY Total Protein 5.2 6.4 - 8.4 06/12/2012 LOW [facility] CHEMISTRY Sodium Lvl 146 135 - 145 06/12/2012 [facility] CHEMISTRY Potassium Lvl 3.7 3.5 - 5.1 06/12/2012 Normal [facility] CHEMISTRY Chloride Lvl 110 95 - 109 06/12/2012 [facility] CHEMISTRY Magnesium Lvl 1.8 1.8 - 2.4 06/12/2012 Normal [facility] HEMATOLOGY Monocytes # 0.5 0.0 - 0.8 06/12/2012 Normal [facility] HEMATOLOGY Basophils # 0.0 0.0 - 0.2 06/12/2012 Normal [facility] HEMATOLOGY Eosinophils # 0.2 0.0 - 0.5 06/12/2012 Normal [facility] HEMATOLOGY Eosinophils 3.9 0.0 - 4.0 06/12/2012 Normal [facility] HEMATOLOGY Basophils 0.4 0.0 - 1.0 06/12/2012 Normal [facility] HEMATOLOGY Segs-Bands # 2.5 1.5 - 8.1 06/12/2012 Normal [facility] HEMATOLOGY Lymphocytes # 1.4 1.0 - 5.5 06/12/2012 Normal [facility] HEMATOLOGY Monocytes 11.2 2.0 - 12.0 06/12/2012 Normal [facility] HEMATOLOGY Lymphocytes 30.6 20.0 - 40.0 06/12/2012 Normal [facility] HEMATOLOGY Segs 53.9 45.0 - 75.0 06/12/2012 Normal [facility] HEMATOLOGY PTT 31.4 22.9 - 35.8 06/12/2012 Normal <sup>6</sup>Interpretive Data: Heparin Therapeutic Range: 57 - 92 Seconds [facility] HEMATOLOGY PT 13.9 12.0 - 14.7 06/12/2012 Normal [facility] HEMATOLOGY INR 1.05 0.85 - 1.17 06/12/2012 Normal <sup>5</sup>Interpretive Data: RECOMMENDED RANGES FOR PROTIME INR:
2.0-3.0 for most medical and surgical thromboembolic states.
2.5-3.5 for artificial heart valves and recurrent embolism.

INR SHOULD BE USED ONLY FOR PATIENTS ON STABLE ANTICOAGULANT THERAPY. [facility] HEMATOLOGY MCH 33.0 27.0 - 31.0 06/12/2012 [facility] HEMATOLOGY Hct 32.6 42.0 - 54.0 06/12/2012 LOW [facility] HEMATOLOGY Hgb 11.1 14.0 - 18.0 06/12/2012 LOW [facility] HEMATOLOGY MPV 7.4 7.4 - 10.4 06/12/2012 Normal [facility] HEMATOLOGY Platelet 147 133 - 450 06/12/2012 Normal [facility] HEMATOLOGY MCHC 34.0 32.0 - 36.0 06/12/2012 Normal [facility] HEMATOLOGY RDW 15.6 11.5 - 14.5 06/12/2012 [facility] HEMATOLOGY MCV 97.1 80.0 - 94.0 06/12/2012 [facility] HEMATOLOGY RBC 3.35 4.70 - 6.10 06/12/2012 LOW [facility] HEMATOLOGY WBC 4.7 3.7 - 10.4 06/12/2012 Normal [facility] CHEMISTRY Lipase Lvl 107 73 - 393 06/11/2012 Normal [facility] CHEMISTRY AGAP 11.7 10.0 - 20.0 06/11/2012 Normal [facility] CHEMISTRY B/C Ratio 12 6 - 25 06/11/2012 Normal [facility] CHEMISTRY A/G Ratio 1.3 0.7 - 1.6 06/11/2012 Normal [facility] CHEMISTRY Globulin 3.1 2.0 - 4.0 06/11/2012 Normal [facility] CHEMISTRY Calcium Lvl 8.9 8.5 - 10.5 06/11/2012 Normal [facility] CHEMISTRY CO2 28 24 - 32 06/11/2012 Normal [facility] CHEMISTRY Sodium Lvl 142 135 - 145 06/11/2012 Normal [facility] CHEMISTRY Albumin Lvl 4.1 3.5 - 5.0 06/11/2012 Normal [facility] CHEMISTRY Potassium Lvl 3.7 3.5 - 5.1 06/11/2012 Normal [facility] CHEMISTRY Chloride Lvl 106 95 - 109 06/11/2012 Normal [facility] CHEMISTRY Glucose Lvl 164 70 - 99 06/11/2012 HI <sup>4</sup>Interpretive Data: Adult reference range values reflect the clinical guidelines
of the [place] [employer]. [facility] CHEMISTRY Creatinine Lvl 1.8 0.5 - 1.4 06/11/2012 HI [facility] CHEMISTRY eGFR 34 06/11/2012 NA <sup>2</sup>Result Comment: The eGFR is calculated using the CKD-EPI formula. In most young, healthy individuals the eGFR will be >90 mL/min/1.73m2. The eGFR declines with age. An eGFR of 60-89 may be normal in some populations, particularly the elderly, for whom the CKD-EPI formula has not been extensively validated. Use of the eGFR is not recommended in the following populations:& lt;br/>
Individuals with unstable creatinine concentrations, including patients [...] should be multiplied by the estimated BMI. [facility] CHEMISTRY BUN 21 7 - 22 06/11/2012 Normal [facility] CHEMISTRY Total Protein 7.2 6.4 - 8.4 06/11/2012 Normal [facility] CHEMISTRY AST 22 0 - 37 06/11/2012 Normal [facility] CHEMISTRY Bili Total 0.6 0.2 - 1.3 06/11/2012 Normal [facility] CHEMISTRY Alk Phos 67 39 - 136 06/11/2012 [facility] CHEMISTRY ALT 26 0 - 65 06/11/2012 [facility] HEMATOLOGY Platelet 180 133 - 450 06/11/2012 [facility] HEMATOLOGY MCHC 33.5 32.0 - 36.0 06/11/2012 [facility] HEMATOLOGY RDW 16.4 11.5 - 14.5 06/11/2012 [facility] HEMATOLOGY MCV 97.7 80.0 - 94.0 06/11/2012 [facility] HEMATOLOGY MCH 32.7 27.0 - 31.0 06/11/2012 [facility] HEMATOLOGY Hct 39.6 42.0 - 54.0 06/11/2012 [facility] HEMATOLOGY RBC 4.05 4.70 - 6.10 06/11/2012 [facility] HEMATOLOGY Hgb 13.3 14.0 - 18.0 06/11/2012 [facility] HEMATOLOGY MPV 7.1 7.4 - 10.4 06/11/2012 [facility] HEMATOLOGY WBC 7.0 3.7 - 10.4 06/11/2012 [facility] HEMATOLOGY Basophils # 0.0 0.0 - 0.2 06/11/2012 [facility] HEMATOLOGY Eosinophils # 0.1 0.0 - 0.5 06/11/2012 [facility] HEMATOLOGY Lymphocytes # 0.8 1.0 - 5.5 06/11/2012 [facility] HEMATOLOGY Basophils 0.1 0.0 - 1.0 06/11/2012 [facility] HEMATOLOGY Segs-Bands # 5.7 1.5 - 8.1 06/11/2012 [facility] HEMATOLOGY Monocytes 5.5 2.0 - 12.0 06/11/2012 [facility] HEMATOLOGY Eosinophils 1.5 0.0 - 4.0 06/11/2012 [facility] HEMATOLOGY Segs 82.0 45.0 - 75.0 06/11/2012 [facility] HEMATOLOGY Lymphocytes 10.9 20.0 - 40.0 06/11/2012 [facility] HEMATOLOGY Monocytes # 0.4 0.0 - 0.8 06/11/2012 [facility] URINALYSIS UA Turbidity Marked *ABN* (06/11/2012 14:32:00) Clear 06/11/2012 [facility] URINALYSIS UA Blood Large *ABN* (06/11/2012 14:32:00) Negative 06/11/2012 [facility] URINALYSIS UA Ketones Negative mg/dL *NA* (06/11/2012 14:32:00) Negative 06/11/2012 [facility] URINALYSIS UA Bili Negative *NA* (06/11/2012 14:32:00) Negative 06/11/2012 [facility] URINALYSIS UA Protein 100 mg/dL *ABN* (06/11/2012 14:32:00) Negative 06/11/2012 ABN [facility] URINALYSIS UA pH 5.0 5.0 - 8.0 06/11/2012 Normal [facility] URINALYSIS UA Spec Grav 1.017 <=1.030 06/11/2012 Normal [facility] URINALYSIS UA Glucose Negative mg/dL *NA* (06/11/2012 14:32:00) Negative 06/11/2012 [facility] URINALYSIS UA WBC >182 0 - 5 06/11/2012 [facility] URINALYSIS UA Bacteria Many /HPF *ABN* (06/11/2012 14:32:00) None Seen 06/11/2012 ABN [facility] URINALYSIS UA Mucus Few /LPF *NA* (06/11/2012 14:32:00) None Seen 06/11/2012 [facility] URINALYSIS UA RBC >182 0 - 2 06/11/2012 [facility] URINALYSIS UA Nitrite Positive *ABN* (06/11/2012 14:32:00) Negative 06/11/2012 [facility] URINALYSIS UA Leuk Est Negative (06/11/2012 14:32:00) Negative 06/11/2012 Normal [facility] URINALYSIS UA Urobilinogen 4.0 0.1 - 1.0 06/11/2012 [facility] URINALYSIS UA Color Brown 06/11/2012 [facility] URINALYSIS UA Sq Epi None Seen 06/11/2012 [facility] Microbiology Culture: Urine 06/11/2012 [facility] Pathology Reports No Data Provided for This Section Diagnostic Reports Report Value Date Source Chest 2 views PA and LATERAL CHEST [...] pacemaker. Coding: Chest 2 views CPT Code: 91193 SL: 13 Herbie Bray M.D. 03/07/2014 [facility] Chest 2 views Examination: Chest x-ray, 2 views History: Shortness of Breath Comparison: 12/25/2013 Findings: The lungs are clear and without focal consolidation. The cardiomediastinal silhouette is within normal limits. No pleural effusion or pneumothorax is seen. The osseous structures are without focal abnormality. Left-sided dual chamber pacemaker is stable. IMPRESSION: No acute cardiopulmonary disease. SL: 12 01/09/2014 [facility] Ext Lower Venous Doppler Bilat US Bilateral [...] CFV to the popliteal vein. SL:13 12/26/2013 [facility] Retroperitoneal limited US RENAL ULTRASOUND INDICATION: Chronic [...] appearance of the kidneys. SL: 16 12/26/2013 [facility] Brain wo contrast CT EXAM: CT HEAD [...] significant interval change compared to 10/11/2013. SL: 12/25/2013 [facility] Chest 1view Portable chest: The pacemaker leads are in satisfactory position. The cardiac silhouette is normal in size. There is fluffy alveolar infiltrate in the right lower lobe developing since 11/14/2013. The l ungs and pleural spaces are otherwise clear. IMPRESSION: Right lower lobe pneumonia. SL:12/25/2013 [facility] Spine cervical wo contrast CT CT CERVICAL [...] 1 spondylolisthesis at C7-T1. SL: 16 12/10/2013 [facility] GI Bleed NM EXAM: Nuclear medicine GI [...] at time of dictation. SL: 14 11/14/2013 [facility] Chest 2 views Chest 2 views. COMPARISON: [...] No acute normality is evident. SL:13 11/14/2013 [facility] Brain wo contrast CT CRANIAL CT without [...] Coding: Brain wo contrast CT CPT Code: 71672 SL: 13 Herbie Bray M.D. 10/11/2013 [facility] Bone scan DE WHOLE-BODY BONE SCAN: PROCEDURE: 24.9 mCi of technetium [...] definite evidence of osseous metastases. SL:13 10/11/2013 [facility] Consultation Notes No Data Provided for This Section Discharge Summaries No Data Provided for This Section History and Physicals No Data Provided for This Section Vital Signs Vital Sign Value Date Comments Source Respitory Rate 18 08/20/2016 [facility] Systolic (mm Hg) 182 08/20/2016 [facility] Diastolic (mm Hg) 106 08/20/2016 [facility] Heart Rate 74 08/20/2016 [facility] Height 177.8 cm 08/20/2016 [facility] Weight 80.909 08/20/2016 [facility] BMI Calculated 25.59 08/20/2016 [facility] Height 177.8 cm 03/06/2014 [facility] BMI Calculated 24.86 03/06/2014 [facility] Weight 78.6 03/06/2014 [facility] Temperature Oral (F) 98.8 F 12/28/2013 [facility] Systolic (mm Hg) 121 12/28/2013 [facility] Respitory Rate 17 12/28/2013 [facility] Heart Rate 73 12/28/2013 [facility] Diastolic (mm Hg) 61 12/28/2013 [facility] Diastolic (mm Hg) 68 12/28/2013 [facility] Systolic (mm Hg) 125 12/28/2013 [facility] Heart Rate 76 12/28/2013 [facility] Respitory Rate 17 12/28/2013 [facility] Temperature Oral (F) 98.5 F 12/28/2013 [facility] Systolic (mm Hg) 143 12/28/2013 [facility] Diastolic (mm Hg) 58 12/28/2013 [facility] Respitory Rate 17 12/28/2013 [facility] Temperature Oral (F) 98.9 F 12/28/2013 [facility] Heart Rate 71 12/28/2013 [facility] Weight 81.2 12/26/2013 [facility] Weight 83.636 12/25/2013 [facility] BMI Calculated 26.46 12/25/2013 [facility] Height 177.8 cm 12/25/2013 [facility] Respitory Rate 18 11/18/2013 [facility] Heart Rate 77 11/18/2013 [facility] Diastolic (mm Hg) 64 11/18/2013 [facility] Systolic (mm Hg) 121 11/18/2013 [facility] Temperature Oral (F) 98.1 F 11/18/2013 [facility] Diastolic (mm Hg) 60 11/18/2013 [facility] Temperature Oral (F) 97.9 F 11/18/2013 [facility] Heart Rate 93 11/18/2013 [facility] Respitory Rate 18 11/18/2013 [facility] Systolic (mm Hg) 102 11/18/2013 [facility] Systolic (mm Hg) 101 11/18/2013 [facility] Temperature Oral (F) 98.1 F 11/18/2013 [facility] Respitory Rate 18 11/18/2013 [facility] Diastolic (mm Hg) 60 11/18/2013 [facility] Heart Rate 83 11/18/2013 [facility] Weight 78.636 11/12/2013 [facility] Height 177.8 cm 11/12/2013 [facility] BMI Calculated 24.87 11/12/2013 [facility] Systolic (mm Hg) 160 06/14/2012 [facility] Respitory Rate 18 06/14/2012 [facility] Diastolic (mm Hg) 68 06/14/2012 [facility] Temperature Oral (F) 98.0 F 06/14/2012 [facility] Heart Rate 61 06/14/2012 [facility] Temperature Oral (F) 97.6 F 06/14/2012 [facility] Heart Rate 67 06/14/2012 [facility] Diastolic (mm Hg) 67 06/14/2012 [facility] Systolic (mm Hg) 177 06/14/2012 [facility] Respitory Rate 18 06/14/2012 [facility] Systolic (mm Hg) 142 06/14/2012 [facility] Diastolic (mm Hg) 75 06/14/2012 [facility] Respitory Rate 18 06/14/2012 [facility] Heart Rate 65 06/14/2012 [facility] Temperature Oral (F) 98.0 F 06/14/2012 [facility] Height 177.80 cm 06/11/2012 [facility] Weight 83.182 06/11/2012 [facility] Height 177.80 cm 06/11/2012 [facility] Weight 80.455 06/11/2012 [facility] Encounters Location Location Details Encounter Type Encounter Number Reason For Visit Attending Provider ADM Date DC Date Status Source [facility] OU [id number] EDUARDO JANAY 06/11/2012 06/14/2012 Discharged [facility] Outpatient [id number] Newton Guzman 10/11/2013 10/12/2013 [facility] Inpatient [id number] Sánchez Luz 11/12/2013 11/18/2013 [facility] [id number] Getachew Farias 12/07/2013 12/07/2013 [facility] Outpatient [id number] Igor Michelle 12/10/2013 12/11/2013 [facility] Inpatient [id number] William Jaz 12/25/2013 12/28/2013 [facility] Outpatient [id number] Newton Thomas 01/09/2014 01/10/2014 [facility] OP Recurring [id number] Newton Morrowan 03/07/2014 04/06/2014 [facility] Bedded Outpatient [id number] Panda Huitrona 08/20/2016 08/20/2016 [facility] Procedures Procedure Code Date Perfomer Comments Source Placement of stent<sup>1</sup> [id number] 07/19/2011 left leg, 2 in heart [facility] Placement of stent<sup>2</sup> [id number] 06/20/2011 right leg [facility] Laminectomy [id number] 04/19/2008 [facility] Placement of stent [id number] 01/25/2008 [facility] Laminectomy [id number] 04/19/2005 [facility] Procedure on prostate<sup>3</sup> [id number] 04/19/1998 seeding [facility] Cataract surgery [id number] 04/19/1975 [facility] Pacemaker care management [facility] Pacemaker care management [id number] [facility] Assessment and Plan Assessment and Plan Date Source Extracted from:Title: Clinical Document Author: William Sebastian DO Date: 12/28/13 Progress Daily [facility] Completed: Dec, 14:42 by William Sebastian DO RM: 128 - 1P, SE C1B RAJESH CARROLL 83y (: 1930) Attending: William Sebastian DO Service: Internal Medicine Reason for Admission: SEPSIS, UTI, PNA, HYPERKALEMIA Working DRG: Simple pneumonia and pleurisy w CC Code status: Full Code [Ordered] Current diet: Isolation: No Isolation/Standard Precautions [Ordered] Allergies: Ativan, Adhesive Tape, Neurontin SUBJECTIVE Patient seen and examined. Events noted overnight. Labs/Images reviewed doing better, ambulating well OBJECTIVE Labs (Last four charted values) WBC 6.8 (DEC 28) 8.4 (DEC 27) H 12.4 (DEC 26) H 15.4 (DEC 25) Hgb L 8.5 (DEC 28) L 8.2 (DEC 27) L 8.7 (DEC 26) L 10.4 (DEC 25) Hct L 25.9 (DEC 28) L 24.6 (DEC 27) L 26.9 (DEC 26) L 31.7 (DEC 25) Plt 256 (DEC 28) 234 (DEC 27) 260 (DEC 26) 331 (DEC 25) Na 144 (DEC 28) 142 (DEC 27) H 146 (DEC 26) 143 (DEC 26) K 4.1 (DEC 28) 3.8 (DEC 27) 4.5 (DEC 26) 4.9 (DEC 26) CO2 L 22 (DEC 28) L 22 (DEC 27) L 17 (DEC 26) L 20 (DEC 26) Cl H 114 (DEC 28) H 114 (DEC 27) H 119 (DEC 26) H 116 (DEC 26) Cr 1.4 (DEC 28) 1.4 (DEC 27) H 1.7 (DEC 26) H 1.7 (DEC 26) BUN 22 (DEC 28) H 23 (DEC 27) H 36 (DEC 26) H 42 (DEC 26) Glucose Random H 103 (DEC 28) H 102 (DEC 27) H 137 (DEC 26) H 154 (DEC 26) Mg L 1.3 (DEC 26) Phos L 2.0 (DEC 26) Ca 9.6 (DEC 28) 8.8 (DEC 27) 9.2 (DEC 26) 9.2 (DEC 26) PT 14.1 (DEC 28) 14.3 (DEC 27) H 15.6 (DEC 26) 14.6 (DEC 25) INR 1.10 (DEC 28) 1.12 (DEC 27) H 1.25 (DEC 26) 1.15 (DEC 25) PTT H 41.5 (DEC 26) H 37.7 (DEC 25) Troponin 0.05 (DEC 25) CK MB 2.9 (DEC 25) Total CK 148 (DEC 25) ASSESSMENT and EXAM Gen: NAD, Alert, Awake HEENT: NC/AT, PERRLA, oral area clear and moist Neck: No LAD, No JVD, trachea midline Chest: CTAB, RLL crackles CV: RRR, S1, S2 GI: +BS, S, NT, ND, No organomegaly Ext: no c/c/e Neuro: AOx3, no gross deficits noted Skin: No notable rashes PLAN and TREATMENT PO augmentin for 7 days for strep pneumo renal function at baseline Hg stable d/c warfarin and change lovenox for dvt prophylaxis dose - no signs of DVT in lower extremities - pt high risk for GI bleed given last admission noted PT/OT - appreciate input d/c home today d/w pt and pt's family DIAGNOSES and PROBLEMS 1. Right lower lobe pneumonia - pneumococcal. 2. Acute renal failure. 3. Hyperkalemia. 4. 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 5. T2DM Ready for Discharge (Yes/No)? Nye still necessary (Yes/No): Line still necessary (Yes/No): 24hr Labs 12/28 1206 Glucose POC 227 H 12/28 0553 Glucose Lvl 103 H BUN 22 Creatinine Lvl 1.4 Sodium Lvl 144 Potassium Lvl 4.1 Chloride Lvl 114 H CO2 22 L AGAP 12.1 Calcium Lvl 9.6 eGFR 46 WBC 6.8 RBC 2.89 L Hgb 8.5 L Hct 25.9 L MCV 89.9 MCH 29.5 MCHC 32.8 RDW 16.6 H Platelet 256 MPV 8.0 PT 14.1 INR 1.10 Segs 69.2 Monocytes 6.6 Lymphocytes 19.8 L Eosinophils 3.8 Basophils 0.6 Segs-Bands # 4.7 Lymphocytes # 1.3 Monocytes # 0.4 Eosinophils # 0.3 Plt Morph Normal Anisocyte 1+ 12/28 0546 Glucose POC 112 H 12/27 2051 Glucose POC 141 H 12/27 1652 Glucose POC 140 H Vitals Tmp(F) Pulse BP RR SpO2 FIO2 12/28 12:00 98.5 76 125/68 17 --- --- 12/28 08:00 98.9 71 143/58 17 --- --- 12/28 04:00 99.0 70 150/56 16 --- --- 12/28 00:00 98.2 71 151/64 16 --- --- 12/27 20:00 98.5 76 157/74 16 98 --- 24 Hr Tmax: 99.0F (37.22c) at 12/28 04:00 Vital Signs are the last 5 in the past 48 hours. Date Wt(kg) Wt(lb) Ht(cm) Ht(in) Method 12/25 (initial) 83.64 184.00 177.80 70.00 Stated I&O Record In Out Bal 12/28 24hr Tot 0 0 0 12/27 24hr Tot [id number] Medications (27) Active Scheduled Meds (10): 12/27/13 aspirin (aspirin 81 mg tablet, enteric coated) 81 mg PO Daily 12/25/13 azithromycin 500 mg IVPB [id number] 166.67 ml/hr 12/27/13 cefTRIAXone (Rocephin) 1 gm IM Q12H 12/27/13 citalopram (CeleXA) 40 mg PO Daily 12/26/13 clopidogrel 75 mg PO Bedtime 12/27/13 enoxaparin 40 mg SUB-Q [id number] 12/27/13 folic acid 1 mg PO QAM [...] Time Meds: None Continuous Infusions: None Extracted from:Title: Renal Consult Author: Bri Rincon MD Date: 12/26/13 Impression and Plan BILL on [...] if no improvement Continue Abx. F/u cultures 12/28/2013 [facility] Extracted from:Title: Clinical Document Author: Sourav Hardy MD Date: 11/18/13 GI Progress Note SUBJECTIVE: Patient seen and examined. Events of the day reviewed. No new GI complaints. Required pRBC yesterday OBJECTIVE: Vitals and Temp: Vitals Tmp(F) Pulse BP RR SpO2 FIO2 11/18 08:00 98.1 77 121/64 18 --- --- 11/18 05:31 97.9 93 102/60 18 --- --- 11/18 00:55 98.1 83 101/60 18 --- --- 11/17 20:22 98.3 73 108/57 18 --- --- 11/17 16:00 98.4 73 118/77 18 --- --- 24 Hr Tmax: 98.4F (36.89c) at 11/17 16:00 Vital Signs are the last 5 in the past 48 hours. General: awake, alert , oriented, in no acute distress. 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 Extremities : no edema 24hr Labs 11/18 0829 Glucose POC 91 11/18 0548 WBC 6.0 RBC 3.44 L Hgb 10.1 L Hct 29.5 L MCV 86.0 MCH 29.4 MCHC 34.2 RDW 18.4 H Platelet 137 MPV 8.5 Segs 59.0 Monocytes 7.7 Lymphocytes 28.3 Eosinophils 4.2 H Basophils 0.8 Segs-Bands # 3.6 Lymphocytes # 1.7 Monocytes # 0.5 Eosinophils # 0.3 11/17 2103 Glucose POC 137 H 11/17 1600 Glucose POC 125 H 11/17 1513 ABO/Rh O POS Antibody Scrn Negative XM EXM Interp Computer XM OK XM EXM Interp Computer XM OK 11/17 1430 RBC product Product available 11/17 1216 Glucose POC 158 H ASSESSMENT GI bleed; likley source in [...] needed for Hgb <9 due to CAD. 11/18/2013 [facility] Plan of Care No Data Provided for This Section Social History Social History Date Source Social History TypeResponse Substance Abuse Use: None. Alcohol Past Smoking Status Former smoker; Ready to change: No; Exposure to Tobacco Smoke None; Cigarette Smoking Last 365 Days No; Reg Smoking Cessation Counseling Yes1 1quit in 196008/20/2016 [facility] Family History No Data Provided for This Section Advance Directives No Data Provided for This Section Functional Status No Data Provided for This Section
--- NOTE | 2018-11-16 13:48 | Diagnostic Imaging Report ---
HIP RIGHT 2-3 VW (+/- PELVIS) - 3 views HISTORY: Pain COMPARISON: None available. FINDINGS: Generalized demineralization and body habitus limit evaluation. Right femoral neck mildly displaced fracture. Proximal right thigh vascular stent and calcified vessels are seen. Multiple surgical clips overlying right pelvic sidewall. Partially seen contrast within bowel. IMPRESSION: Mildly displaced right femoral neck fracture. Signed by: Dr. Lucio Holt MD on 11/16/2018 1:45 PM
[2018-11-16] MEDS ORDERED: MORPHINE SULFATE INJ 4 MG/ML INJ 1ML IV ONE (14:45)
[2018-11-16 15:04] LABS: BASOPHILS # (AUTO) 0.1 (0.0-0.1); BASOPHILS % 0.4 % (0.0-1.0); EOSINOPHILS # (AUTO) 0.4 (0.0-0.4); EOSINOPHILS % 3.6 % (0.0-6.0); HEMATOCRIT 25.3 % (38.2-49.6); HEMOGLOBIN 8.2 g/dL (14.0-18.0); LYMPHOCYTES # (AUTO) 4.8 (1.0-3.2); LYMPHOCYTES % 42.8 % (18.0-39.1); MEAN CORPUSCULAR HEMOGLOBIN 32.3 pg (28-32); MEAN CORPUSCULAR HGB CONC 32.4 g/dL (31-35); MEAN CORPUSCULAR VOLUME 99.6 fL (81-99); MONOCYTES # (AUTO) 0.9 (0.2-0.8); MONOCYTES % 8.2 % (4.4-11.3); NEUTROPHILS % 44.7 % (38.7-80.0); PLATELET COUNT 373 x10e3/uL (140-360); RED BLOOD COUNT 2.54 x10e6/uL (4.3-5.7); RED CELL DISTRIBUTION WIDTH 14.8 % (11.7-14.4)
[2018-11-16] MEDS ORDERED: DEXTROSE 50% SYRINGE 50 ML IV PRN (15:15)
[2018-11-16 15:20] LABS: INR 0.96; PROTHROMBIN TIME 13.3 seconds (11.9-14.5)
[2018-11-16 15:21] LABS: PARTIAL THROMBOPLASTIN TIME 36.8 seconds (23.8-35.5)
[2018-11-16 15:29] LABS: ALBUMIN/GLOBULIN RATIO 0.8 (0.8-2.0); CALCIUM 9.2 mg/dL (8.4-10.2); CREATININE, SERUM 1.52 mg/dL (0.72-1.25)
--- OUTSIDE RECORDS SUMMARY | 2018-11-16 15:39 | XMS REPORT | Continuity of Care Document ---
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 12/25/2013 [facility] SEPSIS, UTI, PNA, HYPERKALEMIA Active 12/25/2013 [facility] ABNORMAL LABS Active 12/07/2013 [facility] 723.4=ACUTE CERVICAL RADICULOPATHY Active 12/05/[address] [facility] [address] SENT Active 11/12/2013 [facility] SYMPTOMATIC ANEMIA, GI BLEED Active 11/12/2013 [facility] 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 10/03/2013 [facility] UTI,RENAL INSUFFICIENCY,URIMARY RETENTIO Active 06/11/2012 [facility] URINARY SYMPTOMS Active 06/11/2012 [facility] Heart disease Active 04/19/2010 Problem 08/23/2016 [facility] Poor peripheral circulation Active 04/19/2010 Problem 08/23/2016 [facility] Heart disease Resolved 04/19/2010 Problem 06/16/2012 [facility] Poor peripheral circulation Resolved 04/19/2010 Problem 06/16/2012 [facility] TIA Active 04/19/2008 Problem 08/23/2016 [facility] TIA Resolved 04/19/2008 Problem 06/16/2012 [facility] Back pain Active 04/19/2005 Problem 08/23/2016 [facility] Back pain Resolved 04/19/2005 Problem 06/16/2012 [facility] Heartburn Active 04/19/2002 Problem 08/23/2016 [facility] Heartburn Resolved 04/19/2002 Problem 06/16/2012 [facility] CA - Cancer of prostate Active 04/19/1998 Problem 08/23/2016 [facility] RF - Renal failure Active 04/19/1998 Problem 08/23/2016 [facility] UTI - Urinary tract infection Active 04/19/1998 Problem 08/23/2016 [facility] CA - Cancer of prostate Resolved 04/19/1998 Problem 06/16/2012 [facility] RF - Renal failure Resolved 04/19/1998 Problem 06/16/2012 [facility] UTI - Urinary tract infection Resolved 04/19/1998 Problem 06/16/2012 [facility] Hypertension Active 12/18/1990 Problem 08/23/2016 [facility] Hypertension Resolved 12/18/1990 Problem 06/16/2012 [facility] BPH - Benign prostatic hypertrophy Active 04/19/1982 Problem 08/23/2016 [facility] BPH - Benign prostatic hypertrophy Resolved 04/19/1982 Problem 06/16/2012 [facility] Cataract Active 04/19/1975 Problem 08/23/2016 [facility] Hyperlipidemia Active 04/19/1975 Problem 08/23/2016 [facility] Cataract Resolved 04/19/1975 Problem 06/16/2012 [facility] Hyperlipidemia Resolved 04/19/1975 Problem 06/16/2012 [facility] Anemia Active 04/19/1972 Problem 08/23/2016 [facility] Diabetes mellitus - adult onset Resolved 04/19/1972 Problem 08/23/2016 [facility] Anemia Resolved 04/19/1972 Problem 06/16/2012 [facility] Diabetes mellitus - adult onset Resolved 04/19/1972 Problem 06/16/2012 [facility] Neck pain Active 04/19/1971 Problem 08/23/2016 [facility] Neck pain Resolved 04/19/1971 Problem 06/16/2012 [facility] Sinusitis Resolved 05/16/1932 Problem 08/23/2016 [facility] Sinusitis Resolved 05/16/1932 Problem 06/16/2012 [facility] Bladder cancer Active Problem 08/23/2016 [facility] Diabetes Active Problem 08/23/2016 [facility] Hypercholesteremia Active Problem 08/23/2016 [facility] URIN TRACT INFECTION NOS Active [facility] TRANS CEREB ISCHEMIA NOS Active [facility] GASTROINTEST HEMORR NOS Active [facility] BRACHIAL NEURITIS NOS Active [facility] SEPTICEMIA NOS Active [facility] SHORTNESS OF BREATH Active [facility] Medications Medication Details Route Status Patient Instructions Ordering Provider Order Date Source Fentanyl 50 microgram, Route: IV, Q2H, Dosing Weight 80.909, kg, PRN Pain Score 4-6, Start date: 08/20/16 9:29:00 CDT, Stop date: 09/19/16 9:28:00 CDT Inactive 08/20/2016 [facility] Nitroglycerin 0.4 mg, Route: SL, Drug form: TAB, Q5Min, Dosing Weight 80.909, kg, PRN Chest Pain, Start date: 08/20/16 9:13:00 CDT, Duration: 3 doses or times, Stop date: Limited # of times Inactive 08/20/2016 [facility] Sodium Chloride 0.154 MEQ/ML Injectable Solution 750 mL, Rate: 75 ml/hr, Infuse over: 10 hr, Route: IV, Dosing Weight 80.909 kg, Total Volume: 750, Start date: 08/20/16 9:13:00 CDT, Duration: 10 hr, Stop date: 08/20/16 19:12:00 CDT Inactive 08/20/2016 [facility] Morphine 4 mg, 1 mL, Route: IVP, Drug form: SOLN, Q2H, Dosing Weight 80.909, kg, PRN Other -See Comment, Start date: 08/20/16 8:22:00 CDT, Duration: 30 day, Stop date: 09/19/16 8:21:00 CDTNotes: (Same as:MORPhine Sulfate) Inactive 08/20/2016 [facility] ferrous fumarate 325 mg oral tablet 325 mg=1 tab, PO, BID, with meals, 0 Refill(s) Active 08/20/2016 [facility] multivitamin 1 tab, PO, Daily, 0 Refill(s) Active 08/20/2016 [facility] atorvastatin 10 mg oral tablet 10 mg=1 tab, PO, Bedtime, # 30 tab, 0 Refill(s) Active 08/20/2016 [facility] Vancomycin 1 gm, IVP, Q48H, 0 Refill(s) Active 08/20/2016 [facility] Insulin, Aspart, Human SUB-Q, TID-Before Meals, 0 Refill(s) Active 08/20/2016 [facility] Hydromorphone 0.5 mg, IVP, Q3H, prn, 0 Refill(s) Active 08/20/2016 [facility] cefepime 1 g injection 1 gm, IV, Q8H, 0 Refill(s) Active 08/20/2016 [facility] Docusate Sodium 100 MG Oral Capsule 100 mg=1 cap, PO, Daily, PRN Constipation, # 20 cap, 0 Refill(s) Active 08/20/2016 [facility] Divalproex Sodium 125 MG Enteric Coated Tablet 125 mg=1 tab, PO, Q12H, 0 Refill(s) Active 08/20/2016 [facility] metoprolol tartrate 50 mg oral tablet 50 mg=1 tab, PO, BID, # 180 tab, 0 Refill(s) Active 08/20/2016 [facility] quetiapine 25 MG Oral Tablet [Seroquel] 25 mg=1 tab, PO, Q8H, prn, 0 Refill(s) Active 08/20/2016 [facility] Magnesium Sulfate 2 gm, IV, ONCE, 0 Refill(s) Active 08/20/2016 [facility] 0.3 ML Enoxaparin sodium 100 MG/ML Prefilled Syringe [Lovenox] 30 mg, SUB-Q, Daily, 0 Refill(s) Active 08/20/2016 [facility] 24 HR Nifedipine 30 MG Extended Release Tablet [Nifedical] 30 mg=1 tab, PO, Daily, # 30 tab, 0 Refill(s) Active 08/20/2016 [facility] memantine 5 mg oral tablet 5 mg=1 tab, PO, Daily, # 30 tab, 0 Refill(s) Active 08/20/2016 [facility] Acetaminophen 325 MG / Hydrocodone Bitartrate 5 MG Oral Tablet 1 tab, PO, Q4H, PRN Pain, # 30 tab, 0 Refill(s) Active 08/20/2016 [facility] Senna 8.6 mg oral tablet 8.6 mg=1 tab, PO, Daily, 0 Refill(s) Active 08/20/2016 [facility] Albuterol 0.833 MG/ML / Ipratropium [place] 0.167 MG/ML Inhalant Solution 3 mL, NEB, Q4H, prn, 0 Refill(s) Active 08/20/2016 [facility] pantoprazole 40 mg oral enteric coated tablet See Instructions, 40mg IVP Daily, 0 Refill(s) Inactive 08/20/2016 [facility] dexamethasone + Sodium Chloride 0.9% IV 50 mL 10 mg, 2.5 mL, Route: IVPB, Drug form: INJ, ONCALL, Start date: 03/13/14 9:00:00, Duration: 12 hr, Stop date: 03/13/14 20:59:00Notes: Concentration: 4mg/ml PROTECT FROM LIGHT No Longer Active 03/13/2014 [facility] DexFerrum + Sodium Chloride 0.9% IV 500 mL 800 mg, 16 mL, Route: IVPB, Drug form: INJ, ONCALL, Start date: 03/13/14 9:00:00, Duration: 12 hr, Stop date: 03/13/14 20:59:00Notes: (Same as:DexFerrum) Non-Formulary pt already received test dose at prior appointment PROTECT FROM LIGHT No Longer Active 03/13/2014 [facility] Sodium Chloride 0.9% IV IV, 30 ml/hr, ONCALL, Start date: 03/13/14 9:00:00, Duration: 12, 250 ml No Longer Active 03/13/2014 [facility] Pepcid 20 mg, 2 mL, Route: IVP, Drug form: INJ, ONCALL, Start date: 03/13/14 9:00:00, Duration: 12 hr, Stop date: 03/13/14 20:59:00Notes: (Same as: Pepcid) Can be dilute in 5-10cc NS IVP: Slow IV push over at least 2 minutes. No Longer Active 03/13/2014 [facility] Benadryl 25 mg, 0.5 mL, Route: IVP, Drug form: INJ, ONCALL, Start date: 03/13/14 9:00:00, Duration: 12 hr, Stop date: 03/13/14 20:59:00Notes: (Same as: Benadryl) No Longer Active 03/13/2014 [facility] Benadryl 25 mg, 0.5 mL, Route: IVP, Drug form: INJ, ONCALL, Start date: 03/07/14 8:30:00, Duration: 1 day, Stop date: 03/08/14 8:29:00Notes: (Same as: Benadryl) Inactive 03/07/2014 [facility] DexFerrum + Sodium Chloride 0.9% IV 500 mL 775 mg, 15.5 mL, Route: IVPB, Drug form: INJ, ONCALL, Start date: 03/07/14 8:30:00, Duration: 1 day, Stop date: 03/08/14 8:29:00Notes: (Same as:DexFerrum) Non- Formulary Inactive 03/07/2014 [facility] Sodium Chloride 0.9% IV IV, 30 ml/hr, ONCALL, Start date: 03/07/14 8:30:00, Duration: 1, 250 ml Inactive 03/07/2014 [facility] Pepcid 20 mg, 2 mL, Route: IVP, Drug form: INJ, ONCALL, Start date: 03/07/14 8:30:00, Duration: 1 day, Stop date: 03/08/14 8:29:00Notes: (Same as: Pepcid) Can be dilute in 5-10cc NS IVP: Slow IV push over at least 2 minutes. Inactive 03/07/2014 [facility] dexamethasone + Sodium Chloride 0.9% IV 50 mL 10 mg, 2.5 mL, Route: IVPB, Drug form: INJ, ONCALL, Start date: 03/07/14 8:30:00, Duration: 1 day, Stop date: 03/08/14 8:29:00Notes: Concentration: 4mg/ml Inactive 03/07/2014 [facility] DexFerrum + Sodium Chloride 0.9% IV 50 mL 25 mg, 0.5 mL, Route: IVPB, Drug form: INJ, ONCALL, Start date: 03/07/14 8:30:00, Duration: 1 day, Stop date: 03/08/14 8:29:00Notes: (Same as:DexFerrum) Non-Formulary Inactive 03/07/2014 [facility] Aspirin 81 MG Enteric Coated Tablet 81 mg=1 tab, PO, Daily, # 100 tab, 0 Refill(s) Active 12/28/2013 [facility] Amoxicillin 875 MG / Clavulanate 125 MG Oral Tablet [Augmentin 875-mg] 875 mg=1 tab, PO, Q12H, # 14 tab, 0 Refill(s) Active 12/28/2013 [facility] Rocephin 1 gm, Route: IM, Drug form: PDR/INJ, Q12H, Dosing Weight 81.2, kg, Start date: 12/27/13 21:00:00, Duration: 30 day, Stop date: 01/26/14 9:00:00Notes: (Same As: Rocephin). No Longer Active 12/28/2013 [facility] Enoxaparin 40 mg, 0.4 mL, Route: SUB-Q, Drug form: INJ, [id number], Dosing Weight 83.636, kg, Start date: 12/27/13 10:00:00, Duration: 30 day, Stop date: 01/25/14 10:00:00Notes: (Same as: Lovenox) No Longer Active 12/27/2013 [facility] Warfarin 5 mg, 1 tab, Route: PO, Drug form: TAB, QAM, Dosing Weight 81.2, kg, Start date: 12/27/13 9:00:00, Duration: 30 day, Stop date: 01/25/14 9:00:00Notes: Nurse to ensure documentation of patient education per anticoagulation policy. Avoid large intake of vitamin-K containing foods diet. (Same As: Coumadin) Inactive 12/27/2013 [facility] Omeprazole 40 mg, Route: PO, Drug form: DRC, Daily, Dosing Weight 81.2, kg, Start date: 12/27/13 9:00:00, Duration: 30 day, Stop date: 01/25/14 9:00:00 No Longer Active 12/27/2013 [facility] metoprolol tartrate 25 mg, 1 tab, Route: PO, Drug form: TAB, QAM, Dosing Weight 81.2, kg, Start date: 12/27/13 9:00:00, Duration: 30 day, Stop date: 01/25/14 9:00:00Notes: (Same as: Lopressor) No Longer Active 12/27/2013 [facility] Lisinopril 10 mg, Route: PO, Drug form: TAB, QAM, Dosing Weight 81.2, kg, Start date: 12/27/13 9:00:00, Duration: 30 day, Stop date: 01/25/14 9:00:00 No Longer Active 12/27/2013 [facility] Folic Acid 1 mg, 1 tab, Route: PO, Drug form: TAB, QAM, Dosing Weight 81.2, kg, Start date: 12/27/13 9:00:00, Duration: 30 day, Stop date: 01/25/14 9:00:00Notes: (Same as: Folvite) No Longer Active 12/27/2013 [facility] Celexa 40 mg, 2 tab, Route: PO, Drug form: TAB, Daily, Dosing Weight 81.2, kg, Start date: 12/27/13 9:00:00, Duration: 30 day, Stop date: 01/25/14 9:00:00Notes: (Same As: CeleXA) No Longer Active 12/27/2013 [facility] Aspirin 325 MG Enteric Coated Tablet 325 mg, 1 tab, Route: PO, Drug form: ECTAB, Daily, Dosing Weight 81.2, kg, Start date: 12/27/13 9:00:00, Duration: 30 day, Stop date: 01/25/14 9:00:00 No Longer Active 12/27/2013 [facility] Aspirin 81 MG Enteric Coated Tablet 81 mg, 1 tab, Route: PO, Drug form: ECTAB, Daily, Dosing Weight 81.2, kg, Start date: 12/27/13 9:00:00, Duration: 30 day, Stop date: 01/25/14 9:00:00Notes: Do not crush or chew. (Same As: Ecotrin) No Longer Active 12/27/2013 [facility] clopidogrel 75 mg, 1 tab, Route: PO, Drug form: TAB, Bedtime, Dosing Weight 81.2, kg, Start date: 12/26/13 21:00:00, Duration: 30 day, Stop date: 01/24/14 21:00:00Notes: (Same As: Plavix) No Longer Active 12/27/2013 [facility] Protonix 40 mg, 1 tab, Route: PO, Drug form: ECTAB, Before Dinner, Start date: 12/26/13 16:30:00, Duration: 30 day, Stop date: 01/24/14 16:30:00Notes: Tablet should not be chewed or crushed. (Same as: Protonix) No Longer Active 12/26/2013 [facility] Lyrica 150 mg, 2 cap, Route: PO, Drug form: CAP, TID, Dosing Weight 81.2, kg, Start date: 12/26/13 13:00:00, Duration: 30 day, Stop date: 01/25/14 9:00:00Notes: (Same as: Lyrica) No Longer Active 12/26/2013 [facility] Enoxaparin 80 mg, 0.8 mL, Route: SUB-Q, Drug form: INJ, [id number], Dosing Weight 83.636, kg, Start date: 12/26/13 10:00:00, Duration: 30 day, Stop date: 01/24/14 10:00:00Notes: Nurse to ensure documentation of patient education per anticoagulation policy. (Same as: Lovenox) No Longer Active 12/26/2013 [facility] Lasix 20 mg, 2 mL, Route: IVP, Drug form: INJ, ONCE, Dosing Weight 81.2, kg, Priority: STAT, Start date: 12/26/13 9:36:00, Stop date: 12/26/13 9:36:00Notes: (Same as: Lasix) Inactive 12/26/2013 [facility] Insulin, Aspart, Human 6 unit, 0.06 mL, [...] days from Date No Longer Active 12/26/2013 [facility] Dextrose 50% Syringe 25 gm, 50 mL, Route: IVP, Drug Form: INJ, Dosing Weight 81.2, kg, PRN, PRN Blood Glucose Results, Start date: 12/26/13 9:35:00, Duration: 30 day, Stop date: 01/25/14 9:34:00 No Longer Active 12/26/2013 [facility] Glucagon 1 mg, Route: IM, Drug form: PDR/INJ, PRN, Dosing Weight 81.2, kg, PRN Blood Glucose Results, Start date: 12/26/13 9:35:00, Duration: 30 day, Stop date: 01/25/14 9:34:00 No Longer Active 12/26/2013 [facility] 1/2 NS 1,000 mL 1,000 mL, Rate: 75 ml/hr, Infuse over: 13.3 hr, Route: IV, Dosing Weight 81.2 kg, Total Volume: 1,000, Start date: 12/26/13 9:34:00, Duration: 1 day, Stop date: 12/27/13 9:33:00 No Longer Active 12/26/2013 [facility] D5W 1/2NS 1,000 mL 1,000 mL, Rate: 75 ml/hr, Infuse over: 13.3 hr, Route: IV, Dosing Weight 81.2 kg, Total Volume: 1,000, Start date: 12/26/13 9:24:00, Duration: 30 day, Stop date: 01/25/14 9:23:00 Inactive 12/26/2013 [facility] Ambien 10 mg, 1 tab, Route: PO, Drug form: TAB, Bedtime, Dosing Weight 81.2, kg, PRN as needed for sleep, Start date: 12/26/13 9:23:00, Duration: 30 day, Stop date: 01/25/14 9:22:00Notes: (Same As: Ambien) No Longer Active 12/26/2013 [facility] Enoxaparin 30 mg, 0.3 mL, Route: SUB-Q, Drug form: INJ, [id number], Dosing Weight 83.636, kg, Start date: 12/25/13 19:00:00, Duration: 30 day, Stop date: 01/23/14 19:00:00Notes: (Same as: Lovenox) No Longer Active 12/26/2013 [facility] warfarin 5 mg oral tablet 5 mg=1 tab, PO, QAM No Longer Active 12/26/2013 [facility] omeprazole 40 mg oral delayed release capsule 40 mg=1 cap, PO, Daily Active 12/25/2013 [facility] clopidogrel 75 mg oral tablet 75 mg=1 tab, PO, Bedtime Active 12/25/2013 [facility] Aspirin 325 MG Enteric Coated Tablet 325 mg=1 tab, PO, Daily No Longer Active 12/25/2013 [facility] NS 1,000 mL 1,000 mL, Rate: 100 ml/hr, Infuse over: 10 hr, Route: IV, Dosing Weight 83.636 kg, Total Volume: 1,000, Start date: 12/25/13 18:53:00, Duration: 30 day, Stop date: 01/24/14 18:52:00 No Longer Active 12/25/2013 [facility] Kayexalate 60 gm, 240 mL, Route: PO, Drug form: SUSP, ONCE, Dosing Weight 83.636, kg, Priority: STAT, Start date: 12/25/13 18:40:00, Stop date: 12/25/13 18:40:00Notes: (sodium polystyrene sulfonate 15 gm/60 ml MINO) Shake well before use. (Same as: Kayexalate, SPS) Inactive 12/25/2013 [facility] Azithromycin 500 mg, 250 mL, Route: IVPB, Drug form: PDR/INJ, [id number], Dosing Weight 83.636, kg, Priority: STAT, Start date: 12/25/13 18:38:00, Duration: 30 day, Stop date: 01/23/14 17:00:00Notes: Same as: Zithro max No Longer Active 12/25/2013 [facility] cefepime 1 gm, Route: IVPB, Drug form: INJ, [id number], Dosing Weight 83.636, kg, Priority: STAT, Start date: 12/25/13 18:38:00, Duration: 30 day, Stop date: 01/24/14 6:00:00Notes: (Same As: Maxipime) No Longer Active 12/25/2013 [facility] Acetaminophen 650 mg, 20.3 mL, Route: PO, Drug form: LIQ, Q4H, Dosing Weight 83.636, kg, PRN Pain 1-3/Temp > 100.4 F, Start date: 12/25/13 18:38:00, Duration: 30 day, Stop date: 01/24/14 18:37:00Notes: Max sanya [id number]=2440mx/day (4 gm/day). (Same as: Tylenol) No Longer Active 12/25/2013 [facility] Acetaminophen 325 MG / Hydrocodone Bitartrate 5 MG Oral Tablet 1 tab, Route: PO, Drug Form: TAB, Dosing Weight 83.636, kg, Q4H, PRN Pain Score 1-3, Start date: 12/25/13 18:38:00, Duration: 30 day, Stop date: 01/24/14 18:37:00Notes: (Same as: [place] 325/5) Do not exceed 4gm/day of acetaminophen. No Longer Active 12/25/2013 [facility] Ondansetron 4 mg, 2 mL, Route: IVP, Drug form: INJ, Q8H, Dosing Weight 83.636, kg, PRN Nausea & Vomiting, Start date: 12/25/13 18:38:00, Duration: 30 day, Stop date: 01/24/14 18:37:00Notes: (Same as: Zofran) No Longer Active 12/25/2013 [facility] Morphine 2 mg, 1 mL, Route: IVP, Drug form: INJ, Q3H, Dosing Weight 83.636, kg, PRN Pain Score 4-6, Start date: 12/25/13 18:38:00, Duration: 30 day, Stop date: 01/24/14 18:37:00Notes: (Same as:MORPhine Sulfate) No Longer Active 12/25/2013 [facility] Sodium Chloride 0.154 MEQ/ML Injectable Solution 1,000 mL, 1,000 ml/hr, Infuse Over: 1 hr, Route: IV, ONCE, Priority: STAT, Dosing Weight 83.636 kg, Start date: 12/25/13 18:11:00, Duration: 1 doses or times, Stop date: 12/25/13 18:11:00 Inactive 12/25/2013 [facility] Sodium Bicarbonate 1 MEQ/ML Injectable Solution 50 ml, Route: IVP, Dosing Weight 83.636, kg, ONCE, Start date: 12/25/13 18:09:00, Stop date: 12/25/13 18:09:00 Inactive 12/25/2013 [facility] Calcium Gluconate 2,000 mg, 20 mL, Route: IVPB, ONCE, Dosing Weight 83.636, kg, Start date: 12/25/13 18:05:00, Stop date: 12/25/13 18:05:00 Inactive 12/25/2013 [facility] Dextrose 50% Syringe 25 gm, Route: IVP, Dosing Weight 83.636, kg, ONCE, Start date: 12/25/13 18:05:00, Stop date: 12/25/13 18:05:00 Inactive 12/25/2013 [facility] Insulin, Regular, Pork 5 unit, Route: IV, ONCE, Dosing Weight 83.636, kg, Start date: 12/25/13 18:04:00, Stop date: 12/25/13 18:04:00 Inactive 12/25/2013 [facility] Tylenol 975 mg, Route: PO, Drug form: TAB, ONCE, Dosing Weight 83.636, kg, Priority: STAT, Start date: 12/25/13 15:41:00, Stop date: 12/25/13 15:41:00 Inactive 12/25/2013 [facility] Azithromycin 500 mg, Route: IVPB, ONCE, Dosing Weight 83.636, kg, Priority: STAT, Start date: 12/25/13 15:40:00, Stop date: 12/25/13 15:40:00 Inactive 12/25/2013 [facility] Rocephin 1 gm, Route: IVPB, Drug form: PDR/INJ, ONCE, Dosing Weight 83.636, kg, Priority: STAT, Start date: 12/25/13 15:40:00, Stop date: 12/25/13 15:40:00 Inactive 12/25/2013 [facility] Sodium Chloride 0.9% IV IV, 30 ml/hr, ONCALL, Start date: 11/17/13 21:00:00, Duration: 1, 250 ml No Longer Active 11/18/2013 [facility] Sodium Chloride 0.9% IV IV, 30 ml/hr, ONCALL, Start date: 11/17/13 19:00:00, Duration: 1, 250 ml Inactive 11/18/2013 [facility] Protonix 40 mg, 1 tab, Route: PO, Drug form: ECTAB, Daily, Start date: 11/16/13 9:00:00, Duration: 30 day, Stop date: 12/15/13 9:00:00Notes: Tablet should not be chewed or crushed. (Same as: Protonix) No Longer Active 11/16/2013 [facility] Plavix 75 mg, 1 tab, Route: PO, Drug form: TAB, QPM, Dosing Weight 78.636, kg, Start date: 11/14/13 17:00:00, Duration: 30 day, Stop date: 12/13/13 17:00:00Notes: (Same As: Plavix) No Longer Active 11/14/2013 [facility] Sodium Chloride 0.154 MEQ/ML Injectable Solution 1,000 mL, Rate: 25 ml/hr, Infuse over: 40 hr, Route: IV, Dosing Weight 78.636 kg, Total Volume: 1,000, Start date: 11/14/13 15:27:00, Duration: 30 day, Stop date: 12/14/13 15:26:00 Inactive 11/14/2013 [facility] Omeprazole 20 mg, Route: PO, Drug form: ECTAB, QAM, Dosing Weight 78.636, kg, Start date: 11/14/13 9:00:00, Duration: 30 day, Stop date: 12/13/13 9:00:00 No Longer Active 11/14/2013 [facility] metoprolol tartrate 25 mg, 1 tab, Route: PO, Drug form: TAB, QAM, Dosing Weight 78.636, kg, Start date: 11/14/13 9:00:00, Duration: 30 day, Stop date: 12/13/13 9:00:00Notes: (Same as: Lopressor) No Longer Active 11/14/2013 [facility] Folic Acid 1 mg, 1 tab, Route: PO, Drug form: TAB, QAM, Dosing Weight 78.636, kg, Start date: 11/14/13 9:00:00, Duration: 30 day, Stop date: 12/13/13 9:00:00Notes: (Same as: Folvite) No Longer Active 11/14/2013 [facility] Celexa 40 mg, 2 tab, Route: PO, Drug form: TAB, Daily, Dosing Weight 78.636, kg, Start date: 11/14/13 9:00:00, Duration: 30 day, Stop date: 12/13/13 9:00:00Notes: (Same As: CeleXA) No Longer Active 11/14/2013 [facility] benzocaine-menthol topical 1 lozenge, Route: MUCOUS MEM, Drug Form: DAWN, Q2H, PRN Sore Throat, Start date: 11/13/13 20:41:00, Stop date: 12/13/13 20:40:00Notes: Same as: Cepacol No Longer Active 11/14/2013 [facility] Cepacol Lozenge 1 lozenge, Route: MUCOUS MEM, Q2H, Drug form: DAWN, PRN Sore Throat, Start date: 11/13/13 20:27:00, Duration: 30 day, Stop date: 12/13/13 20:26:00 Inactive 11/14/2013 [facility] Lisinopril 10 mg, 1 tab, Route: PO, Drug form: TAB, QAM, Dosing Weight 78.636, kg, Start date: 11/13/13 19:00:00, Duration: 30 day, Stop date: 12/13/13 9:00:00Notes: (Same as: Prinivil, Zestril) No Longer Active 11/14/2013 [facility] Ascorbic Acid / POLYETHYLENE GLYCOL 3350 / Potassium Chloride / Sodium Ascorbate / Sodium Chloride / sodium sulfate 4,000 mL, Route: PO, Drug Form: PDR/REC, Dosing Weight 78.636, kg, ONCE, Start date: 11/13/13 17:15:00, Duration: 1 doses or times, Stop date: 11/13/13 17:15:00Notes: (polyethylene glycol electrolyte solution 4 Liter bottle) (Same as: Golytely, Colyte) Inactive 11/13/2013 [facility] Lyrica 150 mg, 2 cap, Route: PO, Drug form: CAP, TID, Dosing Weight 78.636, kg, Start date: 11/13/13 17:00:00, Duration: 30 day, Stop date: 12/13/13 13:00:00Notes: (Same as: Lyrica) No Longer Active 11/13/2013 [facility] Metformin hydrochloride 1000 MG Oral Tablet 1,000 mg, 2 tab, Route: PO, Drug form: TAB, BID, Dosing Weight 78.636, kg, Start date: 11/13/13 17:00:00, Duration: 30 day, Stop date: 12/13/13 9:00:00Notes: (Same as: Glucophage) Take with meal No Longer Active 11/13/2013 [facility] Sodium Chloride 0.154 MEQ/ML Injectable Solution 1,000 mL, Rate: 25 ml/hr, Infuse over: 40 hr, Route: IV, Dosing Weight 78.636 kg, Total Volume: 1,000, Start date: 11/13/13 16:12:00, Duration: 30 day, Stop date: 12/13/13 16:11:00 Inactive 11/13/2013 [facility] Restoril 15 mg, 1 cap, Route: PO, Drug form: CAP, Bedtime, PRN Sleep, Start date: 11/13/13 16:07:00, Duration: 30 day, Stop date: 12/13/13 16:06:00Notes: (Same As: Restoril) No Longer Active 11/13/2013 [facility] Furosemide 40 MG Oral Tablet [Lasix] 40 mg, 1 tab, Route: PO, Drug form: TAB, Q4D, Dosing Weight 78.636, kg, Start date: 11/13/13 16:00:00, Duration: 30 day, Stop date: 12/11/13 9:00:00Notes: (Same as: Lasix) May cause GI upset. Give with food or milk. No Longer Active 11/13/2013 [facility] Ambien 10 mg, Route: PO, Drug form: TAB, Bedtime, Dosing Weight 78.636, kg, PRN as needed for sleep, Start date: 11/13/13 15:55:00, Duration: 30 day, Stop date: 12/13/13 15:54:00 Inactive 11/13/2013 [facility] Acetaminophen 325 MG / Hydrocodone Bitartrate 10 MG Oral Tablet [Mosby 10/325] 1 tab, Route: PO, Drug Form: TAB, Dosing Weight 78.636, kg, Bedtime, PRN Pain Score 4-6, Start date: 11/13/13 15:54:00, Duration: 30 day, Stop date: 12/13/13 15:53:00Notes: Do not exceed 4gm/day of acetaminophen. (Same as: Mosby 325/10) No Longer Active 11/13/2013 [facility] Aspirin / Calcium Carbonate 325 mg, PO, QPM, 0 Refill(s) No Longer Active 11/13/2013 [facility] Sodium Chloride 0.9% IV IV, 30 ml/hr, PRN, PRN Other -See Comment, Start date: 11/13/13 10:19:00, Duration: 1, 250 ml No Longer Active 11/13/2013 [facility] PHOS-NaK oral powder for reconstitution 1 pkt, Route: PO, Drug Form: PDR/REC, Dosing Weight 78.636, kg, QID, Start date: 11/13/13 9:00:00, Duration: 2 day, Stop date: 11/14/13 21:00:00Notes: (Same as: Neutra- Phos) Each 1.25 gm pkt has 250mg phosphorous. Mix w/2.5oz water and stir. No Longer Active 11/13/2013 [facility] pantoprazole 40 mg, Route: IVP, Drug form: INJ, Daily, Dosing Weight 78.636, kg, Priority: Routine, Start date: 11/13/13 9:00:00, Duration: 30 day, Stop date: 12/12/13 9:00:00Notes: For IV push reconstitute with 10 ml 0.9% sodium chloride and push over 2 minutes. (Same as: Protonix) No Longer Active 11/13/2013 [facility] Magnesium Sulfate 4 gm, 100 mL, Route: IV, Drug form: INJ, ONCE, Dosing Weight 78.636, kg, Priority: Routine, Start date: 11/13/13 7:03:00, Stop date: 11/13/13 7:03:00 Inactive 11/13/2013 [facility] Atropine 0.5 mg, 5 mL, Route: IVP, Drug form: INJ, PRN, Dosing Weight 78.636, kg, PRN Bradycardia, Start date: 11/12/13 23:32:00, Duration: 30 day, Stop date: 12/12/13 23:31:00, HR No Longer Active 11/13/2013 [facility] Nitroglycerin 0.4 mg, 1 tab, Route: SL, Drug form: TAB, Q5Min, Dosing Weight 78.636, kg, PRN Chest Pain, Start date: 11/12/13 23:32:00, Duration: 30 day, Stop date: 12/12/13 23:31:00, Chest Pain S6Pagnt: (Same as:Jacquelin bowman, Nitrostat) "Do Not Crush" Sublingual tablet No Longer Active 11/13/2013 [facility] Sodium Chloride 0.154 MEQ/ML Injectable Solution 250 mL, Rate: 30 ml/hr, Infuse over: 8.3 hr, Route: IV, Dosing Weight 78.636 kg, Total Volume: 250, Start date: 11/12/13 22:33:00, Duration: 1 day, Stop date: 11/13/13 22:32:00 No Longer Active 11/13/2013 [facility] Acetaminophen 650 mg, 20.3 mL, Route: PO, Drug form: LIQ, Q4H, Dosing Weight 78.636, kg, PRN Pain 1-3/Temp > 100.4 F, Start date: 11/12/13 22:03:00, Duration: 30 day, Stop date: 12/12/13 22:02:00Notes: Max sanya [id number]/day (4 gm/day). (Same as: Tylenol) No Longer Active 11/13/2013 [facility] Morphine 2 mg, 1 mL, Route: IVP, Drug form: INJ, Q3H, Dosing Weight 78.636, kg, PRN Pain Score 4-6, Start date: 11/12/13 22:03:00, Duration: 30 day, Stop date: 12/12/13 22:02:00Notes: (Same as:MORPhine Sulfate) No Longer Active 11/13/2013 [facility] Docusate 100 mg, 1 cap, Route: PO, Drug form: CAP, BID, Dosing Weight 78.636, kg, PRN Constipation, Start date: 11/12/13 22:03:00, Duration: 30 day, Stop date: 12/12/13 22:02:00Notes: (Same as: Colace) (Do Not Crush) No Longer Active 11/13/2013 [facility] Ondansetron 4 mg, 2 mL, Route: IVP, Drug form: INJ, Q8H, Dosing Weight 78.636, kg, PRN Nausea & Vomiting, Start date: 11/12/13 22:03:00, Duration: 30 day, Stop date: 12/12/13 22:02:00Notes: (Same as: Zofran) No Longer Active 11/13/2013 [facility] Morphine 2 mg, Route: IVP, ONCE, Dosing Weight 78.636, kg, Start date: 11/12/13 21:55:00, Stop date: 11/12/13 21:55:00 Inactive 11/13/2013 [facility] Potassium Chloride 10 MEQ Extended Release Tablet 10 mEq=1 tab, PO, Q4D, # 10 tab, 0 Refill(s) Active 11/13/2013 [facility] warfarin 2 mg oral tablet =7 mg, PO, Q, # 30 tab, 0 Refill(s) Active 11/13/2013 [facility] Furosemide 40 MG Oral Tablet [Lasix] 40 mg=1 tab, PO, Q4D, # 30 tab, 0 Refill(s) Active 11/13/2013 [facility] Metformin hydrochloride 1000 MG Oral Tablet 1,000 mg=1 tab, PO, BID, # 30 tab, 0 Refill(s) Active 11/13/2013 [facility] Aspirin 325 MG Enteric Coated Tablet 325 mg=1 tab, PO, QPM, # 60 tab, 0 Refill(s) No Longer Active 11/13/2013 [facility] warfarin 7.5 mg oral tablet 7.5 mg=1 tab, PO, Q-Tu and Th, # 30 tab, 0 Refill(s) Inactive 11/13/2013 [facility] pregabalin 150 MG Oral Capsule [Lyrica] 150 mg=1 cap, PO, TID, # 90 cap, 0 Refill(s) Active 11/13/2013 [facility] warfarin 5 mg oral tablet 5 mg=1 tab, PO, QAM, # 30 tab, 0 Refill(s) No Longer Active 11/13/2013 [facility] Zolpidem tartrate 10 MG Oral Tablet [Ambien] 10 mg=1 tab, PO, Bedtime, for sleep, 0 Refill(s) Active 11/13/2013 [facility] lisinopril 10 mg oral tablet 10 mg=1 tab, PO, QAM, # 30 tab, 0 Refill(s) Active 11/13/2013 [facility] Acetaminophen 325 MG / Hydrocodone Bitartrate 10 MG Oral Tablet [Mosby 10/325] 1 tab, PO, Bedtime, for pain, # 24 tab, 0 Refill(s) Active 11/13/2013 [facility] Folic Acid 1 MG Oral Tablet 1 mg=1 tab, PO, QAM, # 30 tab, 0 Refill(s) Active 11/13/2013 [facility] clopidogrel 75 MG Oral Tablet [Plavix] 75 mg=1 tab, PO, QPM, # 30 tab, 0 Refill(s) No Longer Active 11/13/2013 [facility] Morphine 2 mg, 1 mL, Route: IVP, Drug form: INJ, ONCE, Dosing Weight 78.636, kg, Priority: STAT, Start date: 11/12/13 18:47:00, Stop date: 11/12/13 18:47:00Notes: (Same as:MORPhine Sulfate) Inactive 11/12/2013 [facility] Protonix 40 mg, 1 tab, Route: PO, Drug form: ECTAB, Before Dinner, Start date: 06/12/12 16:30:00, Duration: 30 day, Stop date: 07/11/12 16:30:00 PO No Longer Active [facility] 06/12/2012 [facility] aspirin 81 mg tablet, enteric coated 81 mg, 1 tab, Route: PO, Drug form: ECTAB, Daily, Dosing Weight 83.182, kg, Start date: 06/12/12 9:00:00, Duration: 30 day, Stop date: 07/11/12 9:00:00 PO No Longer Active [facility] 06/12/2012 [facility] Flomax 0.4 mg, 1 cap, Route: PO, Drug form: CAP, Daily, Dosing Weight 83.182, kg, Start date: 06/12/12 9:00:00, Duration: 30 day, Stop date: 07/11/12 9:00:00 PO No Longer Active [facility] 06/12/2012 [facility] Lyrica 75 mg, 1 cap, Route: PO, Drug form: CAP, Daily, Dosing Weight 83.182, kg, Start date: 06/12/12 9:00:00, Duration: 30 day, Stop date: 07/11/12 9:00:00 PO No Longer Active [facility] 06/12/2012 [facility] phenazopyridine 200 mg, 1 tab, Route: PO, Drug form: TAB, BID, Dosing Weight 83.182, kg, Start date: 06/12/12 9:00:00, Duration: 30 day, Stop date: 07/11/12 17:00:00 PO No Longer Active [facility] 06/12/2012 [facility] omeprazole 20 mg, Route: PO, Drug form: ECTAB, Daily, Dosing Weight 83.182, kg, Start date: 06/12/12 9:00:00, Duration: 30 day, Stop date: 07/11/12 9:00:00 PO No Longer Active [facility] 06/12/2012 [facility] metoprolol tartrate 25 mg, 1 tab, Route: PO, Drug form: TAB, BID, Dosing Weight 83.182, kg, Start date: 06/12/12 9:00:00, Duration: 30 day, Stop date: 07/11/12 17:00:00 PO No Longer Active [facility] 06/12/2012 [facility] lisinopril 2.5 mg, 0.5 tab, Route: PO, Drug form: TAB, Daily, Dosing Weight 83.182, kg, Start date: 06/12/12 9:00:00, Duration: 30 day, Stop date: 07/11/12 9:00:00 PO No Longer Active [facility] 06/12/2012 [facility] Celexa 40 mg, 2 tab, Route: PO, Drug form: TAB, Daily, Dosing Weight 83.182, kg, Start date: 06/12/12 9:00:00, Duration: 30 day, Stop date: 07/11/12 9:00:00 PO No Longer Active [facility] 06/12/2012 [facility] enoxaparin 40 mg, 0.4 mL, Route: SUB-Q, Drug form: INJ, [id number], Dosing Weight 83.182, kg, Start date: 06/11/12 20:00:00, Duration: 30 day, Stop date: 07/10/12 20:00:00 SUB-Q No Longer Active [facility] 06/12/2012 [facility] acetaminophen-hydrocodone 325 mg-7.5 mg oral tablet 1 tab, Route: PO, Drug Form: TAB, Dosing Weight 83.182, kg, Q6H, PRN For Pain, Start date: 06/11/12 19:56:00, Duration: 30 day, Stop date: 07/11/12 19:55:00 PO No Longer Active [facility] 06/12/2012 [facility] cefepime + Sodium Chloride 0.9% IV 100 mL 1 gm, Route: IVPB, [id number], Dosing Weight 80.455, kg, Priority: STAT, Start date: 06/11/12 17:20:00, Duration: 30 day, Stop date: 07/10/12 18:00:00 IVPB No Longer Active [facility] 06/11/2012 [facility] Saline Flush 0.9% 5 ml, Route: IVP, Drug Form: INJ, Dosing Weight 80.455, kg, PRN, PRN Line Flush, Start date: 06/11/12 17:20:00, Duration: 30 day, Stop date: 07/11/12 17:19:00 IVP No Longer Active [facility] 06/11/2012 [facility] Sodium Chloride 0.9% IV 1,000 mL 1,000 mL, Rate: 90 ml/hr, Infuse over: 11.1 hr, Route: IV, kg, Total Volume: 1,000, Start date: 06/11/12 17:20:00, Duration: 30 day, Stop date: 07/11/12 17:19:00 IV No Longer Active [facility] 06/11/2012 [facility] ondansetron 4 mg, 2 mL, Route: IVP, Drug form: INJ, Q6H, Dosing Weight 80.455, kg, PRN Nausea & Vomiting, Start date: 06/11/12 17:20:00, Duration: 30 day, Stop date: 07/11/12 17:19:00 IVP No Longer Active [facility] 06/11/2012 [facility] morphine Sulfate 2 mg, 1 mL, Route: IVP, Drug form: INJ, Q3H, Dosing Weight 80.455, kg, PRN Pain Score 4-6, Start date: 06/11/12 17:20:00, Duration: 30 day, Stop date: 07/11/12 17:19:00 IVP No Longer Active [facility] 06/11/2012 [facility] acetaminophen-hydrocodone 325 mg-7.5 mg oral tablet 1 tab, PO, Q6H, PRN, as needed for pain, Substitution Allowed, Maintenance PO Active [facility] 06/11/2012 [facility] phenazopyridine 200 mg oral tablet 200 mg, 1 tab, PO, BID, Substitution Allowed PO Active [facility] 06/11/2012 [facility] aspirin 81 mg tablet, enteric coated 81 mg, 1 tab, PO, Daily, Substitution Allowed PO Active [facility] 06/11/2012 [facility] ciprofloxacin 500 mg oral tablet 500 mg, 1 tab, PO, Q12H, Substitution Allowed PO Active 06/11/2012 [facility] Sodium Chloride 0.9% (Bolus) IV 500 mL, 500 ml/hr, Route: IV, Drug Form: INJ, Dosing Weight 80.455, kg, ONCE, Bolus Dose - infuse over 1 hr, STAT, Start date: 06/11/12 15:59:00, Stop date: 06/11/12 15:59:00 IV No Longer Active [facility] 06/11/2012 [facility] ceftriaxone + Sodium Chloride 0.9% IV 100 mL 1 gm, Route: IVPB, ONCE, Dosing Weight 80.455, kg, Priority: STAT, Start date: 06/11/12 15:59:00, Stop date: 06/11/12 15:59:00 IVPB No Longer Active [facility] 06/11/2012 [facility] Sodium Chloride 0.9% (Bolus) IV 500 mL, Route: IV, Dosing Weight 80.455, kg, ONCE, Bolus at 1,000 ml/hr, STAT, Start date: 06/11/12 14:30:00, Stop date: 06/11/12 14:30:00 IV No Longer Active [facility] 06/11/2012 [facility] Saline Flush 0.9% 5 mL, Route: IVP, Drug Form: INJ, Dosing Weight 80.455, kg, PRN, PRN Line Flush, Start date: 06/11/12 14:30:00, Duration: 24 hr, Stop date: 06/12/12 14:29:00 IVP No Longer Active [facility] 06/11/2012 [facility] tetanus-diphtheria toxoids adult intramuscular suspension 0.5 mL, Route: IM, Drug Form: INJ, Dosing Weight 77.727, kg, ONCE, Start date: 04/19/12 22:06:00, Stop date: 04/19/12 22:06:00 IM No Longer Active [facility] 04/20/2012 [facility] Allergies, Adverse Reactions, Alerts Substance Category Reaction Severity Reaction type Status Date Reported Comments Source Adhesive Tape Assertion Drug allergy Active [facility] Neurontin Assertion CA^Mild Drug allergy Active [facility] Ambien Assertion Drug allergy Active [facility] Ativan Assertion Drug allergy Active [facility] Immunizations Immunization Date Given Site Status Last Updated Comments Source tetanus-diphtheria toxoids 04/20/2012 Left Deltoid completed Julio [facility] tetanus-diphtheria toxoids 04/20/2012 rené Kim [facility] Results Order Name Results Value Reference Range [...] should be multiplied by the estimated BMI. [facility] CHEM PANEL Calcium Lvl 9.6 8.5 - 10.5 12/28/2013 [facility] CHEM PANEL Glucose Lvl 103 70 - 99 12/28/2013 <sup>4</sup>Interpretive Data: Adult reference range values reflect the clinical guidelines
of the [place] [employer]. [facility] CHEM PANEL BUN 22 7 - 22 12/28/2013 [facility] CHEM PANEL Creatinine Lvl 1.4 0.5 - 1.4 12/28/2013 [facility] CHEM PANEL Chloride Lvl 114 95 - 109 12/28/2013 [facility] CHEM PANEL Sodium Lvl 144 135 - 145 12/28/2013 [facility] CHEM PANEL CO2 22 24 - 32 12/28/2013 [facility] CHEM PANEL Potassium Lvl 4.1 3.5 - 5.1 12/28/2013 [facility] CHEM PANEL AGAP 12.1 10.0 - 20.0 12/28/2013 [facility] Monocytes 6.6 2.0 - 12.0 12/28/2013 [facility] Lymphocytes # 1.3 1.0 - 5.5 12/28/2013 [facility] Lymphocytes 19.8 20.0 - 40.0 12/28/2013 [facility] Eosinophils 3.8 0.0 - 4.0 12/28/2013 [facility] HEMATOLOGY Segs 69.2 45.0 - 75.0 12/28/2013 [facility] HEMATOLOGY Plt Morph Normal (12/28/13 5:53 AM) 12/28/2013 [facility] Monocytes # 0.4 0.0 - 0.8 12/28/2013 [facility] HEMATOLOGY Segs-Bands # 4.7 1.5 - 8.1 12/28/2013 [facility] Basophils 0.6 0.0 - 1.0 12/28/2013 [facility] Anisocyte 1+ *ABN* (12/28/13 5:53 AM) None Seen 12/28/2013 [facility] Eosinophils # 0.3 0.0 - 0.5 12/28/2013 [facility] INR 1.10 0.85 - 1.17 12/28/2013 <sup>8</sup>Interpretive Data: RECOMMENDED RANGES FOR PROTIME INR:
2.0-3.0 for most medical and surgical thromboembolic states.
2.5-3.5 for artificial heart valves and recurrent embolism.

INR SHOULD BE USED ONLY FOR PATIENTS ON STABLE ANTICOAGULANT THERAPY. [facility] PT 14.1 12.0 - 14.7 12/28/2013 [facility] MCH 29.5 27.0 - 31.0 12/28/2013 [facility] MCHC 32.8 32.0 - 36.0 12/28/2013 [facility] RDW 16.6 11.5 - 14.5 12/28/2013 [facility] Platelet 256 133 - 450 12/28/2013 [facility] RBC 2.89 4.70 - 6.10 12/28/2013 [facility] Hgb 8.5 14.0 - 18.0 12/28/2013 [facility] Hct 25.9 42.0 - 54.0 12/28/2013 [facility] MCV 89.9 80.0 - 94.0 12/28/2013 [facility] WBC 6.8 3.7 - 10.4 12/28/2013 [facility] MPV 8.0 7.4 - 10.4 12/28/2013 [facility] CHEM PANEL eGFR 46 12/27/2013 <sup>2</sup>Result Comment: [...] should be multiplied by the estimated BMI. [facility] CHEM PANEL Glucose Lvl 102 70 - 99 12/27/2013 <sup>5</sup>Interpretive Data: Adult reference range values reflect the clinical guidelines
of the [place] [employer]. [facility] CHEM PANEL Sodium Lvl 142 135 - 145 12/27/2013 [facility] CHEM PANEL Potassium Lvl 3.8 3.5 - 5.1 12/27/2013 [facility] CHEM PANEL Creatinine Lvl 1.4 0.5 - 1.4 12/27/2013 [facility] CHEM PANEL Chloride Lvl 114 95 - 109 12/27/2013 [facility] CHEM PANEL CO2 22 24 - 32 12/27/2013 [facility] CHEM PANEL AGAP 9.8 10.0 - 20.0 12/27/2013 [facility] CHEM PANEL Calcium Lvl 8.8 8.5 - 10.5 12/27/2013 [facility] CHEM PANEL BUN 23 7 - 22 12/27/2013 [facility] HEMATOLOGY Monocytes 6.5 2.0 - 12.0 12/27/2013 [facility] HEMATOLOGY Segs 75.3 45.0 - 75.0 12/27/2013 [facility] HEMATOLOGY Lymphocytes 15.0 20.0 - 40.0 12/27/2013 [facility] HEMATOLOGY Eosinophils 2.7 0.0 - 4.0 12/27/2013 [facility] HEMATOLOGY Segs-Bands # 6.3 1.5 - 8.1 12/27/2013 [facility] HEMATOLOGY Basophils 0.5 0.0 - 1.0 12/27/2013 [facility] HEMATOLOGY Lymphocytes # 1.3 1.0 - 5.5 12/27/2013 [facility] HEMATOLOGY Eosinophils # 0.2 0.0 - 0.5 12/27/2013 [facility] HEMATOLOGY Monocytes # 0.5 0.0 - 0.8 12/27/2013 [facility] HEMATOLOGY MPV 8.5 7.4 - 10.4 12/27/2013 [facility] HEMATOLOGY MCH 30.0 27.0 - 31.0 12/27/2013 [facility] HEMATOLOGY MCHC 33.3 32.0 - 36.0 12/27/2013 [facility] HEMATOLOGY MCV 90.1 80.0 - 94.0 12/27/2013 [facility] HEMATOLOGY Hct 24.6 42.0 - 54.0 12/27/2013 [facility] HEMATOLOGY RBC 2.73 4.70 - 6.10 12/27/2013 [facility] Hgb 8.2 14.0 - 18.0 12/27/2013 [facility] HEMATOLOGY WBC 8.4 3.7 - 10.4 12/27/2013 [facility] HEMATOLOGY RDW 17.3 11.5 - 14.5 12/27/2013 [facility] Platelet 234 133 - 450 12/27/2013 [facility] HEMATOLOGY INR 1.12 0.85 - 1.17 12/27/2013 <sup>9</sup>Interpretive Data: RECOMMENDED RANGES FOR PROTIME INR:
2.0-3.0 for most medical and surgical thromboembolic states.
2.5-3.5 for artificial heart valves and recurrent embolism.

INR SHOULD BE USED ONLY FOR PATIENTS ON STABLE ANTICOAGULANT THERAPY. [facility] HEMATOLOGY PT 14.3 12.0 - 14.7 12/27/2013 [facility] BACTERIAL - SEROLOGY U S pneumo Ag Positive *ABN* (12/26/13 9:36 AM) Negative 12/26/2013 [facility] CHEM PANEL Phosphorus 2.0 2.5 - 4.5 12/26/2013 [facility] CHEM PANEL Magnesium Lvl 1.3 1.8 - 2.4 12/26/2013 [facility] CHEM PANEL eGFR 36 12/26/2013 <sup>3</sup>Result Comment: [...] should be multiplied by the estimated BMI. [facility] CHEM PANEL Alk Phos 79 39 - 136 12/26/2013 [facility] CHEM PANEL Bili Total 0.4 0.2 - [...] Albumin Lvl 2.5 3.5 - 5.0 12/26/2013 [facility] CHEM PANEL Total Protein 6.4 6.4 - 8.4 12/26/2013 [facility] CHEM PANEL Glucose Lvl 137 70 - 99 12/26/2013 <sup>6</sup>Interpretive Data: Adult reference range values reflect the clinical guidelines
of the [place] [employer]. [facility] CHEM PANEL CO2 17 24 - 32 12/26/2013 [facility] CHEM PANEL Chloride Lvl 119 95 - 109 12/26/2013 [facility] CHEM PANEL Globulin 3.9 2.0 - 4.0 12/26/2013 [facility] CHEM PANEL A/G Ratio 0.6 0.7 - 1.6 12/26/2013 [facility] CHEM PANEL AGAP 14.5 10.0 - 20.0 12/26/2013 [facility] CHEM PANEL B/C Ratio 21 6 - 25 12/26/2013 [facility] HEMATOLOGY Segs-Bands # 10.5 1.5 - 8.1 12/26/2013 [facility] HEMATOLOGY Lymphocytes # 1.1 1.0 - 5.5 12/26/2013 [facility] HEMATOLOGY Basophils 0.3 0.0 - 1.0 12/26/2013 [facility] HEMATOLOGY Eosinophils 0.6 0.0 - 4.0 12/26/2013 [facility] HEMATOLOGY Lymphocytes 9.1 20.0 - 40.0 12/26/2013 [facility] HEMATOLOGY Segs 84.2 45.0 - 75.0 12/26/2013 [facility] HEMATOLOGY Monocytes 5.8 2.0 - 12.0 12/26/2013 [facility] HEMATOLOGY Monocytes # 0.7 0.0 - 0.8 12/26/2013 [facility] HEMATOLOGY Eosinophils # 0.1 0.0 - 0.5 12/26/2013 [facility] INR 1.25 0.85 - 1.17 12/26/2013 <sup>10</sup>Interpretive Data: RECOMMENDED RANGES FOR PROTIME INR:
2.0-3.0 for most medical and surgical thromboembolic states.
2.5-3.5 for artificial heart valves and recurrent embolism.

INR SHOULD BE USED ONLY FOR PATIENTS ON STABLE ANTICOAGULANT THERAPY. [facility] PT 15.6 12.0 - 14.7 12/26/2013 [facility] PTT 41.5 22.9 - 35.8 12/26/2013 <sup>11</sup>Interpretive Data: Heparin Therapeutic Range: 57 - 92 Seconds [facility] RBC 2.93 4.70 - 6.10 12/26/2013 [facility] WBC 12.4 3.7 - 10.4 12/26/2013 [facility] Hct 26.9 42.0 - 54.0 12/26/2013 [facility] Hgb 8.7 14.0 - 18.0 12/26/2013 [facility] MCV 91.7 80.0 - 94.0 12/26/2013 [facility] MCH 29.6 27.0 - 31.0 12/26/2013 [facility] MCHC 32.2 32.0 - 36.0 12/26/2013 [facility] RDW 16.2 11.5 - 14.5 12/26/2013 [facility] Platelet 260 133 - 450 12/26/2013 [facility] MPV 8.3 7.4 - 10.4 12/26/2013 [facility] THYROID PANEL TSH 0.173 0.360 - 3.740 12/26/2013 [facility] BACTERIAL - SEROLOGY MRSA by PCR Negative [...] by the Molecular Diagnostic Laboratory within the [facility]. The Molecular Diagnostic Laboratory is authorized under the Clinical Laboratory Improvement Amendment of 1988 (CLIA-88) to perform high complexity testing. [facility] CARDIAC ENZYMES Troponin-I 0.05 0.00 - 0.40 12/25/2013 [facility] CARDIAC ENZYMES BNP 507 <=100 pg/mL 12/25/2013 <sup>7</sup>Interpretive Data: Elevated results are in line with increasing severity of
congestive heart failure. Minor elevations between 100 and 300
may be seen with Myocardial Ischemia, Sodium retaining drugs,
and compensated/treated heart failure. [facility] CARDIAC ENZYMES CK MB 2.9 0.5 - 3.6 12/25/2013 [facility] CARDIAC ENZYMES Total CK 148 12 - 191 12/25/2013 [facility] CARDIAC ENZYMES CK MB Index 2.0 0.0 - 2.5 12/25/2013 [facility] CHEM PANEL B/C Ratio 21 6 - 25 12/25/2013 [facility] CHEM PANEL AST 19 0 - 37 12/25/2013 [facility] CHEM PANEL A/G Ratio 0.7 0.7 - 1.6 12/25/2013 [facility] CHEM PANEL ALT 19 0 - 65 12/25/2013 [facility] CHEM PANEL Globulin 4.7 2.0 - 4.0 12/25/2013 [facility] CHEM PANEL Total Protein 8.0 6.4 - 8.4 12/25/2013 [facility] CHEM PANEL Albumin Lvl 3.3 3.5 - 5.0 12/25/2013 [facility] CHEM PANEL Alk Phos 97 39 - 136 12/25/2013 [facility] CHEM PANEL Bili Total 0.5 0.2 - 1.3 12/25/2013 [facility] HEMATOLOGY PTT 37.7 22.9 - 35.8 12/25/2013 <sup>12</sup>Interpretive Data: Heparin Therapeutic Range: 57 - 92 Seconds [facility] HEMATOLOGY Polychrom Slight (12/25/13 4:00 PM) None Seen 12/25/2013 [facility] HEMATOLOGY Hypochrom Slight (12/25/13 4:00 PM) None Seen 12/25/2013 [facility] HEMATOLOGY Plt Morph Normal (8/12/14 4:00 PM) 12/25/2013 [facility] CHEM PANEL Lactic Acid Lvl 1.1 0.5 - 2.2 12/25/2013 [facility] URINE AND STOOL UA Blood Negative (12/25/13 1:53 PM) Negative 12/25/2013 [facility] URINE AND STOOL UA Ketones Negative *NA* (12/25/13 1:53 PM) Negative 12/25/2013 [facility] URINE AND STOOL UA Bili Small *ABN* (12/25/13 1:53 PM) Negative 12/25/2013 [facility] URINE AND STOOL UA Protein Trace *ABN* (12/25/13 1:53 PM) Negative 12/25/2013 [facility] URINE AND STOOL UA Glucose Negative (12/25/13 1:53 PM) Negative 12/25/2013 [facility] AND STOOL UA Spec Grav 1.010 <=1.030 12/25/2013 [facility] AND STO[facility] UA pH 8.0 5.0 - 8.0 12/25/2013 [facility] UA Color Yellow *NA* (12/25/13 1:53 PM) Yellow 12/25/2013 [facility]INE AND STOOL UA Turbidity Slight Cloudy (12/25/13 1:53 PM) Clear 12/25/2013 [facility]INE AND STOOL UA Leuk Est Large *ABN* (12/25/13 1:53 PM) Negative 12/25/2013 [facility] AND STO[facility] UA Urobilinogen 0.2 0.1 - 1.0 12/25/2013 [facility] AND STOOL UA Nitrite Negative (12/25/13 1:53 PM) Negative 12/25/2013 [facility] STOOL Micro? Performed (12/25/13 1:53 PM) 12/25/2013 [facility] STO[facility] UA RBC None Seen (12/25/13 1:53 PM) 0 - 2 12/25/2013 [facility]INE [facility] STO[facility] UA Sq Epi Occasional /LPF Few /LPF 12/25/2013 [facility] [facility] URINE AND STOOL UA WBC 11-20 /HPF 0 - 5 12/25/2013 [facility] URINE AND STOOL UA Bacteria Moderate /HPF None Seen /HPF 12/25/2013 [facility] HEMATOLOGY RBC 3.44 4.70 - 6.10 11/18/2013 [facility] HEMATOLOGY WBC 6.0 3.7 - 10.4 11/18/2013 [facility] HEMATOLOGY Hgb 10.1 14.0 - 18.0 11/18/2013 [facility] Hct 29.5 42.0 - 54.0 11/18/2013 [facility] MCV 86.0 80.0 - 94.0 11/18/2013 [facility] MCHC 34.2 32.0 - 36.0 11/18/2013 [facility] RDW 18.4 11.5 - 14.5 11/18/2013 [facility] MCH 29.4 27.0 - 31.0 11/18/2013 [facility] Platelet 137 133 - 450 11/18/2013 [facility] MPV 8.5 7.4 - 10.4 11/18/2013 [facility] Lymphocytes 28.3 20.0 - 40.0 11/18/2013 [facility] Segs 59.0 45.0 - 75.0 11/18/2013 [facility] Monocytes 7.7 2.0 - 12.0 11/18/2013 [facility] Lymphocytes # 1.7 1.0 - 5.5 11/18/2013 [facility] Segs-Bands # 3.6 1.5 - 8.1 11/18/2013 [facility] Basophils 0.8 0.0 - 1.0 11/18/2013 [facility] Eosinophils 4.2 0.0 - 4.0 11/18/2013 [facility] Monocytes # 0.5 0.0 - 0.8 11/18/2013 [facility] Eosinophils # 0.3 0.0 - 0.5 11/18/2013 [facility] BLOOD BANK RESULTS Antibody Scrn Negative (11/17/13 3:13 PM) 11/17/2013 [facility] BLOOD BANK RESULTS ABO/Rh O POS 11/17/2013 [facility] BLOOD [facility] RESULTS RBC product Product available 2 (11/17/13 2:30 PM) 11/17/2013 <sup>2</sup>Result Comment: 11/17/2013 17:52 [id number]
Called to Yessy at 11/17/2013 17:52. [facility] Lymphocytes 29.3 20.0 - 40.0 11/17/2013 [facility] Monocytes 8.6 2.0 - 12.0 11/17/2013 [facility] Eosinophils 4.3 0.0 - 4.0 11/17/2013 [facility] Basophils 0.7 0.0 - 1.0 11/17/2013 [facility] Segs 57.1 45.0 - 75.0 11/17/2013 [facility] Segs-Bands # 3.4 1.5 - 8.1 11/17/2013 [facility] Monocytes # 0.5 0.0 - 0.8 11/17/2013 [facility] Lymphocytes # 1.7 1.0 - 5.5 11/17/2013 [facility] Eosinophils # 0.3 0.0 - 0.5 11/17/2013 [facility] RBC 2.81 4.70 - 6.10 11/17/2013 [facility] WBC 6.0 3.7 - 10.4 11/17/2013 [facility] Hgb 8.1 14.0 - 18.0 11/17/2013 [facility] MCHC 33.3 32.0 - 36.0 11/17/2013 [facility] MCH 28.7 27.0 - 31.0 11/17/2013 [facility] RDW 21.3 11.5 - 14.5 11/17/2013 [facility] Hct 24.2 42.0 - 54.0 11/17/2013 [facility] MCV 86.2 80.0 - 94.0 11/17/2013 [facility] MPV 8.6 7.4 - 10.4 11/17/2013 [facility] Platelet 148 133 - 450 11/17/2013 [facility] CHEM PANEL eGFR 39 11/16/2013 <sup>4</sup>Result Comment: [...] should be multiplied by the estimated BMI. [facility] CHEM PANEL Calcium Lvl 8.9 8.5 - 10.5 11/16/2013 [facility] CHEM PANEL AGAP 11.0 10.0 - 20.0 11/16/2013 [facility] CHEM PANEL B/C Ratio 14 6 - 25 11/16/2013 [facility] CHEM PANEL Chloride Lvl 108 95 - 109 11/16/2013 [facility] CHEM PANEL Potassium Lvl 4.0 3.5 - 5.1 11/16/2013 [facility] CHEM PANEL Creatinine Lvl 1.6 0.5 - 1.4 11/16/2013 [facility] CHEM PANEL Sodium Lvl 141 135 - 145 11/16/2013 [facility] CHEM PANEL CO2 26 24 - 32 11/16/2013 [facility] CHEM PANEL AST 15 0 - 37 11/16/2013 [facility] CHEM PANEL Alk Phos 66 39 - 136 11/16/2013 [facility] CHEM PANEL Bili Total 0.5 0.2 - 1.3 11/16/2013 [facility] CHEM PANEL Globulin 3.0 2.0 - 4.0 11/16/2013 [facility] CHEM PANEL A/G Ratio 1.0 0.7 - 1.6 11/16/2013 [facility] CHEM PANEL ALT 18 0 - 65 11/16/2013 [facility] CHEM PANEL Total Protein 6.0 6.4 - 8.4 11/16/2013 [facility] CHEM PANEL Albumin Lvl 3.0 3.5 - 5.0 11/16/2013 [facility] CHEM PANEL BUN 22 7 - 22 11/16/2013 [facility] CHEM PANEL Glucose Lvl 100 70 - 99 11/16/2013 <sup>7</sup>Interpretive Data: Adult reference range values reflect the clinical guidelines
of the [place] [employer]. [facility] HEMATOLOGY Hct 28.0 42.0 - 54.0 11/16/2013 [facility] HEMATOLOGY MCV 86.5 80.0 - 94.0 11/16/2013 [facility] HEMATOLOGY MCH 28.3 27.0 - 31.0 11/16/2013 [facility] HEMATOLOGY MPV 8.4 7.4 - 10.4 11/16/2013 [facility] MCHC 32.7 32.0 - 36.0 11/16/2013 [facility] HEMATOLOGY RDW 20.6 11.5 - 14.5 11/16/2013 [facility] HEMATOLOGY Platelet 148 133 - 450 11/16/2013 [facility] HEMATOLOGY Hgb 9.2 14.0 - 18.0 11/16/2013 [facility] WBC 5.9 3.7 - 10.4 11/16/2013 [facility] RBC 3.24 4.70 - 6.10 11/16/2013 [facility] Monocytes # 0.5 0.0 - 0.8 11/16/2013 [facility] Eosinophils # 0.2 0.0 - 0.5 11/16/2013 [facility] Basophils 0.7 0.0 - 1.0 11/16/2013 [facility] Segs-Bands # 3.7 1.5 - 8.1 11/16/2013 [facility] Lymphocytes # 1.4 1.0 - 5.5 11/16/2013 [facility] Lymphocytes 24.4 20.0 - 40.0 11/16/2013 [facility] RBC Morph Normal (11/16/13 5:54 AM) 11/16/2013 [facility] Monocytes 9.3 2.0 - 12.0 11/16/2013 [facility] Eosinophils 3.9 0.0 - 4.0 11/16/2013 [facility] Segs 61.7 45.0 - 75.0 11/16/2013 [facility] Plt Morph Normal (11/16/13 5:54 AM) 11/16/2013 [facility] CHEM PANEL eGFR 61 11/15/2013 <sup>5</sup>Result Comment: [...] should be multiplied by the estimated BMI. [facility] CHEM PANEL Bili Total 0.7 0.2 - 1.3 11/15/2013 [facility] CHEM PANEL AST 16 0 - 37 11/15/2013 [facility] CHEM PANEL Alk Phos 68 39 - 136 11/15/2013 [facility] CHEM PANEL ALT 22 0 - 65 11/15/2013 [facility] CHEM PANEL Albumin Lvl 3.1 3.5 - 5.0 11/15/2013 [facility] CHEM PANEL Globulin 3.3 2.0 - 4.0 11/15/2013 [facility] CHEM PANEL Total Protein 6.4 6.4 - 8.4 11/15/2013 [facility] CHEM PANEL Glucose Lvl 127 70 - 99 11/15/2013 <sup>8</sup>Interpretive Data: Adult reference range values reflect the clinical guidelines
of the [place] [employer]. [facility] CHEM PANEL Creatinine Lvl 1.1 0.5 - 1.4 11/15/2013 [facility] CHEM PANEL BUN 16 7 - 22 11/15/2013 [facility] CHEM PANEL CO2 27 24 - 32 11/15/2013 [facility] CHEM PANEL Calcium Lvl 9.0 8.5 - 10.5 11/15/2013 [facility] CHEM PANEL Sodium Lvl 144 135 - 145 11/15/2013 [facility] CHEM PANEL Potassium Lvl 4.1 3.5 - 5.1 11/15/2013 [facility] CHEM PANEL Chloride Lvl 110 95 - 109 11/15/2013 [facility] CHEM PANEL A/G Ratio 0.9 0.7 - 1.6 11/15/2013 [facility] CHEM PANEL B/C Ratio 15 6 - 25 11/15/2013 [facility] CHEM PANEL AGAP 11.1 10.0 - 20.0 11/15/2013 [facility] CARDIAC ENZYMES Total CK 79 12 - 191 11/14/2013 [facility] CARDIAC ENZYMES CK MB 1.4 0.5 - 3.6 11/14/2013 [facility] CARDIAC ENZYMES Troponin-I 0.02 0.00 - 0.40 11/14/2013 [facility] CHEM PANEL Globulin 2.9 2.0 - 4.0 11/14/2013 [facility] CHEM PANEL AGAP 12.0 10.0 - 20.0 11/14/2013 [facility] CHEM PANEL B/C Ratio 14 6 - 25 11/14/2013 [facility] CHEM PANEL A/G Ratio 1.1 0.7 - 1.6 11/14/2013 [facility] CHEM PANEL Bili Total 0.4 0.2 - 1.3 11/14/2013 [facility] CHEM PANEL eGFR 61 11/14/2013 <sup>6</sup>Result Comment: [...] should be multiplied by the estimated BMI. [facility] CHEM PANEL Sodium Lvl 145 135 - 145 11/14/2013 [facility] CHEM PANEL AST 17 0 - 37 11/14/2013 [facility] CHEM PANEL Alk Phos 72 39 - 136 11/14/2013 [facility] CHEM PANEL ALT 21 0 - 65 11/14/2013 [facility] CHEM PANEL Albumin Lvl 3.2 3.5 - 5.0 11/14/2013 [facility] CHEM PANEL Calcium Lvl 9.1 8.5 - 10.5 11/14/2013 [facility] CHEM PANEL Total Protein 6.1 6.4 - 8.4 11/14/2013 [facility] CHEM PANEL Chloride Lvl 110 95 - 109 11/14/2013 [facility] CHEM PANEL CO2 27 24 - 32 11/14/2013 [facility] CHEM PANEL Potassium Lvl 4.0 3.5 - 5.1 11/14/2013 [facility] CHEM PANEL BUN 15 7 - 22 11/14/2013 [facility] CHEM PANEL Creatinine Lvl 1.1 0.5 - 1.4 11/14/2013 [facility] CHEM PANEL Glucose Lvl 103 70 - 99 11/14/2013 <sup>9</sup>Interpretive Data: Adult reference range values reflect the clinical guidelines
of the [place] [employer]. [facility] HEMATOLOGY PTT 31.5 22.9 - 35.8 11/14/2013 <sup>13</sup>Interpretive Data: Heparin Therapeutic Range: 57 - 92 Seconds [facility] INR 1.24 0.85 - 1.17 11/14/2013 <sup>10</sup>Interpretive Data: RECOMMENDED RANGES FOR PROTIME INR:
2.0-3.0 for most medical and surgical thromboembolic states.
2.5-3.5 for artificial heart valves and recurrent embolism.

INR SHOULD BE USED ONLY FOR PATIENTS ON STABLE ANTICOAGULANT THERAPY. [facility] HEMATOLOGY PT 15.5 12.0 - 14.7 11/14/2013 [facility] HEMATOLOGY PT 18.1 12.0 - 14.7 11/13/2013 [facility] INR 1.52 0.85 - 1.17 11/13/2013 <sup>11</sup>Interpretive Data: RECOMMENDED RANGES FOR PROTIME INR:
2.0-3.0 for most medical and surgical thromboembolic states.
2.5-3.5 for artificial heart valves and recurrent embolism.

INR SHOULD BE USED ONLY FOR PATIENTS ON STABLE ANTICOAGULANT THERAPY. [facility] ANEMIA STUDY Ferritin Lvl 15 22 - 275 11/13/2013 [facility] URINE AND STOOL Occult Bld Stl Positive *ABN* (11/13/13 12:15 PM) Negative 11/13/2013 [facility] BLOOD BANK RESULTS FFP product Product available 1 (11/13/13 9:14 AM) 11/13/2013 <sup>1</sup>Result Comment: 11/13/2013 09:27 [id number]
Called to Cathleen at 11/13/2013 09:27 by MP. [facility] CHEM PANEL Phosphorus 2.2 2.5 - 4.5 11/13/2013 [facility] CHEM PANEL Magnesium Lvl 1.5 1.8 - 2.4 11/13/2013 [facility] HEMATOLOGY PTT 33.8 22.9 - 35.8 11/13/2013 <sup>14</sup>Interpretive Data: Heparin Therapeutic Range: 57 - 92 Seconds [facility] HEMATOLOGY PT 19.0 12.0 - 14.7 11/13/2013 [facility] INR 1.62 0.85 - 1.17 11/13/2013 <sup>12</sup>Interpretive Data: RECOMMENDED RANGES FOR PROTIME INR:
2.0-3.0 for most medical and surgical thromboembolic states.
2.5-3.5 for artificial heart valves and recurrent embolism.

INR SHOULD BE USED ONLY FOR PATIENTS ON STABLE ANTICOAGULANT THERAPY. [facility] ANEMIA STUDY UIBC 352 110 - 370 11/13/2013 [facility] ANEMIA STUDY % Satur Fe 8 12 - 57 11/13/2013 [facility] ANEMIA STUDY TIBC 384 228 - 428 11/13/2013 [facility] ANEMIA STUDY Iron 32 45 - 160 11/13/2013 [facility] ANEMIA STUDY Vitamin B12 Lvl 208 254 - 1320 11/13/2013 [facility] BLOOD BANK RESULTS RBC product Product available 3 (11/12/13 6:15 PM) 11/12/2013 <sup>3</sup>Result Comment: 11/12/2013 18:24 [id number]
Called to Damian at 11/12/2013 18:24. [facility] BLOOD BANK RESULTS ABO/Rh O POS 11/12/2013 [facility] BLOOD [facility] RESULTS Antibody Scrn Negative (11/12/13 4:40 PM) 11/12/2013 [facility] HEMATOLOGY PTT 37.0 22.9 - 35.8 11/12/2013 <sup>15</sup>Interpretive Data: Heparin Therapeutic Range: 57 - 92 Seconds [facility] CHEMISTRY Phosphorus 2.4 2.5 - 4.5 06/12/2012 LOW [facility] CHEMISTRY eGFR 62 06/12/2012 NA <sup>1</sup>Result Comment: [...] values reflect the clinical guidelines
of the [place] [employer]. [facility] CHEMISTRY BUN 16 7 [...] Lvl 1.8 1.8 - 2.4 06/12/2012 Normal [facility] HEMATOLOGY Monocytes # 0.5 0.0 - 0.8 06/12/2012 Normal [facility] HEMATOLOGY Basophils # 0.0 0.0 - 0.2 06/12/2012 Normal [facility] HEMATOLOGY Eosinophils # 0.2 0.0 - 0.5 06/12/2012 Normal [facility] HEMATOLOGY Eosinophils 3.9 0.0 - 4.0 06/12/2012 Normal [facility] HEMATOLOGY Basophils 0.4 0.0 - 1.0 06/12/2012 Normal [facility] HEMATOLOGY Segs-Bands # 2.5 1.5 - 8.1 06/12/2012 Normal [facility] HEMATOLOGY Lymphocytes # 1.4 1.0 - 5.5 06/12/2012 Normal [facility] HEMATOLOGY Monocytes 11.2 2.0 - 12.0 06/12/2012 Normal [facility] HEMATOLOGY Lymphocytes 30.6 20.0 - 40.0 06/12/2012 Normal [facility] HEMATOLOGY Segs 53.9 45.0 - 75.0 06/12/2012 Normal [facility] HEMATOLOGY PTT 31.4 22.9 - 35.8 06/12/2012 Normal <sup>6</sup>Interpretive Data: Heparin Therapeutic Range: 57 - 92 Seconds [facility] HEMATOLOGY PT 13.9 12.0 - 14.7 06/12/2012 Normal [facility] HEMATOLOGY INR 1.05 0.85 - 1.17 06/12/2012 Normal <sup>5</sup>Interpretive Data: RECOMMENDED RANGES FOR PROTIME INR:
2.0-3.0 for most medical and surgical thromboembolic states.
2.5-3.5 for artificial heart valves and recurrent embolism.

INR SHOULD BE USED ONLY FOR PATIENTS ON STABLE ANTICOAGULANT THERAPY. [facility] HEMATOLOGY MCH 33.0 27.0 - 31.0 06/12/2012 [facility] HEMATOLOGY Hct 32.6 42.0 - 54.0 06/12/2012 LOW [facility] HEMATOLOGY Hgb 11.1 14.0 - 18.0 06/12/2012 LOW [facility] HEMATOLOGY MPV 7.4 7.4 - 10.4 06/12/2012 Normal [facility] HEMATOLOGY Platelet 147 133 - 450 06/12/2012 Normal [facility] HEMATOLOGY MCHC 34.0 32.0 - 36.0 06/12/2012 Normal [facility] HEMATOLOGY RDW 15.6 11.5 - 14.5 06/12/2012 [facility] HEMATOLOGY MCV 97.1 80.0 - 94.0 06/12/2012 [facility] HEMATOLOGY RBC 3.35 4.70 - 6.10 06/12/2012 LOW [facility] HEMATOLOGY WBC 4.7 3.7 - 10.4 06/12/2012 Normal [facility] CHEMISTRY Lipase Lvl 107 73 - 393 06/11/2012 Normal [facility] CHEMISTRY AGAP 11.7 10.0 - 20.0 06/11/2012 Normal [facility] CHEMISTRY B/C Ratio 12 6 - 25 06/11/2012 Normal [facility] CHEMISTRY A/G Ratio 1.3 0.7 - 1.6 06/11/2012 Normal [facility] CHEMISTRY Globulin 3.1 2.0 - 4.0 06/11/2012 Normal [facility] CHEMISTRY Calcium Lvl 8.9 8.5 - 10.5 06/11/2012 Normal [facility] CHEMISTRY CO2 28 24 - 32 06/11/2012 Normal [facility] CHEMISTRY Sodium Lvl 142 135 - 145 06/11/2012 Normal [facility] CHEMISTRY Albumin Lvl 4.1 3.5 - 5.0 06/11/2012 Normal [facility] CHEMISTRY Potassium Lvl 3.7 3.5 - 5.1 06/11/2012 Normal [facility] CHEMISTRY Chloride Lvl 106 95 - 109 06/11/2012 Normal [facility] CHEMISTRY Glucose Lvl 164 70 - 99 06/11/2012 [facility] <sup>4</sup>Interpretive Data: Adult reference range values reflect the clinical guidelines
of the [place] [employer]. [facility] CHEMISTRY Creatinine Lvl 1.8 0.5 - 1.4 06/11/2012 HI [facility] CHEMISTRY eGFR 34 06/11/2012 NA <sup>2</sup>Result Comment: [...] should be multiplied by the estimated BMI. [facility] CHEMISTRY BUN 21 7 - 22 06/11/2012 Normal [facility] CHEMISTRY Total Protein 7.2 6.4 - 8.4 06/11/2012 Normal [facility] CHEMISTRY AST 22 0 - 37 06/11/2012 Normal [facility] CHEMISTRY Bili Total 0.6 0.2 - 1.3 [...] HEMATOLOGY MCV 97.7 80.0 - 94.0 06/11/2012 [facility] HEMATOLOGY MCH 32.7 27.0 - 31.0 06/11/2012 [facility] HEMATOLOGY Hct 39.6 42.0 - 54.0 [...] Negative mg/dL *NA* (06/11/2012 14:32:00) Negative 06/11/2012 [facility] URINALYSIS UA Bili Negative *NA* (06/11/2012 14:32:00) Negative 06/11/2012 [facility] URINALYSIS UA Protein 100 mg/dL *ABN* (06/11/2012 14:32:00) Negative 06/11/2012 ABN [facility] URINALYSIS UA pH 5.0 5.0 - 8.0 06/11/2012 Normal [facility] URINALYSIS UA Spec Grav 1.017 <=1.030 06/11/2012 Normal [facility] URINALYSIS UA Glucose Negative mg/dL *NA* (06/11/2012 14:32:00) Negative 06/11/2012 [facility] URINALYSIS UA WBC >182 0 - 5 06/11/2012 [facility] URINALYSIS UA Bacteria Many /HPF *ABN* (06/11/2012 14:32:00) None Seen 06/11/2012 ABN [facility] URINALYSIS UA Mucus Few /LPF *NA* (06/11/2012 14:32:00) None Seen 06/11/2012 [facility] URINALYSIS UA RBC >182 0 - 2 06/11/2012 [facility] URINALYSIS UA Nitrite Positive *ABN* (06/11/2012 14:32:00) Negative 06/11/2012 [facility] URINALYSIS UA Leuk Est Negative (06/11/2012 14:32:00) Negative 06/11/2012 Normal [facility] URINALYSIS UA Urobilinogen 4.0 0.1 - 1.0 06/11/2012 [facility] URINALYSIS UA Color Brown 06/11/2012 [facility] URINALYSIS UA Sq Epi None Seen 06/11/2012 [facility] Microbiology Culture: Urine 06/11/2012 [facility] Pathology Reports No Data Provided for This [...] pacemaker. Coding: Chest 2 views CPT Code: 89860 SL: 13 Herbie Bray M.D. 03/07/2014 [facility] Chest 2 views Examination: Chest x-ray, 2 views History: Shortness of Breath Comparison: 12/25/2013 Findings: The lungs are clear and without focal consolidation. The cardiomediastinal silhouette is within normal limits. No pleural effusion or pneumothorax is seen. The osseous structures are without focal abnormality. Left-sided dual chamber pacemaker is stable. IMPRESSION: No acute cardiopulmonary disease. SL: 12 01/09/2014 [facility] Ext Lower Venous Doppler Bilat US Bilateral [...] CFV to the popliteal vein. SL:13 12/26/2013 [facility] Retroperitoneal limited US RENAL ULTRASOUND INDICATION: Chronic [...] appearance of the kidneys. SL: 16 12/26/2013 [facility] Brain wo contrast CT EXAM: CT HEAD [...] interval change compared to 10/11/2013. SL: 12/25/2013 [facility] Chest 1view Portable chest: The pacemaker leads are in satisfactory position. The cardiac silhouette is normal in size. There is fluffy alveolar infiltrate in the right lower lobe developing since 11/14/2013. The l ungs and pleural spaces are otherwise clear. IMPRESSION: Right lower lobe pneumonia. SL:12/25/2013 [facility] Spine cervical wo contrast CT CT CERVICAL [...] 1 spondylolisthesis at C7-T1. SL: 16 12/10/2013 [facility] GI Bleed NM EXAM: Nuclear medicine GI [...] at time of dictation. SL: 14 11/14/2013 [facility] Chest 2 views Chest 2 views. COMPARISON: [...] No acute normality is evident. SL:13 11/14/2013 [facility] Brain wo contrast CT CRANIAL CT without [...] Coding: Brain wo contrast CT CPT Code: 04483 SL: 13 Herbie Bray M.D. 10/11/2013 [facility] Bone scan CT WHOLE-BODY BONE SCAN: PROCEDURE: 24.9 mCi of [...] definite evidence of osseous metastases. SL:13 10/11/2013 [facility] Consultation Notes No Data Provided for This Section Discharge Summaries No Data Provided for This Section History and Physicals No Data Provided for This Section Vital Signs Vital Sign Value Date Comments Source Respitory Rate 18 08/20/2016 [facility] Systolic (mm Hg) 182 08/20/2016 [facility] Diastolic (mm Hg) 106 08/20/2016 [facility] Heart Rate 74 08/20/2016 [facility] Height 177.8 cm 08/20/2016 [facility] Weight 80.909 08/20/2016 [facility] BMI Calculated 25.59 08/20/2016 [facility] Height 177.8 cm 03/06/2014 [facility] BMI Calculated 24.86 03/06/2014 [facility] Weight 78.6 03/06/2014 [facility] Temperature Oral (F) 98.8 F 12/28/2013 [facility] Systolic (mm Hg) 121 12/28/2013 [facility] Respitory Rate 17 12/28/2013 [facility] Heart Rate 73 12/28/2013 [facility] Diastolic (mm Hg) 61 12/28/2013 [facility] Diastolic (mm Hg) 68 12/28/2013 [facility] Systolic (mm Hg) 125 12/28/2013 [facility] Heart Rate 76 12/28/2013 [facility] Respitory Rate 17 12/28/2013 [facility] Temperature Oral (F) 98.5 F 12/28/2013 [facility] Systolic (mm Hg) 143 12/28/2013 [facility] Diastolic (mm Hg) 58 12/28/2013 [facility] Respitory Rate 17 12/28/2013 [facility] Temperature Oral (F) 98.9 F 12/28/2013 [facility] Heart Rate 71 12/28/2013 [facility] Weight 81.2 12/26/2013 [facility] Weight 83.636 12/25/2013 [facility] BMI Calculated 26.46 12/25/2013 [facility] Height 177.8 cm 12/25/2013 [facility] Respitory Rate 18 11/18/2013 [facility] Heart Rate 77 11/18/2013 [facility] Diastolic (mm Hg) 64 11/18/2013 [facility] Systolic (mm Hg) 121 11/18/2013 [facility] Temperature Oral (F) 98.1 F 11/18/2013 [facility] Diastolic (mm Hg) 60 11/18/2013 [facility] Temperature Oral (F) 97.9 F 11/18/2013 [facility] Heart Rate 93 11/18/2013 [facility] Respitory Rate 18 11/18/2013 [facility] Systolic (mm Hg) 102 11/18/2013 [facility] Systolic (mm Hg) 101 11/18/2013 [facility] Temperature Oral (F) 98.1 F 11/18/2013 [facility] Respitory Rate 18 11/18/2013 [facility] Diastolic (mm Hg) 60 11/18/2013 [facility] Heart Rate 83 11/18/2013 [facility] Weight 78.636 11/12/2013 [facility] Height 177.8 cm 11/12/2013 [facility] BMI Calculated 24.87 11/12/2013 [facility] Systolic (mm Hg) 160 06/14/2012 [facility] Respitory Rate 18 06/14/2012 [facility] Diastolic (mm Hg) 68 06/14/2012 [facility] Temperature Oral (F) 98.0 F 06/14/2012 [facility] Heart Rate 61 06/14/2012 [facility] Temperature Oral (F) 97.6 F 06/14/2012 [facility] Heart Rate 67 06/14/2012 [facility] Diastolic (mm Hg) 67 06/14/2012 [facility] Systolic (mm Hg) 177 06/14/2012 [facility] Respitory Rate 18 06/14/2012 [facility] Systolic (mm Hg) 142 06/14/2012 [facility] Diastolic (mm Hg) 75 06/14/2012 [facility] Respitory Rate 18 06/14/2012 [facility] Heart Rate 65 06/14/2012 [facility] Temperature Oral (F) 98.0 F 06/14/2012 [facility] Height 177.80 cm 06/11/2012 [facility] Weight 83.182 06/11/2012 [facility] Height 177.80 cm 06/11/2012 [facility] Weight 80.455 06/11/2012 [facility] Encounters Location Location Details Encounter Type Encounter Number Reason For Visit Attending Provider ADM Date DC Date Status Source [facility] OU [id number] EDUARDO JANAY 06/11/2012 06/14/2012 Discharged [facility] Outpatient [id number] Newton Guzman 10/11/2013 10/12/2013 [facility] Inpatient [id number] Sánchez Luz 11/12/2013 11/18/2013 [facility] [id number] Getachew Farias 12/07/2013 12/07/2013 [facility] Outpatient [id number] Igor Michelle 12/10/2013 12/11/2013 [facility] Inpatient [id number] William Jaz 12/25/2013 12/28/2013 [facility] Outpatient [id number] Newton Thomas 01/09/2014 01/10/2014 [facility] OP Recurring [id number] Newton Morrowan 03/07/2014 04/06/2014 [facility] Bedded Outpatient [id number] Panda Huitrona 08/20/2016 08/20/2016 [facility] Procedures Procedure Code Date Perfomer Comments Source Placement of stent<sup>1</sup> [id number] 07/19/2011 left leg, 2 in heart [facility] Placement of stent<sup>2</sup> [id number] 06/20/2011 right leg [facility] Laminectomy [id number] 04/19/2008 [facility] Placement of stent [id number] 01/25/2008 [facility] Laminectomy [id number] 04/19/2005 [facility] Procedure on prostate<sup>3</sup> [id number] 04/19/1998 seeding [facility] Cataract surgery [id number] 04/19/1975 [facility] Pacemaker care management [facility] Pacemaker care management [id number] [facility] Assessment and Plan Assessment and Plan Date Source Extracted from:Title: Clinical Document Author: William Sebastian DO Date: 12/28/13 Progress Daily [facility] Completed: Dec, 14:42 by William Sebastian [...] Tot 0 0 0 12/27 24hr Tot [id number] Medications (27) Active Scheduled Meds (10): 12/27/13 aspirin (aspirin 81 mg tablet, enteric coated) 81 mg PO Daily 12/25/13 azithromycin 500 mg IVPB [id number] 166.67 ml/hr 12/27/13 cefTRIAXone (Rocephin) 1 gm IM Q12H 12/27/13 citalopram (CeleXA) 40 mg PO Daily 12/26/13 clopidogrel 75 mg PO Bedtime 12/27/13 enoxaparin 40 mg SUB-Q [id number] 12/27/13 folic acid 1 mg PO QAM [...] no improvement Continue Abx. F/u cultures 12/28/2013 [facility] Extracted from:Title: Clinical Document Author: Sourav Hardy [...] for Hgb <9 due to CAD. 11/18/2013 [facility] Plan of Care No Data Provided for This Section Social History Social History Date Source Social History TypeResponse Substance Abuse Use: None. Alcohol Past Smoking Status Former smoker; Ready to change: No; Exposure to Tobacco Smoke None; Cigarette Smoking Last 365 Days No; Reg Smoking Cessation Counseling Yes1 1quit in 196008/20/2016 [facility] Family History No Data Provided for This Section Advance Directives No Data Provided for This Section Functional Status No Data Provided for This Section
[2018-11-16] MEDS ORDERED: SODIUM BICARBO650 MG PO (15:41)
[2018-11-16] MEDS ORDERED: FERROUS SULFAT325 MG PO (15:41)
[2018-11-16] MEDS ORDERED: TYLENOL WITH C1 EACH PO (15:41)
[2018-11-16] MEDS ORDERED: ACETAMINOPHEN325 M1 PO (15:41)
[2018-11-16] MEDS ORDERED: SEROQUEL25 MG PO (15:41)
[2018-11-16] MEDS ORDERED: MEROPENEM500 MG IV (15:41)
[2018-11-16] MEDS ORDERED: HUMALOG100 UNIT/1 (15:41)
[2018-11-16 15:52] LABS: CREATINE KINASE MB 2.2 ng/mL (0-5.0)
--- NOTE | 2018-11-16 15:57 | Diagnostic Imaging Report ---
EXAMINATION: CHEST SINGLE (PORTABLE) INDICATION: ^pre op ^[id number] ^1500 COMPARISON: 11/02/2018 FINDINGS: AP view TUBES and LINES: Stable left chest wall dual-lead cardiac device. LUNGS: Limited by rotation and low lung volumes. Lungs are well inflated. Central vascular congestion. Minimal left basilar subsegmental atelectasis. PLEURA: No significant pleural effusion or pneumothorax. HEART AND MEDIASTINUM: The cardiac silhouette is enlarged. BONES AND SOFT TISSUES: No acute osseous lesion. Soft tissues are unremarkable. UPPER ABDOMEN: No free air under the diaphragm. IMPRESSION: Enlarged cardiac silhouette with mild central vascular congestion. Minimal left basilar subsegmental atelectasis. Signed by: Dr. Lucio Holt MD on 11/16/2018 3:53 PM
[2018-11-16 16:15] VITALS: BP 135/63
--- NOTE | 2018-11-16 16:15 | NUR ---
PATIENT RECEIVED FROM ER PER STRETCHER. ALERT AND VERBALLY RESPONSIVE. SKIN WARM AND DRY TO TOUCH, RESPIRATION EVEN AND UNLABORED. TELEMETRY BOX [address] LEFT COLOSTOMY AND RIGHT UROSTOMY WITH 200CC CLEAR YELLOW URINE REMOVED. SKIN TEAR TO RIGHT AND LEFT ELBOWS, REDNESS TO GROIN, STAGE 2 TO SACRUM. C/O COLD, WARM BLANKET PROVIDED. BED IN LOWER POSITION, CALL LIGHT AT REACH. INSTRUCTED TO CALL FOR ASSISTANCE NEEDED, BED ALARM ACTIVATED.
[2018-11-16] MEDS: INSULIN LISPRO 100 UNIT/1 ML 3ML VIAL SQ SCH ×2 (16:30→21:00)
[2018-11-16 17:00] VITALS: BP 135/63
--- NOTE | 2018-11-16 17:07 | Diagnostic Imaging Report ---
EXAM: CT right hip WITHOUT contrast INDICATION: ^fracture. Dr. Muhammad requesing ^[id number] ^1500 COMPARISON: Same day x-ray TECHNIQUE: Right hip was scanned utilizing a multidetector helical scanner without administration of IV contrast. Coronal and sagittal reformations were obtained. Routine protocol was performed. IV CONTRAST: None ORAL CONTRAST: None. COMPLICATIONS: None RADIATION DOSE: Total DLP: 382.83 mGy*cm Estimated effective dose: (DLP x 0.015 x size factor) mSv CTDIvol has been reviewed. It is below the limits set by the Radiation Protocol Committee (RPC). FINDINGS: Limited by motion artifact. Mild cortical irregularity of the right pubic rami and iliac wing is probably due to motion artifact and less likely to represent fracture lines. Mildly displaced subcapital fracture of the right femoral neck. Generalized demineralization. Vascular calcifications. Contrast is seen within bowel loops. Bowel containing lower abdominal ventral hernia is partially imaged. Bladder is collapsed, limiting evaluation. 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 IMPRESSION: Mildly displaced subcapital fracture of the right femoral neck. Limited by motion artifact. Mild cortical irregularity of the right pubic rami and iliac wing is probably due to motion artifact and less likely to represent fracture lines. Signed by: Dr. Lucio Holt MD on 11/16/2018 5:04 PM
--- NOTE | 2018-11-16 17:29 | NUR ---
PATIENT IN BED RESTING WITH NO RESPIRATORY DISTRESS. PACEMAKER SITE TO LEFT UPPER CHEST WITH SULMA INTACT. CALL LIGHT AT REACH.
--- NOTE | 2018-11-16 19:30 | NUR ---
RECEIVED PATIENT ALERT AND VERBALLY RESPONSIVE. SKIN WARM AND DRY TO TOUCH, NO RESPIRATORY DISTRESS NOTED. PATIENT COMPLAINS OF PAIN IN BACK THIS MOMENT. FAMILY MEMBER AT BEDSIDE. LEFT COLOSTOMY AND RIGHT UROSTOMY IN PLACE. SKIN TEAR TO RIGHT AND LEFT ELBOWS, REDNESS TO GROIN, STAGE 2 TO SACRUM. BED IN LOWEST POSITION AND LOCKED, SIDE RAILS ARE UP, BED ALARM ACTIVATED, CALL LIGHT WITHIN EASY REACH, WILL CONTINUE TO MONITOR.
[2018-11-16 19:40] VITALS: BP 139/60
[2018-11-16] MEDS: ONDANSETRON HCL INJ 2MG/ML 2ML 2 MG/ML VIAL IV PRN (19:40)
[2018-11-16] MEDS: MORPHINE SULFATE INJ 4 MG/ML INJ 1ML IV PRN (19:40)
[2018-11-16 20:00] VITALS: BP 139/60
--- NOTE | 2018-11-16 20:00 | NUR ---
SPOKE WITH DR. BERGERON REGARDING THE PATIENT'S SKIN REDNESS. ALSO REQUESTED FOR PATIENT TO HAVE A 1 ON 1 SITTER FOR SAFETY REASONS WELL. THE GRANTED PERMISSION FOR SITTER AND MEDICATION FOR THE PATIENT'S SKIN, WILL CONTINUE TO MONITOR SITUATION.
--- NOTE | 2018-11-16 21:10 | NUR ---
LAMISIL CREAM WAS ORDERED FOR PATIENT, BUT WAS NOT AVAILABLE FOR THE PATIENT IN THE FACILITY AT THIS TIME. WILL FOLLOW UP WITH PHARMACY IN THE MORNING.
[2018-11-16] MEDS: QUETIAPINE FUMARATE 25 MG TAB PO SCH (22:00)
[2018-11-17] VITALS (9 sets, daily range): BP systolic 101–182; BP diastolic 49–80
--- NOTE | 2018-11-17 01:15 | NUR ---
INSTRUCTED TO TRANSFER PATIENT BY CHARGE NURSE TO ROOM 211.
--- NOTE | 2018-11-17 01:30 | NUR ---
UROSTOMY BAG HAD COMPLETELY LEAK. PATIENT CLEANED THOROUGHLY AND NEW BAG PLACED ON PATIENT. BED SHEETS AND GOWN REPLACED WELL, CONTINUING TO MONITOR.
--- NOTE | 2018-11-17 01:45 | NUR ---
PATIENT TRANSFERRED TO ANOTHER NURSE AT ROOM 211. REPORT WAS GIVEN, PATIENT IN STABLE CONDITION, NO DISTRESS NOTED.
[2018-11-17] MEDS: MORPHINE SULFATE INJ 4 MG/ML INJ 1ML IV PRN ×3 (02:06→12:27)
[2018-11-17 06:06] LABS: BASOPHILS % 0.5 % (0.0-1.0); EOSINOPHILS # (AUTO) 0.3 (0.0-0.4); EOSINOPHILS % 4.4 % (0.0-6.0); HEMATOCRIT 21.8 % (38.2-49.6); LYMPHOCYTES # (AUTO) 3.6 (1.0-3.2); LYMPHOCYTES % 48.8 % (18.0-39.1); MEAN CORPUSCULAR HEMOGLOBIN 32.4 pg (28-32); MEAN CORPUSCULAR HGB CONC 32.1 g/dL (31-35); MEAN CORPUSCULAR VOLUME 100.9 fL (81-99); MONOCYTES # (AUTO) 0.8 (0.2-0.8); MONOCYTES % 10.8 % (4.4-11.3); NEUTROPHILS # (AUTO) 2.6 (2.1-6.9); NEUTROPHILS % 35.2 % (38.7-80.0); PLATELET COUNT 331 x10e3/uL (140-360); RED BLOOD COUNT 2.16 x10e6/uL (4.3-5.7); RED CELL DISTRIBUTION WIDTH 14.8 % (11.7-14.4)
[2018-11-17 06:24] LABS: CREATINE KINASE MB 1.9 ng/mL (0-5.0)
[2018-11-17 06:56] LABS: ANISOCYTOSIS MODERATE; LYMPHOCYTES % (MANUAL) 37 % (19-48); MONOCYTES % (MANUAL) 6 % (3.4-9.0); NEUTROPHILS % (MANUAL) 52 % (40-74)
[2018-11-17 06:57] LABS: PLATELET ESTIMATE ADEQUATE; PLATELET MORPHOLOGY COMMENT NORMAL; POIKILOCYTOSIS S; RBC MORPHOLOGY COMMENT ABNORMAL
[2018-11-17 06:59] LABS: ALBUMIN 2.5 g/dL (3.5-5.0); ALBUMIN/GLOBULIN RATIO 0.8 (0.8-2.0); ANION GAP 13.4 mmol/L (8-16); CALCIUM 8.9 mg/dL (8.4-10.2); CREATININE, SERUM 1.58 mg/dL (0.72-1.25); POTASSIUM 4.4 mmol/L (3.5-5.1)
--- NOTE | 2018-11-17 07:26 | NUR ---
Patient endorsed to next shift for continuity of care.
[2018-11-17] MEDS: INSULIN LISPRO 100 UNIT/1 ML 3ML VIAL SQ SCH ×4 (07:30→21:00)
[2018-11-17] MEDS ORDERED: SODIUM CHLORIDE 0.9% 250ML 250 ML IV ONE (08:00)
--- NOTE | 2018-11-17 08:02 | NUR ---
hemoglobin 7.0. aware . See orders
[2018-11-17] MEDS: MEMANTINE 10 MG TAB PO SCH (08:24)
[2018-11-17] MEDS: DOCUSATE SODIUM 100 MG CAP PO SCH (08:24)
[2018-11-17] MEDS: TERBINAFINE 30 GM CR TP SCH ×2 (09:00→17:00)
[2018-11-17] MEDS ORDERED: SODIUM CHLORIDE 0.9% 250ML 250 ML ONE ×2 (11:47→23:19)
--- NOTE | 2018-11-17 13:14 | NUR ---
Paged to notify of consult
[2018-11-17] MEDS ORDERED: ONDANSETRON HCL INJ 2MG/ML 2ML 2 MG/ML VIAL ONE (14:43)
[2018-11-17] MEDS ORDERED: CEFAZOLIN SOD 1 GM VIAL ONE (14:43)
[2018-11-17] MEDS ORDERED: EPHEDRINE SULFATE INJ 50 MG/10 ML SYR ONE (14:43)
[2018-11-17] MEDS ORDERED: DEXAMETHASONE SOD PHOS INJ 4 MG/ML VIAL ONE (14:43)
[2018-11-17] MEDS ORDERED: PHENYLEPHRINE HCL 1% 10 MG/ML VIAL ONE (14:43)
[2018-11-17] MEDS ORDERED: PROPOFOL IV EMULSION 10 MG/ML 20 ML VIAL ONE (14:43)
[2018-11-17] MEDS ORDERED: LIDOCAINE HCL 2% LOCAL INJ 5 ML SDV VIAL INJ ONE (14:43)
[2018-11-17] MEDS ORDERED: SEVOFLURANE INHAL SOLN 250 ML PEN BTL ONE (14:43)
[2018-11-17] MEDS ORDERED: VASOPRESSIN INJ 20 UNIT/ML VIAL ONE (14:43)
[2018-11-17] MEDS ORDERED: HYDROMORPHONE 1MG/1ML INJ IV PRN (14:45)
--- NOTE | 2018-11-17 15:20 | NUR ---
spoke to OR field secretary to notify patient due for 2nd unit of PRBC.
--- NOTE | 2018-11-17 15:35 | NUR ---
radiologic technologist chief aware patient due for 2nd unit of PRBC. States " I will notify anesthesiologist."
--- NOTE | 2018-11-17 15:40 | NUR ---
Taken for procedure via bed. NO s/s of acute distress noted.
[2018-11-17] MEDS ORDERED: FENTANYL CITRATE/PF 100MCG/2 ML INJ ONE ×2 (17:10→18:36)
[2018-11-17] MEDS ORDERED: BACITRACIN 50,000 UNIT VIAL ONE (17:34)
--- NOTE | 2018-11-17 18:19 | History and Physical ---
HISTORY OF PRESENT ILLNESS: An 88 years old male. Apparently, he fell at home and came with right hip fracture. He has a history of peripheral vascular disease, status post bilateral below-knee amputation, history of diabetes, history of peripheral vascular disease with several stents, and history of chronic renal insufficiency. The patient is medically optimized to undergo the right hip surgery. He is getting blood transfusion right now and pending on of course cardiac clearance also, but he has no history of any coronary artery disease or CVA. REVIEW OF SYSTEMS: CARDIOVASCULAR: No chest pain or palpitation. RESPIRATORY: No shortness of breath. No cough. GASTROINTESTINAL: No nausea or vomiting. No diarrhea. GENITOURINARY: No frequency. No dysuria. ALLERGIES: HE IS ALLERGIC TO GABAPENTIN AND LORAZEPAM. PAST MEDICAL HISTORY: Peripheral vascular disease, status post bilateral BKA, history of diabetes mellitus, and history of chronic renal insufficiency. PHYSICAL EXAMINATION: VITAL SIGNS: Blood pressure is 114/65, temperature 97.9, heart rate 60 per minute, respiratory rate 17 per minute, and oxygen saturation 99%. IMAGING DATA: On the chest x-ray, we have enlarged cardiac silhouette with mild central vascular congestion and mild left basilar subsegmental atelectasis. CT of the right hip showed mildly displaced subcapital fracture of the right femur neck, limited by motion artifact, mild cortical irregularity on the right pubic rami and iliac wing, probably due to motion artifact and less likely to represent fracture lines. EKG was done also showed right bundle-branch block. No evidence of any specific changes. No evidence of any ST-segment elevation or depression. LABORATORY DATA: On the blood work, we have BMP; sodium 142, potassium 4.4, chloride 109, CO2 of 24, BUN 22, creatinine 1.58, and glucose 87. CBC; white blood count 7.31, hemoglobin 7.0, hematocrit 21.8, and platelet count 331,000. PT 13.3, INR 0.96, and PTT 36.8. AST 16, ALT 8, total bilirubin 0.4, and alkaline phosphatase 82. FINAL IMPRESSION: 1. Right hip fracture, which is a closed right hip fracture. 2. 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 3. Peripheral vascular disease, status post bilateral vdbdg-lpp-ciua amputation .. 4. Acute anemia. 5. 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 PLAN OF TREATMENT: The patient as I said going to undergo surgery today. He is medically optimized depending on the evaluation by Cardiology. He is also going to continue Tylenol 650 mg p.o. q.6 hours as needed for mild pain. Continue Tylenol No. 3 one tablet q.6 hours as needed for pain for okyhktmq-ji-hrfyqy pain, Depakote 250 mg twice a day, Colace 100 mg daily, and ferrous sulfate 325 mg twice a day. Continue monitoring blood sugar before meals and at bedtime. Continue Dilaudid 2 mg IV q.3 hours as needed for severe pain, Namenda 5 mg daily, morphine has been discontinued because it was not relieving the pain. Continue Procardia XL 30 mg twice a day. Continue Zofran 4 mg IV q.4 hours as needed for nausea and vomiting, Seroquel 50 mg at bedtime, Seroquel 25 mg daily, sodium bicarbonate 1300 mg daily, and Lamisil cream twice a day. As I said, the patient is medically optimized for the right hip surgery. He has no symptoms at all. EKGs unremarkable. Pending Cardiology evaluation. The patient should be able to go for the surgery today. Dr. Tapia has been consulted from the Cardiology point of view. Dr. Zhane Torres is the orthopedic surgeon. MD EPRRI Pena/BELL /[id number]
[2018-11-17] MEDS ORDERED: HYDROMORPHONE 2MG/ML 2 MG/ML ML ONE (18:44)
[2018-11-17] MEDS ORDERED: FLUCONAZOLE 400 MG/200 ML IV ONE (18:57)
[2018-11-17] MEDS: FERROUS SULFATE 325 MG TAB PO SCH (19:05)
[2018-11-17] MEDS: ACETAMINOPHEN/CODEINE 300MG - 30MG TAB PO SCH (19:05)
[2018-11-17] MEDS: DIVALPROEX SODIUM 250 MG TAB...DR PO SCH (19:05)
--- NOTE | 2018-11-17 19:05 | NUR ---
BACK FROM PROCEDURE. AQUACEL DRESSING REINFORCED WITH ABD PAD BY AUGUST RN (PACU NURSE). PER AUGUST RN 2ND UNIT OF PRBC NOT TRANSFUSED DURING SURGERY. ONCOMING NURSE CANDACE ZHENG AWARE PATIENT DUE FOR 2ND UNIT OF PRBC. SIDE RAILS UPX3, CALL LIGHT WITHIN REACH, BED ALARM ON, DAUGHTER AT BEDSIDE.
--- NOTE | 2018-11-17 19:09 | Consultation ---
DATE OF CONSULTATION: 11/17/2018 Cardiology Consultation REASON FOR CONSULTATION: Preoperative clearance and evaluation. HISTORY OF PRESENT ILLNESS: Mr. Carvajal is an 88-year-old gentleman with history of a recent pacemaker generator change at approximately [address] Guzman, who was admitted from a care home since his discharge with the hip fracture and he is scheduled for urgent surgery of the same. He has a history of prior DVTs, IVC filter placement, multiple comorbid conditions. His care was discussed with his daughter. PAST MEDICAL HISTORY: Unobtainable as the patient has advanced dementia. SOCIAL HISTORY: Unobtainable as the patient has advanced dementia. FAMILY HISTORY: Unobtainable as the patient has advanced dementia. REVIEW OF SYSTEMS: Unobtainable. PHYSICAL EXAMINATION: VITAL SIGNS: Afebrile. Heart rate 70, blood pressure 124/70. CARDIOVASCULAR: Regular rhythm. Systolic murmur. LUNGS: Occasional rhonchi. LABORATORY DATA: Electrocardiogram shows sinus rhythm, pacemaker implant. Procedure data was reviewed. Labs were reviewed. ASSESSMENT: Urgent hip replacement in a patient with recent pacemaker implant and prior DVTs with IVC filter in place. RECOMMENDATIONS: The patient is cleared from the cardiac standpoint. He is at average risk for cardiac issues in the perioperative period. Mostly owing to his poor mobility. Pacemaker function is normal. We will transfer his care to Dr. Guzman, who is his primary felt coverer. I thank Dr. Cannon for this consultation. MD SAY Long/BELL /[id number]
--- NOTE | 2018-11-17 19:10 | NUR ---
ORTHOPEDIC CONSULTATION Patient is a 88 year old male who fell at his nursing facility and present through the ED and was found to have a hip fracture. He is a non-ambulator secondary to his bilateral BKAs. Pain localized to right hip. PMdHx: peripheral vascular disease, DM, Chronic Renal Insufficiency. SurgHx: status post bilateral below-knee amputation, multiple stents, Urostomy, Colostomy. Allergies: Gabapentin, Lorazepam FamHx: Non-contributory SocHx: Non-ambulator VS T 96.8 HR 71 RR 18, BP 156/71 O2 Sat 96% Right lower leg: BKA, healed Unable to straight leg leg, pain with log roll TTP of lateral hip CT: Impacted varus angulated femoral neck fracture 88 year old male with right impacted femoral neck fracture Due to the patients demands and medical condition, an hemiarthroplasty would be high risk and include a prolonged procedure. A right hip CRPP is planned to help stabilize his hip. Patient and daughter are aware and amendable to plan. NPO except meds Hold anticoagulation IVF while NPO Zhane Torres, DO [facility]
--- NOTE | 2018-11-17 19:14 | History and Physical ---
ADDENDUM: Due to the hemoglobin of 7.0, the patient is getting a blood transfusion. We are going to follow up CBC today and tomorrow with a BMP. MD PERRI Pena/BELL /[id number]
--- NOTE | 2018-11-17 19:24 | NUR ---
Operative Note - Orthopedic Surgery PREOPERATIVE DIAGNOSES: Right Varus Impacted Femoral Neck Fracture POSTOPERATIVE DIAGNOSES: Right Varus Impacted Femoral Neck Fracture OPERATION PERFORMED: Closed Reduction, Percutaneous Pinning Right Hip SURGEON: Zhane Torres DO ANESTHESIA: General. EBL: 25cc COMPLICATIONS: None IMPLANTS: Quin Asnis II Cannullated Partially Threaded Screws 6.5 x 85 mm TL 20 x 3, 6.5 x 75 mm TL 20 x 1 DESCRIPTION OF OPERATION: The patient was taken to the operating room and placed under general anesthesia. The upper extremity had all bony prominences we ll padded and secured. Preoperative Ancef antibiotics and Diflucan were given. The patients right lower extremities were sterilely prepped and draped in the usual fashion. A time-out was performed to identify the correct extremity. The right hip was visualized under flouroscopy and the hip was adducted to improve the position of the fracture and to allow for pinning. Next and incision was made lateral to the greater trochanter. A guide pin was introduced through the inferior portion neck and head under flouroscopic guidance and deemed to be in adequate position. Two other guide pins were inserted under similar fashion along the superoanterior and superoposterior port ion of the neck and head and a screw was placed in an anterior to posterior directed down the center of the femoral head. The intraosseous length of the pin was measured and four Asnis III Partially Threaded Cannulated Screws were introduced into the neck and head. The anterosuperior screw was 6.5x85mm TL 20 mm, posterosuperior screw was 6.5 x 85 mm TL 20mm and 6.5 x 85 mm TL 20mm and superiorly at 6.5 x 75 mm TL 20 mm.. The guide pins were removed and final imaging was taken and interpreted to be in adequate position. The incisions were thoroughly irrigated, and the fascia was closed with 0 vicryl, and the subcutaneous tissue was closed with 2-0 vicryl. 3-0 Monocryle were placed to close the skin and the skin was then cleaned. An Aquacel dressing was placed. The patient was transferred to ICU due to her perioperative risk under stable condition.
--- NOTE | 2018-11-17 20:04 | Consultation ---
DATE OF CONSULTATION: ADMITTING PHYSICIAN: Hospitalist. At this time admitted with a history of fall and left hip fracture. The patient has gone to the OR at this time. The patient known to me for last 25 to 30 years. He is known patient of coronary artery status stent placement, bilateral leg stents. However, at this time he has below-knee amputation of the knees and the patient also history of hypertension, mild dementia also, most of the time he is quite cooperative, sometimes become boisterous and anxious and the patient ejection fraction is still around 45% to 50% and the patient not in congestive heart failure, but, however, at this time, the patient is going to have surgery. I will follow the patient if surgery is done, I will change generator of the old pacemaker for the sick sinus syndrome. I will try to take the sravan out tomorrow or day after tomorrow at the pacer site and I will continue to follow the patient. Thank you for this consultation. MD CIRA Dominguez/BELL /[id number]
[2018-11-17 21:24] LABS: BASOPHILS # (AUTO) 0.1 (0.0-0.1); BASOPHILS % 0.4 % (0.0-1.0); EOSINOPHILS # (AUTO) 0.2 (0.0-0.4); EOSINOPHILS % 1.5 % (0.0-6.0); HEMATOCRIT 26.6 % (38.2-49.6); HEMOGLOBIN 8.5 g/dL (14.0-18.0); LYMPHOCYTES # (AUTO) 3.3 (1.0-3.2); LYMPHOCYTES % 27.1 % (18.0-39.1); MEAN CORPUSCULAR HEMOGLOBIN 31.7 pg (28-32); MEAN CORPUSCULAR VOLUME 99.3 fL (81-99); NEUTROPHILS # (AUTO) 7.6 (2.1-6.9); NEUTROPHILS % 62.7 % (38.7-80.0); PLATELET COUNT 281 x10e3/uL (140-360); RED BLOOD COUNT 2.68 x10e6/uL (4.3-5.7); RED CELL DISTRIBUTION WIDTH 16.3 % (11.7-14.4)
[2018-11-17 21:39] LABS: ANION GAP 15.1 mmol/L (8-16); CALCIUM 8.8 mg/dL (8.4-10.2); CREATININE, SERUM 1.62 mg/dL (0.72-1.25); POTASSIUM 4.1 mmol/L (3.5-5.1)
[2018-11-17 21:58] LABS: CREATINE KINASE MB 1.9 ng/mL (0-5.0)
[2018-11-17] MEDS: NIFEDIPINE CR 30 MG TAB PO SCH (22:36)
[2018-11-17] MEDS: QUETIAPINE FUMARATE 25 MG TAB PO SCH (22:37)
[2018-11-17] MEDS: HYDROMORPHONE 2MG/ML 2 MG/ML ML IV PRN (23:12)
--- NOTE | 2018-11-17 23:25 | NUR ---
Blood transfusion started, verified with another nurse: unit # [id number], EXP. 12/14/18, COMPLETED at 0240, no reaction noted.
[2018-11-18] VITALS (8 sets, daily range): BP systolic 97–139; BP diastolic 45–63
[2018-11-18] MEDS: CEFAZOLIN SOD 1 GM/NS 50ML 50 ML IV SCH ×3 (01:25→17:21)
[2018-11-18] MEDS: ACETAMINOPHEN/CODEINE 300MG - 30MG TAB PO SCH ×5 (01:25→23:19)
--- NOTE | 2018-11-18 02:40 | NUR ---
blood completed, no reaction noted
[2018-11-18 06:13] LABS: HEMATOCRIT 30.4 % (38.2-49.6); HEMOGLOBIN 9.6 g/dL (14.0-18.0)
[2018-11-18 06:30] LABS: BASOPHILS # (AUTO) 0.1 (0.0-0.1); BASOPHILS % 0.6 % (0.0-1.0); EOSINOPHILS # (AUTO) 0.2 (0.0-0.4); EOSINOPHILS % 1.9 % (0.0-6.0); HEMATOCRIT 30.4 % (38.2-49.6); HEMOGLOBIN 9.8 g/dL (14.0-18.0); LYMPHOCYTES # (AUTO) 3.6 (1.0-3.2); LYMPHOCYTES % 42.3 % (18.0-39.1); MEAN CORPUSCULAR HEMOGLOBIN 30.9 pg (28-32); MEAN CORPUSCULAR HGB CONC 32.2 g/dL (31-35); MEAN CORPUSCULAR VOLUME 95.9 fL (81-99); MONOCYTES # (AUTO) 0.9 (0.2-0.8); MONOCYTES % 11.2 % (4.4-11.3); NEUTROPHILS # (AUTO) 3.7 (2.1-6.9); NEUTROPHILS % 43.8 % (38.7-80.0); PLATELET COUNT 280 x10e3/uL (140-360); RED BLOOD COUNT 3.17 x10e6/uL (4.3-5.7); RED CELL DISTRIBUTION WIDTH 17.2 % (11.7-14.4)
--- NOTE | 2018-11-18 07:00 | NUR ---
patient endorsed to next shift
--- NOTE | 2018-11-18 07:12 | NUR ---
pt alert resp even and unlabored at this time no distress noted, no c/o pain when asked, pt able to make needs known, call light in reach pt has sitter at bedside.
[2018-11-18] MEDS: INSULIN LISPRO 100 UNIT/1 ML 3ML VIAL SQ SCH ×4 (07:30→20:57)
[2018-11-18] MEDS: HYDROMORPHONE 2MG/ML 2 MG/ML ML IV PRN ×3 (07:53→21:33)
[2018-11-18] MEDS: ONDANSETRON HCL INJ 2MG/ML 2ML 2 MG/ML VIAL IV PRN (07:53)
[2018-11-18] MEDS: MEMANTINE 10 MG TAB PO SCH (08:02)
[2018-11-18] MEDS: DOCUSATE SODIUM 100 MG CAP PO SCH (08:02)
[2018-11-18] MEDS: FERROUS SULFATE 325 MG TAB PO SCH ×2 (08:02→17:21)
[2018-11-18] MEDS: QUETIAPINE FUMARATE 25 MG TAB PO SCH ×2 (08:02→21:33)
[2018-11-18] MEDS: DIVALPROEX SODIUM 250 MG TAB...DR PO SCH ×2 (08:02→17:21)
[2018-11-18] MEDS: NIFEDIPINE CR 30 MG TAB PO SCH ×2 (08:02→20:57)
[2018-11-18] MEDS: SODIUM BICARBONATE 650 MG TAB PO SCH (08:02)
--- NOTE | 2018-11-18 10:05 | NUR ---
ORTHOPEDIC PROGRESS NOTE Patient seen & examined resting comfortably at bedside. Pain controlled with analgesics. No acute events overnight. s/p transfusion VS 96.6 96 18 124/61 93% RA Right hip - dressing clean dry and intact laying on right hip without pain H/H 9.6/30.4 88 yo m s/p Right hip CRPP POD #1 Analgesics DVT Prophylaxis F/U labs No acute orthopedic intervention required at this time May follow up as an outpatient in 2 weeks. DO DEBRA [facility]
--- NOTE | 2018-11-18 11:13 | NUR ---
CM RECEIVED CALL FOR PT'S DTR; BRENNA CARROLL @ [phone]. STATES SHE WOULD LIKE FOR HER FATHER TO GO TO THE MED RESORT WHEN DC'D. T/O CONSENT GIVEN. INFORMED DTR THERE WAS NO ORDER FOR SNF. DTR AWARE, BUT WANTED TO PROVIDE CHOICE IN ADVANCE. STATES SHE WOULD LIKE FOR DR. MEJIA TO FOLLOW HER DAD AT [facility]. INFORMED DTR DR. MEJIA MAY NOT HAVE PRIVILEGES THERE. STATES DR. BERGERON IS OK. INFORMED BEDSIDE NURSE, DONATO. STATES SHE WILL MAKE DR BERGERON AWARE.
[2018-11-18] MEDS: TERBINAFINE 30 GM CR TP SCH ×2 (13:12→17:21)
--- NOTE | 2018-11-18 16:23 | Progress Note ---
DATE: Internal Medicine Progress Note SUBJECTIVE: The patient complains of pain in the right hip. PHYSICAL EXAMINATION: VITAL SIGNS: Blood pressure 113/56, temperature 98.1, heart rate 97 per minute, respiratory rate is 20 per minute, and oxygen saturation 95%. HEART: Regular rhythm. Normal S1, S2 sounds. LUNGS: Clear bilaterally. EXTREMITIES: Status post below-knee amputation. LABORATORY DATA: On BMP; sodium 141, potassium 4.1, chloride 108, CO2 22, BUN 21, creatinine 1.62, glucose 88. On CBC; white blood count 8.42, hemoglobin 9.6, hematocrit 30.4, platelet count 280,000. PT is 13.3, INR 0.96, PTT 36.8. AST 16, ALT 8, total bilirubin 0.4, alkaline phosphatase 282. IMPRESSION: 1. Right hip fracture, status post open reduction and internal fixation. 2. Diabetes mellitus type 2 with peripheral vascular disease and chronic renal insufficiency. 3. Peripheral vascular disease, status post bilateral below-knee amputation. 4. Acute anemia. 5. Chronic renal failure, stage 3, most likely secondary to diabetic nephropathy. PLAN OF TREATMENT: 1. We are going to continue cefazolin 1 g IV q.8 hours until we finish the doses. 2. Continue monitoring blood sugar before meals and at bedtime. 3. Continue diabetic diet. 4. Continue Zofran 4 mg IV q.4 hours as needed. 5. Terbinafine 1 g twice a day to affected area. 6. Seroquel 25 mg daily. 7. Dilaudid 2 mg IV q.3 hours as needed. 8. Colace 100 mg daily for constipation. 9. Tylenol 650 mg q.6 hours as needed for pain. 10. Sodium bicarbonate 1300 mg daily. 11. Namenda 5 mg daily. 12. Ferrous sulfate 325 mg twice a day. 13. Tylenol No. 3 one tablet q.6 hours as needed. 14. Seroquel 50 mg at bedtime. 15. Nifedipine 30 mg q.12 hours. 16. Depakote 250 mg twice a day. MD PERRI Pena/BELL /[id number]
--- NOTE | 2018-11-18 17:30 | NUR ---
pt dressing to right hip reinforced pt tolerated well.
--- NOTE | 2018-11-18 18:58 | NUR ---
Nutrition Screen Note RD Recommendation for Physician: -Recommend changing diet to ADA/ Cardiac diet Plan of Care: RD following, monitoring for tolerance and adequacy Nutrition reason for involvement: Nutrition Risk Trigger MST Primary Diagnose(s): Femoral neck fracture PMH: diabetes, dementia, bilateral znjkl-ulf-enjx amputee, history of CAD and PAD Ht:70in Wt:143lb BMI:n/a IBW:146lbs ABW with bilateral BKA RD Assessment: (11/18) Chart reviewed. Labs and meds reviewed. 88 y/o M who is a poor historian. No family during time of visit, patient in with sitter. Patient reports good appetite and denied any nutrition complaints. Unable to obtain reliable information due to patient being poor historian. Please consult as needed. Current Diet: Regular Diet Malnutrition Evaluation (11/18) The patient does not meet criteria for a specified degree of malnutrition at this time. Will re-evaluate at follow-up as appropriate. Nutrition Care Level: LOW Signed: Dina Wang, MS, RDN, LD
--- NOTE | 2018-11-18 19:26 | NUR ---
report given to oncoming nurse for continued care, pt stable.
[2018-11-19] VITALS (8 sets, daily range): BP systolic 107–139; BP diastolic 49–60
[2018-11-19 05:41] LABS: HEMATOCRIT 27.6 % (38.2-49.6); HEMOGLOBIN 8.7 g/dL (14.0-18.0)
[2018-11-19] MEDS: ACETAMINOPHEN/CODEINE 300MG - 30MG TAB PO SCH ×4 (06:33→23:25)
[2018-11-19] MEDS: INSULIN LISPRO 100 UNIT/1 ML 3ML VIAL SQ SCH ×4 (07:30→20:48)
[2018-11-19] MEDS: ONDANSETRON HCL INJ 2MG/ML 2ML 2 MG/ML VIAL IV PRN ×2 (08:41→17:29)
[2018-11-19] MEDS: HYDROMORPHONE 2MG/ML 2 MG/ML ML IV PRN ×3 (08:41→21:00)
[2018-11-19] MEDS: DIVALPROEX SODIUM 250 MG TAB...DR PO SCH ×2 (08:49→16:48)
[2018-11-19] MEDS: FERROUS SULFATE 325 MG TAB PO SCH ×2 (08:49→16:48)
[2018-11-19] MEDS: MEMANTINE 10 MG TAB PO SCH (08:49)
[2018-11-19] MEDS: DOCUSATE SODIUM 100 MG CAP PO SCH (08:49)
[2018-11-19] MEDS: SODIUM BICARBONATE 650 MG TAB PO SCH (08:52)
[2018-11-19] MEDS: QUETIAPINE FUMARATE 25 MG TAB PO SCH ×2 (08:52→21:13)
[2018-11-19] MEDS: TERBINAFINE 30 GM CR TP SCH ×2 (08:52→16:48)
[2018-11-19] MEDS: NIFEDIPINE CR 30 MG TAB PO SCH ×2 (08:52→21:13)
--- NOTE | 2018-11-19 15:46 | Progress Note ---
DATE: Internal Medicine Progress Note SUBJECTIVE: The patient is an 88-year-old, he just underwent right hip fracture repair. The patient complains of leg pain and right hip pain. The patient is very forgetful due to his dementia, keeps asking about why he had a pain, I only answered several times saying that the patient had fracture of the hip and it was repaired, but he keeps forgetting about that. PHYSICAL EXAMINATION: VITAL SIGNS: On the blood pressure 139/57, temperature 98.1, heart rates 73 per minute, respiratory rate 18 per minute, oxygen saturation 98%. HEART: Showed regular rate and rhythm. Normal S1, S2 sound. LUNGS: Clear bilaterally. ABDOMEN: Soft. EXTREMITIES: Show bilateral below-knee amputation and incision on the right hip. LABORATORY DATA: On BMP; sodium 141, potassium 4.1, chloride 108, CO2 22, BUN 21, creatinine 1.62, glucose 88. On CBC; white count 8.42, hemoglobin 8.7, hematocrit 27.6, platelet count 280,000, PT 13.3, INR 0.96, PTT 36.8. AST 16, ALT 8, total bilirubin 0.4, alkaline phosphatase 82. FINAL IMPRESSION: 1. Closed right hip fracture status post hip fracture repair. 2. Diabetes mellitus type 2 with chronic renal insufficiency. 3. Chronic renal failure, stage III, most likely secondary to diabetic nephropathy. 4. Peripheral vascular disease, status post bilateral below knee amputation. 5. Acute anemia. PLAN OF TREATMENT: We are going to continue with monitoring blood sugar before meals and at bedtime. Continue Zofran 4 mg q.4 hours as needed, Colace 100 mg daily, which we are going to change Amitiza 24 mcg twice a day because of narcotic induced constipation. Continue Tylenol 650 mg p.o. q.6 hours as needed for pain or fever, sodium bicarbonate 1300 mg daily, Namenda 5 mg daily, ferrous sulfate 325 mg twice a day, Tylenol 3 q.6 hours as needed, Seroquel 50 mg at bedtime, nifedipine 30 mg twice a day, Depakote 250 mg twice a day, terbinafine 1 application topically twice a day, Seroquel 25 mg daily, and Dilaudid 2 mg IV q.3 hours as needed. Continue current medication regimen. Hopefully, go home soon. MD PERRI Pena/BELL /[id number]
--- NOTE | 2018-11-19 21:30 | NUR ---
Urosotomy was noted to be leaking around stoma site, new urostomy bag placed
--- NOTE | 2018-11-19 23:32 | NUR ---
Called placed w/ Dr. Cannon, informed him patient is c/o severe itchiness through out the body, order received and placed for Benadryl 25mg PO Q4 PRN
--- NOTE | 2018-11-19 23:50 | NUR ---
Patient was noted to scratch right hip and pulled dressing off, educated patient on the risks of infection, new dressing placed
[2018-11-19] MEDS: DIPHENHYDRAMINE HCL 25 MG CAP PO PRN (23:52)
[2018-11-20] VITALS (9 sets, daily range): BP systolic 98–134; BP diastolic 51–63
[2018-11-20] MEDS: ACETAMINOPHEN/CODEINE 300MG - 30MG TAB PO SCH ×3 (06:00→17:26)
--- NOTE | 2018-11-20 07:00 | NUR ---
RECEIVED BEDSIDE REPORT FROM RADHA ZHENG. PT DENIES NEEDS AT THIS TIME.
[2018-11-20] MEDS: INSULIN LISPRO 100 UNIT/1 ML 3ML VIAL SQ SCH ×4 (07:30→21:00)
[2018-11-20] MEDS: DOCUSATE SODIUM 100 MG CAP PO SCH (09:46)
[2018-11-20] MEDS: MEMANTINE 10 MG TAB PO SCH (09:46)
[2018-11-20] MEDS: FERROUS SULFATE 325 MG TAB PO SCH ×2 (09:46→16:38)
[2018-11-20] MEDS: DIVALPROEX SODIUM 250 MG TAB...DR PO SCH ×2 (09:46→16:38)
[2018-11-20] MEDS: QUETIAPINE FUMARATE 25 MG TAB PO SCH ×2 (09:47→20:44)
[2018-11-20] MEDS: TERBINAFINE 30 GM CR TP SCH ×2 (09:47→16:38)
[2018-11-20] MEDS: NIFEDIPINE CR 30 MG TAB PO SCH ×2 (09:47→20:44)
[2018-11-20] MEDS: SODIUM BICARBONATE 650 MG TAB PO SCH (09:47)
[2018-11-20] MEDS: DIPHENHYDRAMINE HCL 25 MG CAP PO PRN (20:44)
[2018-11-21] VITALS (7 sets, daily range): BP systolic 107–122; BP diastolic 53–80
[2018-11-21] MEDS: ACETAMINOPHEN/CODEINE 300MG - 30MG TAB PO SCH ×4 (00:45→17:50)
--- NOTE | 2018-11-21 07:00 | NUR ---
RECEIVED BEDSIDE REPORT FROM NIGHT RN. PT DENIES NEEDS AT THIS TIME.
[2018-11-21] MEDS: INSULIN LISPRO 100 UNIT/1 ML 3ML VIAL SQ SCH ×4 (07:30→21:00)
[2018-11-21] MEDS: DOCUSATE SODIUM 100 MG CAP PO SCH (09:37)
[2018-11-21] MEDS: FERROUS SULFATE 325 MG TAB PO SCH ×2 (09:37→17:49)
[2018-11-21] MEDS: DIVALPROEX SODIUM 250 MG TAB...DR PO SCH ×2 (09:37→17:49)
[2018-11-21] MEDS: TERBINAFINE 30 GM CR TP SCH ×2 (09:38→17:49)
[2018-11-21] MEDS: MEMANTINE 10 MG TAB PO SCH (09:38)
[2018-11-21] MEDS: QUETIAPINE FUMARATE 25 MG TAB PO SCH ×2 (09:38→21:25)
[2018-11-21] MEDS: SODIUM BICARBONATE 650 MG TAB PO SCH (09:38)
[2018-11-21] MEDS: NIFEDIPINE CR 30 MG TAB PO SCH ×2 (09:39→21:25)
--- NOTE | 2018-11-21 16:02 | NUR ---
PT ORIGINALLY FROM [facility], NOT ALLOWED TO RETURN FOR EXIT SEEKING BEHAVIORS, SENT TO [facility] IN MEMORY CARE UNIT. FAMILY DOES NOT WANT TO RETURN TO [place] WOULD LIKE TO SEND TO [facility]. iF PT IS SNF APPROPRIATE THEN CAN GO IF NOT WILL NEED SNF PLACEMENT AT ANOTHER FACILITY OR RETURN TO [facility].
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
[2018-11-22] VITALS (8 sets, daily range): BP systolic 108–166; BP diastolic 58–77
[2018-11-22] MEDS: ACETAMINOPHEN/CODEINE 300MG - 30MG TAB PO SCH ×4 (00:16→17:08)
[2018-11-22] MEDS: HYDROMORPHONE 2MG/ML 2 MG/ML ML IV PRN ×3 (01:00→23:18)
[2018-11-22] MEDS: DEXTROSE 5%/0.9% SOD CHL 1,000 ML IV SCH (01:10)
[2018-11-22] MEDS: DIPHENHYDRAMINE HCL 25 MG CAP PO PRN ×2 (02:28→11:15)
[2018-11-22] MEDS: INSULIN LISPRO 100 UNIT/1 ML 3ML VIAL SQ SCH ×4 (07:30→20:33)
[2018-11-22] MEDS: FERROUS SULFATE 325 MG TAB PO SCH ×2 (09:10→17:08)
[2018-11-22] MEDS: MEMANTINE 10 MG TAB PO SCH (09:10)
[2018-11-22] MEDS: NIFEDIPINE CR 30 MG TAB PO SCH ×2 (09:10→21:00)
[2018-11-22] MEDS: DOCUSATE SODIUM 100 MG CAP PO SCH (09:10)
[2018-11-22] MEDS: QUETIAPINE FUMARATE 25 MG TAB PO SCH ×2 (09:10→21:00)
[2018-11-22] MEDS: DIVALPROEX SODIUM 250 MG TAB...DR PO SCH ×2 (09:10→17:08)
[2018-11-22] MEDS: SODIUM BICARBONATE 650 MG TAB PO SCH (09:10)
[2018-11-22] MEDS: TERBINAFINE 30 GM CR TP SCH ×2 (09:10→17:08)
--- NOTE | 2018-11-22 10:37 | NUR ---
CM CALLED PATIENT DAUGHTER/ POA REGARDING PATIENT DISCHARGE PLAN. [facility] DOES NOT HAVE A MEMORY CARE UNIT AND PATIENT IS CONFUSED. PATIENT WILL ALSO NEED A FACILITY THAT THE PATIENT CAN TRANSITION INTO A HALFWAY PLACEMENT. CM LM WITH FACILITY CHOICES; PENDING RETURN CALL FOR CHOICE.
[2018-11-22 14:44] LABS: BASOPHILS % 0.4 % (0.0-1.0); EOSINOPHILS # (AUTO) 0.2 (0.0-0.4); EOSINOPHILS % 2.2 % (0.0-6.0); HEMATOCRIT 31.2 % (38.2-49.6); HEMOGLOBIN 10.2 g/dL (14.0-18.0); LYMPHOCYTES # (AUTO) 2.9 (1.0-3.2); LYMPHOCYTES % 30.4 % (18.0-39.1); MEAN CORPUSCULAR HGB CONC 32.7 g/dL (31-35); MEAN CORPUSCULAR VOLUME 94.8 fL (81-99); MONOCYTES # (AUTO) 0.9 (0.2-0.8); MONOCYTES % 9.2 % (4.4-11.3); NEUTROPHILS # (AUTO) 5.5 (2.1-6.9); NEUTROPHILS % 57.3 % (38.7-80.0); PLATELET COUNT 284 x10e3/uL (140-360); RED BLOOD COUNT 3.29 x10e6/uL (4.3-5.7); RED CELL DISTRIBUTION WIDTH 15.6 % (11.7-14.4)
[2018-11-22] MEDS: ONDANSETRON HCL INJ 2MG/ML 2ML 2 MG/ML VIAL IV PRN ×2 (14:59→18:52)
[2018-11-22 15:03] LABS: ALBUMIN 2.7 g/dL (3.5-5.0); ALBUMIN/GLOBULIN RATIO 0.6 (0.8-2.0); ALKALINE PHOSPHATASE 104 IU/L (40-150); ANION GAP 16.6 mmol/L (8-16); BLOOD UREA NITROGEN 39 mg/dL (7-26); BUN/CREATININE RATIO 15 (6-25); CALCIUM 9.6 mg/dL (8.4-10.2); CARBON DIOXIDE 27 mmol/L (22-29); CHLORIDE 98 mmol/L (98-107); CREATININE, SERUM 2.52 mg/dL (0.72-1.25); EST GLOMERULAR FILTRATION RATE 24 ML/MIN (60-); GLUCOSE 126 mg/dL (74-118); POTASSIUM 4.6 mmol/L (3.5-5.1); SODIUM 137 mmol/L (136-145)
[2018-11-22 15:10] LABS: ALANINE AMINOTRANSFERASE < 6 IU/L (0-55)
--- NOTE | 2018-11-22 18:26 | NUR ---
moderate brown emesis noted. BUN 39 Creatinine 2.52. Paged
--- NOTE | 2018-11-22 18:32 | NUR ---
Resting in bed mid fowlers position, side rails upx3, call light within reach, sitter at bedside. AAOX1 to person, confused. Respirations even and unlabored. Dressing to right hip clean, dry, and intact. Report to be given to oncoming nurse of patients status.
--- NOTE | 2018-11-22 19:00 | NUR ---
RECEIVED PATIENT IN REPORT. SITTER AT BEDSIDE. A&OX1. PATIENT IS RESTLESS AND NAUSEATED. NO PAIN REPORTED. NO OTHER S&S OF DISTRESS NOTED. BED LOCKED IN LOWEST POSITION. CALL LIGHT IN REACH.
--- NOTE | 2018-11-22 19:26 | NUR ---
aware of patient's status. See orders
--- NOTE | 2018-11-22 19:27 | NUR ---
Oncoming nurse aware of doctor's orders
[2018-11-22] MEDS ORDERED: PROMETHAZINE 25MG/ NS 50ML (IV) IV PRN (19:30)
[2018-11-22] MEDS ORDERED: SOD PHOSPHATE/SOD BIPHOSPHATE ENEMA 132 ML BTL PR ONE (19:30)
[2018-11-22 19:46] LABS: AMYLASE 38 U/L (25-125); LIPASE 30 U/L (8-78)
--- NOTE | 2018-11-22 21:00 | NUR ---
HOLDING EVENING MEDS AT THIS TIME UNTIL NAUSEA STOPS.
--- NOTE | 2018-11-22 23:50 | Diagnostic Imaging Report ---
EXAM: Abdomen 1 Views INDICATION: constipation COMPARISON: Right hip CT 11/16/2018, barium swallow study 11/02/2018 FINDINGS: Retained barium contrast in the colon, possibly from the barium swallow study performed on 11/02/2018. No dilated loops of small bowel. No renal calculi. No abnormal soft tissue masses. Mild degenerative changes in the lumbar spine and pelvis. Cardiac device projects in the left chest soft tissues. IMPRESSION: Retained barium contrast in the colon, possibly from the barium swallow study performed on 11/02/2018, concerning for constipation. Signed by: Josue Muñzo DO on 11/22/2018 11:47 PM
[2018-11-23] VITALS (8 sets, daily range): BP systolic 121–144; BP diastolic 58–97
--- NOTE | 2018-11-23 | NUR ---
PATIENT IS SLEEPING DEEPLY, RESPONDS TO STIMULATION, BUT FALLS BACK ASLEEP. CONTINUE TO HOLD MEDS UNTIL PATIENT IS AWAKE AND ALERT ENOUGH TO SAFELY SWALLOW MEDICATION.
[2018-11-23] MEDS: NIFEDIPINE CR 30 MG TAB PO SCH ×2 (00:30→09:36)
[2018-11-23] MEDS: QUETIAPINE FUMARATE 25 MG TAB PO SCH ×2 (00:30→09:36)
--- NOTE | 2018-11-23 03:00 | NUR ---
PATIENT TOO AGITATED TO GIVE FLEET ENEMA PREVIOUSLY; EITHER NAUSEATED AND REFUSING TO LEAN BACK, OR SLEEPING AND RESISTING LEANING BACK IN ORDER TO ACCESS COLOSTOMY. FLEET ENEMA GIVEN AT THIS TIME. SMALL, FORMED BM NOTED IN BAG PRIOR TO ADMINISTRATION, ABOUT 1 INCH BY 1 INCH. RESISTANCE FELT TO PUSHING IN EDEMA FORMULA, ONLY 1/4 OF BOTTLE COULD BE PUSHED IN. 30 MINUTES AFTER ENEMA ADMINISTRATION, ANOTHER SMALL, FORMED BM NOTED OF THE SAME SIZE, ALONG WITH SMALL AMOUNT OF LIQUID STOOL NOTED.
[2018-11-23 05:54] LABS: ANION GAP 17.5 mmol/L (8-16); CALCIUM 9.2 mg/dL (8.4-10.2); CREATININE, SERUM 2.27 mg/dL (0.72-1.25); POTASSIUM 4.5 mmol/L (3.5-5.1)
[2018-11-23] MEDS: ACETAMINOPHEN/CODEINE 300MG - 30MG TAB PO SCH ×4 (06:00→16:32)
[2018-11-23] MEDS ORDERED: LACTULOSE SYRUP 20 GM/30 ML UDC PO PRN (08:00)
[2018-11-23] MEDS: PROMETHAZINE 25MG/SOD CHL 0.9% 50 ML IV PRN ×3 (08:00→14:38)
--- NOTE | 2018-11-23 08:06 | NUR ---
DR.S SHELTON AWARE PATIENT VOMITING BROWN EMESIS, KUB RESULTS, AND BUN 45 CREATININE 2.27. SEE ORDERS
[2018-11-23] MEDS: MEMANTINE 10 MG TAB PO SCH (09:35)
[2018-11-23] MEDS: DOCUSATE SODIUM 100 MG CAP PO SCH (09:35)
[2018-11-23] MEDS: DIVALPROEX SODIUM 250 MG TAB...DR PO SCH ×2 (09:35→16:31)
[2018-11-23] MEDS: LACTULOSE SYRUP 20 GM/30 ML UDC PO SCH ×2 (09:35→16:31)
[2018-11-23] MEDS: INSULIN LISPRO 100 UNIT/1 ML 3ML VIAL SQ SCH ×4 (09:35→22:35)
[2018-11-23] MEDS: FERROUS SULFATE 325 MG TAB PO SCH ×2 (09:35→16:31)
[2018-11-23] MEDS: TERBINAFINE 30 GM CR TP SCH ×2 (09:36→16:31)
[2018-11-23] MEDS: SODIUM BICARBONATE 650 MG TAB PO SCH (09:36)
[2018-11-23] MEDS: DEXTROSE 5%/0.9% SOD CHL 1,000 ML IV SCH ×2 (10:00→18:45)
--- NOTE | 2018-11-23 11:15 | NUR ---
Back from procedure. AAOX3 to time, person, place. Respirations even and unlabored. Dressing to sacrum clean, dry, and intact. Instructed to use call light for assistance. VOiced understanding.
[2018-11-23] MEDS ORDERED: CITRATE OF MAGNESIA 300ML BOTTLE PO ONE (11:45)
--- NOTE | 2018-11-23 14:40 | NUR ---
MIMI SPOKE TO DR. SMITH REGARDING PATIENT PLAN OF CARE AND DISCHARGE PLAN. PATIENT CURRENTLY WITH COLOSTOMY NOT WORKING AND PATIENT WITH VOMITING. PATIENT TO RECEIVE WORK-UP BY DR. Kailey SMITH (GI). MIMI SPOKE TO PATIENT DAUGHTER/ POA BRENNA CARROLL REGARDING PATIENT DISCHARGE PLAN. BRENNA WANTS PATIENT TO RECEIVE SERVICES IN MEMORY CARE UNIT BUT CM EDUCATED PATIENT THAT [facility] DOES NOT HAVE MEMORY CARE UNIT. CM GAVE PATIENT POA CHOICES. BRENNA CHOSE [facility] AT THIS TIME. CHOICE LETTER WITH TELEPHONE CONSENT. DUAL SIGNATURE FROM DAI WILBURN CM AND SHARON BOBBY CM. CHOICE LETTER PLACED IN CHART. CLINICAL SENT TO [facility] TO SECURE MALE BED. [facility] Address: [address], [place] [address] FAX: [phone] ([facility]) Addendum: 11/23/18 at 1448 by Dai Brown CM DR. Iris Smith called at office and received verbal order for SNF. Patient to transfer after colostomy is working.
[2018-11-23] MEDS ORDERED: PANTOPRAZOLE 40 MG 10ML VIAL IV ONE (15:14)
[2018-11-23] MEDS ORDERED: ONDANSETRON HCL INJ 2MG/ML 2ML 2 MG/ML VIAL IV PRN (15:15)
--- NOTE | 2018-11-23 15:26 | NUR ---
Nutrition Follow-up Note RD Recommendation for Physician: - When GI is ok to use, rec advancing diet as tolerated to GI soft/ ADA diet Plan of Care: RD following, monitoring for tolerance and adequacy Nutrition reason for involvement: Follow up Primary Diagnose(s): Femoral neck fracture PMH: diabetes, dementia, bilateral [id number] amputee, history of CAD and PAD Ht:70in Wt:143lb BMI:n/a IBW:146lbs ABW with bilateral BKA RD Assessment: (11/23) Pt was discussed during AM rounds. Pt had brown emesis. KUB revealed retained barium contrast in the colon, possibly from the barium swallow study performed on 11/02/2018, concerning for constipation. Colostomy bag is not working. Diet has been downgraded to clear liquid. Pt was given Lactulose and Mg Citrate. 1:1 sitter on bedside. Unable to obtain info from pt. + IVF and + D5 NS @125mL/hr noted. GI is following. (11/18) Chart reviewed. Labs and meds reviewed. 88 y/o M who is a poor historian. No family during time of visit, patient in with sitter. Patient reports good appetite and denied any nutrition complaints. Unable to obtain reliable information due to patient being poor historian. Please consult as needed. Current Diet: Clear liquid diet Malnutrition Evaluation (11/18) The patient does not meet criteria for a specified degree of malnutrition at this time. Will re-evaluate at follow-up as appropriate. Nutrition Care Level: mod Signed: Bella Stephens, MS, RDN, LD
[2018-11-23] MEDS ORDERED: QUETIAPINE FUMARATE 25 MG TAB PO PRN (15:30)
[2018-11-23] MEDS ORDERED: LORAZEPAM INJ 2 MG/ML VIAL IM PRN (15:30)
--- NOTE | 2018-11-23 15:36 | NUR ---
M aware of patient's status. See orders
--- NOTE | 2018-11-23 15:36 | NUR ---
Patient vomiting moderate amount of brown emesis. PRN promethazine given. Paged Dr.Haddad Ramon. to notify of patient's status. Dr.Haddad Ramon aware patient vomiting brown emesis. Awaiting call back
[2018-11-23] MEDS: PANTOPRAZOLE 40 MG 10ML VIAL IV SCH (16:31)
[2018-11-23] MEDS: METOCLOPRAMIDE HCL 10 MG/2ML VIAL IV SCH (16:32)
--- NOTE | 2018-11-23 17:59 | NUR ---
Per Alec Gordon (patient's daughter) "I have POA, do not give any information to anyone in regards to my dads medical status. I will bring copy of POA"
--- NOTE | 2018-11-23 19:00 | NUR ---
RECEIVED PATIENT IN REPORT. PATIENT HAVING BM OF LIQUID AND FORMED STOOL. BAG CHANGED. NO S&S OF DISTRESS NOTED. NO PAIN NOTED. SITTER IN ROOM. BED LOCKED IN LOWEST POSITION.
--- NOTE | 2018-11-23 19:10 | NUR ---
Report given to oncoming nurse of patient's status. Colostomy bag full of liquid and large pebble like stool. Colostomy bag changed.
--- NOTE | 2018-11-23 20:00 | NUR ---
COPIOUS AMOUNTS OF LIQUID AND SEMI-FORMED STOOL COMING OUT OF COLOSTOMY. BAG EMPTIED. PATIENT CLEANED. BAG REINFORCED TO CATCH ANY LEAKAGE. PATIENT TOLERATING CHANGING AND MOVEMENTS, SOME PERIOD OF DISCOMFORT NOTED, BUT STOP WHEN PATIENT IS ABLE TO CHANGE POSITION.
[2018-11-24] VITALS (10 sets, daily range): BP systolic 93–112; BP diastolic 45–66
--- NOTE | 2018-11-24 | NUR ---
PATIENT CONTINUES TO HAVE LARGE AMOUNTS OF LIQUID STOOL. COLOSTOMY AND UROSTOMY BAG CHANGED AGAIN, PATIENT THOROUGHLY CLEANED AT THIS TIME. DRESSING TO SACRUM AND R HIP CHANGED.
--- NOTE | 2018-11-24 02:00 | NUR ---
PATIENT STILL HAVING OCCASIONAL LIQUID STOOL, HOWEVER AT A SLOWER RATE THAN BEFORE. BAG BEING CHECKED EVERY 10 MINUTES TO ENSURE IT DOES NOT GET TOO FULL. PATIENT SLEEPING IN BED, NO S&S OF DISTRESS NOTED.
[2018-11-24] MEDS: DEXTROSE 5%/0.9% SOD CHL 1,000 ML IV SCH ×4 (04:00→19:38)
[2018-11-24 05:23] LABS: ANION GAP 12.3 mmol/L (8-16); CALCIUM 7.8 mg/dL (8.4-10.2); CREATININE, SERUM 2.02 mg/dL (0.72-1.25); POTASSIUM 3.3 mmol/L (3.5-5.1)
[2018-11-24] MEDS: ACETAMINOPHEN/CODEINE 300MG - 30MG TAB PO SCH ×3 (06:00→11:56)
[2018-11-24] MEDS: METOCLOPRAMIDE HCL 10 MG/2ML VIAL IV SCH ×4 (06:40→17:52)
--- NOTE | 2018-11-24 07:00 | NUR ---
RECEIVED BEDSIDE REPORT FROM NIGHT RN. PT DENIES NEEDS AT THIS TIME.
--- NOTE | 2018-11-24 07:00 | NUR ---
COLOSTOMY BAG DRAINING TO CHRISTOPHER BAG, NO LEAKAGE NOTED. UROSTOMY BAG DRAINING TO CHRISTOPHER BAG, NOT LEAKAGE NOTED. DRESSING TO R HIP CHANGED, NO REDNESS NOTED. PATIENT STABLE AT THIS TIME. 1X1 SITTER IN ROOM.
--- NOTE | 2018-11-24 08:08 | NUR ---
FAXED CLINICALS TO [facility], [address], [place] [address] PHONE [phone] FAX [phone], COMPLETED PASRR AND RTF FOR COMPLETION OF SS PORTION OF REFERRAL.
[2018-11-24] MEDS: INSULIN LISPRO 100 UNIT/1 ML 3ML VIAL SQ SCH ×4 (08:37→21:00)
[2018-11-24] MEDS: PANTOPRAZOLE 40 MG 10ML VIAL IV SCH ×2 (09:22→17:52)
[2018-11-24] MEDS: LACTULOSE SYRUP 20 GM/30 ML UDC PO SCH ×2 (09:22→17:52)
[2018-11-24] MEDS: DOCUSATE SODIUM 100 MG CAP PO SCH (09:22)
[2018-11-24] MEDS: MEMANTINE 10 MG TAB PO SCH (09:22)
[2018-11-24] MEDS: FERROUS SULFATE 325 MG TAB PO SCH ×2 (09:22→17:52)
[2018-11-24] MEDS: DIVALPROEX SODIUM 250 MG TAB...DR PO SCH ×2 (09:22→17:52)
[2018-11-24] MEDS: QUETIAPINE FUMARATE 25 MG TAB PO SCH ×2 (09:23→19:50)
[2018-11-24] MEDS: SODIUM BICARBONATE 650 MG TAB PO SCH (09:23)
[2018-11-24] MEDS: NIFEDIPINE CR 30 MG TAB PO SCH ×2 (09:23→19:50)
--- NOTE | 2018-11-24 10:31 | Consultation ---
DATE OF CONSULTATION: 11/24/2018 Psychiatric Consultation REASON FOR CONSULTATION: To evaluate the patient's psychosis and dementia. HISTORY OF PRESENT ILLNESS: The patient is an 88-year-old male, admitted to hospital for femoral neck fracture. Psychiatric consultation is called to evaluate the patient's psychosis. As per the medical record, he has history of peripheral vascular disease status post bilateral BKA, history of diabetes, and history of chronic renal insufficiency. He is currently in the hospital after he fell and suffered right hip fracture. He underwent fracture repair recently. Upon evaluation today, the patient is found to be in the room with a sitter. He is alert, awake, and oriented to self and place, but does not know the current year. He is oriented to situation, but sometimes he makes statement, answering question inappropriately. The patient stated he is feeling bad generally. He denies any depression. He is somewhat anxious. He denies hallucination. He denies problem with sleep. He has been vomiting. As per sitter, he has not been eating, he has been vomiting. Nursing staff report that he has been intermittently restless, difficult to be redirected and trying to leave his room. PAST PSYCHIATRIC HISTORY: The patient is well known to Psychiatry from previous hospitalization and also he was seen in the senior living one time as well. The patient denies past suicide attempt. He drinks alcohol. FAMILY HISTORY: The patient denied. SOCIAL HISTORY: The patient's most recent treatment was at senior living. MENTAL STATUS EXAM: The patient is an elderly male. He is alert, awake, and oriented to self and place, but not year. He is forgetful. His mood is anxious. He denies any suicidal or homicidal ideation. Denies any hallucination. Insight and judgment are poor. Psychomotor state is mildly restless. CURRENT MEDICATIONS: 1. Reglan. 2. Dextrose. 3. Insulin. 4. Protonix. 5. Lactulose. 6. Ferrous sulfate. 7. Depakote 250 mg p.o. b.i.d. 8. Lamisil. 9. Sodium bicarbonate. 10. Seroquel 25 mg daily and 50 at bedtime. 11. Nifedipine. 12. Namenda 5 daily. 13. Docusate. 14. Dilaudid. 15. Benadryl. 16. Acetaminophen. 17. Ondansetron. CURRENT LABS: WBC 9.57, RBC 3.29, hemoglobin 10.2, hematocrit 31.2. Sodium 139, potassium 3.3, chloride 109, CO2 of 21, BUN 60. ASSESSMENT: 1. Unspecified psychosis. 2. Unspecified dementia with behavior disturbances. PLAN: 1. Add Seroquel 25 mg p.o. three times a day p.r.n. 2. Add Haldol 2 mg IM q.6 hours p.r.n. 3. Continue with Seroquel 25 mg daily and 50 at bedtime. 4. Continue with Depakote 250 mg p.o. b.i.d. 5. Attempt to call the daughter and left a voicemail. Thank you for this consultation. Dictated by Anum Schrader PA-C Izabel He MD QTV/FAIZAL /[id number]
--- NOTE | 2018-11-24 15:18 | NUR ---
SPOKE WITH DAUGHTER [phone] LET HER KNOW THAT [facility] DEN[facility] PT, SPOKE WITH HER EXTENSIVELY ABOUT THE 2 OTHER LOCAL BUILDINGS THAT HAVE UNITS, [facility] IS TOO FAR, SHE STATES IT WILL BE $80 TO UBER OVER THERE, SHE STATES SHE JUST CANNOT GET OVER THE LOCATION OF [place], SHE IS ASKING THAT WE TRY AT [facility] SHE IS OKAY WITH CH[facility]ING DOCTORS. LET HER KNOW THAT I WILL FAX BUT WILL MOST LIKLY DISCHARGE HOME WITHIN 2 WEEKS, SHE STATES SHE UNDERSTANDS BUT WOULD LIKE FOR HIM TO TRY. WILL FAX CLINICALS TO [facility] AT [facility].
[2018-11-24] MEDS: ACETAMINOPHEN 325 MG TAB PO PRN (19:50)
[2018-11-24] MEDS: DIPHENHYDRAMINE HCL 25 MG CAP PO PRN (19:50)
[2018-11-24] MEDS: HALOPERIDOL LACTATE 5 MG/ML VIAL IM PRN (23:04)
[2018-11-25] MEDS: METOCLOPRAMIDE HCL 10 MG/2ML VIAL IV SCH ×5 (00:14→23:15)
[2018-11-25] MEDS: DEXTROSE 5%/0.9% SOD CHL 1,000 ML IV SCH ×3 (03:03→19:15)
[2018-11-25 03:35] VITALS: BP 94/45
--- NOTE | 2018-11-25 07:00 | NUR ---
RECEIVED BEDSIDE REPORT FROM NIGHT RN. PT DENIES NEEDS AT THIS TIME.
[2018-11-25] MEDS: INSULIN LISPRO 100 UNIT/1 ML 3ML VIAL SQ SCH ×4 (07:30→21:00)
[2018-11-25 07:31] LABS: ANION GAP 11.2 mmol/L (8-16); CALCIUM 8.1 mg/dL (8.4-10.2); CREATININE, SERUM 1.88 mg/dL (0.72-1.25); POTASSIUM 3.2 mmol/L (3.5-5.1)
[2018-11-25 07:34] VITALS: BP 97/47
[2018-11-25] MEDS: DOCUSATE SODIUM 100 MG CAP PO SCH (08:50)
[2018-11-25] MEDS: PANTOPRAZOLE 40 MG 10ML VIAL IV SCH ×2 (08:50→17:13)
[2018-11-25] MEDS: DIVALPROEX SODIUM 250 MG TAB...DR PO SCH ×2 (08:50→17:13)
[2018-11-25] MEDS: FERROUS SULFATE 325 MG TAB PO SCH ×2 (08:50→17:13)
[2018-11-25] MEDS: LACTULOSE SYRUP 20 GM/30 ML UDC PO SCH ×2 (08:50→17:13)
[2018-11-25] MEDS: MEMANTINE 10 MG TAB PO SCH (08:50)
[2018-11-25] MEDS: NIFEDIPINE CR 30 MG TAB PO SCH ×2 (08:52→23:15)
[2018-11-25 09:00] VITALS: BP 97/47
[2018-11-25] MEDS: SODIUM BICARBONATE 650 MG TAB PO SCH (09:09)
[2018-11-25] MEDS: QUETIAPINE FUMARATE 25 MG TAB PO SCH ×2 (09:09→23:15)
--- NOTE | 2018-11-25 11:23 | NUR ---
PT GIVEN JUICE FOR BG OF 60.
[2018-11-25 11:31] VITALS: BP 78/33
[2018-11-25 15:36] VITALS: BP 130/60
--- NOTE | 2018-11-25 16:14 | NUR ---
AT BEDSIDE WITH DR. GOLDMAN REMOVING PT'S SULMA FROM PACEMAKER PLACEMENT. PT TOLERATED. NO BLEEDING. COVERED WITH 4X4 AND TAPE.
--- NOTE | 2018-11-25 18:19 | Progress Note ---
DATE: 11/25/2018 SUBJECTIVE: The patient is seen in the room, awake, alert. The patient had right hip fracture surgery. The patient done very well cardiac point of view. I am quite familiar with Mike for many years. At this time, I put a pacemaker a couple of weeks ago. At this time, we removed the sravan also. The patient has no infection. The patient is a little confused, which he had this for some time. He has mild dementia. 1. Coronary artery, status post core stent placement. 2. Below-knee amputation bilateral leg for significant PAD infections of both the feet. 3. Hypertension. 4. Cardiac arrhythmia. 5. Sick sinus syndrome. 6. Permanent pacemaker. I changed generator in only about 2-1/2 weeks ago. At that time, we had to put him under anesthesia, however, the patient since that time he is doing very well. No dizziness, syncope. I believe the patient is waiting to go for assisted placement. In the meantime, the patient being taking care of the primary physician, Dr. Smith. My point of view, the patient is doing very well. Continue present medications. MD CIRA Dominguez/BELL /[id number]
[2018-11-25] MEDS: ACETAMINOPHEN 325 MG TAB PO PRN (19:57)
[2018-11-25 20:00] VITALS: BP 119/62
[2018-11-25] MEDS: DIPHENHYDRAMINE HCL 25 MG CAP PO PRN (23:16)
[2018-11-26] VITALS (11 sets, daily range): BP systolic 94–137; BP diastolic 42–62
[2018-11-26] MEDS: DEXTROSE 5%/0.9% SOD CHL 1,000 ML IV SCH ×3 (04:42→19:38)
[2018-11-26] MEDS: METOCLOPRAMIDE HCL 10 MG/2ML VIAL IV SCH ×4 (05:28→23:52)
--- NOTE | 2018-11-26 07:00 | NUR ---
RECEIVED BEDSIDE REPORT FROM NIGHT RN. PT DENIES NEEDS AT THIS TIME.
[2018-11-26] MEDS: INSULIN LISPRO 100 UNIT/1 ML 3ML VIAL SQ SCH ×4 (08:22→21:00)
[2018-11-26] MEDS: DIVALPROEX SODIUM 250 MG TAB...DR PO SCH ×2 (09:11→16:24)
[2018-11-26] MEDS: QUETIAPINE FUMARATE 25 MG TAB PO SCH ×2 (09:11→21:00)
[2018-11-26] MEDS: LACTULOSE SYRUP 20 GM/30 ML UDC PO SCH ×2 (09:11→16:24)
[2018-11-26] MEDS: FERROUS SULFATE 325 MG TAB PO SCH ×2 (09:11→16:24)
[2018-11-26] MEDS: DOCUSATE SODIUM 100 MG CAP PO SCH (09:11)
[2018-11-26] MEDS: SODIUM BICARBONATE 650 MG TAB PO SCH (09:11)
[2018-11-26] MEDS: NIFEDIPINE CR 30 MG TAB PO SCH ×2 (09:11→20:59)
[2018-11-26] MEDS: MEMANTINE 10 MG TAB PO SCH (09:11)
[2018-11-26] MEDS: PANTOPRAZOLE 40 MG 10ML VIAL IV SCH ×2 (09:11→16:24)
--- NOTE | 2018-11-26 15:15 | NUR ---
Visit made by the Spiritual Care Department Pastoral Visitor, Georgi Thomas. PV provided pastoral presence, hospitality, and supportive listening. Pastoral Visitor informed pt/family of the scope of [employer] and availability. RAQUEL FALK Magnetic Tape Composer Operator Spiritual Care Department O: [phone] Pager: [phone] ([phone] number calling from)
[2018-11-26] MEDS: ACETAMINOPHEN 325 MG TAB PO PRN (16:24)
[2018-11-26] MEDS: DIPHENHYDRAMINE HCL 25 MG CAP PO PRN (21:00)
[2018-11-27] VITALS (8 sets, daily range): BP systolic 94–146; BP diastolic 42–65
[2018-11-27] MEDS ORDERED: ZOLPIDEM TARTRATE 5 MG TAB PO ONE (00:45)
[2018-11-27] MEDS: DEXTROSE 5%/0.9% SOD CHL 1,000 ML IV SCH ×2 (06:16→17:53)
[2018-11-27] MEDS: METOCLOPRAMIDE HCL 10 MG/2ML VIAL IV SCH ×3 (06:16→17:05)
[2018-11-27 06:23] LABS: BASOPHILS % 0.2 % (0.0-1.0); EOSINOPHILS # (AUTO) 0.2 (0.0-0.4); EOSINOPHILS % 2.5 % (0.0-6.0); LYMPHOCYTES # (AUTO) 3.1 (1.0-3.2); LYMPHOCYTES % 36.9 % (18.0-39.1); MEAN CORPUSCULAR HEMOGLOBIN 31.4 pg (28-32); MEAN CORPUSCULAR HGB CONC 32.4 g/dL (31-35); MEAN CORPUSCULAR VOLUME 96.9 fL (81-99); MONOCYTES # (AUTO) 0.8 (0.2-0.8); NEUTROPHILS # (AUTO) 4.3 (2.1-6.9); NEUTROPHILS % 51.2 % (38.7-80.0); PLATELET COUNT 155 x10e3/uL (140-360); RED BLOOD COUNT 1.91 x10e6/uL (4.3-5.7); RED CELL DISTRIBUTION WIDTH 16.4 % (11.7-14.4)
[2018-11-27 06:28] LABS: HEMATOCRIT 18.5 % (38.2-49.6)
[2018-11-27 07:39] LABS: HEMATOCRIT 21.5 % (38.2-49.6)
[2018-11-27 07:48] LABS: HEMOGLOBIN 6.8 g/dL (14.0-18.0)
--- NOTE | 2018-11-27 07:52 | NUR ---
THIS RN CALLED REPEAT LAB RESULTS, MESSAGE GIVEN AWAITING CALL BACK
[2018-11-27] MEDS: INSULIN LISPRO 100 UNIT/1 ML 3ML VIAL SQ SCH ×4 (08:00→20:18)
[2018-11-27] MEDS: FERROUS SULFATE 325 MG TAB PO SCH ×2 (08:04→16:57)
[2018-11-27] MEDS: PANTOPRAZOLE 40 MG 10ML VIAL IV SCH ×2 (08:04→16:57)
[2018-11-27] MEDS: DOCUSATE SODIUM 100 MG CAP PO SCH (08:04)
[2018-11-27] MEDS: LACTULOSE SYRUP 20 GM/30 ML UDC PO SCH ×2 (08:04→16:57)
[2018-11-27] MEDS: DIVALPROEX SODIUM 250 MG TAB...DR PO SCH ×2 (08:04→16:57)
[2018-11-27] MEDS: MEMANTINE 10 MG TAB PO SCH (08:04)
[2018-11-27] MEDS: ACETAMINOPHEN 325 MG TAB PO PRN ×3 (08:05→20:20)
[2018-11-27] MEDS: SODIUM BICARBONATE 650 MG TAB PO SCH (08:05)
[2018-11-27] MEDS: QUETIAPINE FUMARATE 25 MG TAB PO SCH ×2 (08:05→20:18)
[2018-11-27] MEDS: NIFEDIPINE CR 30 MG TAB PO SCH ×2 (08:05→20:17)
[2018-11-27] MEDS ORDERED: FUROSEMIDE INJ 10 MG/ML 2 ML VIAL IV PRN (10:00)
[2018-11-27] MEDS ORDERED: SODIUM CHLORIDE 0.9% 250ML 250 ML IV ONE (10:30)
[2018-11-27 11:22] LABS: EOSINOPHILS % (MANUAL) 3 % (0-7); LYMPHOCYTES % (MANUAL) 20 % (19-48); MONOCYTES % (MANUAL) 4 % (3.4-9.0); NEUTROPHILS % (MANUAL) 73 % (40-74)
[2018-11-27 11:23] LABS: ANISOCYTOSIS S; PLATELET ESTIMATE ADEQUATE; PLATELET MORPHOLOGY COMMENT NORMAL; POIKILOCYTOSIS S; RBC MORPHOLOGY COMMENT NORMAL; SMUDGE CELLS FEW
[2018-11-27] MEDS ORDERED: SODIUM CHLORIDE 0.9% 250ML 250 ML ONE (14:03)
--- NOTE | 2018-11-27 14:07 | Diagnostic Imaging Report ---
EXAMINATION: CHEST SINGLE (PORTABLE) INDICATION: Shortness of breath COMPARISON: Chest radiograph of 11/16/2018 FINDINGS: TUBES and LINES: Left chest pacer device with leads in unchanged position. EKG leads overlie the thorax. LUNGS: The lung volumes are low. There is perihilar fullness and indistinctness of the pulmonary vasculature. There is airspace consolidation at the right lower lung zone which silhouettes the right hemidiaphragm and right heart border. Patchy opacity also involves the left lower lobe. PLEURA: Small left pleural effusion. Moderate right pleural effusion. No pneumothorax. HEART AND MEDIASTINUM: Mild cardiomegaly. BONES AND SOFT TISSUES: No acute fracture or dislocation. UPPER ABDOMEN: No free air under the diaphragm. IMPRESSION: Airspace opacities at both lower lung zones, right greater than left. Given cardiomegaly, prominence of hilar vasculature, and bilateral right greater than left pleural effusions this likely represents airspace edema. However if there is clinical concern for pneumonia, aspiration and/or pneumonia could also have this appearance. Signed by: Claudia Garvey MD on 11/27/2018 2:04 PM
--- NOTE | 2018-11-27 20:00 | NUR ---
The patient is sitting in the bed, bed low and wheels are locked. Daughter is in the room with him at the moment, but he also has a sitter as he sometimes tries to get out of bed. AAOX2 self and place. Has NC @3 liters with diminished breath sounds. Patient is no apparent distress, does report having pain everywhere but mostly on the right side. IV infusing and patent. Urostomy and Colostomy in place, no complications noted. BKA elevated with pillows. Telemetry in place. Will continue monitoring.
[2018-11-28] VITALS (10 sets, daily range): BP systolic 122–171; BP diastolic 58–78
[2018-11-28] MEDS: METOCLOPRAMIDE HCL 10 MG/2ML VIAL IV SCH ×4 (00:22→18:10)
[2018-11-28] MEDS ORDERED: SODIUM CHLORIDE 0.9% 50ML 50 ML ONE (00:39)
[2018-11-28] MEDS: DEXTROSE 5%/0.9% SOD CHL 1,000 ML IV SCH ×2 (00:51→06:32)
[2018-11-28] MEDS: HALOPERIDOL LACTATE 5 MG/ML VIAL IM PRN (01:09)
[2018-11-28] MEDS ORDERED: ZOLPIDEM TARTRATE 5 MG TAB PO ONE (02:45)
[2018-11-28] MEDS: ACETAMINOPHEN 1000 MG/100 ML IV PRN ×2 (04:00→17:20)
--- NOTE | 2018-11-28 06:33 | NUR ---
The patient is laying in bed, arousable, eyes closed. Sitter states that he has been sleeping for the last couple of hours after the IV Tylenol and Ambien was administered. Patient will be NPO for EGD today.
[2018-11-28] MEDS: INSULIN LISPRO 100 UNIT/1 ML 3ML VIAL SQ SCH ×4 (07:30→20:15)
[2018-11-28] MEDS: PANTOPRAZOLE 40 MG 10ML VIAL IV SCH ×2 (08:25→16:07)
--- NOTE | 2018-11-28 09:12 | NUR ---
SPOKE WITH [facility], PT IS DENIED. ADVISED CM.
--- NOTE | 2018-11-28 09:16 | NUR ---
CALLED AND LEFT MESSAGE FOR DAUGHTER BRENNA TO RETURN CALL AND THE 2 OPTIONS AVAILABLE FOR DISCHARGE SINCE WE HAVE EXHAUSTED ALL OTHER AVENUES, [facility] OR HOME. LET CM KNOW PROGRESS.
[2018-11-28] MEDS ORDERED: CEFEPIME HCL 1 GM VIAL IV SCH (11:00)
[2018-11-28] MEDS: NIFEDIPINE CR 30 MG TAB PO SCH ×2 (11:45→19:43)
[2018-11-28] MEDS ORDERED: SODIUM CHLORIDE 0.9% 250ML 250 ML ONE (12:23)
[2018-11-28] MEDS: CEFEPIME 1GM/NS 0.9% 50 ML 50 ML IV SCH ×2 (12:30→20:10)
--- NOTE | 2018-11-28 13:14 | NUR ---
MIMI SPOKE TO PATIENT DAUGHTER/POA BRENNA CARROLL REGARDING DISCHARGE PLAN @ [phone]. SHARON LE PRESENT FOR DUAL TELEPHONE CONSENT. PATIENT POA INFORMED OF HALFWAY ACUTE CARE PLACEMENT. POA GIVEN CHOICES OF [facility] ACUTE CARE FACILITIES. BRENNA CHOSE [facility] CHOICE REFLECTS BRENNA MILLER DECISION AND SIGNED BY MIMI AND SHARON LE THEN PLACED IN CHART. DIMPLE LIAISON FOR [facility] NOTIFIED. [facility] Address: [address], [place] [address] MOT INITIATED AND GIVEN TO COMMUNITY LIAISON.
[2018-11-28] MEDS: DOCUSATE SODIUM 100 MG CAP PO SCH (14:30)
[2018-11-28] MEDS: SODIUM BICARBONATE 650 MG TAB PO SCH (14:30)
[2018-11-28] MEDS: LACTULOSE SYRUP 20 GM/30 ML UDC PO SCH ×2 (14:30→15:39)
[2018-11-28] MEDS: FERROUS SULFATE 325 MG TAB PO SCH ×2 (14:30→15:39)
[2018-11-28] MEDS: DIVALPROEX SODIUM 250 MG TAB...DR PO SCH ×2 (14:30→15:39)
[2018-11-28] MEDS: FUROSEMIDE INJ 10 MG/ML 4 ML VIAL IV SCH ×2 (14:30→19:43)
[2018-11-28] MEDS: MEMANTINE 10 MG TAB PO SCH (14:30)
[2018-11-28] MEDS: QUETIAPINE FUMARATE 25 MG TAB PO SCH (14:30)
--- NOTE | 2018-11-28 14:56 | Operative Report ---
DATE OF PROCEDURE: 11/28/2018 SURGEON: Wale Smith MD PROCEDURE: EGD with biopsy. INDICATIONS FOR EGD: Anemia, melena, guaiac-positive stools. MEDICATIONS: The patient was done under MAC, please see anesthesiologist's note. PROCEDURE IN DETAIL: With the patient in left lateral decubitus position, a flexible fiberoptic Olympus gastroscope was introduced into the esophagus under direct visualization without any difficulty. There was some patchy erythema noted in distal esophagus. A minute tongue of velvety-red mucosa was noted to extend proximally from the GE junction that was biopsied to rule out Oreilly's. The scope was then advanced with ease into the stomach traversing a small sliding hiatal hernia. The mucosa overlying the antrum and the body revealed some diffuse erythema and moderate edema, and biopsies were obtained and sent to stain for H. pylori. The pylorus was of normal contour and shape. It was intubated with ease and the scope was advanced all the way to the second portion of the duodenum. The scope was then withdrawn slowly. Mucosa overlying the second portion and the duodenal bulb grossly appeared to be within normal limits. The scope was then withdrawn back into the stomach and retroflexed and mucosa overlying the fundus and cardia appeared to be within normal limits. The scope was then straightened out. It was subsequently withdrawn. The patient tolerated the procedure well. IMPRESSION: 1. Rule out Oreilly esophagus. 2. Small sliding hiatal hernia. 3. Gastritis, biopsied, biopsies sent to stain for Helicobacter pylori. PLAN: Follow up histology. Findings do not necessarily explain the patient's anemia or melena. The patient will need a colonoscopy. We will discuss with attending and family. Wale Smith MD [facility] /[id number] cc: Rao Smith MD
[2018-11-28] MEDS: AZITHROMYCIN 250MG/NS 100 ML 100 ML IV SCH (15:00)
--- NOTE | 2018-11-28 16:11 | Progress Note ---
DATE: 11/24/2018 Psychiatric Progress Note SUBJECTIVE: The patient was evaluated and events noted. The patient is in the room. He is alert, awake. He is confused, does not know where he is. He is calm, sitters in the room. He is not combative, agitated. He is not getting any p.r.n. medication. He is receiving his medication and no serious side effects seen or reported. ASSESSMENT: 1. Unspecified psychosis. 2. Unspecified dementia with behavior disturbances. PLAN: 1. Continue with Seroquel 25 mg p.r.n. 2. Continue with Haldol p.r.n. 3. Continue with Seroquel 25 daily and 50 at bedtime. 4. Continue with Depakote. 5. Monitor for mood and agitation. Dictated by Anum Schrader PA-C Izabel He MD QTV/BELL /[id number]
--- NOTE | 2018-11-28 16:16 | Progress Note ---
DATE: 11/28/2018 Psychiatric Progress Note SUBJECTIVE: The patient is evaluated and events noted. The patient is in the room with sitter. He is alert, awake, and oriented to situation. He is calm and cooperative. He received p.r.n. Haldol earlier today. He also received p.r.n. Ambien earlier morning. He is currently n.p.o. due to procedure, but will start eating today as per staff. He is not combative at this time. He resumed his medications and no side effects seen. Staff reported the patient has intermittent hallucination seeing people in the room. ASSESSMENT: 1. Unspecified psychosis. 2. Unspecified dementia with behavior disturbances. PLAN: 1. Increase Seroquel to 75 mg p.o. at bedtime. 2. Continue with Seroquel 25 mg p.o. daily. 3. Continue with Seroquel p.r.n. 4. Continue Haldol p.r.n. 5. Monitor for agitation. Dictated by Anum Schrader PA-C Izabel He MD QTV/MODL /[id number]
[2018-11-28] MEDS ORDERED: ONDANSETRON HCL 4 MG ORAL DISINTEGRATING TAB PO PRN (17:45)
[2018-11-28] MEDS ORDERED: METOCLOPRAMIDE HCL 10 MG/2ML VIAL ONE (18:28)
[2018-11-28] MEDS ORDERED: PROPOFOL IV EMULSION 10 MG/ML 20 ML VIAL ONE (18:28)
--- NOTE | 2018-11-28 19:05 | NUR ---
Patient visited in room during nursing rounds. Patient alert and oriented x1-2. Pt has sitter at bedside as per MD order and for pt safety. Pt has not displayed any forms of aggression or attempting to pull out medical devices (e.g. IV) at this time. Bilateral BKA noted. Pt on bedrest. Stage 2 to sacrum and covered with Allevyn dressing (C/D/I). Urostomy (RLQ abd) noted draining clear yellow urine. Colostomy (LLQ abd) noted with dark brown watery stool as output. Call mari within reach. Will monitor
[2018-11-28] MEDS: ACETAMINOPHEN 325 MG TAB PO PRN (19:43)
[2018-11-28] MEDS ORDERED: QUETIAPINE FUMARATE 25 MG TAB PO SCH (21:00)
[2018-11-29] VITALS: BP 132/59
[2018-11-29] MEDS: METOCLOPRAMIDE HCL 10 MG/2ML VIAL IV SCH ×4 (00:20→17:03)
[2018-11-29] MEDS: ACETAMINOPHEN 1000 MG/100 ML IV PRN (00:58)
--- NOTE | 2018-11-29 04:20 | NUR ---
Changed urostomy wafer and pouch. Old wafer was leaking urine to skin.
[2018-11-29] MEDS: HALOPERIDOL LACTATE 5 MG/ML VIAL IM PRN ×2 (04:28→14:23)
[2018-11-29 05:00] VITALS: BP 138/63
[2018-11-29 05:08] LABS: BASOPHILS # (AUTO) 0.1 (0.0-0.1); BASOPHILS % 0.7 % (0.0-1.0); EOSINOPHILS # (AUTO) 0.2 (0.0-0.4); EOSINOPHILS % 2.1 % (0.0-6.0); HEMATOCRIT 32.9 % (38.2-49.6); HEMOGLOBIN 10.4 g/dL (14.0-18.0); LYMPHOCYTES # (AUTO) 4.3 (1.0-3.2); LYMPHOCYTES % 43.7 % (18.0-39.1); MEAN CORPUSCULAR HEMOGLOBIN 30.1 pg (28-32); MEAN CORPUSCULAR HGB CONC 31.6 g/dL (31-35); MEAN CORPUSCULAR VOLUME 95.4 fL (81-99); MONOCYTES # (AUTO) 0.9 (0.2-0.8); MONOCYTES % 9.2 % (4.4-11.3); NEUTROPHILS # (AUTO) 4.3 (2.1-6.9); NEUTROPHILS % 43.7 % (38.7-80.0); PLATELET COUNT 148 x10e3/uL (140-360); RED BLOOD COUNT 3.45 x10e6/uL (4.3-5.7); RED CELL DISTRIBUTION WIDTH 17.4 % (11.7-14.4)
[2018-11-29 06:47] LABS: ANION GAP 11.6 mmol/L (8-16); CALCIUM 8.1 mg/dL (8.4-10.2); CREATININE, SERUM 1.49 mg/dL (0.72-1.25)
--- NOTE | 2018-11-29 07:00 | NUR ---
RCD PT AT BED PT IS CONFUSED 1:1 SITTER WITH PATIENT PT C/O PAIN ALL OVER BODY PAGED DR SHELTON TO NOTIFY THAT BED LOW AND LOCKED CALL LIGHT IN REACH
--- NOTE | 2018-11-29 07:00 | NUR ---
Received report from Lab (Brandy) that K level was 2.6. Information passed on to dayshift nurse (Abbey).
[2018-11-29 07:01] LABS: POTASSIUM 2.6 mmol/L (3.5-5.1)
[2018-11-29] MEDS: INSULIN LISPRO 100 UNIT/1 ML 3ML VIAL SQ SCH ×3 (07:30→16:30)
--- NOTE | 2018-11-29 08:00 | NUR ---
PAGED DR SHELTON TO NOTIFY THE CRITICAL POTASSIUM LEVEL
[2018-11-29 08:21] VITALS: BP 137/65
[2018-11-29] MEDS: ACETAMINOPHEN 325 MG TAB PO PRN ×2 (08:30→14:43)
--- NOTE | 2018-11-29 08:57 | NUR ---
DR SHELTON RETURNED CALL GOT NEW ORDERS
[2018-11-29 09:00] VITALS: BP 137/65
[2018-11-29] MEDS: FUROSEMIDE INJ 10 MG/ML 4 ML VIAL IV SCH (09:00)
[2018-11-29] MEDS ORDERED: POTASSIUM CHLORIDE 20 MEQ TAB CR PO NR (09:00)
[2018-11-29] MEDS: FERROUS SULFATE 325 MG TAB PO SCH ×2 (09:00→16:50)
[2018-11-29] MEDS: PANTOPRAZOLE 40 MG 10ML VIAL IV SCH ×2 (09:00→16:49)
[2018-11-29] MEDS: MEMANTINE 10 MG TAB PO SCH (09:00)
[2018-11-29] MEDS: NIFEDIPINE CR 30 MG TAB PO SCH (09:00)
[2018-11-29] MEDS: SODIUM BICARBONATE 650 MG TAB PO SCH (09:00)
[2018-11-29] MEDS: DOCUSATE SODIUM 100 MG CAP PO SCH (09:00)
[2018-11-29] MEDS: DIVALPROEX SODIUM 250 MG TAB...DR PO SCH ×2 (09:00→16:50)
[2018-11-29] MEDS: QUETIAPINE FUMARATE 25 MG TAB PO SCH (09:00)
[2018-11-29] MEDS: LACTULOSE SYRUP 20 GM/30 ML UDC PO SCH ×2 (09:00→16:50)
[2018-11-29] MEDS: CEFEPIME 1GM/NS 0.9% 50 ML 50 ML IV SCH (09:47)
[2018-11-29] MEDS: POTASSIUM CHLORIDE 20 MEQ TAB CR PO NR ×4 (11:30→17:30)
--- NOTE | 2018-11-29 12:00 | NUR ---
DRESSING CHANGED ON BACK
[2018-11-29 12:57] VITALS: BP 132/82
[2018-11-29] MEDS: AZITHROMYCIN 250MG/NS 100 ML 100 ML IV SCH (14:00)
--- NOTE | 2018-11-29 15:17 | NUR ---
Nutrition Follow-up Note RD Recommendation for Physician: - Continue diet as ordered Plan of Care: Patient has been screened and assessed for nutrition risk. At this time, the patient does not pose any nutrition risk. No further nutrition intervention is warranted at this time. Will re-evaluate if consulted by medical staff. Nutrition reason for involvement: Follow up Primary Diagnose(s): Femoral neck fracture PMH: diabetes, dementia, bilateral vcxbv-[id number] amputee, history of CAD and PAD Ht:70in Wt:143lb BMI:n/a IBW:146lbs ABW with bilateral BKA RD Assessment: (11/29) Pt was discussed during AM rounds. Pending placement. Pt still has 1:1 sitter on bedside. K was low at 2.6, repleted. EGD yesterday showed gastritis. Per sitter, pt was eating well today. No vomiting episode noted. Colostomy is working. (11/23) Pt was discussed during AM rounds. Pt had brown emesis. KUB revealed retained barium contrast in the colon, possibly from the barium swallow study performed on 11/02/2018, concerning for constipation. Colostomy bag is not working. Diet has been downgraded to clear liquid. Pt was given Lactulose and Mg Citrate. 1:1 sitter on bedside. Unable to obtain info from pt. + IVF and + D5 NS @125mL/hr noted. GI is following. (11/18) Chart reviewed. Labs and meds reviewed. 88 y/o M who is a poor historian. No family during time of visit, patient in with sitter. Patient reports good appetite and denied any nutrition complaints. Unable to obtain reliable information due to patient being poor historian. Please consult as needed. Current Diet: ADA diet Malnutrition Evaluation (11/18) The patient does not meet criteria for a specified degree of malnutrition at this time. Will re-evaluate at follow-up as appropriate. Nutrition Care Level: low Signed: Bella Stephens, MS, RDN, LD
--- NOTE | 2018-11-29 15:29 | NUR ---
[facility] APPROVED BY THE PT SO PAGED TO DR Miguel SHELTON TO GET DISCHARGE ORDER
--- NOTE | 2018-11-29 15:43 | NUR ---
DISCHARGE DISPOSITION: PATIENT TRANSFERRING TO KEYBOARD OPERATOR [facility]: [facility] Address: [address], [place] [address] CALL REPORT: ROOM# [id number] AOS: RONY ZHU, [employer] APPLICATION DEVELOPER ACCEPTING MD: DR. DARLIN SHELTON
--- NOTE | 2018-11-29 16:06 | NUR ---
DR SHELTON RETURNED CALL AND GOT DISCHARGE ORDER WITH CONTINUE SAME MEDICATIONS
--- NOTE | 2018-11-29 17:11 | NUR ---
REPORT GIVEN TO JOSEFINA FERNANDEZ AND NOTIFIED DIRECTOR OF REAL ESTATE
[2018-11-29 17:25] VITALS: BP 127/59
--- NOTE | 2018-11-29 18:41 | NUR ---
PT RESTING ON BED BED SIDE REPORT GIVEN TO ONCOMING NURSE
--- NOTE | 2018-11-29 19:23 | NUR ---
IMMEDJATELY AFTER GETTING REPORT FROM DAY NURSE, AMBULANCE HAS ARRIVED TO TRANSFER THE PATIENT. PATIENT IS NOW LEAVING WITH AMBULANCE VIA STRETCHER. Addendum: 11/29/18 at 1925 by Edmundo Haywood RN IMMEDIATELY
--- NOTE | 2019-01-02 05:56 | Discharge Summary ---
CHIEF COMPLAINT: Status post fall. FINAL DIAGNOSES: Pneumonia, hypokalemia, and peripheral vascular disease. DISPOSITION: LTAC. HOSPITAL COURSE: 88-year-old male sustained a fall at home. He has a history of peripheral vascular disease, status post below the knee amputation bilaterally, history of diabetes, history of peripheral vascular disease with several stents, and history of chronic renal insufficiency. He was worked up and evaluated in the emergency room, data was reviewed. X-rays reveal a hip fracture. Admission was made now for right hip fracture, which was a closed right hip fracture. 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 The patient is set to undergo surgery on the date of admission. He is medically optimized, depending on the evaluation by Cardiology. Daily medications will be continued. Currently he is asymptomatic and depending on Cardiology evaluation, the patient will have his scheduled procedure on the date of admission. Dr. Tapia will be called in for this purpose. With admission Dr. Tapia was called to see the patient for Cardiology clearance, noted to be a recent pacemaker generator placement [address] Guzman and was discharged to retirement facility. Known historian of DVTs, IVC filter placement along with multiple comorbid conditions. The patient is also noted to have advanced dementia. With Dr. Tapia's review assessment was made of urgent hip replacement in a patient with recent pacemaker implant and prior DVTs with IVC filter in place. The patient was cleared from a cardiac standpoint. He is at average risk for cardiac issues and the perioperative period. Currently pacemaker function is normal. Director Building, Dr. He was asked to see the patient during the stay due to the patient issues of psychosis and his advanced dementia. Following his assessment of the patient, impression was made of unspecified psychosis, unspecified dementia with behavior disturbances. Continue the Seroquel 25 mg daily and 50 mg at bedtime. Continue Depakote 250 p.o. b.i.d. We will be adding Seroquel 25 mg p.o. 3 times a day p.r.n. and adding Haldol 2 mg IM q.6 hours p.r.n. for agitation. Besides his hip procedure, the patient also underwent an endoscopic EGD procedure per Dr. Wale Smith, this was carried down on 11/28/2018, reasons for anemia, melena and guaiac-positive stools. The procedure was carried out in the usual fashion. Conclusion of the procedure reveals evidence of a small sliding hiatal hernia, rule out Oreilly's esophagus, gastritis, and biopsies were obtained. Findings did not necessarily explain the patient's anemia or melena, we will need a colonoscopy. We will be discussing this with the attending. IMAGING: Hip x-ray shows mildly displaced right femoral neck fracture. Hip CT mildly displaced subcapital fracture of the right femoral neck. Routine chest x-ray shows enlarged cardiac silhouette with mild central vascular congestion, minimal left basilar segmental atelectasis. Abdominal x-ray shows retained barium contrast in the colon, possibly from a barium swallow study performed in October of this year. Some concern for possible constipation. Final chest x-ray shows airspace opacities in both lower lung zones, right greater than left. Given cardiomegaly, a prominence of hilar vasculature and bilateral right greater than left pleural effusions, this likely represents air space edema. The patient did have a blood loss, not only iron-deficiency anemia, but blood loss with surgery did receive 4 units of packed RBCs postprocedure. LABORATORY STUDIES: Shows a CBC initial H and H 8.7 and 27.6. Following the hip procedure, H and H's fell to 6.0 and 18.5. Repeat study was 6.8 and 21.5. Following transfusion, H and H's were rebounded to 10.4 and 32.9. White cell counts remained stable. Stool for occult blood was noted to be positive. The patient's valproic acid was low at 31. Chemistries on the patient shows initial electrolyte panel to be normal. BUN and creatinine were 21 and 1.52 respectively. Glucose is normal. First set of cardiac enzymes are normal, second set of cardiac enzymes normal, and third set of cardiac enzymes were normal. Blood sugars as high as 200. Potassium fell to 3.3 on 11/24. Final glucose of 120. Final potassium level was 2.6. Final BUN and creatinine 16 and 1.49. The patient was making good progress postprocedure. The patient will be requiring further care. Discussions are being made with case management to transfer to LTAC. The patient was accepted to [facility]. The patient was discharged to that location on 11/29/2018 in stable condition. We will continue on current MARs. We will continue current diabetic diet, transferred with IV access. Activity level as directed by me. The patient will continue to receive postop PT and OT. I will be monitoring the patient's progress on a daily basis. Adjustments were made daily to his protocols. Dictated by NAILA Arauz Rao Smith MD CC/MODL /[id number]
== END 2018-11-29 19:46 | DRG 480 ==
LOC: ER 12:15 → ERHOLD 15:14 → MED/SURG3 16:15 → MED/SURG2 11-17 01:56
PROC: 0QS634Z Reposition Right Upper Femur with Internal Fixation Device, Percutaneous Approach (ICD-10-PCS; principal; 2018-11-16)
PROC: 30233N1 Transfusion of Nonautologous Red Blood Cells into Peripheral Vein, Percutaneous Approach (ICD-10-PCS; 2018-11-17)
PROC: 0DB68ZX Excision of Stomach, Via Natural or Artificial Opening Endoscopic, Diagnostic (ICD-10-PCS; 2018-11-28)
DX: S72.011A Unspecified intracapsular fracture of right femur, initial encounter for closed fracture (principal); I50.23 Acute on chronic systolic (congestive) heart failure; J18.9 Pneumonia, unspecified organism; I13.0 Hypertensive heart and chronic kidney disease with heart failure and stage 1 through stage 4 chronic kidney disease, or unspecified chronic kidney disease; F02.81 Dementia in other diseases classified elsewhere, unspecified severity, with behavioral disturbance; N17.9 Acute kidney failure, unspecified; N18.3 Chronic kidney disease, stage 3 (moderate); I73.9 Peripheral vascular disease, unspecified; Z89.512 Acquired absence of left leg below knee; Z89.511 Acquired absence of right leg below knee; E11.22 Type 2 diabetes mellitus with diabetic chronic kidney disease; K21.9 Gastro-esophageal reflux disease without esophagitis; E78.5 Hyperlipidemia, unspecified; Z85.46 Personal history of malignant neoplasm of prostate; Z85.51 Personal history of malignant neoplasm of bladder; G30.9 Alzheimer's disease, unspecified; Z93.3 Colostomy status; Z95.820 Peripheral vascular angioplasty status with implants and grafts; Z88.8 Allergy status to other drugs, medicaments and biological substances; Z82.49 Family history of ischemic heart disease and other diseases of the circulatory system; S50.312A Abrasion of left elbow, initial encounter; S50.311A Abrasion of right elbow, initial encounter; L89.152 Pressure ulcer of sacral region, stage 2; R21 Rash and other nonspecific skin eruption; E11.51 Type 2 diabetes mellitus with diabetic peripheral angiopathy without gangrene; E11.21 Type 2 diabetes mellitus with diabetic nephropathy; Z95.0 Presence of cardiac pacemaker; Z86.718 Personal history of other venous thrombosis and embolism; Z95.828 Presence of other vascular implants and grafts; Z95.5 Presence of coronary angioplasty implant and graft; K44.9 Diaphragmatic hernia without obstruction or gangrene; K29.70 Gastritis, unspecified, without bleeding; W19.XXXA Unspecified fall, initial encounter; Y92.129 Unspecified place in nursing home as the place of occurrence of the external cause; D63.8 Anemia in other chronic diseases classified elsewhere; K59.00 Constipation, unspecified; E87.6 Hypokalemia; Z79.4 Long term (current) use of insulin
CPT/HCPCS: 36415; 43239; 71045; 74018; 80048; 80053; 80164; 82140; 82150; 82270; 82550; 82553; 82948; 83690; 84484; 85014; 85018; 85025; 85610; 85730; 86850; 86870; 86880; 86900; 86905; 86920; 86922; 88305; 88312; 88313; 93005; 96372; 97139; 97597; 99001; 99284; C1713; J0690; J0692; J1100; J1450; J1630; J1940; J2001; J2270; J2370; J2405; J2550; J2765; J3010; J7042; J7050; P9016